=== PATIENT | male | born 1955 | race Caucasian/White ===

== ENCOUNTER → 2020-01-08 17:02 | Outpatient (CLI) | payer MEDICARE, MEDICAID, SELFPAY ==
[2020-01-08 17:32] LABS: Basophils # 0.1 K/mm3 (0-0.2); Basophils % 0.7 % (0.1-2.0); Eosinophils # 0.2 K/mm3 (0.0-0.4); Eosinophils % 2.7 % (0.1-12.0); Hematocrit 46.6 % (42.0-52.0); Hemoglobin 16.2 g/dL (14.1-18.0); Lymphocytes # 1.8 K/mm3 (0.7-4.5); Lymphocytes % 22.4 % (10-50); Mean Corpuscular HGB Conc 34.7 g/dL (31.8-35.4); Mean Corpuscular Hemoglobin 31.4 pg (27.0-31.2); Mean Corpuscular Volume 90.6 fl (80-94); Monocytes # 0.5 K/mm3 (0.1-1.0); Monocytes % 6.2 % (1.7-9.3); Neutrophils # 5.5 K/mm3 (1.8-7.8); Platelet Count 248 K/mm3 (142-424); Red Blood Count 5.14 M/mm3 (4.60-6.20); Red Cell Distribution Width 13.2 % (11.5-17.5)
[2020-01-08 17:35] LABS: Alanine Aminotransferase 53 U/L (12-78); Albumin Level 4.5 g/dl (3.5-5.0); Albumin/Globulin Ratio 1.5 (1.1-1.8); Alkaline Phosphatase 114 U/L (38-126); Anion Gap 16.2 mEq/L (5-15); Aspartate Amino Transferase 53 U/L (17-59); Bilirubin,Total 0.6 mg/dl (0.2-1.3); Blood Urea Nitrogen 20 mg/dl (9-20); Calcium 10.1 mg/dl (8.4-10.2); Carbon Dioxide 31 mmol/L (22.0-30.0); Chloride 99 mmol/L (98-107); Cholesterol 176 mg/dl (140-200); Estimated Glomerular Filt Rate 113 ml/min (>60); GFR (African American) 137 ML/MIN (>60); Globulin 3.1 g/dL (1.3-3.2); Glucose 202 mg/dl (74-100); HDL Cholesterol 35 mg/dl (40-60); Potassium 4.2 mmoL/L (3.5-5.1); Sodium 142 mmol/L (136-145); Total Protein,Serum 7.6 g/dl (6.3-8.2); Triglycerides 397 mg/dl (30-150); VLDL Cholesterol 79 mg/dL (0-40)
[2020-01-08 17:46] LABS: Direct LDL Cholesterol 93.95 mg/dL (100-129)
[2020-01-08 18:05] LABS: Prostate Specific Ag Screen 0.8 ng/ml (0.0-4.0)
[2020-01-08 19:34] LABS: Hemoglobin A1C 11.8 % (4.0-6.0)
[2020-01-08 22:41] LABS: Creatinine,Urine Random 53 mg/dL (Not Estab.)
[2020-01-08 22:52] LABS: Microalbumin < 6.000 mg/L (0-16.7)
== END ==
PROVIDERS: Visit Provider Family Medicine
DX: E11.9 Type 2 diabetes mellitus without complications (principal); Z12.5 Encounter for screening for malignant neoplasm of prostate; Z79.4 Long term (current) use of insulin
CPT/HCPCS: 80053; 80061; 82043; 82570; 83036; 85025; G0103

== ENCOUNTER 2020-04-15 11:53 | Inpatient (IN) | payer MEDICARE, MEDICAID, SELFPAY ==
[2020-04-15] VITALS (9 sets, daily range): BP systolic 115–157; BP diastolic 55–83; PULSE 71–89; RESP 16–37; TEMP 36.4–39.2; O2SAT 52–98; BMI 50.2; BMI 39.5
--- NOTE | 2020-04-15 12:16 | XR_ITS ---
PROCEDURE: XR CHEST PORTABLE CLINICAL HISTORY: soa COMPARISON: No exams were available for comparison FINDINGS: The lung chirinos are well expanded. Diffuse ill-defined patchy pneumonic infiltrates are seen in both perihilar regions and both lower lobes with minimal extension into the anterior segments upper lobes as well. There is mild generalized cardiomegaly. The pulmonary vascularity is somewhat difficult to evaluate due to the overlying pneumonic infiltrates but there is no obvious pulmonary congestion. There is no pleural fluid. There are monitor lines overlying the chest. IMPRESSION: Prominent diffuse bilateral perihilar and lower lobe pneumonic infiltrates and certainly Covid must be considered. Dictated by: Dr. Cameron Mckinley MD 04/16/2020 13:25 Dr. Cameron Mckinley MD in [place] 04/16/2020 13:25
--- NOTE | 2020-04-15 12:20 | HMH.EDSOB ---
ED Disposition Clinical Impression: Pneumonia due to COVID-19 virus, Hypoxia Disposition: Admitted As Inpatient Condition on Discharge: Good - Critical Care Critical Care Time: No Attestation: On 04/15/20, the high probability of a clinically significant, sudden or life threatening deterioration of the following system(s) required my full and direct attention, intervention and personal management. The time I documented below is in addition to time spent performing reported procedures but includes the following listed in this critical care notation. Medical Decision Making - Medical Records Medical records reviewed: Yes: I reviewed the patient's medical records. MR Comment: Patient's medical history reviewed for past medications and previous laboratory data for comparison. - [place] Inquiry Pt receiving controlled substance: No Vital Signs: 04/15/20 11:55 04/15/20 12:55 04/15/20 14:30 Temperature 102.6 F H Temperature Source Oral Pulse Rate [Left Radial] 82 89 79 Respiratory Rate 37 H 16 20 Blood Pressure [Right Arm] 157/73 H 128/64 122/68 Blood Pressure Mean [Right Arm] 101 85 86 Blood Pressure Source [Right Arm] Automatic Cuff Automatic Cuff Blood Pressure Position [Right Arm] Sitting Sitting 02 Sat by Pulse Oximetry 52 L 96 94 L Oxygen Delivery Method Room Air Nasal Cannula Nasal Cannula Oxygen Flow Rate (LPM) 2 6 04/15/20 15:10 04/15/20 16:30 Temperature Temperature Source Pulse Rate [Left Radial] 76 76 Respiratory Rate 20 20 Blood Pressure [Right Arm] 119/55 L 126/70 Blood Pressure Mean [Right Arm] 76 88 Blood Pressure Source [Right Arm] Automatic Cuff Automatic Cuff Blood Pressure Position [Right Arm] Sitting Sitting 02 Sat by Pulse Oximetry 86 L 98 Oxygen Delivery Method Nasal Cannula Nasal Cannula Oxygen Flow Rate (LPM) 2 6 - Lab Data Lab Results 04/15/20 12:10: WBC 9.8, RBC 4.77, Hgb 15.0, Hct 43.9, MCV 91.9, MCH 31.3 H, MCHC 34.1, RDW 13.4, Plt Count 293, MPV 9.9, Neut % (Auto) 76.4, Lymph % (Auto) 16.5, [place] % (Auto) 6.7, Eos % (Auto) 0.0 L, Baso % (Auto) 0.3, Neut # (Auto) 7.5, Lymph # (Auto) 1.6, [place] # (Auto) 0.7, Eos # (Auto) 0.0, Baso # (Auto) 0.0 04/15/20 12:10: Sodium 137, Potassium 4.4, Chloride 97 L, Carbon Dioxide 26, Anion Gap 18.4 H, BUN 16, Creatinine 1.00, Estimated Creat Clear 76, Estimated GFR 75, Est GFR ( Amer) 91, Glucose 246 H, Calcium 8.9, Total Bilirubin 1.1, AST 183 H, ALT 106 H, Alkaline Phosphatase 80, Total Protein 7.8, Albumin 4.2, Globulin 3.6 H, Albumin/Globulin Ratio 1.2 04/15/20 12:10: Lactate 3.6 H 04/15/20 12:10: NT-Pro-B Natriuret Pep 2280 H 04/15/20 12:10: SARS-CoV-2 IgG Ab (Rapid) Negative, SARS-CoV-2 IgM Ab (Rapid) Negative 04/15/20 12:16: Specimen Source Left radial, O2 % nrb, ABG pH 7.37, ABG pCO2 39.2, ABG pO2 67.0 L, ABG HCO3 22.0, ABG Total CO2 23.2, ABG O2 Saturation 93, ABG Base Excess -3.3 L, Branden Test Acceptable 04/15/20 12:57: Chlamy pneumoniae PCR Not detected, Adenovirus (PCR) Not detected, B. pertussis DNA (PCR) Not detected, Coronavirus OC43 (PCR) Not detected, Coronavirus HKU1 (PCR) Not detected, Coronavirus 229E (PCR) Not detected, SARS-CoV-2 (PCR) Detected A, Coronavirus NL63 (PCR) Not detected, Human Metapneumovir PCR Not detected, Influenza A (H1) PCR Not detected, Influ A (H1N1/09) PCR Not detected, Influenza A (H3) PCR Not detected, Influenza Type A (PCR) Not detected, Influenza Type B (PCR) Not detected, M. pneumoniae (PCR) Not detected, Parainfluenza 1 (PCR) Not detected, Parainfluenza 2 (PCR) Not detected, Parainfluenza 3 (PCR) Not detected, Parainfluenza 4 (PCR) Not detected, RSV (PCR) Not detected, Entero/Rhino (PCR) Not detected 04/15/20 16:35: Lactate 1.4 Result diagrams: 04/15/20 12:10 04/15/20 12:10 Orders (Tests/Meds): ED MEDICATIONS Generic Name Dose Route Start Last Admin Trade Name Freq PRN Reason Stop Dose Admin Aspirin 81 mg 04/16/20 09:00 Aspirin Ec 81mg Tablet PO 05/16/20 08:59 DAILY AURA
[2020-04-15 12:26] LABS: Basophils % 0.3 % (0.1-2.0); Hematocrit 43.9 % (42.0-52.0); Lymphocytes # 1.6 K/mm3 (0.7-4.5); Lymphocytes % 16.5 % (10-50); Mean Corpuscular HGB Conc 34.1 g/dL (31.8-35.4); Mean Corpuscular Hemoglobin 31.3 pg (27.0-31.2); Mean Corpuscular Volume 91.9 fl (80-94); Mean Platelet Volume 9.9 fl (7.4-10.4); Monocytes # 0.7 K/mm3 (0.1-1.0); Monocytes % 6.7 % (1.7-9.3); Neutrophils # 7.5 K/mm3 (1.8-7.8); Neutrophils % 76.4 % (37.0-80.0); Platelet Count 293 K/mm3 (142-424); Red Blood Count 4.77 M/mm3 (4.60-6.20); Red Cell Distribution Width 13.4 % (11.5-17.5); White Blood Count 9.8 K/mm3 (4.8-10.8)
[2020-04-15 12:30] LABS: Chloride 97 mmol/L (98-107); Potassium 4.4 mmoL/L (3.5-5.1); Sodium 137 mmol/L (136-145)
[2020-04-15 12:32] LABS: Blood Urea Nitrogen 16 mg/dl (9-20); Creatinine Clearance Estimated 76 mL/min (50-200); Estimated Glomerular Filt Rate 75 ml/min (>60); GFR (African American) 91 ML/MIN (>60)
[2020-04-15 12:33] LABS: Alanine Aminotransferase 106 U/L (12-78); Albumin Level 4.2 g/dl (3.5-5.0); Albumin/Globulin Ratio 1.2 (1.1-1.8); Alkaline Phosphatase 80 U/L (38-126); Anion Gap 18.4 mEq/L (5-15); Aspartate Amino Transferase 183 U/L (17-59); Bilirubin,Total 1.1 mg/dl (0.2-1.3); Calcium 8.9 mg/dl (8.4-10.2); Carbon Dioxide 26 mmol/L (22.0-30.0); Globulin 3.6 g/dL (1.3-3.2); Glucose 246 mg/dl (74-100); Total Protein,Serum 7.8 g/dl (6.3-8.2)
[2020-04-15 12:39] LABS: ABG Base Excess -3.3 mmol/L (-2.4-2.3); ABG Oxygen Saturation 93 % (90-100); ABG PCO2 39.2 mmhg (35.0-45.0); ABG PH 7.37 mmol/L (7.35-7.45); ABG TCO2 23.2 mmhg (23-27)
[2020-04-15 12:39] LABS: Lactic Acid 3.6 mmol/L (0.7-2.1)
[2020-04-15 12:41] LABS: Allen's Test Acceptable; Oxygen nrb %; Source Left Radial
[2020-04-15 12:47] LABS: NT Pro Brain Natriuretic Pep. 2280 pg/mL (0-125)
--- NOTE | 2020-04-15 12:55 | PC.NURSE ---
spoke with DR regarding fluid bolus we are gonna hold off for right now,
[2020-04-15 12:57] LABS: Coronavirus 19 IgG Antibody Negative (Negative); Coronavirus 19 IgM Antibody Negative (Negative)
[2020-04-15 13:57] LABS: Adenovirus,PCR Not Detected (NotDetected); Bordetella Pertussis Not Detected (NotDetected); Chlamydophila Pneumoniae, PCR Not Detected (NotDetected); Coronavirus 229E Not Detected (NotDetected); Coronavirus NL63 Not Detected (NotDetected); Coronavirus OC43 Not Detected (NotDetected); Coronovirus HKU1,PCR Not Detected (NotDetected); Human Metapneumovirus Not Detected (NotDetected); Influenza A, PCR Not Detected (NotDetected); Influenza AH1, 2009 Not Detected (NotDetected); Influenza AH1, PCR Not Detected (NotDetected); Influenza AH3,PCR Not Detected (NotDetected); Influenza B, PCR Not Detected (NotDetected); Mycoplasma Pneumoniae, PCR Not Detected (NotDetected); Parainfluenza 1, PCR Not Detected (NotDetected); Parainfluenza 2, PCR Not Detected (NotDetected); Parainfluenza 3, PCR Not Detected (NotDetected); Parainfluenza 4, PCR Not Detected (NotDetected); Respiratory Syncytial Virus Not Detected (NotDetected); Rhinovirus/Enterovirus Not Detected (NotDetected)
--- NOTE | 2020-04-15 16:16 | PC.NURSE ---
Pt updated about covid test still about 35 minutes before it is resulted
[2020-04-15 16:22] LABS: Reflex Lactic Add Lactic Reflex
[2020-04-15 16:52] LABS: Lactic Acid Follow Up (RFLX 1) 1.4 mmol/L (0.7-2.1)
[2020-04-15 17:10] LABS: Coronavirus 19, PCR Detected (NotDetected)
--- NOTE | 2020-04-15 17:20 | PC.NURSE ---
House aware of pt admission
--- NOTE | 2020-04-15 18:37 | PC.NURSE ---
spoke with dr. guan, d/c ivf.
--- NOTE | 2020-04-15 20:03 | HMH.HP ---
*Admission Date: 04/15/20 *Chief complaint: dyspnea and covid pneumonia *History of present illness: Male with a history of diabetes and congestive heart failure as well as CAD who presents with fever and shortness of breath and cough for the past 3 days. Shortness of breath became significantly worse last night and gave him a breathing treatment which did not help. He had a fall last night with no significant injuries. Patient has become progressively weaker related to shortness of breath. 64-year-old male who presents with severe respiratory distress initially hypoxic that recovers on 6 L nasal cannula. Patient appears mottled but has hemodynamically stable vital signs is cool to touch. Differential includes pneumonia, COVID-19 pneumonia, CHF exacerbation, pulmonary embolism, and others. Chest x-ray is ordered and further laboratory data includes CBC, CMP, BNP, ABG, lactate. Chest x-ray demonstrates significant patchy opacities and pulmonary edema consistent with CHF/COVID-19 dual process. His BNP is elevated greater than 2000 however he does not have significant pedal edema or evidence of right volume overload. Patient is febrile and a lactate of 3.5 however will not initiate sepsis protocol at this time due to suspicion for hypoxia related lactate increase and hemodynamically stable vital signs. Repeat lactate improved with oxygen therapy to normal levels. The decision was also made not to give him the sepsis protocol fluid boluses due to normal vital signs and progressive CHF and concern for ards. Patient was determined to be positive for COVID-19. He was admitted to the hospital service for further management at this time. Patient remained stable throughout the duration of ED care. Mr. Alamo was seen earlier this morning in the office, subsequently sent to the emergency room. He was acutely ill and had low saturations on room air. He has several comorbid conditions including coronary artery disease, CHF, controlled diabetes, chronic pain, obesity, hypertension. Chest x-ray report is pending. Visual examination reveals patchy infiltration throughout, more notable on the right. There is some cardiomegaly and possible volume overload. [facility] History Medical History: Reports:: Congestive Heart Failure, Coronary Artery Disease, Diabetes Mellitus Type 1, Diabetes Mellitus Type 2, Gastroesophageal Reflux Disease(GERD), Hypertension, Myocardial Infarction *Have you ever received a pneumonia vaccine?: No *Have you received a flu vaccine this season?: Yes Laterality Cases: Left: Total Hip Replacement Other Surgeries: Yes: Cardiac Catheterization, Colonoscopy, Coronary Stent, Other Amputation: No Fractures: No - *Social History Last grade of school completed: 11th or 12th Smoking Status: Former smoker Alcohol Intake: never Alcohol Intake Frequency:: holidays/special occasions only Substance Use Type: denies use *Occupational Status:: disabled Housing: house Household Members: family *Travel in the last 8 weeks: None Family Hx:: Cancer, Heart Attack, Diabetes, Hypertension Review of Systems - Constitutional Reports body ache(s), Reports chills, Reports night sweats, Reports weakness - Eyes Denies change in vision - ENT Denies abnormal hearing - *Cardiovascular Reports shortness of breath with activity, Reports generalized swelling, Denies chest pain - *Respiratory Reports chest congestion, Reports cough, Reports shortness of breath - *Gastrointestinal Denies abdominal pain - *Genitourinary Denies difficulty urinating - *Musculoskeletal Reports muscle weakness, Reports body aches - Integumentary/Breasts Denies changing lesions, Denies new lesions, Denies rash - *Neurologic Reports dizziness, Reports frequent falls, Denies abnormal hearing - Psychiatric Reports difficulty concentrating - Endocrine Reports excessive sweating - Hematologic/Lymphatic Denies easy bleeding - Allergic/Immunologic Denies whe
--- NOTE | 2020-04-15 21:20 | PC.NURSE ---
spoke with jacob from pharmacy. he informed me that dr Garza and Candelaria had already spoke about consult for remdesivir. they will take care of this in AM. also vitamin D2 unavailable to give tonight and will be retime in AM
[2020-04-15 22:40] LABS: POC Glucose,Bedside 279 (70-110)
[2020-04-16] VITALS (11 sets, daily range): BP systolic 108–135; BP diastolic 48–76; PULSE 68–90; RESP 18–28; TEMP 36.2–36.9; O2SAT 88–95; BMI 37.8; BMI 37.7
[2020-04-16 05:25] LABS: POC Glucose,Bedside 306 (70-110)
--- NOTE | 2020-04-16 05:56 | PC.NURSE ---
Pt A&OX4. crackles noted throughout lungs. pt weaned from 6L to 3L via NC 93-95% pt does desat with exertion but recovers quickly. pt voids per urinal and BSC. pt received 40mg lasix last night and has voided 1900 ml this shift. 18G LAC SL. call light within reach
[2020-04-16 07:32] LABS: Basophils # 0.1 K/mm3 (0-0.2); Basophils % 0.5 % (0.1-2.0); Eosinophils % 0.1 % (0.1-12.0); Hematocrit 45.4 % (42.0-52.0); Hemoglobin 14.8 g/dL (14.1-18.0); Lymphocytes # 1.5 K/mm3 (0.7-4.5); Lymphocytes % 15.9 % (10-50); Mean Corpuscular HGB Conc 32.7 g/dL (31.8-35.4); Mean Corpuscular Hemoglobin 30.9 pg (27.0-31.2); Mean Corpuscular Volume 94.3 fl (80-94); Monocytes # 0.6 K/mm3 (0.1-1.0); Monocytes % 6.7 % (1.7-9.3); Neutrophils # 7.3 K/mm3 (1.8-7.8); Neutrophils % 76.7 % (37.0-80.0); Platelet Count 276 K/mm3 (142-424); Red Blood Count 4.81 M/mm3 (4.60-6.20); Red Cell Distribution Width 13.2 % (11.5-17.5); White Blood Count 9.5 K/mm3 (4.8-10.8)
--- NOTE | 2020-04-16 07:34 | P.CONPHA_ITS ---
[facility] Pharmacy VTE Monitoring - Patient Demographics Admission date: 04/15/20 Report Date: 04/16/20 Time: 07:34 Allergies/Adverse Reactions: Patient Allergies lisinopril Allergy (Severe, Verified 04/15/20 11:21) blisters codeine Allergy (Verified 04/15/20 12:14) exenatide [From Bydureon] Adverse Reaction (Severe, Verified 04/15/20 11:21) abdominal wall rash acetaminophen Adverse Reaction (Verified 04/15/20 18:37) Height: 1.85 m Weight: 129.416 kg Patient Problems: Current Active Problems Pneumonia due to COVID-19 virus (Acute) Hypoxia (Acute) Obesity (Chronic) CAD (coronary artery disease) (Chronic) Stented coronary artery (Chronic) Chronic pain (Chronic) Hip joint replacement status (Chronic) Hypertension (Chronic) Diabetes (Chronic) - VTE Risk Labs: VTE Related Lab Results Hgb 15.0 g/dL (14.1-18.0) 04/15/20 12:10 Hct 43.9 % (42.0-52.0) 04/15/20 12:10 Plt Count 293 K/mm3 (142-424) 04/15/20 12:10 BUN 16 mg/dl (9-20) 04/15/20 12:10 Creatinine 1.00 mg/dl (0.66-1.25) 04/15/20 12:10 Estimated Creat Clear 76 mL/min (50-200) 04/15/20 12:10 VTE Score: 8 VTE Risk Level: Moderate Risk - Prophylaxis VTE Prophylaxis Ordered?: Yes Types of VTE Prophylaxis: IPCS Thigh High, Pharmacological Location of Applied Device: Bilateral Lower Extremeties Pharmacologic Type: Enoxaparin
--- NOTE | 2020-04-16 08:12 | CA_ITS ---
APPROVED REPORT EXAM: Comprehensive 2D, Doppler, and color-flow Echocardiogram [employer]er: Niyah Vizcarra RVT Ht: 6 ft 0 in Wt: 285lbs BSA: 2.48 BP: 110/70 mmHg Indications: COVID PNEUMONIA,SOA,HTN,DM,EX SMOKER,CHF,STENT, HX CO,OBESITY TDS-BODY HABITUS AND SOA 2D Dimensions LVOT 1.90 cm (M/F) 1.5-2.5 M-Mode Dimensions RVDd 3.44 cm (0.9-2.6) LA Diam 4.36 cm (1.9-4.0) LVDd 5.09 cm (3.5-5.7) Ao Diam 2.78 cm (2.0-3.7) LVDs 3.60 cm (3.5-5.7) IVSd 1.52 cm (0.6-1.1) PWd 1.32 cm (0.6-1.1) EF (Teich) 55.80% FS 29.30% EDV (Teich) 123.20 mL ESV (Teich) 54.40 mL LV Diastology E Decel Time 163.00 (160-240 msec) E/A Ratio 1.3 MED E' 9.20 (< 7 cm/sec) E'/MED E' Ratio 8.45 (>14) LAT E' 9.30 (<10 cm/sec) E/LAT E' Ratio 8.35 (>14) Mitral Valve MV E Max Claudio. 78.00 (40-130 cm/s) MV A Velocity 60.00 (40-130 cm/s) E/A Ratio 1.29 MV Decel. Time 163.00 (160-240 ms) MV PHT 48.00 ms Pulmonary Valve PV Peak Velocity 120.00 (50-150 cm/s) Left Ventricle Technically difficult study because of the patient factors and poor acoustic windows. Left atrium is mildly enlarged, left ventricle is normal size, mild concentric left ventricular hypertrophy, visually estimated ejection fraction 40 to 45%, there is marked hypokinesis involving mid to distal septum and anterior apical wall. Diastolic parameters are inconclusive. Right Ventricle Right atrium and right ventricle are mildly enlarged with normal contractility. Aortic Valve Aortic valve is minimally thickened and fibrosed, there is no aortic stenosis or aortic insufficiency. Mitral Valve Mitral valve is grossly normal, there is mild mitral regurgitation. Tricuspid Valve Tricuspid valve is grossly normal, there is mild tricuspid regurgitation, tricuspid regurgitation jet velocity is inadequate for calculation of the right ventricular systolic pressure. Pulmonic Valve Pulmonic valve is poorly visualized. Great Vessels Aortic root is normal size. Pericardium No significant pericardial effusion noted. Conclusion 1. Technically difficult study because of the patient factors and poor acoustic windows. 2. Mild biatrial enlargement, normal left ventricular size, mild concentric left ventricular hypertrophy, visually estimated ejection fraction 40 to 45% with multiple segmental wall motion abnormality described above. Diastolic parameters are inconclusive. 3. Mildly enlarged right ventricle with normal contractility. 4. Mild mitral and tricuspid regurgitation. 5. No significant pericardial effusion noted. Electronically signed by : Boyd Dougherty, 04/16/2020 12:59:41
[2020-04-16 08:25] LABS: Chloride 98 mmol/L (98-107); Sodium 140 mmol/L (136-145)
[2020-04-16 08:26] LABS: Potassium 4.5 mmoL/L (3.5-5.1)
[2020-04-16 08:29] LABS: Anion Gap 17.5 mEq/L (5-15); Blood Urea Nitrogen 28 mg/dl (9-20); Calcium 9.1 mg/dl (8.4-10.2); Carbon Dioxide 29 mmol/L (22.0-30.0); Creatinine Clearance Estimated 135 mL/min (50-200); Estimated Glomerular Filt Rate 85 ml/min (>60); GFR (African American) 102 ML/MIN (>60); Glucose 337 mg/dl (74-100); Magnesium 2.6 mg/dl (1.6-2.3)
[2020-04-16 11:52] LABS: POC Glucose,Bedside 292 (70-110)
--- NOTE | 2020-04-16 13:20 | HMH.ACPN2 ---
Internal Medicine - PN: Subj *Date: 04/16/20 *Time: 15:42 Interval history: 64 YOM sitting up in bed, reports some SOA during night, currently O2 saturation 94% 0n 4L NC. Exam Vital signs and Labs for Last 24 Hours: Temp Pulse Resp BP Pulse Ox 97.3 F L 79 20 118/76 88 L 04/16/20 12:00 04/16/20 12:00 04/16/20 12:00 04/16/20 12:00 04/16/20 12:00 Laboratory Results - last 24 hr 04/15/20 12:57: Chlamy pneumoniae PCR Not detected, Adenovirus (PCR) Not detected, B. pertussis DNA (PCR) Not detected, Coronavirus OC43 (PCR) Not detected, Coronavirus HKU1 (PCR) Not detected, Coronavirus 229E (PCR) Not detected, SARS-CoV-2 (PCR) Detected A, Coronavirus NL63 (PCR) Not detected, Human Metapneumovir PCR Not detected, Influenza A (H1) PCR Not detected, Influ A (H1N1/09) PCR Not detected, Influenza A (H3) PCR Not detected, Influenza Type A (PCR) Not detected, Influenza Type B (PCR) Not detected, M. pneumoniae (PCR) Not detected, Parainfluenza 1 (PCR) Not detected, Parainfluenza 2 (PCR) Not detected, Parainfluenza 3 (PCR) Not detected, Parainfluenza 4 (PCR) Not detected, RSV (PCR) Not detected, Entero/Rhino (PCR) Not detected 04/15/20 16:35: Lactate 1.4 04/15/20 19:50: POC Glucose 279 H 04/16/20 05:17: POC Glucose 306 H* 04/16/20 05:52: WBC 9.5, RBC 4.81, Hgb 14.8, Hct 45.4, MCV 94.3 H, MCH 30.9, MCHC 32.7, RDW 13.2, Plt Count 276, MPV 10.0, Neut % (Auto) 76.7, Lymph % (Auto) 15.9, [place] % (Auto) 6.7, Eos % (Auto) 0.1, Baso % (Auto) 0.5, Neut # (Auto) 7.3, Lymph # (Auto) 1.5, [place] # (Auto) 0.6, Eos # (Auto) 0.0, Baso # (Auto) 0.1 04/16/20 08:00: Sodium 140, Potassium 4.5, Chloride 98, Carbon Dioxide 29, Anion Gap 17.5 H, BUN 28 H D, Creatinine 0.90, Estimated Creat Clear 135, Estimated GFR 85, Est GFR ( Amer) 102, Glucose 337 H D, Calcium 9.1, Magnesium 2.6 H 04/16/20 11:44: POC Glucose 292 H I & O for Last 24 hours: Intake & Output 04/13/20 04/14/20 04/15/20 04/16/20 23:59 23:59 23:59 23:59 Intake Total 240 / 240 1460 / 1460 Output Total 700 / 700 1650 / 1650 Balance -460 / -460 -190 / -190 Weight 291 lb 7 oz 284 lb 6.341 oz - Constitutional mild distress - *Routine HEENT Exam Head: Present: normocephalic ENT: Present: mucous membranes moist - *Routine Neck Exam Present: full ROM, trachea midline. Absent: JVD, tracheal deviation - *Routine Respiratory Exam Present: rales - *Routine Cardiovascular Exam Present: RRR - *Routine Abdominal Exam Present: soft, normoactive bowel sounds. Absent: tenderness, firm - *Routine Extremities Exam Present: edema, full ROM, pulses intact. Absent: clubbing, calf tenderness - *Routine Skin Exam Present: intact, dry, warm. Absent: jaundice - *Routine Neurological Exam Present: alert, oriented X3, CN II-XII intact. Absent: altered mental status - Routine Psychiatric Exam Present: normal affect, normal thought process. Absent: homicidal ideation Assessment and Plan (1) Hypoxia Status: Acute Category: Medical Code(s): R09.02 - Hypoxemia (2) Pneumonia due to COVID-19 virus Status: Acute Category: Medical Code(s): U07.1 - COVID-19; J12.89 - Other viral pneumonia (3) CAD (coronary artery disease) Status: Chronic Qualifiers: Coronary Disease-Associated Artery/Lesion type: [place] artery [place] vs. transplanted heart: [place] heart Associated angina: without angina Qualified Code(s): I25.10 - Atherosclerotic heart disease of [place] coronary artery without angina pectoris Category: Medical Code(s): I25.10 - Atherosclerotic heart disease of [place] coronary artery without angina pectoris (4) Chronic pain Status: Chronic Qualifiers: Chronic pain type: other chronic pain Qualified Code(s): G89.29 - Other chronic pain Category: Medical Code(s): G89.29 - Other chronic pain (5) Diabetes Status: Chronic Qualifiers: Diabetes mellitus type: type 2 Diabetes mellitus long-term insulin use: with long-term
--- NOTE | 2020-04-16 14:49 | PC.NURSE ---
PT IS SITTING UP ON THE SOB AT THIS TIME. O2 SATURATION 87-92% ON 4 L NC ( AWARE) PT STATES HE DOES NOT FEEL SOA. PT HAS BEEN ABLE TO GET UP TO THE BSC TO VOID. EATING AND DRINKING WELL. LUNG SOUNDS DIMINISHED WITH FINE CRACKLES IN THE LT BASE. ABDOMEN ROUND/NON TENDER WITH ACTIVE BOWEL SOUNDS AND BRUISING NOTED. PT STATES THE BRUISING ON HIS ABDOMEN WAS FROM VITAMIN D INJECTIONS. 1 + NON PITTING EDEMA NOTED TO BLE. VSS. WILL CONTINUE TO MONITOR.
--- NOTE | 2020-04-16 15:23 | HMH.PULMCON ---
*Admission Date: 04/15/20 *Reason for consult:: Acute hypoxic respiratory failure, COVID-19 pneumonia *History of present illness: Mr. Alamo is a 64-year-old male with a history of obesity, prior smoker more than [id number] smoking history last smoked 15 years ago prior history of CAD status post stenting was presented to Dr. Garza clinic yesterday with worsening weakness body aches cough and shortness of breath and he was eventually admitted to the hospital and was found to be positive for COVID-19 pneumonia. And pulmonary was called for further management. Further questioning patient complains of 3 to 4-day duration of worsening weakness and fatigue along with cough with productive phlegm which is mostly whitish except for intermittent yellow in color. Patient also admits subjective fevers and chills. [facility] History Medical History: Reports:: Congestive Heart Failure, Coronary Artery Disease, Diabetes Mellitus Type 1, Diabetes Mellitus Type 2, Gastroesophageal Reflux Disease(GERD), Hypertension, Myocardial Infarction *Have you ever received a pneumonia vaccine?: No *Have you received a flu vaccine this season?: Yes Laterality Cases: Left: Total Hip Replacement Other Surgeries: Yes: Cardiac Catheterization, Colonoscopy, Coronary Stent, Other Amputation: No Fractures: No - *Social History Last grade of school completed: 11th or 12th Smoking Status: Former smoker Alcohol Intake: never Alcohol Intake Frequency:: holidays/special occasions only Substance Use Type: denies use *Occupational Status:: disabled Housing: house Household Members: family *Travel in the last 8 weeks: None Family Hx:: Cancer, Heart Attack, Diabetes, Hypertension ROS - Cons Reports chills, Denies anorexia, Denies body ache(s) - ENT Denies abnormal hearing - Card Reports shortness of breath, Reports shortness of breath with activity, Reports leg swelling - Resp Respiratory: Yes cough, Yes dyspnea, Yes dyspnea on exertion, No coughing up blood, No pain on inspiration, No pain with cough, Yes cough with sputum production, No pain with breathing - GI Gastrointestingal: Denies: change in bowel habits - [place] Musculoskeletal: Reports system reviewed and no additional complaints, except as docu Meds Home Medications Medication Instructions Recorded Confirmed Type aspirin 81 mg tablet,delayed 81 mg PO DAILY 01/08/20 04/15/20 History release atorvastatin 40 mg tablet 40 mg PO HS 01/08/20 04/16/20 History clopidogrel 75 mg tablet 75 mg PO DAILY 01/08/20 04/15/20 History dapagliflozin 10 mg tablet 10 mg PO DAILY 01/08/20 04/15/20 History losartan 100 mg tablet 100 mg PO DAILY 01/08/20 04/15/20 History metformin 1,000 mg tablet 1,000 mg PO BID 01/08/20 04/15/20 History metoprolol tartrate 100 mg tablet 100 mg PO BID 01/08/20 04/15/20 History pantoprazole 40 mg tablet,delayed 40 mg PO DAILY 01/08/20 04/15/20 History release oxycodone 5 mg tablet 5 mg PO BID PRN #60 tab 03/08/20 04/15/20 Rx Furosemide [Furosemide 40MG tAB*] 40 mg PO DAILY 04/15/20 04/15/20 History Insulin Glargine,Hum.rec.anlog 40 unit SQ QAM 04/15/20 04/15/20 History [Basaglar KwikPen U-100 Insulin] Dulaglutide [Trulicity] 0.75 mg SQ WEEKLY 04/16/20 04/16/20 History Fenofibrate Nanocrystallized 145 mg PO DAILY 04/16/20 04/16/20 History [Fenofibrate] Insulin Lispro [Admelog Solostar] 50 unit SQ TID 04/16/20 04/16/20 History Allergies Allergy/AdvReac Type Severity Reaction Status Date / Time lisinopril Allergy Severe blisters Verified 04/15/20 11:21 codeine Allergy Verified 04/15/20 12:14 exenatide [From Bydureon] AdvReac Severe abdominal Verified 04/15/20 11:21 wall rash acetaminophen AdvReac Verified 04/15/20 18:37 Exam Radiology reports for Last 24 Hours: Chest x-ray showed bilateral diffuse patchy airspace disease - Constitutional Constitutional:: no acute distress, comfortable, healthy appearing - HENUT Exam HENUT: normocephalic, atraumatic - Eye E
[2020-04-16 16:33] LABS: POC Glucose,Bedside 387 (70-110)
[2020-04-16 20:11] LABS: POC Glucose,Bedside 346 (70-110)
[2020-04-17] VITALS (16 sets, daily range): BP systolic 112–144; BP diastolic 47–75; PULSE 74–89; RESP 20–24; TEMP 36.7–37; O2SAT 88–98; BMI 37.9
--- NOTE | 2020-04-17 01:15 | PC.NURSE ---
Addendum entered by Serjio Campbell RN 04/17/20 02:35: R 30 02 sats 80-85 % on 6L Original Note: @ 0100 pt O2 sat dropping pt c/o of SOA. duoneb administere. paged RT for vapotherm to be started. Vapotherm setting 50% 40L. Dr cummings updated on pt status.
--- NOTE | 2020-04-17 02:36 | PC.NURSE ---
pt now sitting up in recliner O2 sat 93% on vapotherm Respirations 22. pt states SOA is better.
--- NOTE | 2020-04-17 03:49 | PC.NURSE ---
PT A&OX4 lungs diminished throughout. pt on vapotherm 50% 40L O2 sat 93 %. pt voids per BSC. pt sitting up in recliner @ this time. call light within reach
[2020-04-17 05:25] LABS: Basophils # 0.1 K/mm3 (0-0.2); Basophils % 0.5 % (0.1-2.0); Eosinophils # 0.2 K/mm3 (0.0-0.4); Eosinophils % 1.5 % (0.1-12.0); Hematocrit 41.5 % (42.0-52.0); Hemoglobin 14.4 g/dL (14.1-18.0); Mean Corpuscular HGB Conc 34.6 g/dL (31.8-35.4); Mean Corpuscular Hemoglobin 31.9 pg (27.0-31.2); Mean Corpuscular Volume 92.1 fl (80-94); Mean Platelet Volume 9.9 fl (7.4-10.4); Monocytes # 0.6 K/mm3 (0.1-1.0); Monocytes % 4.5 % (1.7-9.3); Neutrophils # 10.6 K/mm3 (1.8-7.8); Neutrophils % 85.5 % (37.0-80.0); Platelet Count 330 K/mm3 (142-424); Red Blood Count 4.51 M/mm3 (4.60-6.20); White Blood Count 12.5 K/mm3 (4.8-10.8)
[2020-04-17 05:27] LABS: MANUAL DIFFERENTIAL MANUAL DIFFERENTIAL (MANUAL DIFF)
[2020-04-17 05:33] LABS: POC Glucose,Bedside 298 (70-110)
[2020-04-17 05:37] LABS: Alanine Aminotransferase 59 U/L (12-78); Albumin Level 3.4 g/dl (3.5-5.0); Albumin/Globulin Ratio 1.2 (1.1-1.8); Alkaline Phosphatase 113 U/L (38-126); Anion Gap 15.1 mEq/L (5-15); Aspartate Amino Transferase 55 U/L (17-59); Bilirubin,Total 0.5 mg/dl (0.2-1.3); Blood Urea Nitrogen 23 mg/dl (9-20); Calcium 8.7 mg/dl (8.4-10.2); Carbon Dioxide 31 mmol/L (22.0-30.0); Chloride 98 mmol/L (98-107); Creatinine Clearance Estimated 134 mL/min (50-200); Estimated Glomerular Filt Rate 113 ml/min (>60); GFR (African American) 137 ML/MIN (>60); Globulin 2.8 g/dL (1.3-3.2); Glucose 294 mg/dl (74-100); Magnesium 2.4 mg/dl (1.6-2.3); Potassium 4.1 mmoL/L (3.5-5.1); Sodium 140 mmol/L (136-145); Total Protein,Serum 6.2 g/dl (6.3-8.2)
[2020-04-17 05:40] LABS: Lymphocytes % 4 % (10-50); Neutrophils % 88 % (42-76); Total Cells Counted 100
[2020-04-17 05:41] LABS: Platelet Estimate Normal; RBC Morphology Normal
--- NOTE | 2020-04-17 06:01 | XR_ITS ---
PROCEDURE: XR CHEST PORTABLE Referring Doctor: Rafiq Valente Patient Age:64Y CLINICAL HISTORY: SOA COVID 19 dyspnea COMPARISON: CR XR CHEST PORTABLE from 04/15/2020 FINDINGS: Today's portable AP upright portable CXR, is compared to 04/15/2020 P CXR. Diffuse ill-defined patchy pneumonic infiltrates are seen bilaterally. The infiltrates most pronounced incomplete Lue in periphery of the lung chirinos bilaterally, but also with perihilar and infiltrate bilaterally. Pattern would be compatible with covid 19 viral pneumonia. The overall pattern appears similar to previous 04/15/2020 CXR-. Overall infiltrates appear slightly less dense but this may in part be due to less hi contrast technique today, along with the better inspiration seen today. Overall no prominent change Left lung: Suggestion of slight improvement radiographically areas left lung-for example the medial left hemidiaphragm is better delineated. Infiltrate at the left suprahilar region and extending towards the periphery of the left upper lobe is less dense. However descending aorta shadow is slightly less well-defined due to infiltrate left infrahilar region. Right lung. The fairly diffuse confluent peripheral infiltrate is slightly less dense, particularly here at the right mid lung. Right lung base above the diaphragm is better expanded slightly clearer. Only question slight denser infiltrate right infrahilar region on today's study. Scant fluid outlines the minor fissure. The heart appears mildly enlarged pulmonary vascularity period. No overt CHF. CP angles remain fairly sharp with no notable pleural effusion here. Tia and superior mediastinal structures is satisfactory-only noting slight additional density right infrahilar region which may reflect some additional dense infiltrate projected over this region. Chest wall unremarkable IMPRESSION: Prominent diffuse bilateral pneumonia Infiltrates most pronounced peripherally but also with with central perihilar infiltrate. Overall findings are very similar to previous study 04/15/2020. No prominent change Overall infiltrates overall appears slightly less dense, but this is in part due to better inspiration and today's technique. . Only perhaps subtle additional density of infiltrate at right and left infrahilar region, with some other areas of perhaps incrementally improved Mild cardiomegaly Dictated by: Raphael Newton MD 04/17/2020 07:50 Raphael Newton MD in [facility] 04/17/2020 07:50
[2020-04-17 06:08] LABS: ABG Base Excess 3.4 mmol/L (-2.4-2.3); ABG HCO3 27.2 mmhg (22.0-26.0); ABG Oxygen Saturation 87 % (90-100); ABG PH 7.46 mmol/L (7.35-7.45); ABG PO2 50.4 mmhg (80-100); ABG TCO2 28.4 mmhg (23-27)
[2020-04-17 06:14] LABS: Allen's Test Non Applicable; Oxygen 50% %
[2020-04-17 06:15] LABS: Source Right Brachial
[2020-04-17 11:39] LABS: POC Glucose,Bedside 292 (70-110)
--- NOTE | 2020-04-17 13:30 | HMH.ACPN2 ---
Internal Medicine - PN: Subj *Date: 04/17/20 *Time: 13:30 Interval history: Patient had some desaturation during the night. His recent irene saturation is 88%. He was placed on a Vapotherm, FiO2 was uptitrated. At 40% at 40 L, has been up to 100%. Saturations have been decent while he is at rest. He rapidly desaturates with exertion. His echo yesterday showed an EF of 40 to 45%. This was however a low quality study due to patient's habitus. Chest x-ray yesterday showed infiltrates becoming less dense. My visual exam of the film shows scattered infiltration. He has mild cardiomegaly. His ABG last night showed a PO2 of 50, this was down from 67 on admission. Blood cultures are negative. Patient is in a better mood, speaking to and joking with the nurses. He looks like he feels better, he was quite ill on admission. Exam Vital signs and Labs for Last 24 Hours: Temp Pulse Resp BP Pulse Ox 98.2 F 78 20 144/75 H 94 L 04/17/20 12:00 04/17/20 12:00 04/17/20 12:00 04/17/20 12:00 04/17/20 12:00 Laboratory Results - last 24 hr 04/16/20 16:16: POC Glucose 387 H* 04/16/20 19:38: POC Glucose 346 H* 04/17/20 05:09: POC Glucose 298 H 04/17/20 05:10: WBC 12.5 H D, RBC 4.51 L, Hgb 14.4, Hct 41.5 L, MCV 92.1, MCH 31.9 H, MCHC 34.6, RDW 13.0, Plt Count 330, MPV 9.9, Neut % (Auto) 85.5 H, Lymph % (Auto) 8.0 L, [place] % (Auto) 4.5, Eos % (Auto) 1.5, Baso % (Auto) 0.5, Neut # (Auto) 10.6 H, Lymph # (Auto) 1.0, [place] # (Auto) 0.6, Eos # (Auto) 0.2, Baso # (Auto) 0.1, Total Counted 100, Neutrophils % (Manual) 88 H, Band Neutrophils % 8.0, Lymphocytes % (Manual) 4 L, Platelet Estimate Normal, RBC Morphology Normal 04/17/20 05:10: Sodium 140, Potassium 4.1, Chloride 98, Carbon Dioxide 31 H, Anion Gap 15.1 H, BUN 23 H, Creatinine 0.70 D, Estimated Creat Clear 134, Estimated GFR 113, Est GFR ( Amer) 137 D, Glucose 294 H, Calcium 8.7, Magnesium 2.4 H, Total Bilirubin 0.5, AST 55 D, ALT 59 D, Alkaline Phosphatase 113, Total Protein 6.2 L, Albumin 3.4 L, Globulin 2.8, Albumin/Globulin Ratio 1.2 04/17/20 06:01: Specimen Source Right brachial, O2 % 50%, ABG pH 7.46 H, ABG pCO2 39.0, ABG pO2 50.4 L, ABG HCO3 27.2 H, ABG Total CO2 28.4 H, ABG O2 Saturation 87 L*, ABG Base Excess 3.4 H, Branden Test Non applicable 04/17/20 11:12: POC Glucose 292 H I & O for Last 24 hours: Intake & Output 04/14/20 04/15/20 04/16/20 04/17/20 23:59 23:59 23:59 23:59 Intake Total 240 / 240 2810 / 2810 720 / 720 Output Total 700 / 700 6820 / 6820 600 / 600 Balance -460 / -460 -4010 / -4010 120 / 120 Weight 291 lb 7 oz 284 lb 6.341 oz 286 lb Microbiology Reports for the Last 24 Hours: Microbiology 04/15/20 12:10 Blood Blood Culture - Preliminary NO GROWTH AFTER 48 HOURS 04/15/20 12:10 Blood Blood Culture - Preliminary NO GROWTH AFTER 48 HOURS - Constitutional no acute distress, obese - *Routine HEENT Exam Head: Present: normocephalic Eye: Present: EOMI, PERRL ENT: Present: mucous membranes moist - *Routine Neck Exam Present: supple. Absent: lymphadenopathy - *Routine Respiratory Exam Present: rales, crackles, diminished air movement. Absent: accessory muscle use, respiratory distress, stridor, wheezes - *Routine Cardiovascular Exam Present: RRR - *Routine Abdominal Exam Present: soft, normoactive bowel sounds. Absent: tenderness - *Routine Extremities Exam Present: edema. Absent: cyanosis, clubbing, calf tenderness, tenderness - *Routine Skin Exam Present: warm. Absent: rash - *Routine Neurological Exam Present: alert, oriented X3 Assessment and Plan (1) Hypoxia Status: Acute Category: Medical Code(s): R09.02 - Hypoxemia (2) Pneumonia due to COVID-19 virus Status: Acute Category: Medical Code(s): U07.1 - COVID-19; J12.89 - Other viral pneumonia (3) CAD (coronary artery disease) Status: Chronic Qualifiers: Coronary Diseas
--- NOTE | 2020-04-17 18:03 | PC.NURSE ---
Patient is resting in bed. Remains alert x 4. Pupils are equal and reactive, coremaker pipe equal. Respiratory clifford patient remains on vapotherm 100% 40L, oxygen saturation has been up to 96%, not below 85%. Lung sounds are diminished in all bases. GI patient has had diarrhea throughout the day, appetite intact, has consumed greater than 75% of each meal, blood glucose levels have been elevated, 11 am was 292, 130 was 324, both required insulin coverage. Patient has passed urine in urinal today and has responded well to lasix ordered, total urine output today has been 5450ml during shift. Skin is intact. Patient refuses teds but uses lovenox for pe prophylaxis. Patient ambulates well in room to chair and bedside toilet. Does get short of air with ambulation and will desat to 85% with exertion, will rebound with rest. Patient has been in a pleasant mood with no complaints.
--- NOTE | 2020-04-17 18:24 | PC.NURSE ---
RT turned vapotherm down 35L 100% o2 sat 93-96%
[2020-04-18] VITALS (12 sets, daily range): BP systolic 134–153; BP diastolic 63–88; PULSE 64–86; RESP 16–26; TEMP 36.6–37.4; O2SAT 90–99; BMI 37.9
--- NOTE | 2020-04-18 03:31 | XR_ITS ---
PROCEDURE: XR CHEST PORTABLE CLINICAL HISTORY: soa Interval COMPARISON: FINDINGS: The lung chirinos are well expanded. When compared to the 2 recent chest films there has been some slight interval improvement aeration in the perihilar regions but significant ill-defined pneumonic infiltrates do remain in both lungs primarily in a peripheral distribution. There is generalized cardiomegaly without obvious pulmonary congestion. There is no definite pleural fluid. IMPRESSION: Prominent diffuse bilateral ill-defined pneumonic infiltrates certainly consistent with Covid-19, but showing some slight interval increased aeration in the perihilar regions bilaterally Dictated by: Dr. Cameron Mckinley MD 04/18/2020 08:07 Dr. Cameron Mckinley MD in [facility] 04/18/2020 08:07
--- NOTE | 2020-04-18 03:59 | PC.NURSE ---
0220 pt began to desat duoneb administered. O2 sats [place] 0230 vapotherm settings increased to 100% 40L [address] cummings [address] cummings repage dr cummings pt O2 sat maintaining in low 80s 0313 rapid red was called
--- NOTE | 2020-04-18 05:18 | PC.NURSE ---
Pt A&Ox4. lungs diminished in bases. pt currently sitting in recliner resting with eyes closesd. Bipap in place O2 sat 94% pt ambulated to BSC independently.call light with in reach
[2020-04-18 06:16] LABS: Basophils % 0.4 % (0.1-2.0); Eosinophils % 0.3 % (0.1-12.0); Hematocrit 43.1 % (42.0-52.0); Lymphocytes # 0.9 K/mm3 (0.7-4.5); Lymphocytes % 12.7 % (10-50); Mean Corpuscular HGB Conc 32.5 g/dL (31.8-35.4); Mean Corpuscular Hemoglobin 30.7 pg (27.0-31.2); Mean Corpuscular Volume 94.6 fl (80-94); Mean Platelet Volume 9.1 fl (7.4-10.4); Monocytes # 0.4 K/mm3 (0.1-1.0); Monocytes % 6.1 % (1.7-9.3); Neutrophils # 5.6 K/mm3 (1.8-7.8); Neutrophils % 80.5 % (37.0-80.0); Platelet Count 381 K/mm3 (142-424); Red Blood Count 4.55 M/mm3 (4.60-6.20); Red Cell Distribution Width 13.1 % (11.5-17.5)
[2020-04-18 06:28] LABS: Alanine Aminotransferase 47 U/L (12-78); Albumin Level 3.6 g/dl (3.5-5.0); Albumin/Globulin Ratio 1.1 (1.1-1.8); Alkaline Phosphatase 94 U/L (38-126); Anion Gap 9.9 mEq/L (5-15); Aspartate Amino Transferase 39 U/L (17-59); Bilirubin,Total 0.5 mg/dl (0.2-1.3); Blood Urea Nitrogen 16 mg/dl (9-20); Calcium 8.8 mg/dl (8.4-10.2); Carbon Dioxide 38 mmol/L (22.0-30.0); Chloride 98 mmol/L (98-107); Creatinine Clearance Estimated 135 mL/min (50-200); Estimated Glomerular Filt Rate 113 ml/min (>60); GFR (African American) 137 ML/MIN (>60); Globulin 3.2 g/dL (1.3-3.2); Glucose 227 mg/dl (74-100); Potassium 3.9 mmoL/L (3.5-5.1); Sodium 142 mmol/L (136-145); Total Protein,Serum 6.8 g/dl (6.3-8.2)
[2020-04-18 06:56] LABS: ABG Base Excess 7.2 mmol/L (-2.4-2.3); ABG HCO3 31.1 mmhg (22.0-26.0); ABG Oxygen Saturation 97 % (90-100); ABG PCO2 45.2 mmhg (35.0-45.0); ABG PH 7.46 mmol/L (7.35-7.45); ABG PO2 97.2 mmhg (80-100); ABG TCO2 32.5 mmhg (23-27)
[2020-04-18 06:58] LABS: Oxygen 100 %
[2020-04-18 06:59] LABS: Allen's Test ACCEPTABLE; PEEP 9; Pressure Support 9; Source RIGHT RADIAL ARTERY; Vent Rate 16
--- NOTE | 2020-04-18 14:11 | PC.NURSE ---
Addendum entered by Ruth Dennis RN 04/18/20 16:20: Pt room cleaned by this nurse, including floors mopped and trash taken out this shift. Original Note: Pt states he did not sleep at all last night, has rested at intervals this shift between patient care. Somewhat agitated at the fact that nursing staff has to come into room frequently for starting and stopping of antibiotics, reasoned w/ pt and let him know importance of him having IV abx. Pt remains on 40 L O2 via vapotherm @ 100%, tolerating well. Sats remains > 90%. Cont pulse ox in place for monitoring. Pt did state this morning to RT that he is suppose to wear a CPAP @ [facility], but doesnt at home because he doesn't like it. IS is at bedside and has been encouraged throughout shift. IS @ best 1250. Continues to have occasional productive cough. Lungs sound are extremely diminished will small air movement, crackles noted to L lower lobe. Abdomen is large, round w/ active BS in all quads. PT did have a large BM this shift. Voiding per urinal w/o difficulty, urine noted to be very dark this AM, but has since lightened up. Has had over 1 L of urine out this shift thus far. Skin is intact. Has ate atleast 75% of trays this shift, denies nausea. No needs voiced. Call viktor w/in reach. Will continue to monitor.
--- NOTE | 2020-04-18 15:31 | HMH.ACPN2 ---
Internal Medicine - PN: Subj *Date: 04/18/20 *Time: 15:31 Interval history: Patient desaturated during the night. Was changed from BiPAP to Vapotherm, is currently at 40 L 100% FiO2. He is maintaining sats greater than 90%. He had a large bowel movement this morning, decent appetite. His chest x-ray shows minimal changes in his infiltrates, I think he looks a little less volume overloaded, he is clinically improving. Does desaturate with minimum exertion. He has underlying cardiovascular disease, his echo is reviewed. He is currently on remdesivir. He is afebrile. He is lucid, clear, back to his baseline mentation. Exam Vital signs and Labs for Last 24 Hours: Temp Pulse Resp BP Pulse Ox 98.4 F 74 22 142/88 H 99 04/18/20 12:00 04/18/20 14:33 04/18/20 12:00 04/18/20 12:00 04/18/20 14:33 Laboratory Results - last 24 hr 04/18/20 05:48: WBC 7.0 D, RBC 4.55 L, Hgb 14.0 L, Hct 43.1, MCV 94.6 H, MCH 30.7, MCHC 32.5, RDW 13.1, Plt Count 381, MPV 9.1, Neut % (Auto) 80.5 H, Lymph % (Auto) 12.7, [place] % (Auto) 6.1, Eos % (Auto) 0.3, Baso % (Auto) 0.4, Neut # (Auto) 5.6, Lymph # (Auto) 0.9, [place] # (Auto) 0.4, Eos # (Auto) 0.0, Baso # (Auto) 0.0 04/18/20 05:48: Sodium 142, Potassium 3.9, Chloride 98, Carbon Dioxide 38 H D, Anion Gap 9.9, BUN 16 D, Creatinine 0.70, Estimated Creat Clear 135, Estimated GFR 113, Est GFR ( Amer) 137, Glucose 227 H, Calcium 8.8, Total Bilirubin 0.5, AST 39 D, ALT 47, Alkaline Phosphatase 94, Total Protein 6.8, Albumin 3.6, Globulin 3.2, Albumin/Globulin Ratio 1.1 04/18/20 06:45: Specimen Source Right radial artery, O2 % 100, ABG pH 7.46 H, ABG pCO2 45.2 H, ABG pO2 97.2, ABG HCO3 31.1 H, ABG Total CO2 32.5 H, ABG O2 Saturation 97, ABG Base Excess 7.2 H, Branden Test Acceptable, Vent Rate 16, PEEP 9 I & O for Last 24 hours: Intake & Output 04/15/20 04/16/20 04/17/20 04/18/20 23:59 23:59 23:59 23:59 Intake Total 240 / 240 2810 / 2810 1451 / 1451 1320 / 1320 Output Total 700 / 700 6820 / 6820 6275 / 6275 2150 / 2150 Balance -460 / -460 -4010 / -4010 -4824 / -4824 -830 / -830 Weight 291 lb 7 oz 284 lb 6.341 oz 286 lb 285 lb 15.985 oz Microbiology Reports for the Last 24 Hours: Microbiology 04/18/20 08:36 Sputum - Expectorated Sputum Gram Stain - Final 04/18/20 08:36 Sputum - Expectorated Sputum Sputum Culture - Final 04/15/20 12:10 Blood Blood Culture - Preliminary NO GROWTH AFTER 48 HOURS 04/15/20 12:10 Blood Blood Culture - Preliminary NO GROWTH AFTER 48 HOURS - Constitutional no acute distress, obese, agitated - *Routine HEENT Exam Head: Present: normocephalic Eye: Present: EOMI, PERRL ENT: Present: mucous membranes moist - *Routine Neck Exam Present: supple. Absent: lymphadenopathy - *Routine Respiratory Exam Present: crackles, diminished air movement. Absent: accessory muscle use - *Routine Cardiovascular Exam Present: RRR - *Routine Abdominal Exam Present: soft, normoactive bowel sounds. Absent: tenderness - *Routine Extremities Exam Absent: cyanosis, clubbing, edema - *Routine Skin Exam Present: warm. Absent: rash - *Routine Neurological Exam Present: alert, oriented X3 Assessment and Plan (1) Hypoxia Status: Acute Category: Medical Code(s): R09.02 - Hypoxemia (2) Pneumonia due to COVID-19 virus Status: Acute Category: Medical Code(s): U07.1 - COVID-19; J12.89 - Other viral pneumonia (3) CAD (coronary artery disease) Status: Chronic Qualifiers: Coronary Disease-Associated Artery/Lesion type: [place] artery [place] vs. transplanted heart: [place] heart Associated angina: without angina Qualified Code(s): I25.10 - Atherosclerotic heart disease of [place] coronary artery without angina pectoris Category: Medical Code(s): I25.10 - Atherosclerotic heart disease of [place] coronary artery without angina pectoris (4) Chronic pain Status: Chroni
[2020-04-18 15:51] LABS: POC Glucose,Bedside 324 (70-110)
[2020-04-18 15:51] LABS: POC Glucose,Bedside 297 (70-110)
[2020-04-18 15:51] LABS: POC Glucose,Bedside 211 (70-110)
[2020-04-18 15:51] LABS: POC Glucose,Bedside 275 (70-110)
[2020-04-18 15:51] LABS: POC Glucose,Bedside 253 (70-110)
[2020-04-18 20:12] LABS: POC Glucose,Bedside 199 (70-110)
[2020-04-19] VITALS (8 sets, daily range): BP systolic 120–166; BP diastolic 67–92; PULSE 68–87; RESP 16–19; TEMP 36.4–37; O2SAT 86–99; BMI 38.0
[2020-04-19 05:43] LABS: Basophils % 0.4 % (0.1-2.0); Eosinophils % 0.5 % (0.1-12.0); Hematocrit 41.2 % (42.0-52.0); Hemoglobin 13.8 g/dL (14.1-18.0); Lymphocytes % 21.1 % (10-50); Mean Corpuscular HGB Conc 33.5 g/dL (31.8-35.4); Mean Corpuscular Hemoglobin 30.6 pg (27.0-31.2); Mean Corpuscular Volume 91.3 fl (80-94); Mean Platelet Volume 9.1 fl (7.4-10.4); Monocytes # 0.3 K/mm3 (0.1-1.0); Monocytes % 6.7 % (1.7-9.3); Neutrophils # 3.5 K/mm3 (1.8-7.8); Neutrophils % 71.3 % (37.0-80.0); Platelet Count 367 K/mm3 (142-424); Red Blood Count 4.51 M/mm3 (4.60-6.20); Red Cell Distribution Width 13.3 % (11.5-17.5); White Blood Count 4.9 K/mm3 (4.8-10.8)
[2020-04-19 05:51] LABS: Chloride 99 mmol/L (98-107); Potassium 3.8 mmoL/L (3.5-5.1); Sodium 139 mmol/L (136-145)
[2020-04-19 05:53] LABS: Blood Urea Nitrogen 16 mg/dl (9-20); Creatinine Clearance Estimated 135 mL/min (50-200); Estimated Glomerular Filt Rate 113 ml/min (>60); GFR (African American) 137 ML/MIN (>60)
[2020-04-19 05:54] LABS: Alanine Aminotransferase 34 U/L (12-78); Albumin Level 3.3 g/dl (3.5-5.0); Albumin/Globulin Ratio 1.1 (1.1-1.8); Alkaline Phosphatase 69 U/L (38-126); Anion Gap 5.8 mEq/L (5-15); Aspartate Amino Transferase 33 U/L (17-59); Bilirubin,Total 0.5 mg/dl (0.2-1.3); Calcium 8.7 mg/dl (8.4-10.2); Carbon Dioxide 38 mmol/L (22.0-30.0); Globulin 3.1 g/dL (1.3-3.2); Glucose 203 mg/dl (74-100); Total Protein,Serum 6.4 g/dl (6.3-8.2)
--- NOTE | 2020-04-19 06:00 | XR_ITS ---
PROCEDURE: XR CHEST PORTABLE CLINICAL HISTORY: covid Pneumonia follow-up COMPARISON: No exams were available for comparison FINDINGS: Mild cardiomegaly without failure. There is diffuse peripheral alveolar opacification consistent with bilateral pneumonia probably overall not significantly changed. No obvious effusion. No acute bony abnormalities. IMPRESSION: Diffuse bilateral pneumonia unchanged Dictated by: Branden Rojo MD 04/19/2020 08:53 Branden Rojo MD in [facility] 04/19/2020 08:53
--- NOTE | 2020-04-19 06:23 | PC.NURSE ---
shift summary: patient has rested well throughout shift. o2 sats have maintained greater than 94% on 40 L 100% fio2. breath sounds remain diminished. intermittent strong, non productive cough present. pulses regular to palpation. bowel sounds active x 4. appetite good. oriented x 4. voiding clear, yellow urine. ambulated around room within distance of o2 cord.
--- NOTE | 2020-04-19 09:18 | HMH.ACPN2 ---
Internal Medicine - PN: Subj *Date: 04/19/20 *Time: 08:30 Interval history: pt states he has been sitting up in chair just laid back down. states he feels tired and would like the vapertherm replaced with o2 due to it making him feel he is smothering. Exam Vital signs and Labs for Last 24 Hours: Temp Pulse Resp BP Pulse Ox 98.6 F 85 19 138/68 87 L 04/19/20 07:50 04/19/20 07:50 04/19/20 07:50 04/19/20 07:50 04/19/20 07:50 Laboratory Results - last 24 hr 04/17/20 15:41: POC Glucose 324 H* 04/17/20 19:57: POC Glucose 297 H 04/18/20 05:46: POC Glucose 211 H 04/18/20 11:25: POC Glucose 253 H 04/18/20 15:40: POC Glucose 275 H 04/18/20 20:05: POC Glucose 199 H 04/19/20 05:10: WBC 4.9 D, RBC 4.51 L, Hgb 13.8 L, Hct 41.2 L, MCV 91.3, MCH 30.6, MCHC 33.5, RDW 13.3, Plt Count 367, MPV 9.1, Neut % (Auto) 71.3, Lymph % (Auto) 21.1, [place] % (Auto) 6.7, Eos % (Auto) 0.5, Baso % (Auto) 0.4, Neut # (Auto) 3.5, Lymph # (Auto) 1.0, [place] # (Auto) 0.3, Eos # (Auto) 0.0, Baso # (Auto) 0.0 04/19/20 05:10: Sodium 139, Potassium 3.8, Chloride 99, Carbon Dioxide 38 H, Anion Gap 5.8, BUN 16, Creatinine 0.70, Estimated Creat Clear 135, Estimated GFR 113, Est GFR ( Amer) 137, Glucose 203 H, Calcium 8.7, Total Bilirubin 0.5, AST 33, ALT 34 D, Alkaline Phosphatase 69, Total Protein 6.4, Albumin 3.3 L, Globulin 3.1, Albumin/Globulin Ratio 1.1 I & O for Last 24 hours: Intake & Output 04/16/20 04/17/20 04/18/20 11/16/20 11:59 11:59 11:59 11:59 Intake Total 1700 / 1700 1710 / 1710 1571 / 1571 1680 / 1680 Output Total 3400 / 3400 4720 / 4720 6925 / 6925 2300 / 2300 Balance -1700 / -1700 -3010 / -3010 -5354 / -5354 -620 / -620 Weight 284 lb 6.341 oz 286 lb 285 lb 15.985 oz 287 lb Microbiology Reports for the Last 24 Hours: Microbiology 04/18/20 08:36 Sputum - Expectorated Sputum Gram Stain - Final 04/18/20 08:36 Sputum - Expectorated Sputum Sputum Culture - Final - Constitutional no acute distress, obese - *Routine HEENT Exam Head: Present: normocephalic Eye: Present: PERRL ENT: Present: mucous membranes moist - *Routine Neck Exam Present: supple. Absent: lymphadenopathy - *Routine Respiratory Exam Present: decreased breath sounds, rhonchi - *Routine Cardiovascular Exam Present: RRR - *Routine Abdominal Exam Present: soft, normoactive bowel sounds. Absent: tenderness - *Routine Extremities Exam Present: normal capillary refill. Absent: cyanosis, clubbing, edema - *Routine Skin Exam Present: warm. Absent: rash - *Routine Neurological Exam Present: alert, oriented X3 - Routine Psychiatric Exam Present: normal affect Assessment and Plan (1) Hypoxia Status: Acute Category: Medical Code(s): R09.02 - Hypoxemia (2) Pneumonia due to COVID-19 virus Status: Acute Category: Medical Code(s): U07.1 - COVID-19; J12.89 - Other viral pneumonia (3) CAD (coronary artery disease) Status: Chronic Qualifiers: Coronary Disease-Associated Artery/Lesion type: [place] artery [place] vs. transplanted heart: [place] heart Associated angina: without angina Qualified Code(s): I25.10 - Atherosclerotic heart disease of [place] coronary artery without angina pectoris Category: Medical Code(s): I25.10 - Atherosclerotic heart disease of [place] coronary artery without angina pectoris (4) Chronic pain Status: Chronic Qualifiers: Chronic pain type: other chronic pain Qualified Code(s): G89.29 - Other chronic pain Category: Medical Code(s): G89.29 - Other chronic pain (5) Diabetes Status: Chronic Qualifiers: Diabetes mellitus type: type 2 Diabetes mellitus nursing home insulin use: with exterminator helper termite use Diabetes mellitus complication status: with other specified complication Qualified Code(s): E11.69 - Type 2 diabetes mellitus with other specified complication Category: Medical Code(s): E11.9 - Type 2 diabetes mellitus without complications (6) Hip j
--- NOTE | 2020-04-19 09:34 | PC.NURSE ---
Dr. Taylor rounding. He decreased Vapotherm to 30L/60%. O2 sat 89% on new settings. Dr. Taylor explained that he has chronic hypoxia and that he normally lives around 85%.
--- NOTE | 2020-04-19 10:03 | CT_ITS ---
PROCEDURE: CT ANGIO CHEST CLINCIAL INDICATION: PE COVID 19 pneumonia, worsening pneumonia, shortness of breath, evaluate for COVID 19 complications COMPARISON: No exams were available for comparison TECHNIQUE: IV Contrast: 140ml Isovue 370 Axial images obtained with sagittal and coronal reformats. All CT scans at the facility use one or more dose reduction, viz: automated exposure control, ma/kV adjustment per patient size (including targeted exams where dose is matched to indication, i.e. head), or iterative reconstruction technique. FINDINGS: HEART AND MEDIASTINAL STRUCTURES: No evidence of pulmonary embolus, aortic aneurysm, or aortic dissection. There is prominent coronary artery calcification. There are few scattered small mediastinal lymph nodes and small hilar lymph nodes. These are nonspecific and may be reactive. LUNGS AND PLEURAL SPACES: There is diffuse bilateral alveolar opacification consistent with diffuse bilateral pneumonia. The overall characteristics are nonspecific. There is some ground-glass attenuation in the lower lobes which may be seen with COVID 19 pneumonia. No effusions. No cavitation. No central bronchial obstructing lesions. BONY STRUCTURES: No acute bony abnormalities apparent. 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 IMPRESSION: 1. No evidence of pulmonary embolus. 2. Diffuse bilateral pneumonia 3. 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
--- NOTE | 2020-04-19 10:04 | HMH.PULMPN ---
Internal Medicine - PN: Subj *Date: 04/19/20 *Time: 10:04 Interval history: No acute respiratory events over the weekend, patient oxygen requirements worsen, escalated to high flow nasal cannula Exam - Constitutional Constitutional:: no acute distress, comfortable - HENMT Exam HENMT: normocephalic, atraumatic - Neck Exam Neck:: thyroid normal, no lymphadenopathy - Respiratory Exam Respiratory:: able to speak in complete sentences, bibailar crackels heard, respiratory distress - Cardiovascular Exam Cardiac:: S1, S2 - GI Exam GI:: soft, no hepatosplenomegaly, obese - Skin Exam Skin: warm, no rash - Neurological Exam Neurological: alert, awake - Extremities Exam Extremities: no cyanosis, no clubbing, edema - Psychiatric Exam Psychiatric: normal affect Assessment and Plan (1) Hypoxia Status: Acute Category: Medical Code(s): R09.02 - Hypoxemia (2) Pneumonia due to COVID-19 virus Status: Acute Category: Medical Code(s): U07.1 - COVID-19; J12.89 - Other viral pneumonia (3) CAD (coronary artery disease) Status: Chronic Qualifiers: Coronary Disease-Associated Artery/Lesion type: [place] artery [place] vs. transplanted heart: [place] heart Associated angina: without angina Qualified Code(s): I25.10 - Atherosclerotic heart disease of [place] coronary artery without angina pectoris Category: Medical Code(s): I25.10 - Atherosclerotic heart disease of [place] coronary artery without angina pectoris (4) Chronic pain Status: Chronic Qualifiers: Chronic pain type: other chronic pain Qualified Code(s): G89.29 - Other chronic pain Category: Medical Code(s): G89.29 - Other chronic pain (5) Diabetes Status: Chronic Qualifiers: Diabetes mellitus type: type 2 Diabetes mellitus residential insulin use: with roasterman use Diabetes mellitus complication status: with other specified complication Qualified Code(s): E11.69 - Type 2 diabetes mellitus with other specified complication Category: Medical Code(s): E11.9 - Type 2 diabetes mellitus without complications (6) Hip joint replacement status Status: Chronic Qualifiers: Laterality: unspecified laterality Qualified Code(s): Z96.649 - Presence of unspecified artificial hip joint Category: Surgical Code(s): Z96.649 - Presence of unspecified artificial hip joint (7) Hypertension Status: Chronic Qualifiers: Hypertension type: essential hypertension Qualified Code(s): I10 - Essential (primary) hypertension Category: Medical Code(s): I10 - Essential (primary) hypertension (8) Obesity Status: Chronic Qualifiers: Obesity type: due to excess calories Obesity classification: adult class 3 (BMI >= 40) Serious obesity comorbidity presence: with serious comorbidity Body mass index: BMI 40.0-44.9 Qualified Code(s): E66.01 - Morbid (severe) obesity due to excess calories; Z68.41 - Body mass index [BMI]40.0-44.9, adult Category: Medical Code(s): E66.9 - Obesity, unspecified (9) Stented coronary artery Status: Chronic Category: Surgical Code(s): Z95.5 - Presence of coronary angioplasty implant and graft - Assessment and plan all Dx Assessment and Plan for all problems:: #COVID-19 pneumonia: #Acute hypoxic respiratory failure: 64-year-old prior smoker more than [id number] smoking history last smoked 15 years ago prior history of CAD, DM presented to the hospital with worsening respiratory failure and found to have bilateral patchy infiltrates on the chest x-ray and also positive for COVID-19 pneumonia.Respiratory viral PCR negative except for COVID-19. Echocardiogram showed systolic dysfunction with EF of 40 to 45% with wall motion abnormalities. Interval update: Since admission patient has been treated for community-acquired pneumonia with ceftriaxone azithromycin along with remdesivir and dexamethasone for COVID-19 pneumonia. Chest x-ray this morning relatively
[2020-04-19 11:31] LABS: POC Glucose,Bedside 290 (70-110)
--- NOTE | 2020-04-19 12:59 | HMH.ACPN ---
Internal Medicine - PN: Subj *Date: 04/19/20 *Time: 12:59 Exam Vital signs and Labs for Last 24 Hours: Temp Pulse Resp BP Pulse Ox 98.2 F 72 16 166/92 H 90 L 04/19/20 12:00 04/19/20 12:00 04/19/20 12:00 04/19/20 12:00 04/19/20 12:00 Laboratory Results - last 24 hr 04/17/20 15:41: POC Glucose 324 H* 04/17/20 19:57: POC Glucose 297 H 04/18/20 05:46: POC Glucose 211 H 04/18/20 11:25: POC Glucose 253 H 04/18/20 15:40: POC Glucose 275 H 04/18/20 20:05: POC Glucose 199 H 04/19/20 05:10: WBC 4.9 D, RBC 4.51 L, Hgb 13.8 L, Hct 41.2 L, MCV 91.3, MCH 30.6, MCHC 33.5, RDW 13.3, Plt Count 367, MPV 9.1, Neut % (Auto) 71.3, Lymph % (Auto) 21.1, [place] % (Auto) 6.7, Eos % (Auto) 0.5, Baso % (Auto) 0.4, Neut # (Auto) 3.5, Lymph # (Auto) 1.0, [place] # (Auto) 0.3, Eos # (Auto) 0.0, Baso # (Auto) 0.0 04/19/20 05:10: Sodium 139, Potassium 3.8, Chloride 99, Carbon Dioxide 38 H, Anion Gap 5.8, BUN 16, Creatinine 0.70, Estimated Creat Clear 135, Estimated GFR 113, Est GFR ( Amer) 137, Glucose 203 H, Calcium 8.7, Total Bilirubin 0.5, AST 33, ALT 34 D, Alkaline Phosphatase 69, Total Protein 6.4, Albumin 3.3 L, Globulin 3.1, Albumin/Globulin Ratio 1.1 04/19/20 11:21: POC Glucose 290 H I & O for Last 24 hours: Intake & Output 04/16/20 04/17/20 04/18/20 04/19/20 23:59 23:59 23:59 23:59 Intake Total 2810 / 2810 1451 / 1451 1920 / 1920 320 / 320 Output Total 6820 / 6820 6275 / 6275 3250 / 3250 1900 / 1900 Balance -4010 / -4010 -4824 / -4824 -1330 / -1330 -1580 / -1580 Weight 129 kg 129.727 kg 129.727 kg 130.181 kg Microbiology Reports for the Last 24 Hours: Microbiology 04/18/20 08:36 Sputum - Expectorated Sputum Gram Stain - Final 04/18/20 08:36 Sputum - Expectorated Sputum Sputum Culture - Final Assessment and Plan (1) Hypoxia Status: Acute Category: Medical Code(s): R09.02 - Hypoxemia (2) Pneumonia due to COVID-19 virus Status: Acute Category: Medical Code(s): U07.1 - COVID-19; J12.89 - Other viral pneumonia (3) CAD (coronary artery disease) Status: Chronic Qualifiers: Coronary Disease-Associated Artery/Lesion type: [place] artery [place] vs. transplanted heart: [place] heart Associated angina: without angina Qualified Code(s): I25.10 - Atherosclerotic heart disease of [place] coronary artery without angina pectoris Category: Medical Code(s): I25.10 - Atherosclerotic heart disease of [place] coronary artery without angina pectoris (4) Chronic pain Status: Chronic Qualifiers: Chronic pain type: other chronic pain Qualified Code(s): G89.29 - Other chronic pain Category: Medical Code(s): G89.29 - Other chronic pain (5) Diabetes Status: Chronic Qualifiers: Diabetes mellitus type: type 2 Diabetes mellitus group home insulin use: with group home use Diabetes mellitus complication status: with other specified complication Qualified Code(s): E11.69 - Type 2 diabetes mellitus with other specified complication Category: Medical Code(s): E11.9 - Type 2 diabetes mellitus without complications (6) Hip joint replacement status Status: Chronic Qualifiers: Laterality: unspecified laterality Qualified Code(s): Z96.649 - Presence of unspecified artificial hip joint Category: Surgical Code(s): Z96.649 - Presence of unspecified artificial hip joint (7) Hypertension Status: Chronic Qualifiers: Hypertension type: essential hypertension Qualified Code(s): I10 - Essential (primary) hypertension Category: Medical Code(s): I10 - Essential (primary) hypertension (8) Obesity Status: Chronic Qualifiers: Obesity type: due to excess calories Obesity classification: adult class 3 (BMI >= 40) Serious obesity comorbidity presence: with serious comorbidity Body mass index: BMI 40.0-44.9 Qualified Code(s): E66.01 - Morbid (severe) obesity due to excess calories; Z68.41 - Body mass index [BMI]40.0-44.9, adult Category:
[2020-04-19 16:27] LABS: POC Glucose,Bedside 373 (70-110)
--- NOTE | 2020-04-19 18:28 | DIET.NUTRFU ---
PO intakes 75-100%, BG remain high- ~280. Pt on diabetic/no salt added diet, no changes at this time, continuing to monitor.
[2020-04-19 20:01] LABS: POC Glucose,Bedside 345 (70-110)
--- NOTE | 2020-04-19 22:20 | PC.NURSE ---
Notified RT, pt sats maintaining at 83-86% on vapotherm 30L at this time. No respiratory distress noted. Pt denies SOA.
--- NOTE | 2020-04-19 23:35 | PC.NURSE ---
Pt tolerating vapotherm 40L at 90% FIO2 well, O2 sats noted at 95%.
[2020-04-20] VITALS (14 sets, daily range): BP systolic 148–172; BP diastolic 78–99; PULSE 64–94; RESP 16–28; TEMP 36–37.4; O2SAT 88–97; BMI 38.0
--- NOTE | 2020-04-20 00:30 | PC.NURSE ---
Pt placed on Bipap at this time by RT. O2 sats on bipap noted at 95%. Tolerating well. Up to chair resting with eyes closed.
[2020-04-20 05:35] LABS: POC Glucose,Bedside 206 (70-110)
--- NOTE | 2020-04-20 06:36 | PC.NURSE ---
Pt rested well with eyes closed majority of this shift. No acute changes noted from previous shift. No changes noted from previous assessment. Bilateral lungs noted diminished t/o upon auscultation. Remains on BiPap for O2, sats noted at 99% this am. Tolerated BiPap well. Intermittent cough noted t/o shift. Independently walks in room. Adequate urine output, cloudy and yellow in color. No BM noted thus far this shift. VSS. Remains safe. Call light within reach. Will continue to monitor.
[2020-04-20 06:42] LABS: Chloride 100 mmol/L (98-107); Sodium 139 mmol/L (136-145)
[2020-04-20 06:44] LABS: Basophils % 0.5 % (0.1-2.0); Eosinophils % 0.8 % (0.1-12.0); Hematocrit 42.2 % (42.0-52.0); Hemoglobin 13.9 g/dL (14.1-18.0); Lymphocytes # 0.9 K/mm3 (0.7-4.5); Lymphocytes % 17.4 % (10-50); Mean Corpuscular HGB Conc 32.9 g/dL (31.8-35.4); Mean Corpuscular Hemoglobin 30.3 pg (27.0-31.2); Mean Corpuscular Volume 91.9 fl (80-94); Mean Platelet Volume 9.3 fl (7.4-10.4); Monocytes # 0.3 K/mm3 (0.1-1.0); Monocytes % 5.5 % (1.7-9.3); Neutrophils # 3.9 K/mm3 (1.8-7.8); Neutrophils % 75.7 % (37.0-80.0); Platelet Count 418 K/mm3 (142-424); Red Blood Count 4.59 M/mm3 (4.60-6.20); Red Cell Distribution Width 13.4 % (11.5-17.5); White Blood Count 5.1 K/mm3 (4.8-10.8)
[2020-04-20 06:45] LABS: Blood Urea Nitrogen 17 mg/dl (9-20); Calcium 8.7 mg/dl (8.4-10.2); Carbon Dioxide 36 mmol/L (22.0-30.0); Creatinine Clearance Estimated 136 mL/min (50-200); Estimated Glomerular Filt Rate 135 ml/min (>60); GFR (African American) 164 ML/MIN (>60); Glucose 196 mg/dl (74-100)
--- NOTE | 2020-04-20 09:15 | PC.NURSE ---
Dr. Claudia montejo. Changing settings on vapotherm to 30L and 100%.
--- NOTE | 2020-04-20 09:41 | CA_ITS ---
APPROVED REPORT EXAM: Comprehensive 2D, Doppler, and color-flow Echocardiogram Calibrator Barometers: Kate Fernandez, RT(R) Ht: 6 ft 0 in Wt: 287lbs BSA: 2.48 BP: 166/92 mmHg Indications: HTN, diabetes, obesity, CAD, COVID+, ordered as a limited echo to rule out shunt/PFO. Limited imaging due to lung interference and body habitus. Echo Enhancing Agent Indication: Rule out Shunt Agent(s) / Amount(s) Used: Agitated Saline 10 cc Comments: limited visualization Conclusion 1. Limited echocardiogram was performed. 2. Agitated saline contrast reveals to identify intracardiac shunt. Electronically signed by : Boyd Dougherty, 04/20/2020 17:33:13
--- NOTE | 2020-04-20 10:20 | PC.NURSE ---
Echo at bedside.
--- NOTE | 2020-04-20 11:07 | HMH.PULMPN ---
Internal Medicine - PN: Subj *Date: 04/20/20 *Time: 11:07 Interval history: Patient oxygen requirement increased to 40 L 100% high flow nasal cannula with intermittent BiPAP use overnight owing to his hypoxia with saturations below 88%. Exam - Constitutional Constitutional:: no acute distress, comfortable - HENMT Exam HENMT: normocephalic, atraumatic - Eye Exam Eyes:: normal appearance both eyes and related structures - Neck Exam Neck:: normal visual inspection, thyroid normal, no lymphadenopathy - Respiratory Exam Respiratory:: able to speak in complete sentences, bibailar crackels heard, no respiratory distress Comments: Despite logs and saturation patient does not appear to be in any respiratory distress. Not using any accessory muscles for breathing. Bilateral diffuse coarse breath sounds heard - Cardiovascular Exam Cardiac:: S1, S2 - GI Exam GI:: soft, no hepatosplenomegaly, obese - Skin Exam Skin: warm, no rash - Neurological Exam Neurological: alert, awake, oriented X3 - Extremities Exam Extremities: no cyanosis, no clubbing, edema - Psychiatric Exam Psychiatric: normal affect, appearance grossly normal Assessment and Plan (1) Hypoxia Status: Acute Category: Medical Code(s): R09.02 - Hypoxemia (2) Pneumonia due to COVID-19 virus Status: Acute Category: Medical Code(s): U07.1 - COVID-19; J12.89 - Other viral pneumonia (3) CAD (coronary artery disease) Status: Chronic Qualifiers: Coronary Disease-Associated Artery/Lesion type: [place] artery [place] vs. transplanted heart: [place] heart Associated angina: without angina Qualified Code(s): I25.10 - Atherosclerotic heart disease of [place] coronary artery without angina pectoris Category: Medical Code(s): I25.10 - Atherosclerotic heart disease of [place] coronary artery without angina pectoris (4) Chronic pain Status: Chronic Qualifiers: Chronic pain type: other chronic pain Qualified Code(s): G89.29 - Other chronic pain Category: Medical Code(s): G89.29 - Other chronic pain (5) Diabetes Status: Chronic Qualifiers: Diabetes mellitus type: type 2 Diabetes mellitus snf insulin use: with snf use Diabetes mellitus complication status: with other specified complication Qualified Code(s): E11.69 - Type 2 diabetes mellitus with other specified complication Category: Medical Code(s): E11.9 - Type 2 diabetes mellitus without complications (6) Hip joint replacement status Status: Chronic Qualifiers: Laterality: unspecified laterality Qualified Code(s): Z96.649 - Presence of unspecified artificial hip joint Category: Surgical Code(s): Z96.649 - Presence of unspecified artificial hip joint (7) Hypertension Status: Chronic Qualifiers: Hypertension type: essential hypertension Qualified Code(s): I10 - Essential (primary) hypertension Category: Medical Code(s): I10 - Essential (primary) hypertension (8) Obesity Status: Chronic Qualifiers: Obesity type: due to excess calories Obesity classification: adult class 3 (BMI >= 40) Serious obesity comorbidity presence: with serious comorbidity Body mass index: BMI 40.0-44.9 Qualified Code(s): E66.01 - Morbid (severe) obesity due to excess calories; Z68.41 - Body mass index [BMI]40.0-44.9, adult Category: Medical Code(s): E66.9 - Obesity, unspecified (9) Stented coronary artery Status: Chronic Category: Surgical Code(s): Z95.5 - Presence of coronary angioplasty implant and graft - Assessment and plan all Dx Assessment and Plan for all problems:: #COVID-19 pneumonia: #Acute hypoxic respiratory failure: 64-year-old prior smoker more than [id number]-ernz smoking history last smoked 15 years ago prior history of CAD, DM presented to the hospital with worsening respiratory failure and found to have bilateral patchy infiltrates on the chest x-ray and also positive for COVID-19 pne
[2020-04-20 11:21] LABS: POC Glucose,Bedside 323 (70-110)
--- NOTE | 2020-04-20 12:39 | HMH.ACPN2 ---
Internal Medicine - PN: Subj *Date: 04/20/20 *Time: 12:39 Interval history: 64-year-old male patient sitting up in chair, just finished eating breakfast. He denies any shortness of breath this morning, even though his oxygen requirements are 40 L and 100% Vapotherm. Nursing reports he required BiPAP during the night for oxygen Saturations below 88%. Chest CTA revealed No evidence of pulmonary embolus. Diffuse bilateral pneumonia and Moderate stenosis of the ostium of the [place]eli[place] artery Pulmonology has seen and Rec. Plan:- - Limited echo with bubble study - Continue Lasix 40 mg twice daily, change to IV dosing until discharge - Ceftriaxone azithromycin x 5 days for community-acquired pneumonia - Sputum culture - given specimen cup again today - Continue remdesivir and dexamethasone for COVID-19 pneumonia - DuoNebs every 6 hours scheduled and Budesonide Q12 hrs -we will make sure patient receives all his scheduled duo nebs Exam Vital signs and Labs for Last 24 Hours: Temp Pulse Resp BP Pulse Ox 98.1 F 79 20 162/82 H 93 L 04/20/20 08:00 04/20/20 08:00 04/20/20 04:00 04/20/20 08:00 04/20/20 09:00 Laboratory Results - last 24 hr 04/19/20 16:07: POC Glucose 373 H* 04/19/20 19:53: POC Glucose 345 H* 04/20/20 05:00: WBC 5.1, RBC 4.59 L, Hgb 13.9 L, Hct 42.2, MCV 91.9, MCH 30.3, MCHC 32.9, RDW 13.4, Plt Count 418, MPV 9.3, Neut % (Auto) 75.7, Lymph % (Auto) 17.4, [place] % (Auto) 5.5, Eos % (Auto) 0.8, Baso % (Auto) 0.5, Neut # (Auto) 3.9, Lymph # (Auto) 0.9, [place] # (Auto) 0.3, Eos # (Auto) 0.0, Baso # (Auto) 0.0 04/20/20 05:00: Sodium 139, Potassium 4.0, Chloride 100, Carbon Dioxide 36 H, Anion Gap 7.0, BUN 17, Creatinine 0.60 L, Estimated Creat Clear 136, Estimated GFR 135, Est GFR ( Amer) 164, Glucose 196 H, Calcium 8.7 04/20/20 05:10: POC Glucose 206 H 04/20/20 11:13: POC Glucose 323 H* I & O for Last 24 hours: Intake & Output 04/17/20 04/18/20 04/19/20 04/20/20 23:59 23:59 23:59 23:59 Intake Total 1451 / 1451 1920 / 1920 1460 / 1460 250 / 250 Output Total 6275 / 6275 3250 / 3250 2740 / 2740 475 / 475 Balance -4824 / -4824 -1330 / -1330 -1280 / -1280 -225 / -225 Weight 286 lb 285 lb 15.985 oz 287 lb 287 lb 6 oz Microbiology Reports for the Last 24 Hours: Microbiology 04/15/20 12:10 Blood Blood Culture - Final NO GROWTH AFTER 5 DAYS 04/15/20 12:10 Blood Blood Culture - Final NO GROWTH AFTER 5 DAYS - Constitutional mild distress, obese - *Routine HEENT Exam Head: Present: normocephalic ENT: Present: mucous membranes moist - *Routine Neck Exam Present: full ROM, trachea midline. Absent: JVD, tenderness - *Routine Respiratory Exam Present: rales. Absent: accessory muscle use - *Routine Cardiovascular Exam Present: RRR - *Routine Abdominal Exam Present: soft, normoactive bowel sounds. Absent: tenderness, organomegaly - *Routine Extremities Exam Present: full ROM, pulses intact. Absent: cyanosis, clubbing, calf tenderness - *Routine Skin Exam Present: intact, dry, warm. Absent: cyanosis, erythema - *Routine Neurological Exam Present: alert, oriented X3. Absent: altered mental status - Routine Psychiatric Exam Present: normal affect, normal thought process. Absent: auditory hallucinations Assessment and Plan (1) Hypoxia Status: Acute Category: Medical Code(s): R09.02 - Hypoxemia (2) Pneumonia due to COVID-19 virus Status: Acute Category: Medical Code(s): U07.1 - COVID-19; J12.89 - Other viral pneumonia (3) CAD (coronary artery disease) Status: Chronic Qualifiers: Coronary Disease-Associated Artery/Lesion type: [place] artery [place] vs. transplanted heart: [place] heart Associated angina: without angina Qualified Code(s): I25.10 - Atherosclerotic heart disease of [place] coronary artery without angina pectoris Category: Medical Code(s): I25.10 - Atherosclerotic heart disea
--- NOTE | 2020-04-20 17:42 | PC.NURSE ---
A&OX4. PT HAS TOLERATED 30L 100% ON VAPOTHERM THROUGHOUT SHIFT. O2 SAT TO BE NOTED BETWEEN 90-91% MOST OF THE SHIFT. RESPIRATIONS REGULAR AND UNLABORED. LUNG SOUNDS DIMINISHED AND FINE CRACKLES NOTED THROUGHOUT. OCCASIONAL DRY COUGH NOTED. HAND ENROLLMENT SPECIALIST EQUAL. +2 PULSES NOTED THROUGHOUT. ACTIVE BOWEL SOUNDS HEARD IN ALL 4 QUADRANTS. SOFT AND NONTENDER ABDOMEN. 1 MEDIUM FORMED BM THIS SHIFT. PT VOIDS PER URINAL WITH DARK YELLOW URINE NOTED. PT HAS BEEN UP TO THE CHAIR ALL DAY. NO EDEMA NOTED. NO REPORTS OF SOB THROUGHOUT SHIFT. PT HAS BEEN ON THE PHONE TALKING TO FAMILY MOST OF THE SHIFT. PT WAS OFFERED A BATH AND REFUSED. BED LINENS WERE CHANGED. PT RECEIVED 3 IV ANTIBIOTICS AND TOLERATED ALL 3 WELL. PT HAS REMAINED AFEBRILE. PT IS UP TO CHAIR RESTING AT THIS TIME. CALL LIGHT WITHIN REACH. VSS. WILL CONTINUE TO MONITOR.
[2020-04-21] VITALS (13 sets, daily range): BP systolic 138–182; BP diastolic 79–91; PULSE 77–96; RESP 16–22; TEMP 36.6–36.9; O2SAT 88–97; BMI 37.8
--- NOTE | 2020-04-21 01:06 | PC.NURSE ---
patient will desat down into the low 80s when up and moving around room, once patient sat back down . takes approximately 20 minutes to rebound back to 88%. while resting patient sats 90 to 94% on 30 l 100%
[2020-04-21 05:51] LABS: Basophils % 0.4 % (0.1-2.0); Chloride 101 mmol/L (98-107); Eosinophils # 0.1 K/mm3 (0.0-0.4); Eosinophils % 1.6 % (0.1-12.0); Hematocrit 42.9 % (42.0-52.0); Hemoglobin 14.3 g/dL (14.1-18.0); Lymphocytes # 0.7 K/mm3 (0.7-4.5); Lymphocytes % 11.7 % (10-50); Mean Corpuscular HGB Conc 33.2 g/dL (31.8-35.4); Mean Corpuscular Hemoglobin 30.7 pg (27.0-31.2); Mean Corpuscular Volume 92.4 fl (80-94); Mean Platelet Volume 8.6 fl (7.4-10.4); Monocytes # 0.4 K/mm3 (0.1-1.0); Monocytes % 7.1 % (1.7-9.3); Neutrophils # 4.8 K/mm3 (1.8-7.8); Neutrophils % 79.1 % (37.0-80.0); Platelet Count 435 K/mm3 (142-424); Red Blood Count 4.64 M/mm3 (4.60-6.20); Sodium 139 mmol/L (136-145); White Blood Count 6.1 K/mm3 (4.8-10.8)
[2020-04-21 05:54] LABS: Blood Urea Nitrogen 15 mg/dl (9-20); Creatinine Clearance Estimated 135 mL/min (50-200); Estimated Glomerular Filt Rate 135 ml/min (>60); GFR (African American) 164 ML/MIN (>60)
[2020-04-21 05:55] LABS: Calcium 8.8 mg/dl (8.4-10.2); Carbon Dioxide 34 mmol/L (22.0-30.0); Glucose 224 mg/dl (74-100)
--- NOTE | 2020-04-21 09:12 | HMH.ACPN2 ---
Internal Medicine - PN: Subj *Date: 04/21/20 *Time: 13:30 Interval history: 64-year-old male patient sitting up in chair at bedside using incentive spirometer. He is currently using 30 L of 100% oxygen via Vapotherm. He reports he is feeling better questioning when he can go home, discussed his oxygen requirements. Patient reports he is not on home O2. Exam Vital signs and Labs for Last 24 Hours: Temp Pulse Resp BP Pulse Ox 98.1 F 84 16 161/86 H 93 L 04/21/20 04:00 04/21/20 06:23 04/21/20 04:00 04/21/20 04:00 04/21/20 06:23 Laboratory Results - last 24 hr 04/20/20 11:13: POC Glucose 323 H* 04/21/20 05:30: WBC 6.1, RBC 4.64, Hgb 14.3, Hct 42.9, MCV 92.4, MCH 30.7, MCHC 33.2, RDW 13.0, Plt Count 435 H, MPV 8.6, Neut % (Auto) 79.1, Lymph % (Auto) 11.7, [place] % (Auto) 7.1, Eos % (Auto) 1.6, Baso % (Auto) 0.4, Neut # (Auto) 4.8, Lymph # (Auto) 0.7, [place] # (Auto) 0.4, Eos # (Auto) 0.1, Baso # (Auto) 0.0 04/21/20 05:30: Sodium 139, Potassium 4.0, Chloride 101, Carbon Dioxide 34 H, Anion Gap 8.0, BUN 15, Creatinine 0.60 L, Estimated Creat Clear 135, Estimated GFR 135, Est GFR ( Amer) 164, Glucose 224 H, Calcium 8.8 I & O for Last 24 hours: Intake & Output 04/18/20 04/19/20 04/20/20 04/21/20 23:59 23:59 23:59 23:59 Intake Total 1920 / 1920 1460 / 1460 1710 / 1710 Output Total 3250 / 3250 2740 / 2740 3125 / 4375 2350 / 2350 Balance -1330 / -1330 -1280 / -1280 -1415 / -2665 -2350 / -2350 Weight 285 lb 15.985 oz 287 lb 287 lb 6 oz 285 lb Microbiology Reports for the Last 24 Hours: Microbiology 04/15/20 12:10 Blood Blood Culture - Final NO GROWTH AFTER 5 DAYS 04/15/20 12:10 Blood Blood Culture - Final NO GROWTH AFTER 5 DAYS - Constitutional no acute distress - *Routine HEENT Exam Head: Present: normocephalic ENT: Present: mucous membranes moist - *Routine Neck Exam Present: trachea midline. Absent: tracheal deviation - *Routine Respiratory Exam Present: diminished air movement. Absent: accessory muscle use - *Routine Cardiovascular Exam Present: RRR - *Routine Abdominal Exam Present: soft, normoactive bowel sounds. Absent: tenderness, firm - *Routine Extremities Exam Present: edema, full ROM, pulses intact. Absent: clubbing, calf tenderness - *Routine Skin Exam Present: intact, warm. Absent: cyanosis, erythema - *Routine Neurological Exam Present: alert, oriented X3. Absent: altered mental status - Routine Psychiatric Exam Present: normal affect, normal thought process. Absent: homicidal ideation, auditory hallucinations Assessment and Plan (1) Hypoxia Status: Acute Category: Medical Code(s): R09.02 - Hypoxemia (2) Pneumonia due to COVID-19 virus Status: Acute Category: Medical Code(s): U07.1 - COVID-19; J12.89 - Other viral pneumonia (3) CAD (coronary artery disease) Status: Chronic Qualifiers: Coronary Disease-Associated Artery/Lesion type: [place] artery [place] vs. transplanted heart: [place] heart Associated angina: without angina Qualified Code(s): I25.10 - Atherosclerotic heart disease of [place] coronary artery without angina pectoris Category: Medical Code(s): I25.10 - Atherosclerotic heart disease of [place] coronary artery without angina pectoris (4) Chronic pain Status: Chronic Qualifiers: Chronic pain type: other chronic pain Qualified Code(s): G89.29 - Other chronic pain Category: Medical Code(s): G89.29 - Other chronic pain (5) Diabetes Status: Chronic Qualifiers: Diabetes mellitus type: type 2 Diabetes mellitus intermediate project manager insulin use: with intermediate project manager use Diabetes mellitus complication status: with other specified complication Qualified Code(s): E11.69 - Type 2 diabetes mellitus with other specified complication Category: Medical Code(s): E11.9 - Type 2 diabetes mellitus without complications (6) Hip joint replacemen
--- NOTE | 2020-04-21 10:31 | DIET.NUTRFU ---
PO intakes 75-100%, BG remain high but slightly stabilized- ~230. No diet changes, continuing to monitor.
[2020-04-21 10:33] LABS: ABG PCO2 38.1 mmhg (35.0-45.0); ABG PH 7.51 mmol/L (7.35-7.45)
[2020-04-21 10:34] LABS: ABG HCO3 29.9 mmhg (22.0-26.0); ABG Oxygen Saturation 82 % (90-100); ABG TCO2 31.1 mmhg (23-27)
--- NOTE | 2020-04-21 10:36 | PC.NURSE ---
Left foot blister on fifth digit Left Foot Interior heel blister intact Left foot fifth digit blister anterior view
--- NOTE | 2020-04-21 15:14 | PC.NURSE ---
Pt alert and oriented and able to make needs known-35 L and 60% vapotherm at this time. Sats 88-89%. Pt is c/o of soa at this time. Have called RT for a neb tx. Pt has been up to chair and doing his incentive spirometer. CB in reach. Has voided 2800 ml thus far today. Called and spoke to pharmacy and requested IV lasix time be changed for bid to an earlier evening time for adequate rest. Lungs diminished. S1,S2. BS active. Will continue to mx. Other VSS.
[2020-04-21 16:24] LABS: POC Glucose,Bedside 405 (70-110)
[2020-04-21 16:24] LABS: POC Glucose,Bedside 455 (70-110)
[2020-04-21 16:24] LABS: POC Glucose,Bedside 325 (70-110)
[2020-04-21 16:24] LABS: POC Glucose,Bedside 269 (70-110)
[2020-04-21 16:37] LABS: POC Glucose,Bedside 424 (70-110)
--- NOTE | 2020-04-21 16:37 | HMH.PULMPN ---
Internal Medicine - PN: Subj *Date: 04/21/20 *Time: 16:37 Interval history: No acute respiratory events overnight. Patient still needing high oxygen requirements. Exam - Constitutional Constitutional:: no acute distress, comfortable - HENMT Exam HENMT: normocephalic, atraumatic - Eye Exam Eyes:: normal appearance both eyes and related structures - Respiratory Exam Respiratory:: able to speak in complete sentences, bibailar crackels heard, respiratory distress - Cardiovascular Exam Cardiac:: S1, S2 - GI Exam GI:: soft, no hepatosplenomegaly, obese - Skin Exam Skin: warm, no rash - Neurological Exam Neurological: alert, awake, oriented X3 - Extremities Exam Extremities: no cyanosis, no clubbing, edema Comments: Bilateral 3+ symmetrical pedal edema Assessment and Plan (1) Hypoxia Status: Acute Category: Medical Code(s): R09.02 - Hypoxemia (2) Pneumonia due to COVID-19 virus Status: Acute Category: Medical Code(s): U07.1 - COVID-19; J12.89 - Other viral pneumonia (3) CAD (coronary artery disease) Status: Chronic Qualifiers: Coronary Disease-Associated Artery/Lesion type: [place] artery [place] vs. transplanted heart: [place] heart Associated angina: without angina Qualified Code(s): I25.10 - Atherosclerotic heart disease of [place] coronary artery without angina pectoris Category: Medical Code(s): I25.10 - Atherosclerotic heart disease of [place] coronary artery without angina pectoris (4) Chronic pain Status: Chronic Qualifiers: Chronic pain type: other chronic pain Qualified Code(s): G89.29 - Other chronic pain Category: Medical Code(s): G89.29 - Other chronic pain (5) Diabetes Status: Chronic Qualifiers: Diabetes mellitus type: type 2 Diabetes mellitus assisted insulin use: with assisted use Diabetes mellitus complication status: with other specified complication Qualified Code(s): E11.69 - Type 2 diabetes mellitus with other specified complication Category: Medical Code(s): E11.9 - Type 2 diabetes mellitus without complications (6) Hip joint replacement status Status: Chronic Qualifiers: Laterality: unspecified laterality Qualified Code(s): Z96.649 - Presence of unspecified artificial hip joint Category: Surgical Code(s): Z96.649 - Presence of unspecified artificial hip joint (7) Hypertension Status: Chronic Qualifiers: Hypertension type: essential hypertension Qualified Code(s): I10 - Essential (primary) hypertension Category: Medical Code(s): I10 - Essential (primary) hypertension (8) Obesity Status: Chronic Qualifiers: Obesity type: due to excess calories Obesity classification: adult class 3 (BMI >= 40) Serious obesity comorbidity presence: with serious comorbidity Body mass index: BMI 40.0-44.9 Qualified Code(s): E66.01 - Morbid (severe) obesity due to excess calories; Z68.41 - Body mass index [BMI]40.0-44.9, adult Category: Medical Code(s): E66.9 - Obesity, unspecified (9) Stented coronary artery Status: Chronic Category: Surgical Code(s): Z95.5 - Presence of coronary angioplasty implant and graft - Assessment and plan all Dx Assessment and Plan for all problems:: #COVID-19 pneumonia: #Acute hypoxic respiratory failure: 64-year-old prior smoker more than [id number] smoking history last smoked 15 years ago prior history of CAD, DM presented to the hospital with worsening respiratory failure and found to have bilateral patchy infiltrates on the chest x-ray and also positive for COVID-19 pneumonia.Respiratory viral PCR negative except for COVID-19. Echocardiogram showed systolic dysfunction with EF of 40 to 45% with wall motion abnormalities. Patient completed a course of ceftriaxone ansamycin for possible community-acquired pneumonia, continued with remdesivir and dexamethasone CT PE study performed negative for any pulmonary emboli however showed diffuse bila
--- NOTE | 2020-04-21 16:47 | PC.NURSE ---
Spoke with Dr. Taylor and explained pt had recently received 40 mg IV lasix, he stated he changed dose of iv lasix and to start new dose tomorrow and no more today. Noted.
--- NOTE | 2020-04-21 17:54 | PC.NURSE ---
Pt was offered a bath and refused stated he wanted to wait til later. Pt's 02 does drop down into the low 80's upon exertion. Pt is currently satting 91% on vapotherm 35 L and 60% at rest. Did apply ear protectors for 02 and pt grateful. Have educated on eating according to a diabetic diet. No s/s of hyper/hypoglycemia. Will cont to mx this shift. Uses urinal and bsc.
[2020-04-21 21:54] LABS: POC Glucose,Bedside 469 (70-110)
[2020-04-22] VITALS (13 sets, daily range): BP systolic 102–155; BP diastolic 68–95; PULSE 60–98; RESP 18–20; TEMP 36.5–37.6; O2SAT 87–995
--- NOTE | 2020-04-22 00:40 | PC.NURSE ---
received in report that patient has been extremely duke throughout the day. rn allowed patient to voice feelings. chanteln stated he feels like a rat in a cage, always being watched through the window. hates not being able to get up and walk around. doesn't want to take a bath because he has no privacy. curtains adjusted for maximum privacy available. patient states that's better.
--- NOTE | 2020-04-22 02:52 | PC.NURSE ---
patient continues to desats down into the low 80s. when up urinating or moving around room. continues to take about 15-20 minutes to recover back up 88-90%. patient exhibits mild dyspnea, is able to talk in complete sentences without gasping. no accessory muscle usage noted.
--- NOTE | 2020-04-22 05:43 | PC.NURSE ---
patient irritated and slow to cooperate when awakened throughout night for patient care. rn attempted to group care around his spontaneous wake periods for patient satisfaction.
--- NOTE | 2020-04-22 07:00 | PC.NURSE ---
patient much more pleasant, humerus this am.
[2020-04-22 07:35] LABS: Chloride 98 mmol/L (98-107)
[2020-04-22 07:36] LABS: Potassium 3.6 mmoL/L (3.5-5.1); Sodium 140 mmol/L (136-145)
[2020-04-22 07:38] LABS: Basophils % 0.7 % (0.1-2.0); Blood Urea Nitrogen 18 mg/dl (9-20); Creatinine Clearance Estimated 135 mL/min (50-200); Eosinophils # 0.2 K/mm3 (0.0-0.4); Eosinophils % 3.2 % (0.1-12.0); Estimated Glomerular Filt Rate 113 ml/min (>60); GFR (African American) 137 ML/MIN (>60); Hematocrit 47.8 % (42.0-52.0); Hemoglobin 15.3 g/dL (14.1-18.0); Lymphocytes # 1.1 K/mm3 (0.7-4.5); Lymphocytes % 16.1 % (10-50); Mean Corpuscular HGB Conc 31.9 g/dL (31.8-35.4); Mean Corpuscular Hemoglobin 30.4 pg (27.0-31.2); Mean Corpuscular Volume 95.3 fl (80-94); Monocytes # 0.5 K/mm3 (0.1-1.0); Monocytes % 7.1 % (1.7-9.3); Neutrophils # 4.8 K/mm3 (1.8-7.8); Neutrophils % 73.1 % (37.0-80.0); Platelet Count 532 K/mm3 (142-424); Red Blood Count 5.01 M/mm3 (4.60-6.20); Red Cell Distribution Width 12.8 % (11.5-17.5); White Blood Count 6.5 K/mm3 (4.8-10.8)
[2020-04-22 07:39] LABS: Anion Gap 10.6 mEq/L (5-15); Calcium 9.3 mg/dl (8.4-10.2); Carbon Dioxide 35 mmol/L (22.0-30.0); Glucose 182 mg/dl (74-100)
--- NOTE | 2020-04-22 09:05 | HMH.ACPN2 ---
Internal Medicine - PN: Subj *Date: 04/22/20 *Time: 16:09 Interval history: 64-year-old male patient sitting up on side of the bed oxygen supplied via Vapotherm 35 L and 100%. Patient had oxygen off blowing nose desaturated quickly to 84%, was short of breath trying to carry on a conversation. Edema does appear to be less in bilateral feet. Discussed with patient seriousness of his condition and need to stay in hospital. Pulmonary seen 04/21/2020 and recommended: Plan:- - Increase Lasix to 60 mg IV twice daily -Strict I's and O's -Follow with cardiology regarding the shunt study report - Stop ceftriaxone and azithromycin - Continue remdesivir and dexamethasone for COVID-19 pneumonia - DuoNebs every 6 hours scheduled and Budesonide Q12 hrs -we will make sure patient receives all his scheduled duo nebs Exam Vital signs and Labs for Last 24 Hours: Temp Pulse Resp BP Pulse Ox 98.3 F 96 H 18 138/68 87 L 04/22/20 07:31 04/22/20 07:31 04/22/20 07:31 04/22/20 07:31 04/22/20 07:31 Laboratory Results - last 24 hr 04/20/20 16:06: POC Glucose 405 H* 04/20/20 20:16: POC Glucose 269 H 04/21/20 09:51: O2 % 20l vapo - 40%, ABG pH 7.51 H, ABG pCO2 38.1, ABG pO2 40.0 L, ABG HCO3 29.9 H, ABG Total CO2 31.1 H, ABG O2 Saturation 82 L*, ABG Base Excess 7.0 H 04/21/20 11:30: POC Glucose 325 H* 04/21/20 15:49: POC Glucose 455 H* 04/21/20 16:29: POC Glucose 424 H* 04/21/20 21:46: POC Glucose 469 H* 04/22/20 07:10: WBC 6.5, RBC 5.01, Hgb 15.3, Hct 47.8, MCV 95.3 H, MCH 30.4, MCHC 31.9, RDW 12.8, Plt Count 532 H, MPV 9.0, Neut % (Auto) 73.1, Lymph % (Auto) 16.1, Hill % (Auto) 7.1, Eos % (Auto) 3.2, Baso % (Auto) 0.7, Neut # (Auto) 4.8, Lymph # (Auto) 1.1, Hill # (Auto) 0.5, Eos # (Auto) 0.2, Baso # (Auto) 0.0 04/22/20 07:10: Sodium 140, Potassium 3.6, Chloride 98, Carbon Dioxide 35 H, Anion Gap 10.6, BUN 18, Creatinine 0.70, Estimated Creat Clear 135, Estimated GFR 113, Est GFR ( Amer) 137, Glucose 182 H, Calcium 9.3 I & O for Last 24 hours: Intake & Output 04/19/20 04/20/20 04/21/20 04/22/20 23:59 23:59 23:59 23:59 Intake Total 1460 / 1460 1710 / 1710 380 / 380 480 / 480 Output Total 2740 / 2740 3125 / 4375 5925 / 5925 500 / 500 Balance -1280 / -1280 -1415 / -2665 -5545 / -5545 -20 / -20 Weight 287 lb 287 lb 6 oz 285 lb - Constitutional mild distress - *Routine HEENT Exam Head: Present: normocephalic Eye: Present: EOMI ENT: Present: mucous membranes moist - *Routine Neck Exam Present: trachea midline. Absent: JVD, tracheal deviation - *Routine Respiratory Exam Present: crackles - *Routine Cardiovascular Exam Present: RRR - *Routine Abdominal Exam Present: soft, normoactive bowel sounds - *Routine Extremities Exam Present: edema, full ROM, pulses intact. Absent: clubbing, calf tenderness - *Routine Skin Exam Present: intact, dry, warm. Absent: cyanosis, erythema - *Routine Neurological Exam Present: alert, oriented X3. Absent: altered mental status - Routine Psychiatric Exam Present: normal affect Assessment and Plan (1) Hypoxia Status: Acute Category: Medical Code(s): R09.02 - Hypoxemia (2) Pneumonia due to COVID-19 virus Status: Acute Category: Medical Code(s): U07.1 - COVID-19; J12.89 - Other viral pneumonia (3) CAD (coronary artery disease) Status: Chronic Qualifiers: Coronary Disease-Associated Artery/Lesion type: [place] artery [place] vs. transplanted heart: [place] heart Associated angina: without angina Qualified Code(s): I25.10 - Atherosclerotic heart disease of [place] coronary artery without angina pectoris Category: Medical Code(s): I25.10 - Atherosclerotic heart disease of [place] coronary artery without angina pectoris (4) Chronic pain Status: Chronic Qualifiers: Chronic pain type: other chronic pain Qualified Code(s): G89.29 - Other chronic pain Category: Medical Code(s): G89.29 - Other chronic pain (5) Diabetes Stat
[2020-04-22 11:34] LABS: POC Glucose,Bedside 160 (70-110)
[2020-04-22 11:34] LABS: POC Glucose,Bedside 287 (70-110)
--- NOTE | 2020-04-22 14:16 | HMH.PULMPN ---
Internal Medicine - PN: Subj *Date: 04/22/20 *Time: 14:16 Interval history: No acute respiratory events overnight patient remains on high oxygen requirements. Exam - Constitutional Constitutional:: comfortable - HENMT Exam HENMT: normocephalic, atraumatic - Eye Exam Eyes:: eyelids normal, normal conjunctiva - Neck Exam Neck:: thyroid normal, no lymphadenopathy - Respiratory Exam Comments: Patient unable to speak in full sentences, appeared to be in respiratory distress. This morning on 35 L 70% FiO2 saturating 84 to 86%, increased FiO2 80% with saturations barely ranging in between 88 and 90%. - Cardiovascular Exam Cardiac:: S1, S2 - GI Exam GI:: soft, no hepatosplenomegaly, obese - Skin Exam Skin: warm, no rash - Neurological Exam Neurological: alert, awake, oriented X3 - Extremities Exam Extremities: no cyanosis, no clubbing Comments: Bilateral symmetrical 3+ lower extremity edema - Psychiatric Exam Psychiatric: normal affect Assessment and Plan (1) Hypoxia Status: Acute Category: Medical Code(s): R09.02 - Hypoxemia (2) Pneumonia due to COVID-19 virus Status: Acute Category: Medical Code(s): U07.1 - COVID-19; J12.89 - Other viral pneumonia (3) CAD (coronary artery disease) Status: Chronic Qualifiers: Coronary Disease-Associated Artery/Lesion type: [place] artery [place] vs. transplanted heart: [place] heart Associated angina: without angina Qualified Code(s): I25.10 - Atherosclerotic heart disease of [place] coronary artery without angina pectoris Category: Medical Code(s): I25.10 - Atherosclerotic heart disease of [place] coronary artery without angina pectoris (4) Chronic pain Status: Chronic Qualifiers: Chronic pain type: other chronic pain Qualified Code(s): G89.29 - Other chronic pain Category: Medical Code(s): G89.29 - Other chronic pain (5) Diabetes Status: Chronic Qualifiers: Diabetes mellitus type: type 2 Diabetes mellitus barmaid insulin use: with usp use Diabetes mellitus complication status: with other specified complication Qualified Code(s): E11.69 - Type 2 diabetes mellitus with other specified complication Category: Medical Code(s): E11.9 - Type 2 diabetes mellitus without complications (6) Hip joint replacement status Status: Chronic Qualifiers: Laterality: unspecified laterality Qualified Code(s): Z96.649 - Presence of unspecified artificial hip joint Category: Surgical Code(s): Z96.649 - Presence of unspecified artificial hip joint (7) Hypertension Status: Chronic Qualifiers: Hypertension type: essential hypertension Qualified Code(s): I10 - Essential (primary) hypertension Category: Medical Code(s): I10 - Essential (primary) hypertension (8) Obesity Status: Chronic Qualifiers: Obesity type: due to excess calories Obesity classification: adult class 3 (BMI >= 40) Serious obesity comorbidity presence: with serious comorbidity Body mass index: BMI 40.0-44.9 Qualified Code(s): E66.01 - Morbid (severe) obesity due to excess calories; Z68.41 - Body mass index [BMI]40.0-44.9, adult Category: Medical Code(s): E66.9 - Obesity, unspecified (9) Stented coronary artery Status: Chronic Category: Surgical Code(s): Z95.5 - Presence of coronary angioplasty implant and graft - Assessment and plan all Dx Assessment and Plan for all problems:: #COVID-19 pneumonia: #Acute hypoxic respiratory failure: 64-year-old prior smoker more than [id number] smoking history last smoked 15 years ago prior history of CAD, DM presented to the hospital with worsening respiratory failure and found to have bilateral patchy infiltrates on the chest x-ray and also positive for COVID-19 pneumonia.Respiratory viral PCR negative except for COVID-19. Echocardiogram showed systolic dysfunction with EF of 40 to 45% with wall motion abnormalities. Patient completed a cours
--- NOTE | 2020-04-22 17:43 | PC.NURSE ---
Alert and oriented x4. Lungs diminished throughout. He remains on vapotherm 35L w/70% fio2, sats running 88-92%. O2 drops to low 80's on exertion and it takes around 15-20 minutes to recover. Appetite is good with patient eating 100% of meals. 2 BM's today. Glucose was 287 and 298 on checks, treated w/ssi. He was up to the chair most of the day and tolerated well. Highest temp was 99.7 oral. At least 750 out in urine. There were a few unmeasured urines as pt missed the hat when urinating. He had bath and complete linen change today. IV to lac is patent and flushes easily. Call light in reach and safety measures in place. Will continue to monitor.
[2020-04-23] VITALS (15 sets, daily range): BP systolic 108–149; BP diastolic 62–87; PULSE 58–87; RESP 16–20; TEMP 36.7–37.1; O2SAT 88–95; BMI 37.8
--- NOTE | 2020-04-23 06:23 | PC.NURSE ---
shift summary, pt has rested well t/o shift, pt care clustered to help prevent interruptions in his sleep, pt is up to chair this morning, talkative and in a good mood, pt has had one episode of desat, O2 sat dropped to 83% while up using bathroom, O2 returned to 88-90% in fifteen minutes, pt stated no complaints of SOA, was able to converse, while resting O2 sat has been 90-95%, lung sounds diminished, has remained afebrile
[2020-04-23 06:27] LABS: Basophils % 0.4 % (0.1-2.0); Eosinophils # 0.1 K/mm3 (0.0-0.4); Eosinophils % 2.7 % (0.1-12.0); Hematocrit 45.2 % (42.0-52.0); Hemoglobin 15.1 g/dL (14.1-18.0); Lymphocytes # 1.1 K/mm3 (0.7-4.5); Lymphocytes % 21.1 % (10-50); Mean Corpuscular HGB Conc 33.3 g/dL (31.8-35.4); Mean Corpuscular Hemoglobin 30.9 pg (27.0-31.2); Mean Corpuscular Volume 92.7 fl (80-94); Monocytes # 0.4 K/mm3 (0.1-1.0); Monocytes % 8.1 % (1.7-9.3); Neutrophils # 3.4 K/mm3 (1.8-7.8); Neutrophils % 67.8 % (37.0-80.0); Platelet Count 566 K/mm3 (142-424); Red Blood Count 4.88 M/mm3 (4.60-6.20)
[2020-04-23 06:29] LABS: Chloride 98 mmol/L (98-107); Potassium 4.2 mmoL/L (3.5-5.1); Sodium 138 mmol/L (136-145)
[2020-04-23 06:32] LABS: Blood Urea Nitrogen 19 mg/dl (9-20); Creatinine Clearance Estimated 135 mL/min (50-200); Estimated Glomerular Filt Rate 113 ml/min (>60); GFR (African American) 137 ML/MIN (>60)
[2020-04-23 06:33] LABS: Anion Gap 8.2 mEq/L (5-15); Calcium 9.3 mg/dl (8.4-10.2); Carbon Dioxide 36 mmol/L (22.0-30.0); Glucose 188 mg/dl (74-100)
--- NOTE | 2020-04-23 08:18 | XR_ITS ---
PROCEDURE: XR CHEST PORTABLE CLINICAL HISTORY: covid pneumonia Follow-up pneumonia COMPARISON: CR XR CHEST PORTABLE from 04/17/2020 CR XR CHEST PORTABLE from 04/18/2020 CR XR CHEST PORTABLE from 04/19/[address] ANGIO CHEST from 04/19/2020 FINDINGS: Mild cardiomegaly failure. There remains diffuse bilateral alveolar opacification with some sparing of the upper lobes centrally. Overall no significant change. No effusions or pneumothorax. No acute bony abnormalities. IMPRESSION: No change bilateral pneumonia Dictated by: Branden Rojo MD 04/23/2020 17:40 Branden Rojo MD in [facility] 04/23/2020 17:40
--- NOTE | 2020-04-23 10:47 | HMH.CNCARD ---
History of Present Illness Consult date: 04/23/20 Requesting physician: Cecilio Garza Consult reason: congestive heart failure Chief complaint: SOA Additional Medical History:: 1. Coronary artery disease with ischemic cardiomyopathy A. History of multiple coronary artery stents over 5-[address] Salinas and Dr[address] Badillo in [place] B. History of multiple myocardial infarctions C. History of chronic systolic congestive heart failure, NYHA class II-III D. Echo, 04/2020,1. Technically difficult study because of the patient factors and poor acoustic windows. 2. Mild biatrial enlargement, normal left ventricular size, mild concentric left ventricular hypertrophy, visually estimated ejection fraction 40 to 45% with multiple segmental wall motion abnormality described above. Diastolic parameters are inconclusive. 3. Mildly enlarged right ventricle with normal contractility. 4. Mild mitral and tricuspid regurgitation. 5. No significant pericardial effusion noted 2. Hypertension 3. Hyperlipidemia 4. Remote tobacco use discontinued 15 years ago 5. Family history of coronary artery disease 6. COVID-19 infection, 04/2020 7. Diabetes mellitus type 2 treated for greater than 10 years History of present illness: 64-year-old white male with progressive shortness of breath leading to hospitalization for COVID-19 infection with pneumonia. Patient has a history of coronary artery disease with prior MIs and coronary stenting resulting in a history of systolic congestive heart failure. Most recent echocardiogram shows ejection fraction of 40-45% with multiple wall motion abnormalities and mild MR/TR with enlarged right ventricle but normal contractility. Cardiology has been consulted for evaluation and recommendations regarding congestive heart failure. Limited echocardiogram this admission for possible intracardiac shunt failed to show evidence of intracardiac shunting. Patient is in the ICU during the Covid unit, sitting in his chair eating pudding while wearing Vapotherm mask at 35%. He is in no acute distress. [facility] History Medical History: Reports:: Congestive Heart Failure, Coronary Artery Disease, Diabetes Mellitus Type 1, Diabetes Mellitus Type 2, Gastroesophageal Reflux Disease(GERD), Hypertension, Myocardial Infarction *Have you ever received a pneumonia vaccine?: No *Have you received a flu vaccine this season?: Yes Laterality Cases: Left: Total Hip Replacement Other Surgeries: Yes: Cardiac Catheterization, Colonoscopy, Coronary Stent, Other Amputation: No Fractures: No - *Social History Last grade of school completed: 11th or 12th Smoking Status: Former smoker Alcohol Intake: never Alcohol Intake Frequency:: holidays/special occasions only Substance Use Type: denies use *Occupational Status:: disabled Housing: house Household Members: family *Travel in the last 8 weeks: None Family Hx:: Cancer, Heart Attack, Diabetes, Hypertension Meds Home Medications Medication Instructions Recorded Confirmed Type aspirin 81 mg tablet,delayed 81 mg PO DAILY 01/08/20 04/15/20 History release atorvastatin 40 mg tablet 40 mg PO HS 01/08/20 04/16/20 History clopidogrel 75 mg tablet 75 mg PO DAILY 01/08/20 04/15/20 History dapagliflozin 10 mg tablet 10 mg PO DAILY 01/08/20 04/15/20 History losartan 100 mg tablet 100 mg PO DAILY 01/08/20 04/15/20 History metformin 1,000 mg tablet 1,000 mg PO BID 01/08/20 04/15/20 History metoprolol tartrate 100 mg tablet 100 mg PO BID 01/08/20 04/15/20 History pantoprazole 40 mg tablet,delayed 40 mg PO DAILY 01/08/20 04/15/20 History release oxycodone 5 mg tablet 5 mg PO BID PRN #60 tab 03/08/20 04/15/20 Rx Furosemide [Furosemide 40MG tAB*] 40 mg PO DAILY 04/15/20 04/15/20 History Insulin Glargine,Hum.rec.anlog 40 unit SQ QAM 04/15/20 04/15/20 History [Basaglar KwikPen U-100 Insulin] Dulaglutide [Trulicity] 0.75 mg SQ WEEKLY 04/16/20 04/16/20 History Fenofibrate Nanocrystallized
--- NOTE | 2020-04-23 10:57 | HMH.PULMPN ---
Internal Medicine - PN: Subj *Date: 04/23/20 *Time: 10:57 Interval history: No acute respiratory events overnight, patient oxygen requirements improving after increasing the Lasix dose. I & O's still appear inaccurate Exam - Constitutional Constitutional:: no acute distress, comfortable - HENMT Exam HENMT: normocephalic - Eye Exam Eyes:: normal appearance both eyes and related structures - Neck Exam Neck:: normal visual inspection, thyroid normal, no lymphadenopathy - Respiratory Exam Respiratory:: able to speak in complete sentences, bibailar crackels heard - Cardiovascular Exam Cardiac:: regular rhythm, S1, S2 - GI Exam GI:: soft, no hepatosplenomegaly - Skin Exam Skin: warm - Neurological Exam Neurological: alert, awake, oriented X3 - Extremities Exam Extremities: no cyanosis, no clubbing, edema Assessment and Plan (1) Hypoxia Status: Acute Category: Medical Code(s): R09.02 - Hypoxemia (2) Pneumonia due to COVID-19 virus Status: Acute Category: Medical Code(s): U07.1 - COVID-19; J12.89 - Other viral pneumonia (3) CAD (coronary artery disease) Status: Chronic Qualifiers: Qualified Code(s): I25.10 - Atherosclerotic heart disease of [place] coronary artery without angina pectoris Category: Medical Code(s): I25.10 - Atherosclerotic heart disease of [place] coronary artery without angina pectoris (4) Chronic pain Status: Chronic Qualifiers: Qualified Code(s): G89.29 - Other chronic pain Category: Medical Code(s): G89.29 - Other chronic pain (5) Diabetes Status: Chronic Qualifiers: Qualified Code(s): E11.69 - Type 2 diabetes mellitus with other specified complication; Z79.4 - [facility] (current) use of insulin Category: Medical Code(s): E11.9 - Type 2 diabetes mellitus without complications (6) Hip joint replacement status Status: Chronic Qualifiers: Qualified Code(s): Z96.649 - Presence of unspecified artificial hip joint Category: Surgical Code(s): Z96.649 - Presence of unspecified artificial hip joint (7) Hypertension Status: Chronic Qualifiers: Qualified Code(s): I10 - Essential (primary) hypertension Category: Medical Code(s): I10 - Essential (primary) hypertension (8) Obesity Status: Chronic Qualifiers: Qualified Code(s): E66.01 - Morbid (severe) obesity due to excess calories; Z68.41 - Body mass index [BMI]40.0-44.9, adult Category: Medical Code(s): E66.9 - Obesity, unspecified (9) Stented coronary artery Status: Chronic Category: Surgical Code(s): Z95.5 - Presence of coronary angioplasty implant and graft (10) Acute on chronic systolic congestive heart failure, NYHA class 3 Status: Acute Category: Medical Code(s): I50.23 - Acute on chronic systolic (congestive) heart failure - Assessment and plan all Dx Assessment and Plan for all problems:: #COVID-19 pneumonia: #Acute hypoxic respiratory failure: 64-year-old prior smoker more than [id number] smoking history last smoked 15 years ago prior history of CAD, DM presented to the hospital with worsening respiratory failure and found to have bilateral patchy infiltrates on the chest x-ray and also positive for COVID-19 pneumonia.Respiratory viral PCR negative except for COVID-19. Echocardiogram showed systolic dysfunction with EF of 40 to 45% with wall motion abnormalities. Patient completed a course of ceftriaxone ansamycin for possible community-acquired pneumonia, continued with remdesivir and dexamethasone CT PE study performed negative for any pulmonary emboli however showed diffuse bilateral patchy airspace disease along with evolving interstitial prominent fibrosis. No pleural effusions noted. Interval update: Patient remained in high oxygen commence however improving after increasing the dose of Lasix to 60. Patient ins and outs charting remains inaccurate with patient's weights remained relatively stable around 129 to 130 k
--- NOTE | 2020-04-23 11:38 | DIET.NUTRFU ---
100% intakes, BG improved past 2 days- ~200. Total weight loss t/o stay 6.5#, some question to accuracy of either weights or Is/Os.
--- NOTE | 2020-04-23 12:55 | HMH.ACPN2 ---
Internal Medicine - PN: Subj *Date: 04/23/20 *Time: 09:00 Interval history: pt sitting up in chair, voiced no c/o states he would like a hot totty . pt denies soa Exam Vital signs and Labs for Last 24 Hours: Temp Pulse Resp BP Pulse Ox 98.4 F 87 16 135/62 91 L 04/23/20 12:00 04/23/20 12:00 04/23/20 12:00 04/23/20 12:00 04/23/20 12:00 Laboratory Results - last 24 hr 04/23/20 05:25: WBC 5.0, RBC 4.88, Hgb 15.1, Hct 45.2, MCV 92.7, MCH 30.9, MCHC 33.3, RDW 13.0, Plt Count 566 H, MPV 9.0, Neut % (Auto) 67.8, Lymph % (Auto) 21.1, [place] % (Auto) 8.1, Eos % (Auto) 2.7, Baso % (Auto) 0.4, Neut # (Auto) 3.4, Lymph # (Auto) 1.1, [place] # (Auto) 0.4, Eos # (Auto) 0.1, Baso # (Auto) 0.0 04/23/20 05:25: Sodium 138, Potassium 4.2, Chloride 98, Carbon Dioxide 36 H, Anion Gap 8.2, BUN 19, Creatinine 0.70, Estimated Creat Clear 135, Estimated GFR 113, Est GFR ( Amer) 137, Glucose 188 H, Calcium 9.3 I & O for Last 24 hours: Intake & Output 04/21/20 04/22/20 04/23/20 04/24/20 11:59 11:59 11:59 11:59 Intake Total 1460 / 1460 860 / 860 1580 / 1580 Output Total 5000 / 5000 4075 / 4075 2550 / 2550 Balance -3540 / -3540 -3215 / -3215 -970 / -970 Weight 285 lb 284 lb 15.406 oz - Constitutional no acute distress, morbidly obese - *Routine HEENT Exam Head: Present: normocephalic Eye: Present: PERRL ENT: Present: mucous membranes moist - *Routine Neck Exam Present: supple. Absent: lymphadenopathy - *Routine Respiratory Exam Present: CTA bilaterally - *Routine Cardiovascular Exam Present: RRR - *Routine Abdominal Exam Present: soft, normoactive bowel sounds. Absent: tenderness - *Routine Extremities Exam Present: normal capillary refill. Absent: cyanosis, clubbing, edema - *Routine Skin Exam Present: warm. Absent: rash - *Routine Neurological Exam Present: alert, oriented X3 - Routine Psychiatric Exam Present: normal affect Assessment and Plan (1) Hypoxia Status: Acute Category: Medical Code(s): R09.02 - Hypoxemia (2) Pneumonia due to COVID-19 virus Status: Acute Category: Medical Code(s): U07.1 - COVID-19; J12.89 - Other viral pneumonia (3) CAD (coronary artery disease) Status: Chronic Qualifiers: Coronary Disease-Associated Artery/Lesion type: [place] artery [place] vs. transplanted heart: [place] heart Associated angina: without angina Qualified Code(s): I25.10 - Atherosclerotic heart disease of [place] coronary artery without angina pectoris Category: Medical Code(s): I25.10 - Atherosclerotic heart disease of [place] coronary artery without angina pectoris (4) Chronic pain Status: Chronic Qualifiers: Chronic pain type: other chronic pain Qualified Code(s): G89.29 - Other chronic pain Category: Medical Code(s): G89.29 - Other chronic pain (5) Diabetes Status: Chronic Qualifiers: Diabetes mellitus type: type 2 Diabetes mellitus terminal clerk insulin use: with nursing home use Diabetes mellitus complication status: with other specified complication Qualified Code(s): E11.69 - Type 2 diabetes mellitus with other specified complication Category: Medical Code(s): E11.9 - Type 2 diabetes mellitus without complications (6) Hip joint replacement status Status: Chronic Qualifiers: Laterality: unspecified laterality Qualified Code(s): Z96.649 - Presence of unspecified artificial hip joint Category: Surgical Code(s): Z96.649 - Presence of unspecified artificial hip joint (7) Hypertension Status: Chronic Qualifiers: Hypertension type: essential hypertension Qualified Code(s): I10 - Essential (primary) hypertension Category: Medical Code(s): I10 - Essential (primary) hypertension (8) Obesity Status: Chronic Qualifiers: Obesity type: due to excess calories Obesity classification: adult class 3 (BMI >= 40) Serious obesity comorbidity presence: with serious comorbidity Body mass inde
--- NOTE | 2020-04-23 16:02 | PC.NURSE ---
late entry, on morning round ana stated he would like patient sats to be 88% or greater. wean as appropriate. accurate i/os needed.
--- NOTE | 2020-04-23 16:07 | PC.NURSE ---
noted patient sats have been ranging 90-94%. called and asked respiratory to try weaning vapotherm again. at this time on 30l and 60% fio2
--- NOTE | 2020-04-23 16:55 | PC.NURSE ---
Mr. Alamo is as very pleasant gentleman. He has had no reports of pain this shift. He has diminished lung sounds. He is currently being weaned off his vapotherm. Current settings are 30L w/ fiO2 60%, Dr. Taylor stated that as long as his o2 sat stayed >88% then we can proceed with weaning the patient. He is currently stating at 91%. Patient has been non compliant with his diet today, his family brought him in many snack and non were sugar free, patient has been educated on his diet. His Glucose was checked twice on this shift 1100 reading 240 with 5 units of insulin given and again at 1600 reading 384 with 12 units given per sliding scale protocol. Patient ambulates on his own using the bedside commode but has been encouraged to use the urinal for voiding so we have an exact output. He is alert and oriented x4. Will continue to monitor.
--- NOTE | 2020-04-23 18:08 | PC.NURSE ---
At 1720 respiratory turned down patients vapotherm settings to 30L fio2 50%, patient is currently sating between 88-90%.
--- NOTE | 2020-04-23 18:26 | PC.NURSE ---
Called respiratory for patient, he started to sat consistently in the low 80's one he laid in bed for the night. When I went into check on him he was getting a little anxious and SOA stated that he would feel better if we turned the vapotherm back up. Verbal understanding from respiratory and current settings after being changed are 30L 65% fio2. Patient is currently sating at 91%.
--- NOTE | 2020-04-23 18:47 | PC.NURSE ---
Respiratory came back to check in on patient he is currently sating at 96% on 30L fio2 65%. She reported that she is going to turn the fio2 down to 60%. Will continue to monitor.
[2020-04-24] VITALS (14 sets, daily range): BP systolic 103–150; BP diastolic 51–92; PULSE 59–88; RESP 16–20; TEMP 36.7–37.3; O2SAT 89–97; BMI 37.0
[2020-04-24 02:36] LABS: POC Glucose,Bedside 377 (70-110)
[2020-04-24 02:36] LABS: POC Glucose,Bedside 264 (70-110)
[2020-04-24 02:36] LABS: POC Glucose,Bedside 298 (70-110)
[2020-04-24 02:36] LABS: POC Glucose,Bedside 404 (70-110)
[2020-04-24 02:36] LABS: POC Glucose,Bedside 384 (70-110)
[2020-04-24 02:36] LABS: POC Glucose,Bedside 240 (70-110)
--- NOTE | 2020-04-24 03:57 | PC.NURSE ---
Pt A&OX4 lungs diminished t/o. o2 sats 90-93% on vapotherm 30L 60%. pt has voided per urinal. pt has rested quietly this shift.
[2020-04-24 07:06] LABS: Chloride 95 mmol/L (98-107); Sodium 135 mmol/L (136-145)
[2020-04-24 07:07] LABS: Potassium 4.2 mmoL/L (3.5-5.1)
[2020-04-24 07:09] LABS: Alanine Aminotransferase 35 U/L (12-78); Albumin Level 3.6 g/dl (3.5-5.0); Alkaline Phosphatase 71 U/L (38-126); Anion Gap 10.2 mEq/L (5-15); Aspartate Amino Transferase 51 U/L (17-59); Bilirubin,Total 0.6 mg/dl (0.2-1.3); Blood Urea Nitrogen 22 mg/dl (9-20); Calcium 9.4 mg/dl (8.4-10.2); Carbon Dioxide 34 mmol/L (22.0-30.0); Creatinine Clearance Estimated 132 mL/min (50-200); Estimated Glomerular Filt Rate 135 ml/min (>60); GFR (African American) 164 ML/MIN (>60); Globulin 3.6 g/dL (1.3-3.2); Glucose 196 mg/dl (74-100); Total Protein,Serum 7.2 g/dl (6.3-8.2)
--- NOTE | 2020-04-24 09:43 | HMH.ACPN2 ---
Internal Medicine - PN: Subj *Date: 04/25/20 *Time: 08:11 Interval history: pt with some clinical improvement Exam Vital signs and Labs for Last 24 Hours: Temp Pulse Resp BP Pulse Ox 98.4 F 88 16 110/82 91 L 04/24/20 08:00 04/24/20 08:00 04/24/20 08:00 04/24/20 08:00 04/24/20 08:00 Laboratory Results - last 24 hr 04/22/20 16:40: POC Glucose 298 H 04/22/20 20:36: POC Glucose 377 H* 04/23/20 05:14: POC Glucose 264 H 04/23/20 11:00: POC Glucose 240 H 04/23/20 16:09: POC Glucose 384 H* 04/23/20 19:40: POC Glucose 404 H* 04/24/20 06:10: Sodium 135 L, Potassium 4.2, Chloride 95 L, Carbon Dioxide 34 H, Anion Gap 10.2, BUN 22 H, Creatinine 0.60 L, Estimated Creat Clear 132, Estimated GFR 135, Est GFR ( Amer) 164, Glucose 196 H, Calcium 9.4, Total Bilirubin 0.6, AST 51, ALT 35, Alkaline Phosphatase 71, Total Protein 7.2, Albumin 3.6, Globulin 3.6 H, Albumin/Globulin Ratio 1.0 L I & O for Last 24 hours: Intake & Output 04/21/20 04/22/20 04/23/20 04/24/20 11:59 11:59 11:59 11:59 Intake Total 1460 / 1460 860 / 860 1580 / 1580 2019 Output Total 5000 / 5000 4075 / 4075 2550 / 2550 4200 / 4200 Balance -3540 / -3540 -3215 / -3215 -970 / -970 -2180 / -2180 Weight 285 lb 284 lb 15.406 oz 280 lb - Constitutional no acute distress, obese - *Routine HEENT Exam Head: Present: normocephalic Eye: Present: EOMI, PERRL ENT: Present: mucous membranes dry - *Routine Neck Exam Present: supple - *Routine Respiratory Exam Present: CTA bilaterally - *Routine Cardiovascular Exam Present: RRR - *Routine Abdominal Exam Present: soft - *Routine Extremities Exam Present: full ROM - *Routine Skin Exam Present: intact - *Routine Neurological Exam Present: alert, CN II-XII intact - Routine Psychiatric Exam Present: normal affect Assessment and Plan (1) Hypoxia Status: Acute Category: Medical Code(s): R09.02 - Hypoxemia (2) Pneumonia due to COVID-19 virus Status: Acute Category: Medical Code(s): U07.1 - COVID-19; J12.89 - Other viral pneumonia (3) CAD (coronary artery disease) Status: Chronic Qualifiers: Coronary Disease-Associated Artery/Lesion type: [place] artery [place] vs. transplanted heart: [place] heart Associated angina: without angina Qualified Code(s): I25.10 - Atherosclerotic heart disease of [place] coronary artery without angina pectoris Category: Medical Code(s): I25.10 - Atherosclerotic heart disease of [place] coronary artery without angina pectoris (4) Chronic pain Status: Chronic Qualifiers: Chronic pain type: other chronic pain Qualified Code(s): G89.29 - Other chronic pain Category: Medical Code(s): G89.29 - Other chronic pain (5) Diabetes Status: Chronic Qualifiers: Diabetes mellitus type: type 2 Diabetes mellitus halfway insulin use: with terminal clerk use Diabetes mellitus complication status: with other specified complication Qualified Code(s): E11.69 - Type 2 diabetes mellitus with other specified complication Category: Medical Code(s): E11.9 - Type 2 diabetes mellitus without complications (6) Hip joint replacement status Status: Chronic Qualifiers: Laterality: unspecified laterality Qualified Code(s): Z96.649 - Presence of unspecified artificial hip joint Category: Surgical Code(s): Z96.649 - Presence of unspecified artificial hip joint (7) Hypertension Status: Chronic Qualifiers: Hypertension type: essential hypertension Qualified Code(s): I10 - Essential (primary) hypertension Category: Medical Code(s): I10 - Essential (primary) hypertension (8) Obesity Status: Chronic Qualifiers: Obesity type: due to excess calories Obesity classification: adult class 3 (BMI >= 40) Serious obesity comorbidity presence: with serious comorbidity Body mass index: BMI 40.0-44.9 Qualified Code(s): E66.01 - Morbid (severe) obesity due to excess calories; Z68.
--- NOTE | 2020-04-24 12:24 | PC.NURSE ---
respiratory turned vapotherm down to 25 l at 50%
--- NOTE | 2020-04-24 13:35 | PC.NURSE ---
Called and spoke with respiratory, let RT know that patient has been sating between 90-92% consistently since hes vapotherm was adjusted at 1200. His current settings are 25L fio2 50%. Will continue to monitor
--- NOTE | 2020-04-24 15:13 | PC.NURSE ---
RT just left she adjusted vapotherm to 20L fio2 40%. Will monitor patient.
[2020-04-24 17:03] LABS: POC Glucose,Bedside 332 (70-110)
[2020-04-24 17:03] LABS: POC Glucose,Bedside 341 (70-110)
[2020-04-24 17:03] LABS: POC Glucose,Bedside 191 (70-110)
--- NOTE | 2020-04-24 18:24 | PC.NURSE ---
End of shift note. Patient has done very well today tolerating being weaned off vapotherm. He started the shift at 30L fio2 60%, He is currently on 20L 40%. Per Dr. Taylor as long as the patient is above 88% to continue to wean. Patient has been sating between 90-94% all day. Patient reports no pain. He rested most of the afternoon. Patient is non compliant with his diabetes. Both glucose readings today have been abnormal reading 332 and 342, insulin was given per sliding scale protocol. Patient has eaten at 100% all day. Patients room was cleaned and mopped by nurse today.
[2020-04-24 20:03] LABS: POC Glucose,Bedside 344 (70-110)
[2020-04-25] VITALS (13 sets, daily range): BP systolic 99–150; BP diastolic 45–83; PULSE 64–97; RESP 18–20; TEMP 36.8–37.3; O2SAT 87–97; BMI 36.7
--- NOTE | 2020-04-25 04:24 | PC.NURSE ---
Pt A&OX4 lungs diminished t/o. pt 02 sat 93-95% on vapotherm. pt voids per urinal. pt has slept quietly this shift.
[2020-04-25 05:38] LABS: POC Glucose,Bedside 254 (70-110)
--- NOTE | 2020-04-25 05:56 | PC.NURSE ---
RT just switch pt from vapotherm to 6L NC. pt O2 sat 95%
[2020-04-25 06:05] LABS: Anion Gap 6.4 mEq/L (5-15); Blood Urea Nitrogen 21 mg/dl (9-20); Chloride 95 mmol/L (98-107); Creatinine Clearance Estimated 132 mL/min (50-200); Estimated Glomerular Filt Rate 113 ml/min (>60); GFR (African American) 137 ML/MIN (>60); Potassium 4.4 mmoL/L (3.5-5.1); Sodium 137 mmol/L (136-145)
[2020-04-25 06:09] LABS: Carbon Dioxide 40 mmol/L (22.0-30.0)
[2020-04-25 06:10] LABS: Glucose 280 mg/dl (74-100)
--- NOTE | 2020-04-25 06:14 | PC.NURSE ---
Pt O2 sat 97 % on 6L NC, pt titrated down to 4L
--- NOTE | 2020-04-25 07:31 | PC.NURSE ---
passed in report notification result carbon dioxide of 40 to Jayda.
--- NOTE | 2020-04-25 09:20 | PC.NURSE ---
relayed to md about patient co2 level. also addressed lasix dosing since final dose of 100mg given to patient. patient is currently 91% on 4 l o2. md stated to do the 60mg iv lasix bid.
--- NOTE | 2020-04-25 09:22 | HMH.ACPN2 ---
Internal Medicine - PN: Subj *Date: 04/26/20 *Time: 07:43 Interval history: doing better on o2 and feels better Exam Vital signs and Labs for Last 24 Hours: Temp Pulse Resp BP Pulse Ox 98.4 F 69 20 122/45 L 94 L 04/25/20 04:00 04/25/20 05:43 04/25/20 04:00 04/25/20 04:00 04/25/20 06:38 Laboratory Results - last 24 hr 04/24/20 06:07: POC Glucose 191 H 04/24/20 11:35: POC Glucose 332 H* 04/24/20 16:05: POC Glucose 341 H* 04/24/20 19:46: POC Glucose 344 H* 04/25/20 05:27: POC Glucose 254 H 04/25/20 05:28: Sodium 137, Potassium 4.4, Chloride 95 L, Carbon Dioxide 40 H, Anion Gap 6.4, BUN 21 H, Creatinine 0.70, Estimated Creat Clear 132, Estimated GFR 113, Est GFR ( Amer) 137, Glucose 280 H D, Calcium 9.0 I & O for Last 24 hours: Intake & Output 04/22/20 04/23/20 04/24/20 04/25/20 11:59 11:59 11:59 11:59 Intake Total 860 / 860 1580 / 1580 2019 / 2019 2079 / 2079 Output Total 4075 / 4075 2550 / 2550 4200 / 4200 3700 / 3700 Balance -3215 / -3215 -970 / -970 -2180 / -2180 -1620 / -1620 Weight 284 lb 15.406 oz 280 lb 277 lb 5 oz - Constitutional no acute distress, obese - *Routine HEENT Exam Head: Present: normocephalic Eye: Present: EOMI, PERRL ENT: Present: mucous membranes dry - *Routine Neck Exam Present: supple - *Routine Respiratory Exam Present: decreased breath sounds - *Routine Cardiovascular Exam Present: RRR - *Routine Abdominal Exam Present: soft - *Routine Skin Exam Present: intact - *Routine Neurological Exam Present: alert, CN II-XII intact - Routine Psychiatric Exam Present: normal affect Assessment and Plan (1) Hypoxia Status: Acute Category: Medical Code(s): R09.02 - Hypoxemia (2) Pneumonia due to COVID-19 virus Status: Acute Category: Medical Code(s): U07.1 - COVID-19; J12.89 - Other viral pneumonia (3) CAD (coronary artery disease) Status: Chronic Qualifiers: Coronary Disease-Associated Artery/Lesion type: [place] artery [place] vs. transplanted heart: [place] heart Associated angina: without angina Qualified Code(s): I25.10 - Atherosclerotic heart disease of [place] coronary artery without angina pectoris Category: Medical Code(s): I25.10 - Atherosclerotic heart disease of [place] coronary artery without angina pectoris (4) Chronic pain Status: Chronic Qualifiers: Chronic pain type: other chronic pain Qualified Code(s): G89.29 - Other chronic pain Category: Medical Code(s): G89.29 - Other chronic pain (5) Diabetes Status: Chronic Qualifiers: Diabetes mellitus type: type 2 Diabetes mellitus intermodal customer service insulin use: with intermodal customer service use Diabetes mellitus complication status: with other specified complication Qualified Code(s): E11.69 - Type 2 diabetes mellitus with other specified complication Category: Medical Code(s): E11.9 - Type 2 diabetes mellitus without complications (6) Hip joint replacement status Status: Chronic Qualifiers: Laterality: unspecified laterality Qualified Code(s): Z96.649 - Presence of unspecified artificial hip joint Category: Surgical Code(s): Z96.649 - Presence of unspecified artificial hip joint (7) Hypertension Status: Chronic Qualifiers: Hypertension type: essential hypertension Qualified Code(s): I10 - Essential (primary) hypertension Category: Medical Code(s): I10 - Essential (primary) hypertension (8) Obesity Status: Chronic Qualifiers: Obesity type: due to excess calories Obesity classification: adult class 3 (BMI >= 40) Serious obesity comorbidity presence: with serious comorbidity Body mass index: BMI 40.0-44.9 Qualified Code(s): E66.01 - Morbid (severe) obesity due to excess calories; Z68.41 - Body mass index [BMI]40.0-44.9, adult Category: Medical Code(s): E66.9 - Obesity, unspecified (9) Stented coronary artery Status: Chronic Category: Surgical Code(s): Z95.5 - Presence of ackerman
[2020-04-25 11:29] LABS: POC Glucose,Bedside 303 (70-110)
--- NOTE | 2020-04-25 11:30 | PC.NURSE ---
patient got up to bathroom and since has been unable to recover on the venti patient has not been tolerating leaving mask on. patient sats high 70s on the venti mask. patient switched over to vapotherm at this time. md is aware. patient is educated on taking breaths but at times patient appears to be almost holding breath. patient is not in any apparent distress. education attempted on taking breaths through nose and out mouth. However, patient continues to hold breaths at time, and seems to be intentionally belly breathing. when you ask him to take deep breaths he does not appear to comprehend.
[2020-04-25 16:15] LABS: POC Glucose,Bedside 469 (70-110)
--- NOTE | 2020-04-25 16:38 | PC.NURSE ---
RELAYED TO MD ABOUT PATIENT FSBS BEING 469. PATIENT GETS 15 UNITS OF HUMALOG IF FSBS 401-450. MD STATED TO GIVE A TOTAL OF 25 UNITS
--- NOTE | 2020-04-25 18:25 | PC.NURSE ---
End of shift report. Mr. Alamo has been very pleasant today with no complaints of pain. Patient reports that he is feeling much better and seems to be in great spirits about getting discharged but states that if hes able too he would like to stay till Sunday just to make sure that he is completely healthy. He is still non compliant with his diabetes and received continued education today on compliance and diet. His glucose readings were 303 and 469 which the MD was notified and sliding scale insulin protocol was followed and given to the patient accordingly. His lung sounds are still diminished, when he talks he tends to get chocked up. He is on 4L NC and has been sating between 90-94% all day, even when resting in the bed. Patient continues to have great urine output. Will continue to monitor.
[2020-04-25 20:25] LABS: POC Glucose,Bedside 408 (70-110)
[2020-04-26] VITALS (9 sets, daily range): BP systolic 112–137; BP diastolic 52–76; PULSE 68–96; RESP 20–22; TEMP 36.6–37.2; O2SAT 88–97; BMI 37.0
--- NOTE | 2020-04-26 04:40 | PC.NURSE ---
Pt A&OX4 lungs diminished t/o. O2 sat 90-95% on 4L NC. pt voids per urinal and ambulates to BSC. pt has rested quietly this shift
[2020-04-26 05:08] LABS: POC Glucose,Bedside 264 (70-110)
--- NOTE | 2020-04-26 08:25 | XR_ITS ---
PROCEDURE: XR CHEST PORTABLE CLINICAL HISTORY: PNM Pneumonia follow-up COMPARISON: CR XR CHEST PORTABLE from 04/18/[address] ANGIO CHEST from 04/19/2020 CR XR CHEST PORTABLE from 04/19/2020 CR XR CHEST PORTABLE from 04/23/2020 FINDINGS: Cardiomegaly without failure. There is diffuse bilateral pneumonia with some sparing of the lung apices and central perihilar areas. There are low lung volumes. The pneumonia peers somewhat worse on the right but could be related to the poor inspiration. No acute bony abnormalities. IMPRESSION: Diffuse bilateral pneumonia with poor inspiration probably overall not significantly changed considering the difference in technique Dictated by: Branden Rojo MD 04/26/2020 09:40 Branden Rojo MD in [facility] 04/26/2020 09:40
--- NOTE | 2020-04-26 08:47 | HMH.ACPN2 ---
Internal Medicine - PN: Subj *Date: 04/26/20 *Time: 08:47 Interval history: pt sitting up in chair states he is feeling well but still soa. Exam Vital signs and Labs for Last 24 Hours: Temp Pulse Resp BP Pulse Ox 98.3 F 85 22 137/61 90 L 04/26/20 08:00 04/26/20 08:00 04/26/20 08:00 04/26/20 08:00 04/26/20 08:00 Laboratory Results - last 24 hr 04/25/20 11:20: POC Glucose 303 H* 04/25/20 16:03: POC Glucose 469 H* 04/25/20 19:45: POC Glucose 408 H* 04/26/20 05:01: POC Glucose 264 H I & O for Last 24 hours: Intake & Output 04/23/20 04/24/20 04/25/20 04/26/20 11:59 11:59 11:59 11:59 Intake Total 1580 / 1580 2019 / 2020 2080 / 2080 1240 / 1240 Output Total 2550 / 2550 4200 / 4200 5300 / 5300 3750 / 3750 Balance -970 / -970 -2180 / -2180 -3220 / -3220 -2510 / -2510 Weight 284 lb 15.406 oz 280 lb 277 lb 5 oz 280 lb - Constitutional no acute distress, obese - *Routine HEENT Exam Head: Present: normocephalic Eye: Present: PERRL ENT: Present: mucous membranes moist - *Routine Neck Exam Present: supple. Absent: lymphadenopathy - *Routine Respiratory Exam Present: rhonchi - *Routine Cardiovascular Exam Present: RRR - *Routine Abdominal Exam Present: soft, normoactive bowel sounds. Absent: tenderness - *Routine Extremities Exam Present: normal capillary refill. Absent: cyanosis, clubbing, edema - *Routine Skin Exam Present: warm. Absent: rash - *Routine Neurological Exam Present: alert, oriented X3 - Routine Psychiatric Exam Present: normal affect Assessment and Plan (1) Hypoxia Status: Acute Category: Medical Code(s): R09.02 - Hypoxemia (2) Pneumonia due to COVID-19 virus Status: Acute Category: Medical Code(s): U07.1 - COVID-19; J12.89 - Other viral pneumonia (3) CAD (coronary artery disease) Status: Chronic Qualifiers: Coronary Disease-Associated Artery/Lesion type: [place] artery [place] vs. transplanted heart: [place] heart Associated angina: without angina Qualified Code(s): I25.10 - Atherosclerotic heart disease of [place] coronary artery without angina pectoris Category: Medical Code(s): I25.10 - Atherosclerotic heart disease of [place] coronary artery without angina pectoris (4) Chronic pain Status: Chronic Qualifiers: Chronic pain type: other chronic pain Qualified Code(s): G89.29 - Other chronic pain Category: Medical Code(s): G89.29 - Other chronic pain (5) Diabetes Status: Chronic Qualifiers: Diabetes mellitus type: type 2 Diabetes mellitus residential insulin use: with residential use Diabetes mellitus complication status: with other specified complication Qualified Code(s): E11.69 - Type 2 diabetes mellitus with other specified complication Category: Medical Code(s): E11.9 - Type 2 diabetes mellitus without complications (6) Hip joint replacement status Status: Chronic Qualifiers: Laterality: unspecified laterality Qualified Code(s): Z96.649 - Presence of unspecified artificial hip joint Category: Surgical Code(s): Z96.649 - Presence of unspecified artificial hip joint (7) Hypertension Status: Chronic Qualifiers: Hypertension type: essential hypertension Qualified Code(s): I10 - Essential (primary) hypertension Category: Medical Code(s): I10 - Essential (primary) hypertension (8) Obesity Status: Chronic Qualifiers: Obesity type: due to excess calories Obesity classification: adult class 3 (BMI >= 40) Serious obesity comorbidity presence: with serious comorbidity Body mass index: BMI 40.0-44.9 Qualified Code(s): E66.01 - Morbid (severe) obesity due to excess calories; Z68.41 - Body mass index [BMI]40.0-44.9, adult Category: Medical Code(s): E66.9 - Obesity, unspecified (9) Stented coronary artery Status: Chronic Category: Surgical Code(s): Z95.5 - Presence of coronary angioplasty implant and graft (10) Acute on chronic sys
--- NOTE | 2020-04-26 10:43 | HMH.PULMPN ---
Internal Medicine - PN: Subj *Date: 04/26/20 *Time: 10:43 Interval history: No acute events overnight. Patient respiratory status significantly improved with diuresis, this morning on 4 L nasal cannula saturating 90 to 92% Exam - Constitutional Constitutional:: no acute distress, comfortable - HENMT Exam HENMT: normocephalic, atraumatic - Eye Exam Eyes:: normal appearance both eyes and related structures - Neck Exam Neck:: normal visual inspection, thyroid normal, no lymphadenopathy - Respiratory Exam Respiratory:: able to speak in complete sentences, bibailar crackels heard, no respiratory distress, normal respiratory effort - Cardiovascular Exam Cardiac:: S1, S2 - GI Exam GI:: soft, no hepatosplenomegaly, obese - Skin Exam Skin: warm, no rash - Neurological Exam Neurological: alert, awake, oriented X3 - Extremities Exam Extremities: no cyanosis, no clubbing, edema - Psychiatric Exam Psychiatric: normal affect Assessment and Plan (1) Hypoxia Status: Acute Category: Medical Code(s): R09.02 - Hypoxemia (2) Pneumonia due to COVID-19 virus Status: Acute Category: Medical Code(s): U07.1 - COVID-19; J12.89 - Other viral pneumonia (3) CAD (coronary artery disease) Status: Chronic Qualifiers: Coronary Disease-Associated Artery/Lesion type: [place] artery [place] vs. transplanted heart: [place] heart Associated angina: without angina Qualified Code(s): I25.10 - Atherosclerotic heart disease of [place] coronary artery without angina pectoris Category: Medical Code(s): I25.10 - Atherosclerotic heart disease of [place] coronary artery without angina pectoris (4) Chronic pain Status: Chronic Qualifiers: Chronic pain type: other chronic pain Qualified Code(s): G89.29 - Other chronic pain Category: Medical Code(s): G89.29 - Other chronic pain (5) Diabetes Status: Chronic Qualifiers: Diabetes mellitus type: type 2 Diabetes mellitus [place] insulin use: with long-term use Diabetes mellitus complication status: with other specified complication Qualified Code(s): E11.69 - Type 2 diabetes mellitus with other specified complication Category: Medical Code(s): E11.9 - Type 2 diabetes mellitus without complications (6) Hip joint replacement status Status: Chronic Qualifiers: Laterality: unspecified laterality Qualified Code(s): Z96.649 - Presence of unspecified artificial hip joint Category: Surgical Code(s): Z96.649 - Presence of unspecified artificial hip joint (7) Hypertension Status: Chronic Qualifiers: Hypertension type: essential hypertension Qualified Code(s): I10 - Essential (primary) hypertension Category: Medical Code(s): I10 - Essential (primary) hypertension (8) Obesity Status: Chronic Qualifiers: Obesity type: due to excess calories Obesity classification: adult class 3 (BMI >= 40) Serious obesity comorbidity presence: with serious comorbidity Body mass index: BMI 40.0-44.9 Qualified Code(s): E66.01 - Morbid (severe) obesity due to excess calories; Z68.41 - Body mass index [BMI]40.0-44.9, adult Category: Medical Code(s): E66.9 - Obesity, unspecified (9) Stented coronary artery Status: Chronic Category: Surgical Code(s): Z95.5 - Presence of coronary angioplasty implant and graft (10) Acute on chronic systolic congestive heart failure, NYHA class 3 Status: Acute Category: Medical Code(s): I50.23 - Acute on chronic systolic (congestive) heart failure - Assessment and plan all Dx Assessment and Plan for all problems:: #COVID-19 pneumonia: #Acute hypoxic respiratory failure: 64-year-old prior smoker more than [id number] smoking history last smoked 15 years ago prior history of CAD, DM presented to the hospital with worsening respiratory failure and found to have bilateral patchy infiltrates on the chest x-ray and also positive for COVID-19 pneumonia.Respiratory viral
--- NOTE | 2020-04-26 11:33 | DIET.NUTRFU ---
Pt with continued hyperglycemia dt noncompliance with ADA diet. BG- ~300. He has high sugar snacks brought in by his family. He has been educated and compliance encouraged several times. DM diet edu given for dc. Weight down 4# t/o stay.
[2020-04-26 12:02] LABS: POC Glucose,Bedside 358 (70-110)
[2020-04-26 16:35] LABS: POC Glucose,Bedside 333 (70-110)
--- NOTE | 2020-04-26 17:51 | PC.NURSE ---
No acute changes. Remains on 4 L O2 per nasal cannula w/ no s/s of resp distress. Lungs CTA. Abdomen soft, round, non-tender w/ active BS. Reports BM yesterday. Skin intact. Pt independent w/ ADL's. Voiding per urinal w/o difficulty. Has had over 1 liter out of urine this shift. Has at 100% of meals today, no decrease in appetite. Currently sitting on side of bed eating dinner. No needs voiced. Plans to DC home tomorrow w/ home O2.
[2020-04-26 23:35] LABS: POC Glucose,Bedside 370 (70-110)
[2020-04-27] VITALS: BP 137/86; PULSE 82; RESP 20; TEMP 36.9; O2SAT 93
[2020-04-27 00:10] VITALS: PULSE 75; PULSE 81
[2020-04-27 04:00] VITALS: BP 149/59; PULSE 68; RESP 24; TEMP 37.1; O2SAT 95
[2020-04-27 05:00] VITALS: BMI 36.9
--- NOTE | 2020-04-27 06:00 | PC.NURSE ---
Pt is A&Ox4 and is independent and tolerates well. Pt has c/o pain to back, which is chronic and was medicated per MAR. Pt slept for a few hours during the night. Pt continues on 4LPM NC and SaO2 90-96% this shift. Lungs CTA although diminished bases. Pt reports some SOA with exertion and received nebs as scheduled. No peripheral edema noted. ABD is soft and non-tender with active bowel sounds. Lovenox for VTE. Pt has been anxious to go home and has already packed most of his personal belongings. VSS, call light within reach, will continue to monitor.
[2020-04-27 06:24] VITALS: PULSE 81; PULSE 84; O2SAT 95
[2020-04-27 07:31] LABS: Basophils # 0.1 K/mm3 (0-0.2); Basophils % 0.8 % (0.1-2.0); Eosinophils # 0.1 K/mm3 (0.0-0.4); Eosinophils % 1.1 % (0.1-12.0); Hematocrit 46.3 % (42.0-52.0); Hemoglobin 14.6 g/dL (14.1-18.0); Lymphocytes # 1.9 K/mm3 (0.7-4.5); Lymphocytes % 20.3 % (10-50); Mean Corpuscular HGB Conc 31.5 g/dL (31.8-35.4); Mean Corpuscular Hemoglobin 29.8 pg (27.0-31.2); Mean Corpuscular Volume 94.7 fl (80-94); Mean Platelet Volume 8.1 fl (7.4-10.4); Monocytes # 0.6 K/mm3 (0.1-1.0); Monocytes % 6.1 % (1.7-9.3); Neutrophils # 6.7 K/mm3 (1.8-7.8); Neutrophils % 71.8 % (37.0-80.0); Platelet Count 518 K/mm3 (142-424); Red Blood Count 4.89 M/mm3 (4.60-6.20); Red Cell Distribution Width 12.6 % (11.5-17.5); White Blood Count 9.3 K/mm3 (4.8-10.8)
[2020-04-27 07:50] LABS: Chloride 94 mmol/L (98-107); Potassium 3.7 mmoL/L (3.5-5.1); Sodium 138 mmol/L (136-145)
[2020-04-27 07:53] LABS: Anion Gap 8.7 mEq/L (5-15); Blood Urea Nitrogen 18 mg/dl (9-20); Calcium 9.3 mg/dl (8.4-10.2); Carbon Dioxide 39 mmol/L (22.0-30.0); Creatinine Clearance Estimated 132 mL/min (50-200); Estimated Glomerular Filt Rate 113 ml/min (>60); GFR (African American) 137 ML/MIN (>60); Glucose 176 mg/dl (74-100)
[2020-04-27 07:59] VITALS: BP 131/64; PULSE 106; RESP 20; TEMP 36.6; O2SAT 91
[2020-04-27 08:03] LABS: POC Glucose,Bedside 177 (70-110)
[2020-04-27 08:30] LABS: POC Glucose,Bedside 296 (70-110)
--- NOTE | 2020-04-27 09:32 | HMH.DCSUM ---
General - General Admission date:: 04/15/20 Discharge date: 04/27/20 HPI HPI: Male with a history of diabetes and congestive heart failure as well as CAD who presents with fever and shortness of breath and cough for the past 3 days. Shortness of breath became significantly worse last night and gave him a breathing treatment which did not help. He had a fall last night with no significant injuries. Patient has become progressively weaker related to shortness of breath. 64-year-old male who presents with severe respiratory distress initially hypoxic that recovers on 6 L nasal cannula. Patient appears mottled but has hemodynamically stable vital signs is cool to touch. Differential includes pneumonia, COVID-19 pneumonia, CHF exacerbation, pulmonary embolism, and others. Chest x-ray is ordered and further laboratory data includes CBC, CMP, BNP, ABG, lactate. Chest x-ray demonstrates significant patchy opacities and pulmonary edema consistent with CHF/COVID-19 dual process. His BNP is elevated greater than 2000 however he does not have significant pedal edema or evidence of right volume overload. Patient is febrile and a lactate of 3.5 however will not initiate sepsis protocol at this time due to suspicion for hypoxia related lactate increase and hemodynamically stable vital signs. Repeat lactate improved with oxygen therapy to normal levels. The decision was also made not to give him the sepsis protocol fluid boluses due to normal vital signs and progressive CHF and concern for ards. Patient was determined to be positive for COVID-19. He was admitted to the hospital service for further management at this time. Patient remained stable throughout the duration of ED care. Mr. Alamo was seen earlier this morning in the office, subsequently sent to the emergency room. He was acutely ill and had low saturations on room air. He has several comorbid conditions including coronary artery disease, CHF, controlled diabetes, chronic pain, obesity, hypertension. Chest x-ray report is pending. Visual examination reveals patchy infiltration throughout, more notable on the right. There is some cardiomegaly and possible volume overload. Hospital Course Hospital Course: Male with a history of diabetes and congestive heart failure as well as CAD who presents with fever and shortness of breath and cough for the past 3 days. Shortness of breath became significantly worse last night and gave him a breathing treatment which did not help. He had a fall last night with no significant injuries. Patient has become progressively weaker related to shortness of breath. 04/15/20 CXR: IMPRESSION: Prominent diffuse bilateral perihilar and lower lobe pneumonic infiltrates and certainly Covid must be considered. Dictated by: Elías, 04/16/20 ECHO: Conclusion 1. Technically difficult study because of the patient factors and poor acoustic windows. 2. Mild biatrial enlargement, normal left ventricular size, mild concentric left ventricular hypertrophy, visually estimated ejection fraction 40 to 45% with multiple segmental wall motion abnormality described above. Diastolic parameters are inconclusive. 3. Mildly enlarged right ventricle with normal contractility. 4. Mild mitral and tricuspid regurgitation. 5. No significant pericardial effusion noted. Electronically signed by : Boyd 04/19/20 Chest CTA: FINDINGS: HEART AND MEDIASTINAL STRUCTURES: No evidence of pulmonary embolus, aortic aneurysm, or aortic dissection. There is prominent coronary artery calcification. There are few scattered small mediastinal lymph nodes and small hilar lymph nodes. These are nonspecific and may be reactive. LUNGS AND PLEURAL SPACES: There is diffuse bilateral alveolar opacification consistent with diffuse bilateral pneumonia. The overall characteristics are nonspecific. There is some ground-glass attenuation in the lower lobes wh
[2020-04-27 09:34] VITALS: O2SAT 86
--- NOTE | 2020-04-27 09:43 | SW/DCPLANNER ---
Addendum entered by Jayda Brock 04/27/20 10:29: Liliana from [facility] has stated that portable O2 will be delivered to [facility] and home O2 and neb machine will be delivered to home. Original Note: Patient will discharge home today. I have received an order for a nebulizer machine and home O2/portable. Patient information and order has been faxed to [facility]. I will follow up with [facility] once patient information is reviewed.
--- NOTE | 2020-04-27 09:56 | HMH.PULMPN ---
Internal Medicine - PN: Subj *Date: 04/27/20 *Time: 09:56 Interval history: Patient denies any new respiratory complaints. Breathing improved, this morning on 3 L nasal cannula saturating 94%. Auscultation still revealed bibasilar crackles Exam - Constitutional Constitutional:: no acute distress, comfortable - HENMT Exam HENMT: normocephalic, atraumatic - Eye Exam Eyes:: normal appearance both eyes and related structures - Neck Exam Neck:: normal visual inspection, thyroid normal, no lymphadenopathy - Respiratory Exam Respiratory:: able to speak in complete sentences, bibailar crackels heard, no respiratory distress - Cardiovascular Exam Cardiac:: S1, S2 - GI Exam GI:: soft, no hepatosplenomegaly, obese - Skin Exam Skin: warm, no rash - Neurological Exam Neurological: alert, awake, oriented X3 - Extremities Exam Extremities: no cyanosis, no clubbing, edema Assessment and Plan (1) Hypoxia Status: Acute Category: Medical Code(s): R09.02 - Hypoxemia (2) Pneumonia due to COVID-19 virus Status: Acute Category: Medical Code(s): U07.1 - COVID-19; J12.89 - Other viral pneumonia (3) CAD (coronary artery disease) Status: Chronic Qualifiers: Qualified Code(s): I25.10 - Atherosclerotic heart disease of [place] coronary artery without angina pectoris Category: Medical Code(s): I25.10 - Atherosclerotic heart disease of [place] coronary artery without angina pectoris (4) Chronic pain Status: Chronic Qualifiers: Qualified Code(s): G89.29 - Other chronic pain Category: Medical Code(s): G89.29 - Other chronic pain (5) Diabetes Status: Chronic Qualifiers: Qualified Code(s): E11.69 - Type 2 diabetes mellitus with other specified complication; Z79.4 - retirement (current) use of insulin Category: Medical Code(s): E11.9 - Type 2 diabetes mellitus without complications (6) Hip joint replacement status Status: Chronic Qualifiers: Qualified Code(s): Z96.649 - Presence of unspecified artificial hip joint Category: Surgical Code(s): Z96.649 - Presence of unspecified artificial hip joint (7) Hypertension Status: Chronic Qualifiers: Qualified Code(s): I10 - Essential (primary) hypertension Category: Medical Code(s): I10 - Essential (primary) hypertension (8) Obesity Status: Chronic Qualifiers: Qualified Code(s): E66.01 - Morbid (severe) obesity due to excess calories; Z68.41 - Body mass index [BMI]40.0-44.9, adult Category: Medical Code(s): E66.9 - Obesity, unspecified (9) Stented coronary artery Status: Chronic Category: Surgical Code(s): Z95.5 - Presence of coronary angioplasty implant and graft (10) Acute on chronic systolic congestive heart failure, NYHA class 3 Status: Acute Category: Medical Code(s): I50.23 - Acute on chronic systolic (congestive) heart failure - Assessment and plan all Dx Assessment and Plan for all problems:: #COVID-19 pneumonia: #Acute hypoxic respiratory failure: 64-year-old prior smoker more than [id number] smoking history last smoked 15 years ago prior history of CAD, DM presented to the hospital with worsening respiratory failure and found to have bilateral patchy infiltrates on the chest x-ray and also positive for COVID-19 pneumonia.Respiratory viral PCR negative except for COVID-19. Echocardiogram showed systolic dysfunction with EF of 40 to 45% with wall motion abnormalities. Patient completed a course of ceftriaxone ansamycin for possible community-acquired pneumonia, continued with remdesivir and dexamethasone CT PE study performed negative for any pulmonary emboli however showed diffuse bilateral patchy airspace disease along with evolving interstitial prominent fibrosis. No pleural effusions noted. Interval update: Patient respiratory status significantly improved after initiating diuresis at 60 mg IV twice daily. Requirement significantly improved from high flow 100% on
== END 2020-04-27 11:49 | disposition home or self-care (01) | DRG 177 ==
LOC: ER 12:21 → ICU 18:04
PROVIDERS: Internal Medicine Adolescent Medicine; Internal Medicine Pulmonary Disease; Nurse Practitioner Family; Physician Assistant; Admitting Provider Family Medicine; Emergency Provider Student in an Organized Health Care Education/Training Program; PCP Family Medicine; Visit Provider Family Medicine
DX: U07.1 COVID-19 (principal); J12.89 Other viral pneumonia; J96.01 Acute respiratory failure with hypoxia; I50.23 Acute on chronic systolic (congestive) heart failure; J18.9 Pneumonia, unspecified organism; I11.0 Hypertensive heart disease with heart failure; I25.2 Old myocardial infarction; G89.29 Other chronic pain; Z87.891 Personal history of nicotine dependence; E11.9 Type 2 diabetes mellitus without complications; I25.10 Atherosclerotic heart disease of native coronary artery without angina pectoris; Z95.5 Presence of coronary angioplasty implant and graft; Z79.4 Long term (current) use of insulin; Z79.01 Long term (current) use of anticoagulants; Z79.82 Long term (current) use of aspirin; Z88.8 Allergy status to other drugs, medicaments and biological substances
CPT/HCPCS: 36415; 71045; 71275; 80048; 80053; 82803; 82962; 83605; 83735; 83880; 85007; 85025; 86328; 87040; 87205; 87581; 87633; 87798; 93306; 93308; 94640; 94660; 94760; 94761; 99285; Q9967

== ENCOUNTER → 2020-07-12 13:41 | Outpatient (CLI) | payer MEDICARE, MEDICAID, SELFPAY ==
[2020-07-12 13:58] LABS: Chloride 100 mmol/L (98-107)
[2020-07-12 13:59] LABS: Potassium 4.2 mmoL/L (3.5-5.1); Sodium 141 mmol/L (136-145)
[2020-07-12 14:01] LABS: Alanine Aminotransferase 27 U/L (12-78); Albumin Level 4.6 g/dl (3.5-5.0); Albumin/Globulin Ratio 1.4 (1.1-1.8); Alkaline Phosphatase 97 U/L (38-126); Anion Gap 13.2 mEq/L (5-15); Aspartate Amino Transferase 34 U/L (17-59); Bilirubin,Total 0.7 mg/dl (0.2-1.3); Blood Urea Nitrogen 16 mg/dl (9-20); Carbon Dioxide 32 mmol/L (22.0-30.0); Estimated Glomerular Filt Rate 97 ml/min (>60); GFR (African American) 117 ML/MIN (>60); Globulin 3.4 g/dL (1.3-3.2)
[2020-07-12 14:02] LABS: Calcium 10.3 mg/dl (8.4-10.2); Cholesterol 157 mg/dl (140-200); Glucose 240 mg/dl (74-100); HDL Cholesterol 35 mg/dl (40-60); Triglycerides 215 mg/dl (30-150); VLDL Cholesterol 43 mg/dL (0-40)
[2020-07-12 14:03] LABS: Chol/HDL Ratio 4.5 (1-3.5)
[2020-07-12 14:14] LABS: Direct LDL Cholesterol 88.75 mg/dL (100-129)
[2020-07-12 14:15] LABS: Basophils # 0.1 K/mm3 (0-0.2); Basophils % 0.8 % (0.1-2.0); Eosinophils # 0.3 K/mm3 (0.0-0.4); Eosinophils % 2.6 % (0.1-12.0); Hematocrit 49.5 % (42.0-52.0); Hemoglobin 16.1 g/dL (14.1-18.0); Lymphocytes # 2.3 K/mm3 (0.7-4.5); Mean Corpuscular HGB Conc 32.5 g/dL (31.8-35.4); Mean Corpuscular Hemoglobin 29.6 pg (27.0-31.2); Mean Corpuscular Volume 91.2 fl (80-94); Mean Platelet Volume 8.8 fl (7.4-10.4); Monocytes # 0.7 K/mm3 (0.1-1.0); Monocytes % 5.9 % (1.7-9.3); Neutrophils # 8.7 K/mm3 (1.8-7.8); Neutrophils % 71.8 % (37.0-80.0); Platelet Count 293 K/mm3 (142-424); Red Blood Count 5.42 M/mm3 (4.60-6.20); Red Cell Distribution Width 14.1 % (11.5-17.5); White Blood Count 12.1 K/mm3 (4.8-10.8)
[2020-07-12 14:36] LABS: Thyroid Stimulating Hormone 1.33 uIU/mL (0.465-4.68)
[2020-07-12 15:33] LABS: Hemoglobin A1C 9.9 % (4.0-6.0)
== END ==
PROVIDERS: Visit Provider Family Medicine
DX: E11.9 Type 2 diabetes mellitus without complications (principal); E66.9 Obesity, unspecified; I10 Essential (primary) hypertension; I50.23 Acute on chronic systolic (congestive) heart failure; M79.89 Other specified soft tissue disorders; I21.9 Acute myocardial infarction, unspecified; Z79.4 Long term (current) use of insulin
CPT/HCPCS: 80053; 80061; 83036; 84443; 85025

== ENCOUNTER → 2020-08-30 11:12 | Outpatient (CLI) | payer MEDICARE, MEDICAID, SELFPAY ==
--- NOTE | 2020-08-30 11:18 | XR_ITS ---
PROCEDURE: XR CHEST 2V CLINICAL HISTORY: fever and hx covid COMPARISON: CT CT ANGIO CHEST from 04/19/2020 CR XR CHEST PORTABLE from 04/19/2020 CR XR CHEST PORTABLE from 04/23/2020 CR XR CHEST PORTABLE from 04/26/2020 FINDINGS: Minor atelectasis noted in bilateral mid and lower zones. No lobar consolidation, pleural effusions or pneumothorax. Cardiac size and central pulmonary vasculature are within normal limits. Vascular calcification is noted. Degenerative changes of the visualized thoracic spine IMPRESSION: . minor atelectasis in the lungs bilaterally. No lobar consolidation or pleural effusions. Dictated by: Marla Kessler 08/30/2020 11:48 Marla Kessler in OV 08/30/2020 11:48
== END ==
PROVIDERS: PCP Family Medicine; Visit Provider Family Medicine
DX: R07.9 Chest pain, unspecified (principal); R50.9 Fever, unspecified
CPT/HCPCS: 71046

== ENCOUNTER → 2020-09-02 10:40 | Outpatient (CLI) | payer MEDICARE, MEDICAID, SELFPAY ==
[2020-09-02 10:44] LABS: Microscopic, Urine URINE MICROSCOPIC (MICROSCOPIC)
[2020-09-02 11:03] LABS: Appearance,Urine CLEAR (Clear); Bilirubin,Urine Negative (Negative); Blood, Urine 1+ (Negative); Color,Urine YELLOW (Yellow); Glucose,Urine (UA) Negative (Negative); Ketones,Urine Negative (Negative); Leukocyte Esterase,Urine 1+ (Negative); Nitrate,Urine Negative (Negative); PH,Urine 6.5 (5.0-8.5); Protein,Urine 1+ (Negative); Specific Gravity, Urine 1.015 (1.005-1.030); Urobilinogen,Urine 0.2 EU/dl (0.2)
[2020-09-02 11:07] LABS: Basophils # 0.1 K/mm3 (0-0.2); Basophils % 0.7 % (0.1-2.0); Eosinophils # 0.1 K/mm3 (0.0-0.4); Hematocrit 43.6 % (42.0-52.0); Hemoglobin 14.9 g/dL (14.1-18.0); Lymphocytes # 1.6 K/mm3 (0.7-4.5); Lymphocytes % 21.6 % (10-50); Mean Corpuscular HGB Conc 34.1 g/dL (31.8-35.4); Mean Corpuscular Hemoglobin 29.9 pg (27.0-31.2); Mean Corpuscular Volume 87.9 fl (80-94); Mean Platelet Volume 8.8 fl (7.4-10.4); Monocytes # 0.6 K/mm3 (0.1-1.0); Monocytes % 7.8 % (1.7-9.3); Neutrophils # 5.2 K/mm3 (1.8-7.8); Neutrophils % 68.9 % (37.0-80.0); Platelet Count 268 K/mm3 (142-424); Red Blood Count 4.96 M/mm3 (4.60-6.20); Red Cell Distribution Width 13.8 % (11.5-17.5); White Blood Count 7.5 K/mm3 (4.8-10.8)
[2020-09-02 11:12] LABS: Bacteria,Urine 1+ /lpf
[2020-09-02 11:28] LABS: Hemoglobin A1C 9.8 % (4.0-6.0)
[2020-09-02 14:23] LABS: Chloride 104 mmol/L (98-107); Potassium 5.5 mmoL/L (3.5-5.1); Sodium 139 mmol/L (136-145)
[2020-09-02 14:25] LABS: Alanine Aminotransferase 32 U/L (12-78); Alkaline Phosphatase 48 U/L (38-126); Aspartate Amino Transferase 71 U/L (17-59); Bilirubin,Total 1.1 mg/dl (0.2-1.3); Blood Urea Nitrogen 16 mg/dl (9-20); Estimated Glomerular Filt Rate 97 ml/min (>60); GFR (African American) 117 ML/MIN (>60)
[2020-09-02 14:26] LABS: Albumin Level 4.4 g/dl (3.5-5.0); Albumin/Globulin Ratio 1.2 (1.1-1.8); Anion Gap 12.5 mEq/L (5-15); Calcium 9.6 mg/dl (8.4-10.2); Carbon Dioxide 28 mmol/L (22.0-30.0); Globulin 3.6 g/dL (1.3-3.2); Glucose 179 mg/dl (74-100); Lipase 97 U/L (23-300)
== END ==
PROVIDERS: Visit Provider Family Medicine
DX: R10.9 Unspecified abdominal pain (principal); I21.9 Acute myocardial infarction, unspecified; R50.9 Fever, unspecified
CPT/HCPCS: 36415; 80053; 81001; 83036; 83690; 85025; 87086

== ENCOUNTER 2020-09-06 13:25 | Observation (INO) | payer MEDICARE, MEDICAID, SELFPAY ==
[2020-09-06 13:41] VITALS: BP 158/90; PULSE 78; RESP 18; TEMP 36.9; O2SAT 94; BMI 39.5
[2020-09-06 15:07] LABS: Adenovirus,PCR Not Detected (NotDetected); Bordetella Pertussis Not Detected (NotDetected); Chlamydophila Pneumoniae, PCR Not Detected (NotDetected); Coronavirus 19, PCR Not Detected (NotDetected); Coronavirus 229E Not Detected (NotDetected); Coronavirus NL63 Not Detected (NotDetected); Coronavirus OC43 Not Detected (NotDetected); Coronovirus HKU1,PCR Not Detected (NotDetected); Human Metapneumovirus Not Detected (NotDetected); Influenza A, PCR Not Detected (NotDetected); Influenza AH1, 2009 Not Detected (NotDetected); Influenza AH1, PCR Not Detected (NotDetected); Influenza AH3,PCR Not Detected (NotDetected); Influenza B, PCR Not Detected (NotDetected); Mycoplasma Pneumoniae, PCR Not Detected (NotDetected); Parainfluenza 1, PCR Not Detected (NotDetected); Parainfluenza 2, PCR Not Detected (NotDetected); Parainfluenza 3, PCR Not Detected (NotDetected); Parainfluenza 4, PCR Not Detected (NotDetected); Respiratory Syncytial Virus Not Detected (NotDetected); Rhinovirus/Enterovirus Not Detected (NotDetected)
[2020-09-06 15:17] LABS: Basophils # 0.1 K/mm3 (0-0.2); Basophils % 0.9 % (0.1-2.0); Eosinophils # 0.4 K/mm3 (0.0-0.4); Eosinophils % 3.7 % (0.1-12.0); Hematocrit 39.9 % (42.0-52.0); Hemoglobin 13.4 g/dL (14.1-18.0); Lymphocytes # 2.4 K/mm3 (0.7-4.5); Lymphocytes % 23.4 % (10-50); Mean Corpuscular HGB Conc 33.6 g/dL (31.8-35.4); Mean Corpuscular Hemoglobin 29.4 pg (27.0-31.2); Mean Corpuscular Volume 87.4 fl (80-94); Mean Platelet Volume 8.3 fl (7.4-10.4); Monocytes # 0.5 K/mm3 (0.1-1.0); Neutrophils # 6.9 K/mm3 (1.8-7.8); Neutrophils % 67.1 % (37.0-80.0); Platelet Count 410 K/mm3 (142-424); Red Blood Count 4.56 M/mm3 (4.60-6.20); Red Cell Distribution Width 14.2 % (11.5-17.5); White Blood Count 10.2 K/mm3 (4.8-10.8)
[2020-09-06 15:19] LABS: Alanine Aminotransferase 32 U/L (12-78); Albumin/Globulin Ratio 1.3 (1.1-1.8); Alkaline Phosphatase 84 U/L (38-126); Anion Gap 10.1 mEq/L (5-15); Aspartate Amino Transferase 38 U/L (17-59); Bilirubin,Total 0.4 mg/dl (0.2-1.3); Blood Urea Nitrogen 13 mg/dl (9-20); Calcium 9.3 mg/dl (8.4-10.2); Carbon Dioxide 26 mmol/L (22.0-30.0); Chloride 107 mmol/L (98-107); Creatinine Clearance Estimated 132 mL/min (50-200); Estimated Glomerular Filt Rate 97 ml/min (>60); GFR (African American) 117 ML/MIN (>60); Globulin 3.2 g/dL (1.3-3.2); Glucose 167 mg/dl (74-100); Potassium 4.1 mmoL/L (3.5-5.1); Sodium 139 mmol/L (136-145); Total Protein,Serum 7.2 g/dl (6.3-8.2)
[2020-09-06 16:00] VITALS: BP 128/93; PULSE 85; RESP 16; TEMP 36.9; O2SAT 94
[2020-09-06 16:32] LABS: INR 0.97 (0.9-1.1); Prothrombin Time 11.5 seconds (10.1-12.5)
[2020-09-06 16:36] LABS: POC Glucose,Bedside 203 (70-110)
[2020-09-06 20:00] VITALS: BP 143/75; PULSE 85; RESP 18; TEMP 37.1; O2SAT 94
[2020-09-07 01:29] LABS: POC Glucose,Bedside 236 (70-110)
[2020-09-07 04:00] VITALS: BP 167/85; PULSE 81; RESP 20; TEMP 36.8; O2SAT 93
[2020-09-07 05:31] VITALS: BMI 39.9
[2020-09-07 05:50] LABS: POC Glucose,Bedside 209 (70-110)
--- NOTE | 2020-09-07 07:21 | P.CONPHA_ITS ---
[facility] Pharmacy VTE Monitoring - Patient Demographics Admission date: 09/06/20 Report Date: 09/07/20 Time: 07:21 Allergies/Adverse Reactions: Patient Allergies lisinopril Allergy (Severe, Verified 09/06/20 13:00) blisters codeine Allergy (Verified 09/06/20 13:00) exenatide [From Bydureon] Adverse Reaction (Severe, Verified 09/06/20 13:00) abdominal wall rash acetaminophen Adverse Reaction (Verified 09/06/20 13:00) Height: 1.8 m Weight: 129.812 kg - VTE Risk Labs: VTE Related Lab Results Hgb 13.4 g/dL (14.1-18.0) L 09/06/20 14:55 Hct 39.9 % (42.0-52.0) L 09/06/20 14:55 Plt Count 410 K/mm3 (142-424) 09/06/20 14:55 PT 11.5 seconds (10.1-12.5) 09/06/20 14:55 INR 0.97 (0.9-1.1) 09/06/20 14:55 BUN 13 mg/dl (9-20) 09/06/20 14:55 Creatinine 0.80 mg/dl (0.66-1.25) 09/06/20 14:55 Estimated Creat Clear 132 mL/min (50-200) 09/06/20 14:55 Was VTE Risk Assessment Performed: Yes VTE Score: 6 VTE Risk Level: Moderate Risk - Prophylaxis VTE Prophylaxis Ordered?: Yes Types of VTE Prophylaxis: TEDS Knee High Location of Applied Device: Bilateral Lower Extremeties
--- NOTE | 2020-09-07 07:32 | PC.NURSE ---
covid test was negative and isolation removed. iv infusing per order. vss. no complaints throughout the night. no bleeding noted. call light in reach. will continue to monitor
[2020-09-07 07:35] VITALS: BP 157/78; PULSE 90; RESP 18; TEMP 36.6; O2SAT 96
--- NOTE | 2020-09-07 08:41 | HMH.HPDC ---
General - General Admission date:: 09/06/20 Discharge date: 09/07/20 *Admission Date: 09/06/20 *Chief complaint: Nose Bleed *History of present illness: Pt w/ nose bleed, he reports having a nose bleed and being unable to stop it for several hours. Admitted from PCP office for uncontrolled nose bleed. ENT called and will see in [facility] after admitted. 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 and he has been on clopidogrel and aspirin for the past 5 years [facility] History I have reviewed the patient's past medical history: Yes Medical History: Reports:: Atrial Fibrillation, Congestive Heart Failure, Coronary Artery Disease, Diabetes Mellitus Type 2, Gastroesophageal Reflux Disease(GERD), Hyperlipidemia, Hypertension, Myocardial Infarction Denies:: Cancer, Diabetes Mellitus Type 1, MRSA *Have you ever received a pneumonia vaccine?: Yes *Have you received a flu vaccine this season?: Yes Other Medical History: Reports: Arthritis, Cataracts Laterality Cases: Left: Total Hip Replacement Other Surgeries: Yes: Cardiac Catheterization, Colonoscopy, Coronary Stent, Other (Skin CA removal) Amputation: No Fractures: No - *Social History Last grade of school completed: 11th or 12th Smoking Status: Never smoker Alcohol Intake: never Alcohol Intake Frequency:: holidays/special occasions only Substance Use Type: denies use *Occupational Status:: disabled Housing: house Household Members: family *Travel in the last 8 weeks: None Family Hx:: Diabetes, Heart Attack Review of Systems - Review of Systems Review of systems:: pertinent systems reviewed and negative unless documented below - Constitutional Denies fatigue, Denies lack of energy - Eyes Denies blind spots, Denies change in vision - ENT Reports nosebleed, Denies bleeding gums - *Cardiovascular Denies chest pain, Denies shortness of breath - *Respiratory Denies chest congestion, Denies shortness of breath - *Gastrointestinal Denies abdominal pain, Denies difficulty swallowing - *Musculoskeletal Denies limited joint movement, Denies numbness - Integumentary/Breasts Denies bleeding lesions, Denies unusual bruising - *Neurologic Denies seizure-like activity, Denies numbness - Psychiatric Denies anxiety, Denies depression - Endocrine Denies cold intolerance, Denies heat intolerance - Hematologic/Lymphatic Denies easy bruising - Allergic/Immunologic Denies GI upset with certain foods, Denies hives Exam Vital signs and Labs for Last 24 Hours: Temp Pulse Resp BP Pulse Ox 97.8 F 90 18 157/78 H 96 09/07/20 07:35 09/07/20 07:35 09/07/20 07:35 09/07/20 07:35 09/07/20 07:35 Laboratory Results - last 24 hr 09/06/20 14:50: Chlamy pneumoniae PCR Not detected, Adenovirus (PCR) Not detected, B. pertussis DNA (PCR) Not detected, Coronavirus OC43 (PCR) Not detected, Coronavirus HKU1 (PCR) Not detected, Coronavirus 229E (PCR) Not detected, SARS-CoV-2 (PCR) Not detected, Coronavirus NL63 (PCR) Not detected, Human Metapneumovir PCR Not detected, Influenza A (H1) PCR Not detected, Influ A (H1N1/09) PCR Not detected, Influenza A (H3) PCR Not detected, Influenza Type A (PCR) Not detected, Influenza Type B (PCR) Not detected, M. pneumoniae (PCR) Not detected, Parainfluenza 1 (PCR) Not detected, Parainfluenza 2 (PCR) Not detected, Parainfluenza 3 (PCR) Not detected, Parainfluenza 4 (PCR) Not detected, RSV (PCR) Not detected, Entero/Rhino (PCR) Not detected 09/06/20 14:55: WBC 10.2, RBC 4.56 L, Hgb 13.4 L, Hct 39.9 L, MCV 87.4, MCH 29.4, MCHC 33.6, RDW 14.2, Plt Count 410, MPV 8.3, Neut % (Auto) 67.1, Lymph % (Auto) 23.4, [place] % (Auto) 5.0, Eos % (Auto) 3.7, Baso % (Auto) 0.9, Neut # (Auto) 6.9, Lymph # (Auto) 2.4, [place] # (Auto) 0.5, Eos # (Auto) 0.4, Baso # (Auto) 0.1 09/06/20 14:55: PT 11.5, INR 0.97 09/06/20 14:55: Sodium 139, Potassium 4.1, Chloride 107, Carbon Dioxide 26, Anion Gap 10.1, BUN 13, Creatinine 0.80, Estimated Creat Clear 132, Estimated GFR 97, Est GFR (A
--- NOTE | 2020-09-07 09:39 | PC.NURSE ---
0930 Discharge education provided to pt, questions encouraged and answered. Pt is aware of follow up appointments that have been made.
== END 2020-09-07 10:20 | disposition home or self-care (01) ==
PROVIDERS: Admitting Provider Emergency Medicine; PCP Emergency Medicine; Visit Provider Emergency Medicine
DX: R04.0 Epistaxis (principal); Z79.01 Long term (current) use of anticoagulants; I11.0 Hypertensive heart disease with heart failure; I50.9 Heart failure, unspecified; I25.10 Atherosclerotic heart disease of native coronary artery without angina pectoris; I25.2 Old myocardial infarction; Z87.891 Personal history of nicotine dependence; I48.91 Unspecified atrial fibrillation; Z95.5 Presence of coronary angioplasty implant and graft; Z79.899 Other long term (current) drug therapy; E11.9 Type 2 diabetes mellitus without complications; Z79.4 Long term (current) use of insulin; Z79.82 Long term (current) use of aspirin; Z88.5 Allergy status to narcotic agent; Z88.8 Allergy status to other drugs, medicaments and biological substances
CPT/HCPCS: 30901; G0379; 80053; 82962; 85025; 85610; 87581; 87633; 87798; G0378

== ENCOUNTER → 2020-09-14 15:34 | Outpatient (CLI) | payer MEDICARE, MEDICAID, SELFPAY ==
[2020-09-14 15:41] LABS: Basophils # 0.1 K/mm3 (0-0.2); Basophils % 0.5 % (0.1-2.0); Eosinophils # 0.3 K/mm3 (0.0-0.4); Eosinophils % 2.2 % (0.1-12.0); Hematocrit 44.5 % (42.0-52.0); Hemoglobin 14.4 g/dL (14.1-18.0); Lymphocytes # 2.2 K/mm3 (0.7-4.5); Lymphocytes % 18.2 % (10-50); Mean Corpuscular HGB Conc 32.2 g/dL (31.8-35.4); Mean Platelet Volume 8.5 fl (7.4-10.4); Monocytes # 0.7 K/mm3 (0.1-1.0); Monocytes % 5.8 % (1.7-9.3); Neutrophils % 73.3 % (37.0-80.0); Platelet Count 392 K/mm3 (142-424); Red Blood Count 4.95 M/mm3 (4.60-6.20); Red Cell Distribution Width 14.1 % (11.5-17.5); White Blood Count 12.2 K/mm3 (4.8-10.8)
[2020-09-14 15:46] LABS: Chloride 102 mmol/L (98-107); Sodium 141 mmol/L (136-145)
[2020-09-14 15:47] LABS: Potassium 4.4 mmoL/L (3.5-5.1)
[2020-09-14 15:49] LABS: Alanine Aminotransferase 23 U/L (12-78); Albumin Level 4.3 g/dl (3.5-5.0); Albumin/Globulin Ratio 1.3 (1.1-1.8); Alkaline Phosphatase 101 U/L (38-126); Anion Gap 14.4 mEq/L (5-15); Aspartate Amino Transferase 33 U/L (17-59); Bilirubin,Total 0.7 mg/dl (0.2-1.3); Blood Urea Nitrogen 19 mg/dl (9-20); Carbon Dioxide 29 mmol/L (22.0-30.0); Cholesterol 156 mg/dl (140-200); Estimated Glomerular Filt Rate 97 ml/min (>60); GFR (African American) 117 ML/MIN (>60); Globulin 3.3 g/dL (1.3-3.2); Total Protein,Serum 7.6 g/dl (6.3-8.2); Triglycerides 191 mg/dl (30-150); VLDL Cholesterol 38 mg/dL (0-40)
[2020-09-14 15:50] LABS: Calcium 10.1 mg/dl (8.4-10.2); Chol/HDL Ratio 5.8 (1-3.5); Glucose 153 mg/dl (74-100); HDL Cholesterol 27 mg/dl (40-60)
[2020-09-14 16:01] LABS: Direct LDL Cholesterol 95.74 mg/dL (100-129)
== END ==
PROVIDERS: Visit Provider Family Medicine
DX: E11.9 Type 2 diabetes mellitus without complications (principal); E66.01 Morbid (severe) obesity due to excess calories; Z68.41 Body mass index [BMI] 40.0-44.9, adult; I21.9 Acute myocardial infarction, unspecified; Z79.4 Long term (current) use of insulin
CPT/HCPCS: 80053; 80061; 83036; 85025

== ENCOUNTER → 2020-12-23 15:24 | Outpatient (CLI) | payer MEDICARE, MEDICAID, SELFPAY | PROVIDERS: Visit Provider Urology | DX: N40.0 Benign prostatic hyperplasia without lower urinary tract symptoms (principal) | CPT/HCPCS: 87086; 87088; 87186 ==

== ENCOUNTER → 2020-12-31 15:07 | Outpatient (CLI) | payer MEDICARE, MEDICAID, SELFPAY | PROVIDERS: Visit Provider Urology | DX: N40.0 Benign prostatic hyperplasia without lower urinary tract symptoms (principal); Z01.812 Encounter for preprocedural laboratory examination; Z11.52 Encounter for screening for COVID-19 | CPT/HCPCS: U0003 ==

== ENCOUNTER 2021-01-03 08:50 | Day surgery (SDC) | payer MEDICARE, MEDICAID, SELFPAY ==
[2021-01-03 10:22] VITALS: BP 139/83; PULSE 87; RESP 18; TEMP 36.7; O2SAT 96; BMI 39.0
[2021-01-03 10:45] LABS: POC Glucose,Bedside 224 (70-110)
--- NOTE | 2021-01-03 11:34 | P.PN_ITS ---
[facility] Anesthesia Checklist - Patient Identification Patient Identification: Arm Band - Structural Data Admitted From: Home Planned Operative Procedure/s: Cystoscopy Consent for Planned Operative Procedure(s) Verified: Yes - NPO Status Verified Time NPO: 00:00 - Additional verifications Anesthesia Reactions: No Hx Blood Transfusions: No Blood Transfusion Reaction: No - Airway Assessment C-Spine Mobility Assessed: Yes TMJ Mobility Assessed: Yes Dentition: Edentulous - Neurological Assessment Level of Consciousness: Awake Hx Seizures: No Numbness or tingling in extremities: No - Anesthesia Plan Anesthesia Risk discussed: Yes Anesthesia Plan: Verified ASA Class: III Anesthesia Type: Local & MAC [facility] History I have reviewed the patient's past medical history: Yes Medical History: Reports:: Atrial Fibrillation, BPH, Cancer (skin cancer), Congestive Heart Failure, Coronary Artery Disease, Diabetes Mellitus Type 2, Gastroesophageal Reflux Disease(GERD), Hyperlipidemia, Hypertension, Myocardial Infarction Denies:: Diabetes Mellitus Type 1, Internal Pacemaker, MRSA, Seizures *Have you ever received a pneumonia vaccine?: Yes *Have you received a flu vaccine this season?: Yes Other Medical History: Reports: Arthritis, Cataracts. Denies: Blood Transfusion Reaction Anesthesia experience/problems:: None Laterality Cases: Left: Total Hip Replacement, Bilateral: Cataract Other Surgeries: Yes: Cardiac Catheterization, Colonoscopy, Coronary Stent, Other. No: Pacemaker Amputation: No Fractures: No - *Social History Last grade of school completed: 9th or 10th Smoking Status: Former smoker Smoking End Date: 05/08/2005 Alcohol Intake: former Alcohol Intake Frequency:: holidays/special occasions only Substance Use Type: denies use *Occupational Status:: disabled Housing: house Household Members: family *Travel in the last 8 weeks: None Family Hx:: No significant family history
[2021-01-03 11:48] VITALS: BP 104/57; PULSE 85; RESP 16; TEMP 36.5; O2SAT 96
[2021-01-03 12:03] VITALS: BP 137/67; PULSE 78; RESP 16; O2SAT 94
[2021-01-03 12:18] VITALS: BP 137/87; PULSE 79; RESP 18; O2SAT 96
--- NOTE | 2021-01-03 13:11 | HMH.OPNOTE ---
Date of procedure: 01/03/21 Pre-op Diagnosis:: Lower urinary tract symptoms, incomplete bladder emptying Post-op Diagnosis:: Lower urinary tract symptoms, chronic bladder inflammation Procedure performed:: Cystoscopy Surgeon:: Sudeep Hopkins MD MIXER OPERATOR HOT METAL:: Lucia Chamorro Anesthesia: MAC Estimated blood loss (mL): 0 Clinical Note:: 65-year-old white male with lower urinary tract symptoms of urgency, urge incontinence, frequency and incomplete bladder emptying presents for cystoscopic evaluation. Operative findings:: Patient with severe by lobar hyperplasia and chronic bladder changes consisting of severe trabeculation and cellule formation as well as signs of bladder inflammation bilaterally. Operative note:: Patient taken to the operating room after informed consent was obtained. Was placed on the operating table in the supine position and monitored anesthesia care administered. He was then placed into the dorsal lithotomy position and prepped and draped in the standard surgical fashion. Preoperative antibiotics were administered. The 22 [place] passed into the urethra into the prostatic urethra which showed severe hyperplasia with the lobes touching each other. The bladder was entered and examined in a systematic fashion. There was a lot of debris in the bladder that was flushed free. There was some easy bleeding of the bladder neck. There was severe trabeculation noted in the posterior and superior portions of the bladder. No diverticula were noted. There was erythema and signs of inflammation on the left lateral bladder and the right lateral bladder. There was no evidence of papillary tumor. The ureteral orifices in their normal anatomic position with clear efflux of urine. There was a small median lobe. The bladder emptied and the scope removed. Patient tolerated the procedure well. I discussed the findings with the patient's and I am going to put him on a month of Macrobid for the bladder inflammation as hemorrhagic cystitis is suspected. We will see him back in a couple weeks and discuss UroLift with him. He will continue tamsulosin and finasteride for now. Condition: stable Disposition: same day Specimens:: None Complications:: None
--- NOTE | 2021-09-19 10:51 | P.OP_ITS ---
Date of procedure: 09/19/21 Pre-op Diagnosis:: Abnormal bladder mucosa, BPH Post-op Diagnosis:: Resolution of abnormal bladder mucosa, BPH Procedure performed:: Cystoscopy Surgeon:: Sudeep Hopkins MD BUSINESS DEVELOPER:: Percy Angel Anesthesia: MAC Estimated blood loss (mL): 0 Clinical Note:: 66-year-old white male with history of BPH noted to have some abnormal bladder mucosa back in January on his initial cystoscopy. He underwent UroLift procedure in April and his bladder mucosa was looking better at that time. He has been treated with several months of Macrobid for presumed hemorrhagic cystitis. He presents today for recheck of the bladder. He is doing better regarding his lower urinary tract symptoms. Operative findings:: Patient with some developing phimosis and balanitis of penile foreskin, there was evidence of BPH despite recent UroLift and there is no evidence of any inflammatory findings in the bladder. Operative note:: Patient taken to the operating room after informed consent was obtained. Placed on the operating table in supine position and monitored anesthesia care administered. Preoperative antibiotics administered and sequential compression devices placed. He was then placed into the dorsal lithotomy position prepped and draped in standard surgical fashion. The urethra was dilated with the 2224 and 26 sounds and the 22 Icelandic cystoscope then passed into the urethral meatus into the prostatic urethra which showed some bilobar hyperplasia. Bladder was entered and examined in a systematic fashion. There was severe trabeculation and cellule formation of a chronic nature. The bladder was examined in a systematic fashion and the previous bladder inflammatory findings have resolved. There is no evidence of any suspicious bladder mucosa. The ureteral orifices in their normal anatomic position with clear efflux of urine. Scope was brought back to the prostatic urethra which showed an open bladder neck at the anterior channel but the mid and distal prostate still appear to be coapting despite the UroLift procedure. Patient was noted to have some developing phimosis and some redness of the distal end of the foreskin. Condition: stable Disposition: same day Specimens:: None Complications:: None
== END 2021-01-03 12:18 | disposition home or self-care (01) ==
LOC: OR 08:52
PROVIDERS: PCP Family Medicine; Visit Provider Urology
PROC: 0TJB8ZZ Inspection of Bladder, Via Natural or Artificial Opening Endoscopic (ICD-10-PCS; CPT 52000; principal; 2021-01-03 11:00)
DX: N40.1 Benign prostatic hyperplasia with lower urinary tract symptoms (principal); N32.89 Other specified disorders of bladder; R39.15 Urgency of urination; R35.0 Frequency of micturition; I48.91 Unspecified atrial fibrillation; Z85.828 Personal history of other malignant neoplasm of skin; I25.10 Atherosclerotic heart disease of native coronary artery without angina pectoris; E11.9 Type 2 diabetes mellitus without complications; E78.5 Hyperlipidemia, unspecified; I10 Essential (primary) hypertension; I25.2 Old myocardial infarction; K21.9 Gastro-esophageal reflux disease without esophagitis
CPT/HCPCS: 52000; 82962; 96374

== ENCOUNTER → 2021-01-28 14:27 | Outpatient (CLI) | payer MEDICARE, MEDICAID, SELFPAY | PROVIDERS: Visit Provider Urology | DX: N40.0 Benign prostatic hyperplasia without lower urinary tract symptoms (principal); Z01.812 Encounter for preprocedural laboratory examination; Z20.822 Contact with and (suspected) exposure to COVID-19 | CPT/HCPCS: U0003 ==

== ENCOUNTER → 2021-05-13 10:36 | Outpatient (CLI) | payer MEDICARE, MEDICAID, SELFPAY ==
[2021-05-13 10:45] LABS: MANUAL DIFFERENTIAL MANUAL DIFFERENTIAL (MANUAL DIFF)
[2021-05-13 11:14] LABS: Basophils # 0.1 K/mm3 (0-0.2); Basophils % 0.4 % (0.1-2.0); Eosinophils # 0.1 K/mm3 (0.0-0.4); Eosinophils % 1.1 % (0.1-12.0); Hematocrit 37.6 % (42.0-52.0); Hemoglobin 12.6 g/dL (14.1-18.0); Lymphocytes # 1.5 K/mm3 (0.7-4.5); Lymphocytes % 14.6 % (10-50); Mean Corpuscular HGB Conc 33.4 g/dL (31.8-35.4); Mean Corpuscular Hemoglobin 30.4 pg (27.0-31.2); Mean Platelet Volume 7.8 fl (7.4-10.4); Monocytes # 0.5 K/mm3 (0.1-1.0); Monocytes % 4.8 % (1.7-9.3); Neutrophils % 79.1 % (37.0-80.0); Platelet Count 606 K/mm3 (142-424); Red Blood Count 4.13 M/mm3 (4.60-6.20); Red Cell Distribution Width 12.6 % (11.5-17.5); White Blood Count 10.1 K/mm3 (4.8-10.8)
[2021-05-13 11:37] LABS: Chloride 101 mmol/L (98-107); Sodium 141 mmol/L (136-145)
[2021-05-13 11:40] LABS: Blood Urea Nitrogen 30 mg/dl (9-20); Calcium 9.9 mg/dl (8.4-10.2); Carbon Dioxide 30 mmol/L (22.0-30.0); Estimated Glomerular Filt Rate 51 ml/min (>60); GFR (African American) 61 ML/MIN (>60); Glucose 212 mg/dl (74-100)
[2021-05-13 12:42] LABS: Eosinophils % 2 % (0-3); Lymphocytes % 19 % (10-50); Monocytes % 4 % (2-9); Neutrophils % 75 % (42-76); Platelet Estimate Moderate Increase; RBC Morphology Normal; Total Cells Counted 100
== END ==
PROVIDERS: Visit Provider Urology
DX: N40.0 Benign prostatic hyperplasia without lower urinary tract symptoms (principal); Z01.812 Encounter for preprocedural laboratory examination; Z11.52 Encounter for screening for COVID-19; D64.9 Anemia, unspecified
CPT/HCPCS: 36415; 80048; 85007; 85014; 85018; 85048; 85049; C9803; U0003; U0005

== ENCOUNTER 2021-05-16 08:23 | Day surgery (SDC) | payer MEDICARE, MEDICAID, SELFPAY ==
[2021-05-13 11:12] VITALS: BMI 39.9
[2021-05-16 08:52] VITALS: BP 140/62; PULSE 90; RESP 18; TEMP 36.2; O2SAT 96
--- NOTE | 2021-05-16 09:24 | P.PN_ITS ---
[facility] Anesthesia Checklist - Patient Identification Patient Identification: Arm Band - Structural Data Admitted From: Home Planned Operative Procedure/s: Urolift Consent for Planned Operative Procedure(s) Verified: Yes - NPO Status Verified Time NPO: 07:00 - Additional verifications Anesthesia Reactions: No Hx Blood Transfusions: No Blood Transfusion Reaction: No - Airway Assessment C-Spine Mobility Assessed: Yes TMJ Mobility Assessed: Yes Dentition: Edentulous - Neurological Assessment Level of Consciousness: Awake Hx Seizures: No Numbness or tingling in extremities: Yes - Anesthesia Plan Anesthesia Risk discussed: Yes Anesthesia Plan: Verified ASA Class: III Anesthesia Type: Local & MAC [facility] History I have reviewed the patient's past medical history: Yes Medical History: Reports:: Atrial Fibrillation, BPH, Cancer (skin), Congestive Heart Failure, Coronary Artery Disease, Diabetes Mellitus Type 2, Gastroesophageal Reflux Disease(GERD), Hyperlipidemia, Hypertension, Myocardial Infarction, Urinary Tract Infection Denies:: Diabetes Mellitus Type 1, Internal Pacemaker, MRSA, Seizures *Have you ever received a pneumonia vaccine?: No *Have you received a flu vaccine this season?: No Other Medical History: Reports: Arthritis, Cataracts. Denies: Blood Transfusion Reaction Anesthesia experience/problems:: None Laterality Cases: Left: Total Hip Replacement, Bilateral: Cataract Other Surgeries: Yes: No Previous Surgery, Cardiac Catheterization, Colonoscopy, Coronary Stent, Other. No: Pacemaker Amputation: No Fractures: No - *Social History Last grade of school completed: High school graduate Smoking Status: Never smoker # Packs/Day (cigarettes): 1 #Yrs smoked (if former smoker): 16 Alcohol Intake: never Alcohol Intake Frequency:: holidays/special occasions only Substance Use Type: denies use *Occupational Status:: retired, disabled Housing: house Household Members: family *Travel in the last 8 weeks: None Family Hx:: Cancer
[2021-05-16 11:09] VITALS: BP 119/68; PULSE 80; RESP 16; TEMP 36.4; O2SAT 92
[2021-05-16 11:24] VITALS: BP 142/77; PULSE 82; RESP 16; O2SAT 94
[2021-05-16 11:39] VITALS: BP 126/77; PULSE 80; RESP 18; O2SAT 96
[2021-05-16 12:02] LABS: POC Glucose,Bedside 242 (70-110)
[2021-05-16 12:09] VITALS: BP 120/78; PULSE 78; RESP 16; O2SAT 97
--- NOTE | 2021-05-16 14:57 | P.OP_ITS ---
Date of procedure: 05/16/21 Pre-op Diagnosis:: BPH with obstruction Post-op Diagnosis:: BPH with obstruction Procedure performed:: UroLift x5 implants Surgeon:: Sudeep Hopkins MD SPECIAL CRIMES INVESTIGATOR:: Lucia Chamorro Anesthesia: MAC Estimated blood loss (mL): 0 Clinical Note:: 65-year-old white male with lower urinary tract symptoms secondary to BPH and bladder irritability. Operative findings:: Patient with bilobar hyperplasia and high bladder neck. There are chronic bladder outlet obstructive changes in the bladder consisting of severe trabeculation with cellule formation. There is evidence of hemorrhagic cystitis bilaterally. The ureteral orifices in their normal anatomical position and away from the bladder neck. Operative note:: Patient taken to the operating room after informed consent was obtained. He was placed on the operating room table in the supine position and monitored anesthesia care administered. Sequential compression devices placed and IV antibiotics administered. He was then placed into the dorsal lithotomy position and prepped and draped in the standard surgical fashion. The 20 Burkinan UroLift cystoscope was passed into the urethra and into the bladder without difficulty. The bladder showed severe trabeculation and cellule formation. The lateral chavez of the bladder are consistent with hemorrhagic cystitis. Ureteral orifices in their normal anatomic position and away from the bladder neck. Bladder neck was a bit elevated and there was coapting by lobar hyperplasia. The outrigger was removed from the scope and our UroLift device placed onto the scope and we retracted the scope back to about 1/2 cm from the bladder neck and right side the prostate we indented the prostate at about the 9 o'clock position and fired the implant successfully. The identical procedure was performed on the patient's left side and about 1-1/2 cm from the bladder neck and at the 9 o'clock position. We then pulled back to near the verumontanum and at the 9 o'clock position fired the UroLift successfully and about the 9 o'clock position. The identical procedure was performed on the patient's left side. Observation of the prostatic urethra still showed a little bit of the prostatic adenoma on the right side was more inferior so 1/5 UroLift was placed in about mid prostate and more inferiorly to the previous implants and this retracted the tissue nicely. We brought the scope back to the room and a nice result was obtained. The scope removed and a 20 Burkinan Howard catheter placed to drainage. Patient tolerated procedure well no complications. Condition: stable Disposition: same day Specimens:: None Complications:: None
[2022-03-02 10:55] LABS: POC Glucose,Bedside 278 (70-110)
== END 2021-05-16 12:10 | disposition home or self-care (01) ==
LOC: OR 08:25
PROVIDERS: PCP Family Medicine; Visit Provider Urology
DX: N40.1 Benign prostatic hyperplasia with lower urinary tract symptoms (principal); N32.89 Other specified disorders of bladder; I25.10 Atherosclerotic heart disease of native coronary artery without angina pectoris; I10 Essential (primary) hypertension; E11.9 Type 2 diabetes mellitus without complications; Z88.6 Allergy status to analgesic agent; Z88.8 Allergy status to other drugs, medicaments and biological substances; Z79.4 Long term (current) use of insulin; Z79.899 Other long term (current) drug therapy
CPT/HCPCS: C9740; 82962; 96374; L8699

== ENCOUNTER → 2021-06-24 15:37 | Outpatient (CLI) | payer MEDICARE, MEDICAID, SELFPAY ==
[2021-06-24 16:02] LABS: Chol/HDL Ratio 5.9 (1-3.5); Cholesterol 170 mg/dl (140-200); HDL Cholesterol 29 mg/dl (40-60); Triglycerides 259 mg/dl (30-150); VLDL Cholesterol 52 mg/dL (0-40)
[2021-06-24 16:12] LABS: Hemoglobin A1C 9.9 % (4.0-6.0)
[2021-06-24 16:15] LABS: Direct LDL Cholesterol 112.72 mg/dL (100-129)
== END ==
PROVIDERS: Visit Provider Family Medicine
DX: I25.10 Atherosclerotic heart disease of native coronary artery without angina pectoris (principal); I21.9 Acute myocardial infarction, unspecified; E11.9 Type 2 diabetes mellitus without complications
CPT/HCPCS: 80061; 83036

== ENCOUNTER → 2021-09-16 15:41 | Outpatient (CLI) | payer MEDICARE, MEDICAID, SELFPAY | PROVIDERS: PCP Family Medicine; Visit Provider Urology | DX: R31.9 Hematuria, unspecified (principal); Z01.812 Encounter for preprocedural laboratory examination; Z11.52 Encounter for screening for COVID-19 | CPT/HCPCS: C9803; U0003; U0005 ==

== ENCOUNTER 2021-09-19 08:01 | Day surgery (SDC) | payer MEDICARE, MEDICAID, SELFPAY ==
[2021-09-15 14:39] VITALS: BMI 40.6
[2021-09-19 08:25] VITALS: BP 122/76; PULSE 96; RESP 18; TEMP 36.9; O2SAT 96
--- NOTE | 2021-09-19 08:45 | HMH.ANESCL ---
[facility] Anesthesia Checklist - Patient Identification Patient Identification: Arm Band - Structural Data Admitted From: Home Planned Operative Procedure/s: Cystoscopy Consent for Planned Operative Procedure(s) Verified: Yes Verified Documents: Surgical Consent, History and Physical - NPO Status Verified Time NPO: 00:00 - Additional verifications Anesthesia Reactions: No Hx Blood Transfusions: No Blood Transfusion Reaction: No - Airway Assessment C-Spine Mobility Assessed: Yes (mp2) TMJ Mobility Assessed: Yes Dentition: Edentulous - Neurological Assessment Level of Consciousness: Awake, Alert - Anesthesia Plan Anesthesia Risk discussed: Yes Anesthesia Plan: Verified ASA Class: III Anesthesia Type: MAC [facility] History I have reviewed the patient's past medical history: Yes Medical History: Reports:: Atrial Fibrillation, BPH, Cancer (skin), Congestive Heart Failure, Coronary Artery Disease, Diabetes Mellitus Type 2, Gastroesophageal Reflux Disease(GERD), Hyperlipidemia, Hypertension, Myocardial Infarction, Urinary Tract Infection Denies:: Diabetes Mellitus Type 1, Internal Pacemaker, MRSA, Seizures *Have you ever received a pneumonia vaccine?: No *Have you received a flu vaccine this season?: No Other Medical History: Reports: Arthritis, Cataracts. Denies: Blood Transfusion Reaction Anesthesia experience/problems:: nac Laterality Cases: Left: Total Hip Replacement Other Surgeries: Yes: Cardiac Catheterization, Colonoscopy, Coronary Stent, Other. No: Pacemaker Amputation: No Fractures: No - *Social History Last grade of school completed: 11th or 12th Smoking Status: Never smoker # Packs/Day (cigarettes): 1 #Yrs smoked (if former smoker): 16 Alcohol Intake: never Alcohol Intake Frequency:: holidays/special occasions only Substance Use Type: denies use *Occupational Status:: unemployed Housing: house Household Members: family *Travel in the last 8 weeks: None Family Hx:: Cancer
[2021-09-19 10:00] VITALS: BP 105/55; PULSE 89; RESP 16; TEMP 36.5; O2SAT 90
[2021-09-19 10:15] VITALS: BP 128/70; PULSE 89; RESP 18; TEMP 36.5; O2SAT 93
[2021-09-19 10:35] VITALS: BP 153/79; PULSE 83; RESP 18; TEMP 36.5; O2SAT 95
--- NOTE | 2021-09-20 15:40 | P.OP_ITS ---
Date of procedure: 09/19/21 Pre-op Diagnosis:: Abnormal bladder mucosa Post-op Diagnosis:: Resolution of abnormal bladder mucosa, BPH Procedure performed:: Cystoscopy Surgeon:: Sudeep Hopkins MD Anesthesia: local Estimated blood loss (mL): 0 Clinical Note:: Patient with history of BPH status post UroLift returns today for evaluation of his bladder mucosa as it previously had looked suspicious. States he is doing better with voiding after UroLift although still not perfect. He complains of some difficulty retracting his foreskin. Operative findings:: Bladder showed evidence of chronic bladder outlet obstructive changes but no evidence of the mucosal abnormalities. Prostate still show some bilobar hyperplasia. Operative note:: Patient taken to the cystoscopy suite after informed consent was obtained. He was prepped and draped in the standard surgical fashion introducing lidocaine placed into the urethra and clamped. A 5 minutes the flexible set scope introduced into the urethral meatus. Passed to the prostatic urethra which showed some bilobar hyperplasia. The bladder was entered and examined in a sys tematic fashion. There was some severe trabeculation and cellule formation. There is no evidence of any bladder inflammation or suspicious findings there. Scope removed patient tolerated the procedure well. We discussed the findings with the patient and his and he was reassured there is no evidence of any suspicious bladder abnormalities. We did discuss circumcision for his difficulty retracting foreskin and resulting balanitis. He would like to proceed. Condition: stable Disposition: same day Specimens:: None Complications:: None
[2022-03-02 10:59] LABS: POC Glucose,Bedside 238 (70-110)
== END 2021-09-19 10:35 | disposition home or self-care (01) ==
LOC: OR 08:03
PROVIDERS: PCP Family Medicine; Visit Provider Urology
PROC: 0TJB8ZZ Inspection of Bladder, Via Natural or Artificial Opening Endoscopic (ICD-10-PCS; CPT 52000; principal; 2021-09-19 09:00)
DX: N40.1 Benign prostatic hyperplasia with lower urinary tract symptoms (principal); N48.1 Balanitis; I48.91 Unspecified atrial fibrillation; I25.10 Atherosclerotic heart disease of native coronary artery without angina pectoris; E11.9 Type 2 diabetes mellitus without complications; K21.9 Gastro-esophageal reflux disease without esophagitis; E78.5 Hyperlipidemia, unspecified; I11.0 Hypertensive heart disease with heart failure; I25.2 Old myocardial infarction; I50.9 Heart failure, unspecified; Z85.828 Personal history of other malignant neoplasm of skin; Z80.9 Family history of malignant neoplasm, unspecified
CPT/HCPCS: 52000; 82962; 96374

== ENCOUNTER → 2021-11-11 13:48 | Outpatient (CLI) | payer MEDICARE, MEDICAID, SELFPAY ==
[2021-11-11 14:02] LABS: MANUAL DIFFERENTIAL MANUAL DIFFERENTIAL (MANUAL DIFF)
[2021-11-11 15:35] LABS: Basophils # 0.3 K/mm3 (0-0.2); Basophils % 3.6 % (0.1-2.0); Eosinophils # 0.2 K/mm3 (0.0-0.4); Eosinophils % 2.3 % (0.1-12.0); Hematocrit 40.7 % (42.0-52.0); Hemoglobin 13.9 g/dL (14.1-18.0); Lymphocytes # 1.6 K/mm3 (0.7-4.5); Lymphocytes % 18.6 % (10-50); Mean Corpuscular HGB Conc 34.2 g/dL (31.8-35.4); Mean Corpuscular Hemoglobin 32.1 pg (27.0-31.2); Mean Corpuscular Volume 93.9 fl (80-94); Mean Platelet Volume 10.6 fl (7.4-10.4); Monocytes # 0.6 K/mm3 (0.1-1.0); Monocytes % 6.8 % (1.7-9.3); Neutrophils # 5.7 K/mm3 (1.8-7.8); Neutrophils % 68.6 % (37.0-80.0); Platelet Count 265 K/mm3 (142-424); Red Blood Count 4.33 M/mm3 (4.60-6.20); Red Cell Distribution Width 14.2 % (11.5-17.5); White Blood Count 8.3 K/mm3 (4.8-10.8)
[2021-11-11 16:43] LABS: Eosinophils % 2 % (0-3); Lymphocytes % 29 % (10-50); Monocytes % 4 % (2-9); Neutrophils % 65 % (42-76); Platelet Estimate Normal; Stomatocytes 2+; Total Cells Counted 100
[2021-11-11 16:51] LABS: Anion Gap 14.4 mEq/L (5-15); Blood Urea Nitrogen 25 mg/dl (9-20); Calcium 9.9 mg/dl (8.4-10.2); Carbon Dioxide 30 mmol/L (22.0-30.0); Chloride 99 mmol/L (98-107); Estimated Glomerular Filt Rate 84 ml/min (>60); GFR (African American) 102 ML/MIN (>60); Glucose 337 mg/dl (74-100); Potassium 4.4 mmoL/L (3.5-5.1); Sodium 139 mmol/L (136-145)
== END ==
PROVIDERS: PCP Family Medicine; Visit Provider Urology
DX: N47.1 Phimosis (principal); Z01.818 Encounter for other preprocedural examination; Z20.822 Contact with and (suspected) exposure to COVID-19
CPT/HCPCS: 36415; 80048; 85007; 85014; 85018; 85048; 85049; C9803; U0003; U0005

== ENCOUNTER 2021-11-14 07:30 | Day surgery (SDC) | payer MEDICARE, MEDICAID, SELFPAY ==
[2021-11-09 13:46] VITALS: BMI 40.6
[2021-11-14] VITALS (10 sets, daily range): BP systolic 118–141; BP diastolic 58–81; PULSE 78–87; RESP 18; TEMP 36.1–36.5; O2SAT 92–96
[2021-11-14 08:10] LABS: POC Glucose,Bedside 321 (70-110)
--- NOTE | 2021-11-14 08:40 | HMH.ANESCL ---
[facility] Anesthesia Checklist - Patient Identification Patient Identification: Arm Band - Structural Data Admitted From: Home Planned Operative Procedure/s: Circumcision Consent for Planned Operative Procedure(s) Verified: Yes Verified Documents: Surgical Consent, History and Physical - NPO Status Verified Time NPO: 00:00 - Additional verifications Anesthesia Reactions: No Hx Blood Transfusions: No Blood Transfusion Reaction: No - Airway Assessment C-Spine Mobility Assessed: Yes (mp2) TMJ Mobility Assessed: Yes Dentition: Edentulous - Neurological Assessment Level of Consciousness: Awake, Alert - Anesthesia Plan Anesthesia Risk discussed: Yes Anesthesia Plan: Verified ASA Class: III Anesthesia Type: General [facility] History I have reviewed the patient's past medical history: Yes Medical History: Reports:: Atrial Fibrillation, BPH, Cancer (skin), Congestive Heart Failure, Coronary Artery Disease, Diabetes Mellitus Type 2, Gastroesophageal Reflux Disease(GERD), Hyperlipidemia, Hypertension, Myocardial Infarction, Urinary Tract Infection Denies:: Diabetes Mellitus Type 1, Internal Pacemaker, MRSA, Seizures *Have you ever received a pneumonia vaccine?: No *Have you received a flu vaccine this season?: No Other Medical History: Reports: Arthritis, Cataracts. Denies: Blood Transfusion Reaction Anesthesia experience/problems:: nac Laterality Cases: Left: Total Hip Replacement Other Surgeries: Yes: Cardiac Catheterization, Colonoscopy, Coronary Stent, Other. No: Pacemaker Amputation: No Fractures: No - *Social History Smoking Status: Former smoker # Packs/Day (cigarettes): 1 #Yrs smoked (if former smoker): 16 Alcohol Intake: never Alcohol Intake Frequency:: holidays/special occasions only Substance Use Type: denies use *Occupational Status:: disabled Housing: house Household Members: family *Travel in the last 8 weeks: None Family Hx:: Cancer
--- NOTE | 2021-11-14 10:20 | HMH.ANESI ---
[facility] Anesthesia Record Part I Intake, IV Amount: 500 Estimated blood loss (mL): 5 Urine output (mL): 0 Blood Pressure: 122/71 SaO2: 93 Pulse Rate: 87 Respiratory Rate: 18 Temperature: 97.7 F Patient is:: Drowsy, Oral/Nasal airway Stable to PACU at:: 10:17
[2021-11-14 11:09] LABS: POC Glucose,Bedside 260 (70-110)
--- NOTE | 2021-11-14 12:28 | HMH.OPNOTE ---
Date of procedure: 11/14/21 Pre-op Diagnosis:: Chronic balanitis, difficulty retracting foreskin Post-op Diagnosis:: Same Procedure performed:: Circumcision Surgeon:: Sudeep Hopkins MD MECHANICAL PROJECT ENGINEER:: Lucia Chamorro Anesthesia: LMA Estimated blood loss (mL): 0 Clinical Note:: 66-year-old white male with history of chronic balanitis occulta retracting foreskin presents for circumcision. Operative findings:: There was an erythematous ring around the distal end of the foreskin. Upon retracting the foreskin there was a tight ring on the shaft of the penis. Operative note:: Patient taken to the operating room after informed consent was obtained. He was placed on the operating table in the supine position and general anesthesia administered. Preoperative antibiotics and sequential compression devices placed. Patient was prepped and draped in the standard surgical fashion. Local anesthetic was placed as a ring block around the base of the penis. The line of circumcision was then marked with a marking pen. A straight clamp was placed onto the dorsal foreskin back to the marked line and clamped. After 30 seconds the clamp was removed and scissors were used to incise the skin that had been clamped. Scissors were then used to complete the circumcision and a freehand fashion trimming the excess foreskin until it was free. Hemostasis was then achieved of the underlying tissue and the foreskin was sewn back together with 3-0 chromic's in a simple interrupted fashion. There was a good cosmetic result afterwards. Vaseline gauze was placed around the line of incision and new gauze was placed loosely around the incision. Patient tolerated procedure well no complications. Condition: stable Disposition: PACU Specimens:: Foreskin Complications:: None
[2021-11-15 07:00] VITALS: BP 141/76; PULSE 78; TEMP 36.4
--- NOTE | 2021-11-15 07:00 | P.PN_ITS ---
[facility] Anesthesia Record Part II Discharge Time: 10:47 Destination: Surgical Day Care (OP Surgery) PACU nurse assessment reviewed?: Yes Patient Condition:: Good Anesthesia Complications:: None Swallowing reflex intact?: Yes Cyanosis?: No Blood Pressure: 141/76 Pulse Rate: 78 Temperature: 97.6 F Mental Status: Alert & Oriented Pain level:: 3 Nausea and/or vomitting:: None Intake, IV Amount: 0
== END 2021-11-14 11:42 | disposition home or self-care (01) ==
LOC: OR 07:32
PROVIDERS: PCP Family Medicine; Visit Provider Urology
DX: N48.1 Balanitis (principal); I11.0 Hypertensive heart disease with heart failure; I50.9 Heart failure, unspecified; E11.9 Type 2 diabetes mellitus without complications; E78.5 Hyperlipidemia, unspecified; K21.9 Gastro-esophageal reflux disease without esophagitis; I48.91 Unspecified atrial fibrillation; I25.10 Atherosclerotic heart disease of native coronary artery without angina pectoris; I25.2 Old myocardial infarction; N47.1 Phimosis; Z88.8 Allergy status to other drugs, medicaments and biological substances; Z79.4 Long term (current) use of insulin; Z79.899 Other long term (current) drug therapy
CPT/HCPCS: 54150; 82962; 88304; 96374

== ENCOUNTER → 2022-01-12 06:17 | Outpatient (CLI) | payer MEDICARE, MEDICAID, SELFPAY ==
[2022-01-12 18:07] LABS: Hemoglobin A1C 11.4 % (4.0-6.0)
== END ==
PROVIDERS: PCP Family Medicine; Visit Provider Family Medicine
DX: I21.9 Acute myocardial infarction, unspecified (principal)
CPT/HCPCS: 83036

== ENCOUNTER → 2022-09-18 11:45 | Outpatient (CLI) | payer MEDICARE, MEDICAID, SELFPAY ==
[2022-09-18 15:19] LABS: Alanine Aminotransferase 38 U/L (12-78); Albumin Level 3.8 g/dl (3.5-5.0); Albumin/Globulin Ratio 1.4 (1.1-1.8); Alkaline Phosphatase 97 U/L (38-126); Anion Gap 8.9 mEq/L (5-15); Aspartate Amino Transferase 45 U/L (17-59); Bilirubin,Total 0.5 mg/dl (0.2-1.3); Blood Urea Nitrogen 14 mg/dl (9-20); Carbon Dioxide 30 mmol/L (22.0-30.0); Chloride 100 mmol/L (98-107); Chol/HDL Ratio 5.6 (1-3.5); Cholesterol 128 mg/dl (140-200); Estimated Glomerular Filt Rate 112 ml/min (>60); GFR (African American) 136 ML/MIN (>60); Globulin 2.8 g/dL (1.3-3.2); Glucose 209 mg/dl (74-100); HDL Cholesterol 23 mg/dl (40-60); Potassium 3.9 mmoL/L (3.5-5.1); Sodium 135 mmol/L (136-145); Total Protein,Serum 6.6 g/dl (6.3-8.2); Triglycerides 223 mg/dl (30-150); VLDL Cholesterol 45 mg/dL (0-40)
[2022-09-18 15:20] LABS: Basophils # 0.1 K/mm3 (0-0.2); Basophils % 0.6 % (0.1-2.0); Eosinophils # 0.2 K/mm3 (0.0-0.4); Eosinophils % 1.9 % (0.1-12.0); Hematocrit 42.3 % (42.0-52.0); Hemoglobin 13.9 g/dL (14.1-18.0); Lymphocytes # 2.3 K/mm3 (0.7-4.5); Lymphocytes % 25.5 % (10-50); Mean Corpuscular HGB Conc 32.8 g/dL (31.8-35.4); Mean Corpuscular Hemoglobin 29.8 pg (27.0-31.2); Mean Platelet Volume 9.4 fl (7.4-10.4); Monocytes # 0.5 K/mm3 (0.1-1.0); Monocytes % 5.5 % (1.7-9.3); Neutrophils # 6.1 K/mm3 (1.8-7.8); Neutrophils % 66.5 % (37.0-80.0); Platelet Count 276 K/mm3 (142-424); Red Blood Count 4.65 M/mm3 (4.60-6.20); Red Cell Distribution Width 13.5 % (11.5-17.5); White Blood Count 9.2 K/mm3 (4.8-10.8)
[2022-09-18 15:31] LABS: Direct LDL Cholesterol 77.36 mg/dL (100-129)
[2022-09-18 15:52] LABS: Prostate Specific Ag Screen 0.2 ng/ml (0.0-4.0)
[2022-09-18 17:51] LABS: Hemoglobin A1C 10.2 % (4.0-6.0)
== END ==
PROVIDERS: PCP Family Medicine; Visit Provider Family Medicine
DX: E11.69 Type 2 diabetes mellitus with other specified complication; Z79.4 Long term (current) use of insulin; Z79.899 Other long term (current) drug therapy; Z12.5 Encounter for screening for malignant neoplasm of prostate
CPT/HCPCS: 80053; 80061; 83036; 85025; G0103

== ENCOUNTER → 2022-09-28 13:06 | Outpatient (CLI) | payer MEDICARE, MEDICAID, SELFPAY | PROVIDERS: PCP Family Medicine; Visit Provider Family Medicine | DX: I50.23 Acute on chronic systolic (congestive) heart failure (principal); R01.1 Cardiac murmur, unspecified | CPT/HCPCS: 93306 ==

== ENCOUNTER → 2022-11-21 23:16 | Outpatient (CLI) | payer MEDICARE, MEDICAID, SELFPAY ==
[2022-11-21 19:56] LABS: Alanine Aminotransferase 37 U/L (12-78); Albumin Level 3.9 g/dl (3.5-5.0); Albumin/Globulin Ratio 1.2 (1.1-1.8); Alkaline Phosphatase 100 U/L (38-126); Anion Gap 16.2 mEq/L (5-15); Aspartate Amino Transferase 55 U/L (17-59); Bilirubin,Total 0.4 mg/dl (0.2-1.3); Blood Urea Nitrogen 19 mg/dl (9-20); Calcium 9.6 mg/dl (8.4-10.2); Carbon Dioxide 28 mmol/L (22.0-30.0); Chloride 104 mmol/L (98-107); Estimated Glomerular Filt Rate 74 ml/min (>60); GFR (African American) 90 ML/MIN (>60); Globulin 3.2 g/dL (1.3-3.2); Glucose 96 mg/dl (74-100); Potassium 4.2 mmoL/L (3.5-5.1); Sodium 144 mmol/L (136-145); Total Protein,Serum 7.1 g/dl (6.3-8.2)
[2022-11-21 20:23] LABS: Thyroid Stimulating Hormone 2.14 uIU/mL (0.465-4.68)
[2022-11-29 00:07] LABS: Lyme B. burgdorferi PCR Blood Negative (Negative)
== END ==
PROVIDERS: PCP Family Medicine; Visit Provider Family Medicine
DX: E11.69 Type 2 diabetes mellitus with other specified complication (principal); N40.0 Benign prostatic hyperplasia without lower urinary tract symptoms; Z79.4 Long term (current) use of insulin; S20.469A Insect bite (nonvenomous) of unspecified back wall of thorax, initial encounter
CPT/HCPCS: 80053; 83036; 84443; 87476

== ENCOUNTER → 2023-03-14 13:50 | Outpatient (CLI) | payer MEDICARE, MEDICAID, SELFPAY ==
[2023-03-14 18:51] LABS: Alanine Aminotransferase 40 U/L (12-78); Albumin Level 4.1 g/dl (3.5-5.0); Albumin/Globulin Ratio 1.3 (1.1-1.8); Alkaline Phosphatase 142 U/L (38-126); Anion Gap 13.1 mEq/L (5-15); Aspartate Amino Transferase 53 U/L (17-59); Bilirubin,Total 0.3 mg/dl (0.2-1.3); Blood Urea Nitrogen 19 mg/dl (9-20); Calcium 9.3 mg/dl (8.4-10.2); Carbon Dioxide 30 mmol/L (22.0-30.0); Chloride 100 mmol/L (98-107); Estimated Glomerular Filt Rate 74 ml/min (>60); GFR (African American) 90 ML/MIN (>60); Globulin 3.1 g/dL (1.3-3.2); Glucose 351 mg/dl (74-100); Potassium 4.1 mmoL/L (3.5-5.1); Sodium 139 mmol/L (136-145); Total Protein,Serum 7.2 g/dl (6.3-8.2); Uric Acid 4.9 mg/dl (3.5-8.5)
== END ==
PROVIDERS: PCP Family Medicine; Visit Provider Family Medicine
DX: E11.9 Type 2 diabetes mellitus without complications (principal); Z79.4 Long term (current) use of insulin
CPT/HCPCS: 80053; 84550; 86140

== ENCOUNTER → 2023-04-12 10:04 | Outpatient (CLI) | payer MEDICARE, MEDICAID, SELFPAY ==
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
== END ==
PROVIDERS: PCP Family Medicine; Visit Provider Nurse Practitioner Family
DX: M79.673 Pain in unspecified foot (principal); S91.309A Unspecified open wound, unspecified foot, initial encounter
CPT/HCPCS: 73630

== ENCOUNTER → 2023-04-12 16:31 | Outpatient (CLI) | payer MEDICARE, MEDICAID, SELFPAY | PROVIDERS: PCP Family Medicine; Visit Provider Nurse Practitioner Family | DX: S91.301A Unspecified open wound, right foot, initial encounter (principal); B95.7 Other staphylococcus as the cause of diseases classified elsewhere | CPT/HCPCS: 73630; 87070; 87205 ==

== ENCOUNTER → 2023-04-24 11:46 | Outpatient (CLI) | payer MEDICARE, MEDICAID, SELFPAY ==
[2023-04-24 12:23] LABS: Basophils # 0.1 K/mm3 (0-0.2); Basophils % 0.5 % (0.1-2.0); Eosinophils # 0.4 K/mm3 (0.0-0.4); Eosinophils % 3.2 % (0.1-12.0); Hematocrit 44.9 % (42.0-52.0); Hemoglobin 15.2 g/dL (14.1-18.0); Lymphocytes # 2.6 K/mm3 (0.7-4.5); Lymphocytes % 23.5 % (10-50); Mean Corpuscular HGB Conc 33.8 g/dL (31.8-35.4); Mean Corpuscular Hemoglobin 31.3 pg (27.0-31.2); Mean Corpuscular Volume 92.6 fl (80-94); Mean Platelet Volume 9.3 fl (7.4-10.4); Monocytes # 0.6 K/mm3 (0.1-1.0); Neutrophils # 7.4 K/mm3 (1.8-7.8); Neutrophils % 67.8 % (37.0-80.0); Platelet Count 296 K/mm3 (142-424); Red Blood Count 4.85 M/mm3 (4.60-6.20); Red Cell Distribution Width 13.3 % (11.5-17.5)
[2023-04-24 12:44] LABS: Alanine Aminotransferase 35 U/L (12-78); Alkaline Phosphatase 96 U/L (38-126); Aspartate Amino Transferase 42 U/L (17-59); Bilirubin,Total 0.3 mg/dl (0.2-1.3); Blood Urea Nitrogen 20 mg/dl (9-20); Calcium 9.3 mg/dl (8.4-10.2); Carbon Dioxide 30 mmol/L (22.0-30.0); Chloride 99 mmol/L (98-107); Estimated Glomerular Filt Rate 74 ml/min (>60); GFR (African American) 90 ML/MIN (>60); Glucose 211 mg/dl (74-100)
[2023-04-24 12:46] LABS: Albumin Level 4.2 g/dl (3.5-5.0); Albumin/Globulin Ratio 1.4 (1.1-1.8); Anion Gap 14.2 mEq/L (5-15); Globulin 3.1 g/dL (1.3-3.2); Potassium 4.2 mmoL/L (3.5-5.1); Sodium 139 mmol/L (136-145); Total Protein,Serum 7.3 g/dl (6.3-8.2)
[2023-04-24 12:50] LABS: C-Reactive Protein 10.8 mg/L (0-4)
[2023-04-24 13:45] LABS: Hemoglobin A1C 9.7 % (4.0-6.0)
[2023-04-24 14:26] LABS: Erythrocyte Sedimentation Rate 64 mm/hr (0-20)
== END ==
PROVIDERS: PCP Family Medicine; Visit Provider Nurse Practitioner Family
DX: E11.69 Type 2 diabetes mellitus with other specified complication (principal); Z51.89 Encounter for other specified aftercare; L97.511 Non-pressure chronic ulcer of other part of right foot limited to breakdown of skin; S91.301A Unspecified open wound, right foot, initial encounter; M79.671 Pain in right foot; Z79.4 Long term (current) use of insulin
CPT/HCPCS: 36415; 80053; 83036; 85025; 85651; 86140

== ENCOUNTER → 2023-05-08 14:17 | Outpatient (CLI) | payer MEDICARE, MEDICAID, SELFPAY ==
[2023-05-08 14:49] LABS: Basophils # 0.1 K/mm3 (0-0.2); Basophils % 0.6 % (0.1-2.0); Eosinophils # 0.3 K/mm3 (0.0-0.4); Eosinophils % 2.4 % (0.1-12.0); Hematocrit 44.4 % (42.0-52.0); Lymphocytes # 2.6 K/mm3 (0.7-4.5); Lymphocytes % 22.2 % (10-50); Mean Corpuscular HGB Conc 33.8 g/dL (31.8-35.4); Mean Corpuscular Hemoglobin 30.9 pg (27.0-31.2); Mean Corpuscular Volume 91.5 fl (80-94); Mean Platelet Volume 9.1 fl (7.4-10.4); Monocytes # 0.6 K/mm3 (0.1-1.0); Monocytes % 5.4 % (1.7-9.3); Neutrophils # 8.2 K/mm3 (1.8-7.8); Neutrophils % 69.3 % (37.0-80.0); Platelet Count 282 K/mm3 (142-424); Red Blood Count 4.85 M/mm3 (4.60-6.20); Red Cell Distribution Width 13.3 % (11.5-17.5); White Blood Count 11.8 K/mm3 (4.8-10.8)
[2023-05-08 15:06] LABS: Chloride 102 mmol/L (98-107); Sodium 141 mmol/L (136-145)
[2023-05-08 15:09] LABS: Alanine Aminotransferase 33 U/L (12-78); Albumin Level 4.3 g/dl (3.5-5.0); Albumin/Globulin Ratio 1.4 (1.1-1.8); Alkaline Phosphatase 159 U/L (38-126); Aspartate Amino Transferase 42 U/L (17-59); Bilirubin,Total 0.4 mg/dl (0.2-1.3); Blood Urea Nitrogen 26 mg/dl (9-20); Calcium 9.7 mg/dl (8.4-10.2); Carbon Dioxide 32 mmol/L (22.0-30.0); Estimated Glomerular Filt Rate 60 ml/min (>60); GFR (African American) 73 ML/MIN (>60); Globulin 3.1 g/dL (1.3-3.2); Glucose 188 mg/dl (74-100); Total Protein,Serum 7.4 g/dl (6.3-8.2)
[2023-05-08 15:15] LABS: C-Reactive Protein 9.7 mg/L (0-4)
[2023-05-08 15:22] LABS: Erythrocyte Sedimentation Rate 16 mm/hr (0-20)
== END ==
PROVIDERS: PCP Family Medicine; Visit Provider Nurse Practitioner Family
DX: E11.621 Type 2 diabetes mellitus with foot ulcer (principal); L97.511 Non-pressure chronic ulcer of other part of right foot limited to breakdown of skin; L97.519 Non-pressure chronic ulcer of other part of right foot with unspecified severity; Z79.4 Long term (current) use of insulin
CPT/HCPCS: 36415; 80053; 85025; 85651; 86140

== ENCOUNTER → 2023-05-16 07:13 | Outpatient (CLI) | payer MEDICARE, MEDICAID, SELFPAY ==
[2023-05-16 20:41] LABS: Amphetamine/Metha Screen,Urine Negative ng/ml (<1000)
[2023-05-16 20:43] LABS: Cannabinoid Screen,Urine Negative ng/ml (<50)
[2023-05-16 20:44] LABS: Barbiturates Screen,Urine Negative ng/ml (<200); Benzodiazepines Screen,Urine Negative ng/ml (<200)
[2023-05-16 20:45] LABS: Opiate Screen,Urine Negative ng/ml (<300)
[2023-05-16 20:46] LABS: Cocaine Screen,Urine Negative ng/ml (<300); Methadone Screen,Urine Negative ng/ml (<300)
[2023-05-16 20:48] LABS: Phencyclidine Screen,Urine Negative ng/ml (<25)
== END ==
PROVIDERS: PCP Family Medicine; Visit Provider Family Medicine
DX: G89.29 Other chronic pain (principal)
CPT/HCPCS: 80305

== ENCOUNTER 2023-09-29 20:36 | Emergency (ER) | payer MEDICARE, MEDICAID, SELFPAY ==
[2023-09-29 20:33] VITALS: BP 155/77; PULSE 98; RESP 20; TEMP 36.9; O2SAT 94; BMI 42.5
--- NOTE | 2023-09-29 20:47 | CT_ITS ---
PROCEDURE INFORMATION: Exam: CT Chest Without Contrast; Diagnostic Exam date and time: 09/29/2023 9:18 PM Age: 68 years old Clinical indication: Injury or trauma; Fall; Blunt trauma (contusions or hematomas); Additional info: Fall, down 24 hours TECHNIQUE: Imaging protocol: Diagnostic computed tomography of the chest without contrast. Radiation optimization: All CT scans at this facility use at least one of these dose optimization techniques: automated exposure control; mA and/or kV adjustment per patient size (includes targeted exams where dose is matched to clinical indication); or iterative reconstruction. COMPARISON: 1. CT ANGIO CHEST 04/19/2020 1:02 PM 2. CR XR CHEST 2V 08/30/2020 11:19 AM FINDINGS: Lungs: Scattered areas of bronchial wall thickening which are likely chronic inflammatory. A few areas of subpleural reticulation are noted, nonspecific. There are scattered areas of emphysema throughout the lungs. There are few scattered pulmonary nodules such as a 3 mm right upper lobe nodule (image 44 series 4). Fleischner Society guidelines for follow-up are detailed below. Pleural spaces: Pleural surfaces are smooth, and there are no pleural effusions, pneumothoraces, or pleural plaques noted. Heart: The heart size is within normal limits, and the pericardium appears clear with no signs of pericardial effusion or thickening. Coronary arteries: The coronary arteries are not well-visualized in this non-gated study, but nosignificant calcification is seen. Mediastinal space: The mediastinum appears unremarkable with no evidence of masses, lymphadenopathy, or mediastinal widening. Hilar structures including the major bronchi and vessels appear intact. Lymph nodes: Unremarkable. No enlarged lymph nodes. Vasculature: There is atherosclerotic disease of the visualized aorta and its major branch vessels. Intraperitoneal space: Please see the dedicated interpretation of abdomen and pelvis for findings in that region. Bones/joints: Please see the dedicated interpretation of the spine for findings in that region. Old left lateral rib fracture. There is diffuse degenerative disease of the visualized osseous structures. Soft tissues: Unremarkable. Other findings: Motion artifact mildly limits evaluation. IMPRESSION: 1. No acute traumatic injury is identified. 2. Please see the dedicated interpretation of abdomen and pelvis for findings in that region. 3. Solid pulmonary nodules measuring less than 6 mm. For patients at low risk (minimal or absent history of smoking and of other known risk factors), no routine follow-up is indicated. For patients at high risk (history of smoking or of other known risk factors), consider optional CT Chest at 12 months. (Reference: Cara). COMMENTS: The presence of pulmonary emphysema on CT is an independent risk factor for lung cancer. In the absence of a history or active diagnosis of lung cancer, it is recommended that this patient with emphysema be evaluated for enrollment in a low dose CT lung cancer screening program. REFERENCES: Cara Horan, et al. Guidelines for Management of Incidental Pulmonary Nodules Detected on CT Images: From the Fleischner Society 2017. Radiology. 2017;284(1):228-243.
--- NOTE | 2023-09-29 20:47 | CT_ITS ---
PROCEDURE INFORMATION: Exam: CT Cervical Spine Without Contrast Exam date and time: 09/29/2023 9:12 PM Age: 68 years old Clinical indication: Injury or trauma; Fall; Blunt trauma; Additional info: Fall, down 24 hours TECHNIQUE: Imaging protocol: Computed tomography of the cervical spine without contrast. Radiation optimization: All CT scans at this facility use at least one of these dose optimization techniques: automated exposure control; mA and/or kV adjustment per patient size (includes targeted exams where dose is matched to clinical indication); or iterative reconstruction. COMPARISON: 1. CT FACIAL BONES WO CON 09/29/2023 9:[address] HEAD/BRAIN WO CON 09/29/2023 8:[address] ANGIO CHEST 04/19/2020 1:02 PM FINDINGS: Bones/joints: The cervical spine shows relatively preserved alignment of the vertebral bodies with no evidence of acute fractures or dislocations. However, age-related degenerative changes are observed, including mild disc space narrowing and osteophyte formation at multiple levels. These findings are consistent with age related degenerative disease. Lungs: Lung apices are normal. Vasculature: There are atherosclerotic calcifications of the carotid bulbs bilaterally. Soft tissues: Unremarkable. IMPRESSION: Multilevel degenerative change without acute injury identified.
--- NOTE | 2023-09-29 20:47 | ECG_ITS ---
APPROVED REPORT Exam: Resting ECG HR:95 bpm ECG Measurements Heart Rate 95 AXES MO 222 P 57 QRSd 164 QRS -70 QT 445 T 1 QTc 498 Conclusion SINUS RHYTHM WITH FIRST DEGREE AV BLOCK RIGHT BUNDLE BRANCH BLOCK [120+ ms QRS DURATION, UPRIGHT V1, 40+ ms S IN I/aVL/V4/V5/V6] LEFT ANTERIOR FASCICULAR BLOCK [QRS AXIS <= -45, QR IN I, RS IN II] POSSIBLE ANTERIOR MYOCARDIAL INFARCTION , OF INDETERMINATE AGE [30 ms Q WAVE IN V3/V4, OR R < 0.2 mV IN V4] ABNORMAL ECG Electronically signed by : RUI MCKEON, 10/01/2023 15:31:36
--- NOTE | 2023-09-29 20:47 | CT_ITS ---
PROCEDURE INFORMATION: Exam: CT Lumbar Spine Without Contrast Exam date and time: 09/29/2023 9:23 PM Age: 68 years old Clinical indication: Injury or trauma; Fall; Blunt trauma (contusions or hematomas); Additional info: Fall, down 24 hours TECHNIQUE: Imaging protocol: Computed tomography of the lumbar spine without contrast. Radiation optimization: All CT scans at this facility use at least one of these dose optimization techniques: automated exposure control; mA and/or kV adjustment per patient size (includes targeted exams where dose is matched to clinical indication); or iterative reconstruction. COMPARISON: 1. CT ABDOMEN PELVIS WO CON 09/29/2023 9:[address] THORACIC SPINE WO CON 09/29/2023 9:14 PM FINDINGS: Bones/joints: There is diffuse osseous demineralization. No evidence of acute spondylolisthesis or vertebral subluxation. Vertebral body heights are generally preserved, but some endplate sclerosis and anterior osteophytes are noted at multiple levels. Narrowing of multiple intervertebral disc spaces observed, indicative of degenerative disc disease. Hypertrophic changes are seen in the facet joints, consistent with osteoarthritis. No fractures or bony lesions identified. No abnormalities seen in adjacent osseous structures. Intraperitoneal space: Please see the dedicated interpretation of abdomen and pelvis for findings in that region. Soft tissues: Unremarkable. Other findings: No obvious abnormalities seen in the prevertebral and paravertebral soft tissues. IMPRESSION: 1. Degenerative changes without acute abnormality detected. 2. Please see the dedicated interpretation of abdomen and pelvis for findings in that region.
--- NOTE | 2023-09-29 20:47 | CT_ITS ---
PROCEDURE INFORMATION: Exam: CT Thoracic Spine Without Contrast Exam date and time: 09/29/2023 9:14 PM Age: 68 years old Clinical indication: Injury or trauma; Fall; Blunt trauma (contusions or hematomas); Additional info: Fall, down 24 hours TECHNIQUE: Imaging protocol: Computed tomography of the thoracic spine without contrast. Radiation optimization: All CT scans at this facility use at least one of these dose optimization techniques: automated exposure control; mA and/or kV adjustment per patient size (includes targeted exams where dose is matched to clinical indication); or iterative reconstruction. COMPARISON: 1. CT CERVICAL SPINE WO CON 09/29/2023 9:[address] ANGIO CHEST 04/19/2020 1:02 PM FINDINGS: Bones/joints: There is diffuse osseous demineralization. No evidence of acute spondylolisthesis or vertebral subluxation. Vertebral body heights are generally preserved, but some endplate sclerosis and anterior osteophytes are noted at multiple levels. Narrowing of multiple intervertebral disc spaces observed, indicative of degenerative disc disease. Hypertrophic changes are seen in the facet joints, consistent with osteoarthritis. No fractures or bony lesions identified. No abnormalities seen in adjacent osseous structures. Soft tissues: Unremarkable. Other findings: Please see the dedicated interpretation of the thorax for findings in that region. No obvious abnormalities seen in the prevertebral and paravertebral soft tissues. Motion artifact mildly limits evaluation. IMPRESSION: 1. Degenerative changes without acute abnormality detected. 2. Please see the dedicated interpretation of the thorax for findings in that region.
--- NOTE | 2023-09-29 20:47 | CT_ITS ---
PROCEDURE INFORMATION: Exam: CT Head Without Contrast Exam date and time: 09/29/2023 8:59 PM Age: 68 years old Clinical indication: Injury or trauma; Fall; Other: Down 24 hours; Additional info: Fall, down 24 hours TECHNIQUE: Imaging protocol: Computed tomography of the head without contrast. Radiation optimization: All CT scans at this facility use at least one of these dose optimization techniques: automated exposure control; mA and/or kV adjustment per patient size (includes targeted exams where dose is matched to clinical indication); or iterative reconstruction. COMPARISON: No relevant prior studies available. FINDINGS: Brain: The brain parenchyma appears unremarkable, with no signs of acute intracranial hemorrhage or significant mass effect. There is hypodensity in the subcortical and periventricular white matter which is technically nonspecific but most often related to chronic microvascular disease. Cerebral ventricles: Mild ventricular enlargement consistent with age-related cerebral atrophy is noted. Paranasal sinuses: Paranasal sinuses show age-appropriate mucosal thickening. Mastoid air cells: Visualized mastoid air cells are well aerated. Bones/joints: There are no skull fractures or bony lesions. Soft tissues: Unremarkable. IMPRESSION: Presumably age-related and chronic changes without acute intracranial abnormality.
--- NOTE | 2023-09-29 20:47 | CT_ITS ---
PROCEDURE INFORMATION: Exam: CT Pelvis Without Contrast; Skeletal Exam date and time: 09/29/2023 9:25 PM Age: 68 years old Clinical indication: Injury or trauma; Fall; Other: Down 24 hours; Additional info: Fall, down 24 hours TECHNIQUE: Imaging protocol: Computed tomography of the pelvis without contrast. Exam focused on the skeleton. Radiation optimization: All CT scans at this facility use at least one of these dose optimization techniques: automated exposure control; mA and/or kV adjustment per patient size (includes targeted exams where dose is matched to clinical indication); or iterative reconstruction. COMPARISON: 1. CT ABDOMEN PELVIS WO CON 09/29/2023 9:[address] LUMBAR SPINE WO CON 09/29/2023 9:23 PM FINDINGS: Intraperitoneal space: Please see the dedicated interpretation of abdomen and pelvis for findings in that region. Bones/joints: There is diffuse osseous demineralization. Status post left total hip arthroplasty. No acute fracture or dislocation is seen. No aggressive osseous lesion. Degenerative changes of the right hip. Degenerative changes of the lumbar spine are noted. Soft tissues: Unremarkable. IMPRESSION: 1. Status post left total hip arthroplasty with scattered degenerative disease. No acute injury is identified. 2. Please see the dedicated interpretation of abdomen and pelvis for findings in that region. 3. If clinical concern persists, MRI would be suggested.
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
--- NOTE | 2023-09-29 20:49 | CT_ITS ---
PROCEDURE INFORMATION: Exam: CT Maxillofacial Without Contrast Exam date and time: 09/29/2023 9:10 PM Age: 68 years old Clinical indication: Injury or trauma; Fall; Other: Down 24 hours; Additional info: Fall, down 24 hours TECHNIQUE: Imaging protocol: Computed tomography of the face without contrast. Radiation optimization: All CT scans at this facility use at least one of these dose optimization techniques: automated exposure control; mA and/or kV adjustment per patient size (includes targeted exams where dose is matched to clinical indication); or iterative reconstruction. COMPARISON: CT HEAD/BRAIN WO CON 09/29/2023 8:59 PM FINDINGS: Orbital cavities: Orbits are normal. Globes are unremarkable. Bones/joints: No acute fracture. Paranasal sinuses: Normal. No air-fluid levels. Soft tissues: Mild soft tissue swelling is noted over the inferior aspect of the right orbital ridge. Other findings: Motion artifact mildly limits evaluation. IMPRESSION: Soft tissue swelling over the right face without acute injury identified. Mildly motion limited study.
[2023-09-29] MEDS: LACTATED RINGERS 1000ML 1,000 ML 999 ML IV ×2 (20:54→23:48)
[2023-09-29 20:58] LABS: Basophils # 0.1 K/mm3 (0-0.2); Basophils % 0.4 % (0.1-2.0); Chloride 106 mmol/L (98-107); Eosinophils # 0.1 K/mm3 (0.0-0.4); Eosinophils % 0.4 % (0.1-12.0); Hematocrit 47.8 % (42.0-52.0); Hemoglobin 15.5 g/dL (14.1-18.0); Lymphocytes # 1.3 K/mm3 (0.7-4.5); Mean Corpuscular HGB Conc 32.4 g/dL (31.8-35.4); Mean Corpuscular Volume 95.7 fl (80-94); Mean Platelet Volume 9.1 fl (7.4-10.4); Monocytes # 0.9 K/mm3 (0.1-1.0); Monocytes % 4.9 % (1.7-9.3); Neutrophils % 87.3 % (37.0-80.0); Platelet Count 287 K/mm3 (142-424); Potassium 4.6 mmoL/L (3.5-5.1); Red Blood Count 4.99 M/mm3 (4.60-6.20); Red Cell Distribution Width 14.2 % (11.5-17.5); Sodium 142 mmol/L (136-145); White Blood Count 18.3 K/mm3 (4.8-10.8)
[2023-09-29 21:01] LABS: Alanine Aminotransferase 56 U/L (12-78); Alkaline Phosphatase 89 U/L (38-126); Anion Gap 13.6 mEq/L (5-15); Aspartate Amino Transferase 90 U/L (17-59); Bilirubin,Total 0.9 mg/dl (0.2-1.3); Blood Urea Nitrogen 27 mg/dl (9-20); Calcium 9.9 mg/dl (8.4-10.2); Carbon Dioxide 27 mmol/L (22.0-30.0); Creatinine Clearance Estimated 74 mL/min (50-200); Estimated Glomerular Filt Rate 74 ml/min (>60); GFR (African American) 90 ML/MIN (>60); MANUAL DIFFERENTIAL MANUAL DIFFERENTIAL (MANUAL DIFF)
[2023-09-29 21:02] LABS: Albumin Level 4.2 g/dl (3.5-5.0); Albumin/Globulin Ratio 1.4 (1.1-1.8); Globulin 2.9 g/dL (1.3-3.2); Total Protein,Serum 7.1 g/dl (6.3-8.2)
[2023-09-29 21:04] LABS: Activated Partial Thrombo Time 24.5 seconds (22.8-30.6); INR 1.02 (0.9-1.1)
[2023-09-29] MEDS: LORazepam 2MG/ML VIAL 1 MG IV (21:05)
[2023-09-29 21:07] LABS: Glucose 432 mg/dl (74-100)
--- NOTE | 2023-09-29 21:07 | PC.NURSE ---
Gayle from the lab called with a critical lab value. Glucose is 432. RN and advised. CR
[2023-09-29 21:13] LABS: Troponin I 0.05 ng/ml (0.00-0.034)
[2023-09-29 21:17] LABS: Creatine Kinase 2747 U/L (55-170)
[2023-09-29 21:25] LABS: Lactic Acid 3.5 mmol/L (0.7-2.1)
[2023-09-29 21:28] LABS: Lymphocytes % 7 % (10-50); Monocytes % 3 % (2-9); Neutrophils % 90 % (42-76); Platelet Estimate Normal; RBC Morphology Normal; Total Cells Counted 100
[2023-09-29 21:53] LABS: VBG Base Excess -3.2 mmol/L (-2.4-2.3); VBG HCO3 22.4 mmol/L (23-30); VBG Oxygen Saturation 85.6 % (50-70); VBG PCO2 41.3 mmol/L (35-51); VBG PH 7.35 mmol/L (7.31-7.41); VBG PO2 53.9 mmol/L (28-40); VBG Total CO2 23.7 mmol/L (23-27)
[2023-09-29 21:54] LABS: Lactate Venous 4.4 mmol/L (0.4-2.0)
--- NOTE | 2023-09-29 21:56 | PC.NURSE ---
Will from [facility] called with lab values, Lactic 4.41 and Glucose 405. RN and MD notified. CR
[2023-09-29 22:00] VITALS: BP 178/95; PULSE 99; RESP 23; O2SAT 91
[2023-09-29 22:07] LABS: Microscopic, Urine URINE MICROSCOPIC (MICROSCOPIC)
[2023-09-29 22:08] LABS: Appearance,Urine CLEAR (Clear); Bilirubin,Urine Negative (Negative); Blood, Urine TRACE-I (Negative); Color,Urine YELLOW (Yellow); Glucose,Urine (UA) 3+ (Negative); Ketones,Urine TRACE (Negative); Leukocyte Esterase,Urine Negative (Negative); Nitrate,Urine Negative (Negative); Protein,Urine Negative (Negative); Specific Gravity, Urine 1.025 (1.005-1.030); Urobilinogen,Urine 0.2 EU/dl (0.2)
[2023-09-29 22:15] VITALS: BP 212/101; PULSE 101; RESP 24; O2SAT 91
[2023-09-29 22:34] LABS: RBC,Urine Occasional #/hpf (0-3); Squamous Epithelial Cell,Urine Occasional #/hpf (0-5); WBC,Urine Occasional #/hpf (0-3); Yeast,Urine 1+ /lpf
--- NOTE | 2023-09-29 22:44 | PC.NURSE ---
bladder scan 686 ml. encouraged patient to attempt to void.
--- NOTE | 2023-09-29 23:00 | PC.NURSE ---
Called [facility] about a spinal consult. Advised they would call us back once they have a spinal surgeon available. JABIER
--- NOTE | 2023-09-29 23:00 | ED_ITS ---
Discharge Plan Disposition Patient Disposition: Still a Patient Condition: Good Prescriptions Prescriptions: No Action furosemide 40 mg tablet 40 mg PO TID Patient Comments: TAKE ONE (1) TABLET BY MOUTH THREE (3) TIMES DAILY FOR SWELLING atorvastatin 40 mg tablet 40 mg PO HS Patient Comments: TAKE ONE (1) TABLET BY MOUTH AT NIGHT FOR CHOLESTEROL metoprolol tartrate 100 mg tablet 100 mg PO BID Patient Comments: TAKE ONE (1) TABLET BY MOUTH TWICE DAILY FOR HIGH BLOOD PRESSURE clopidogrel 75 mg tablet 75 mg PO DAILY Patient Comments: TAKE ONE TABLET BY MOUTH EVERY DAY FOR BLOOD THINNER allopurinol 100 mg tablet 100 mg PO DAILY Patient Comments: TAKE ONE TABLET BY MOUTH EVERY DAY tamsulosin 0.4 mg capsule 0.8 mg PO HS Patient Comments: TAKE (2) CAPSULE DAILY ONE HALF (1/2) HOUR FOLLOWING THE SAME MEAL EACH DAY pantoprazole 40 mg tablet,delayed release (DR/EC) 40 mg PO DAILY Patient Comments: TAKE ONE (1) TABLET BY MOUTH EVERY DAY FOR REFLUX/ACID REFLUX finasteride 5 mg tablet 5 mg PO DAILY Patient Comments: TAKE ONE (1) TABLET EVERY DAY BY ORAL ROUTE FOR 90 DAYS. insulin lispro [Humalog KwikPen Insulin] 100 unit/mL insulin pen 55 unit SQ ACHS Patient Comments: INJECT 55 UNITS SUBCUTANEOUSLY WITH MEALS fenofibrate nanocrystallized 145 mg tablet 145 mg PO DAILY Patient Comments: TAKE ONE (1) TABLET BY MOUTH EVERY DAY FOR LIPIDS insulin glargine [Lantus Solostar U-100 Insulin] 100 unit/mL (3 mL) insulin pen 40 unit SQ AM Patient Comments: INJECT 40 UNITS SUBCUTANEOUSLY EACH MORNING AND 100 UNITS AT NIGHT oxycodone 10 mg tablet 1 mg PO BIDP PRN (Reason: Pain) Patient Comments: TAKE 1 TABLET BY MOUTH TWICE DAILY NEEDED FOR PAIN Entresto 49-51 mg tablet 1 tab PO BID Patient Comments: TAKE 1 TABLET BY MOUTH TWICE DAILY FOR HLD Trulicity 4.5 mg/0.5 mL pen injector 4.5 mg SQ WEEKLY Patient Comments: INJECT 4.5 MG (0.5 ML) SUBCUTANEOUSLY WEEKLY insulin glargine [Lantus Solostar U-100 Insulin] 100 unit/mL (3 mL) insulin pen 100 unit SQ HS Patient Comments: INJECT 40 UNITS SUBCUTANEOUSLY EACH MORNING AND 100 UNITS AT NIGHT Referrals Follow up/Referrals: Cecilio Garza MD [Primary Care Provider] - See instructions Clinical Impressions Clinical Impression: Fall, Bilateral arm weakness, Acute urinary retention, Rhabdomyolysis, Hypertension, Hyperglycemia, Bilateral leg weakness Stand Alone Forms Stand Alone Forms: Transfer Record - ED Discharge ED Provider: Ibis Rodriguez General Adult HPI General Chief complaint: Fall Stated complaint: fall, possible rhabdo Time Seen by Provider: 09/29/23 20:34 Mode of Arrival: EMS Source of Information: Patient and EMS Limitations: Physical Limitations Description of Symptoms (Recalled from ER Triage Doc. by RN): EMS states pt fell at approx 8pm on 09/27. Pt states he has a metal hip and it gave out and he was unable to get up. Pt states he's got some L hip pain at this time. Pt is A&O*4 at this time. History of Present Illness HPI narrative: This patient is a 68-year-old male with a history of BPH, type 2 diabetes, hypertension, hyperlipidemia, CAD, CHF, peripheral neuropathy, chronic neck pain, and GERD presenting to the emergency department for evaluation with concern for fall. Patient fell yesterday around 8:00 PM and had been down for approximately 24 hours when family came and found him down. He states that he has a metal hip and it gave out. He was lying on his stomach and was unable to get up. He states that his biggest concern is neck pain as well as weakness in his bilateral hands and wrists. He also states that his chin is bothering him, as he had a lot of pressure on his skin of his chin because he was having to turn his head from [id number] and positioning of the floor to try and get up and also to be comfortable and breathe. He notes that his neck was pretty extended as he laid there on the ground. He does not complain of pain elsewhere at this time. He notes no loss of consciousness. EMS arrived with the patient who noted that he was down on the floor and had been obviously incontinent of urine. He was very weak and unable to help them with transfers. They note vital stable en route. Related Data Home Medications Medication Instructions Recorded Confirmed allopurinol 100 mg tablet 100 mg PO DAILY 09/29/23 09/29/23 atorvastatin 40 mg tablet 40 mg PO HS 09/29/23 09/29/23 clopidogrel 75 mg tablet 75 mg PO DAILY 09/29/23 09/29/23 dulaglutide 4.5 mg/0.5 mL 4.5 mg SQ WEEKLY 09/29/23 09/29/23 subcutaneous pen injector (Trulicity) fenofibrate nanocrystallized 145 145 mg PO DAILY 09/29/23 09/29/23 mg tablet finasteride 5 mg tablet 5 mg PO DAILY 09/29/23 09/29/23 furosemide 40 mg tablet 40 mg PO TID 09/29/23 09/29/23 insulin glargine 100 unit/mL (3 40 unit SQ AM 09/29/23 09/29/23 mL) subcutaneous pen (Lantus Solostar U-100 Insulin) insulin glargine 100 unit/mL (3 100 unit SQ HS 09/29/23 09/29/23 mL) subcutaneous pen (Lantus Solostar U-100 Insulin) insulin lispro 100 unit/mL 55 unit SQ ACHS 09/29/23 09/29/23 subcutaneous pen (Humalog KwikPen (U-100) Insulin) metoprolol tartrate 100 mg tablet 100 mg PO BID 09/29/23 09/29/23 oxycodone 10 mg tablet 1 mg PO BIDP PRN Pain 09/29/23 09/29/23 pantoprazole 40 mg tablet,delayed 40 mg PO DAILY 09/29/23 09/29/23 release sacubitril 49 mg-valsartan 51 mg 1 tab PO BID 09/29/23 09/29/23 tablet (Entresto) tamsulosin 0.4 mg capsule 0.8 mg PO HS 09/29/23 09/29/23 Allergies Allergy/AdvReac Type Severity Reaction Status Date / Time lisinopril Allergy Severe blisters Verified 07/18/23 12:57 codeine Allergy Verified 07/18/23 12:57 exenatide [From Bydureon] AdvReac Severe abdominal Verified 07/18/23 12:57 wall rash acetaminophen AdvReac Verified 07/18/23 12:57 [facility] Disclaimer: The information contained in this section may have been updated after the patient was seen, as this information can be updated by other users. Social History Smoking Status: Former smoker second hand exposure: Yes alcohol intake: never substance use type: denies use current occupational status: disabled Travel in the last 8 weeks: None household members: family housing: house current occupational exposures/hazards: No caffeine: Yes ROS Obtained: Yes All systems reviewed & no additional complaints except as documented Physical Exam General General appearance: alert and in no apparent distress Head Head exam: normocephalic and other (skin breakdown and irritation to chin from pressure) Eye Eye exam: Present normal appearance, PERRL and EOMI ENT ENT exam: Present normal exam, normal oropharynx, mucous membranes moist and normal external ear exam Neck Neck exam: Present trachea midline and tenderness (posterior neck) Chest Chest inspection: Present normal inspection and symmetric chest wall rise; Absent tenderness Respiratory Respiratory exam: Present normal lung sounds bilaterally; Absent respiratory distress, wheezes, stridor or accessory muscle use Cardiovascular Cardiovascular exam: Present regular rate and normal rhythm Abdominal Exam Abdominal exam: Present soft; Absent distention, tenderness, guarding, rebound or rigidity Comment: abrasions to upper abdomen with tenderness Extremities Exam Extremities exam: Present normal capillary refill and other (weakness of bilateral wrists/hands, with intact ROM of shoulders. Sensory deficits to distal BUE. Intact pulses and cap refill); Absent full ROM, tenderness or edema Back Exam Back exam: Absent tenderness or paraspinal tenderness Neurological Exam Neurological exam: Present alert, oriented X3, CN II-XII intact, motor sensory deficit and other (Wrist drop of the bilateral upper extremities with inability to use his hands. He has intact range of motion and strength of the shoulders. Significant motor deficits in the bilateral lower extremities as well, stating that he cannot move them very well. Intact rectal tone) Psychiatric Psychiatric exam: Present normal affect and normal mood Skin Skin exam: Present warm and dry Medical Decision Making Medical Records Medical records reviewed: Yes I reviewed the patient's medical records. [place] Inquiry Pt receiving controlled substance: No Vital Signs: 09/29/23 20:33 09/29/23 22:00 09/29/23 22:15 Temperature 98.4 F Temperature Source Oral Pulse Rate 99 H 101 H Pulse Rate [Left] 98 H Respiratory Rate 20 23 24 Blood Pressure 178/95 H 212/101 H Blood Pressure [Right Arm] 155/77 H Blood Pressure Mean [Right Arm] 103 02 Sat by Pulse Oximetry 94 L 91 L 91 L Oxygen Delivery Method Room Air Room Air Room Air Lab Data Lab results reviewed: Yes I reviewed the patient's lab results. Lab Results 09/29/23 20:39: WBC 18.3 H, RBC 4.99, Hgb 15.5, Hct 47.8, MCV 95.7 H, MCH 31.0, MCHC 32.4, RDW 14.2, Plt Count 287, MPV 9.1, Neut % (Auto) 87.3 H, Lymph % (Auto) 7.0 L, [place] % (Auto) 4.9, Eos % (Auto) 0.4, Baso % (Auto) 0.4, Neut # (Auto) 16.0 H, Lymph # (Auto) 1.3, [facility] # (Auto) 0.9, Eos # (Auto) 0.1, Baso # (Auto) 0.1, Total Counted 100, Neutrophils % (Manual) 90 H, Lymphocytes % (Manual) 7 L, Monocytes % (Manual) 3, Platelet Estimate Normal, RBC Morphology Normal, PT 11.0, INR 1.02, APTT 24.5, Sodium 142, Potassium 4.6, Chloride 106, Carbon Dioxide 27, Anion Gap 13.6, BUN 27 H, Creatinine 1.00, Estimated Creat Clear 74, Estimated GFR 74, Est GFR ( Amer) 90, Glucose 432 H*, Lactate 3.5 H, Calcium 9.9, Total Bilirubin 0.9, AST 90 H, ALT 56, Alkaline Phosphatase 89, Total Creatine Kinase 2747 H*, Troponin I 0.05 H, Total Protein 7.1, Albumin 4.2, Globulin 2.9, Albumin/Globulin Ratio 1.4 09/29/23 20:47: VBG pH 7.35, VBG pCO2 41.3, VBG pO2 53.9 H, VBG HCO3 22.4 L, VBG Total CO2 23.7, VBG O2 Saturation 85.6 H, VBG Base Excess -3.2 L, VBG Lactic Acid 4.4 H 09/29/23 22:03: Urine Color Yellow, Urine Appearance Clear, Urine pH 6.0, Ur Specific [place] 1.025, Urine Protein Negative, Urine Glucose (UA) 3+, Urine Ketones Trace, Urine Blood Trace-i, Urine Nitrate Negative, Urine Bilirubin Negative, Urine Urobilinogen 0.2, Ur Leukocyte Esterase Negative, Urine RBC Occasional, Urine WBC Occasional, Ur Squamous Epith Cells Occasional, Urine Bacteria None, Urine Yeast 1+ 09/29/23 20:39 09/29/23 20:39 Orders (Tests/Meds): ED MEDICATIONS Generic Name Dose Route Start Last Admin Trade Name Freq PRN Reason Stop Dose Admin Morphine Sulfate 4 mg 09/30/23 00:10 Morphine 4mg/Ml Syringe IV 09/30/23 00:11 ONCE ONE Ondansetron HCl 4 mg 09/30/23 00:12 Ondansetron 4mg/2ml Vial IV 09/30/23 00:13 ONCE ONE Sodium Chloride 10 ml 09/29/23 21:02 Sodium Chloride 0.9% 10ml Vial IV 10/29/23 21:01 NEEDED PRN to Dilute Lorazepam inj Discontinued Medications Generic Name Dose Route Start Last Admin Trade Name Freq PRN Reason Stop Dose Admin Lactated Ringer's 1,000 mls @ 999 mls/hr 09/29/23 20:49 09/29/23 20:54 Lactated Ringer's 1000 Ml Bag IV 09/29/23 21:49 999 mls/hr .Q1H1M ONE Administration Lactated Ringer's 1,000 mls @ 150 mls/hr 09/29/23 22:15 09/29/23 23:10 Lactated Ringer's 1000 Ml Bag IV 10/29/23 22:14 150 mls/hr .Q6H40M AURA Administration Lactated Ringer's 1,000 mls @ 999 mls/hr 09/29/23 22:05 09/29/23 23:48 Lactated Ringer's 1000 Ml Bag IV 09/29/23 23:05 999 mls/hr .Q1H1M ONE Administration Lorazepam 1 mg 09/29/23 21:02 09/29/23 21:05 Lorazepam 2mg/Ml Vial IV 09/29/23 21:03 1 mg ONCE ONE Administration ORDERS Category Date Time Status CT abdomen pelvis wo con Stat Cat Scan 09/29/23 20:[address] bony pelvis Stat Cat Scan 09/29/23 20:[address] cervical spine wo con Stat Cat Scan 09/29/23 20:[address] chest wo con Stat Cat Scan 09/29/23 20:[address] facial bones wo con Stat Cat Scan 09/29/23 20:[address] head/brain wo con Stat Cat Scan 09/29/23 20:[address] lumbar spine wo con Stat Cat Scan 09/29/23 20:[address] thoracic spine wo con Stat Cat Scan 09/29/23 20:47 Completed POCUS Point of Care (ER Only) Stat Exams 09/30/23 00:09 Ordered Activated Partial Thrombo Time Stat Lab 09/29/23 20:39 Completed Complete Blood Count Auto Diff Stat Lab 09/29/23 20:39 Completed Comprehensive Metabolic Panel Stat Lab 09/29/23 20:39 Completed Creatine Kinase Stat Lab 09/29/23 20:39 Completed Lactic Acid Stat Lab 09/29/23 20:39 Completed Prothrombin Time INR Stat Lab 09/29/23 20:39 Completed Troponin I Q3H Lab 09/29/23 23:48 Ordered Troponin I Q3H Lab 09/30/23 02:48 Ordered Troponin I Stat Lab 09/29/23 20:39 Completed UA [Urinalysis and Microscopic] Stat Lab 09/29/23 23:56 Ordered Urine Culture(cathed specimen) Stat Micro 09/29/23 23:25 Received Venous Blood Gas Stat RT 09/29/23 23:56 Ordered ECG Data Tracing #1: I reviewed this ECG and interpreted as documented below: Normal sinus rhythm with a ventricular rate of 95 bpm. Borderline first- degree AV block with a SD interval of 222 ms. Left anterior fascicular block as well as right bundle branch block noted. No acute STEMI. ECG initial impression date: 09/29/23 ECG initial impression time: 22:04 Medical Decision Narrative: In theIn summary, this patient is a 68-year-old male presenting to the Emergency Department for evaluation of fall with downtime of 24 hours, neck pain, and bilateral hand and wrist weakness. Differential diagnoses considered include but are not limited to central cord syndrome, C-spine fracture, spinal compression, rhabdomyolysis, polytrauma. Ruling out the most morbid conditions drove assessment. On exam, the patient is resting comfortably in bed in no acute distress, but he does have weakness of the bilateral upper extremities as well as neck pain. He also is weak in the lower extremities with preserved sensation and rectal tone, but acute urinary retention with over flow incontinence. Patient declined contrasted scans and tried to refuse CT scans overall, as he states that he is claustrophobic and would not lie flat. He was agreeable to CT scans without contrast after receiving IV Ativan. Workup included CT scan of the head, face, C/T/L-spine, chest, abdomen, and pelvis without IV contrast as well as CBC, CMP, lactic acid, VBG, CK, troponin, PT, PTT, and EKG. EKG does not demonstrate any acute ST elevations. I independently interpreted CT scan prior to the radiologist read and noted no obvious acute fracture, patient does have incidental findings of pulmonary nodules, which he was notified of. He has significant bladder distention as well as bilateral hydroureteronephrosis. Please see their read for final interpretation. Labs were obtained that demonstrated leukocytosis of 18, elevated CK of 27,000, mildly elevated initial troponin at 0.05, hyperglycemia with 432, elevated lactic of 3.5. Concern for rhabdomyolysis at this time. Ultimately, patient has profound motor weakness except in the shoulders. He has intact rectal tone. He is continuously having overflow incontinence on exam. He states that he does not have great control over his bladder at baseline, as he has extensive history of BPH for which he used to follow with urology but has not followed since his urologist left. Unclear how much of this is potentially acute and could be related to spinal cord issues. PVR was 700cc after patient's best attempt at voiding. He continued to have overflow incontinence. Howard catheter was placed with 1L UOP. For his rhabdomyolysis, patient was given 2 L bolus of LR, as he appeared very clinically dry on clinical exam. He was given IV morphine and Zofran for pain and nausea control. I called and had an interactive discussion with Dr. Bertrand at [facility] center with concern for possible spinal pathology with the fact that the patient has significant motor deficits as well as urinary retention. She advised that she will talk to neurosurgery and call us back. They called back and advised that they could not get a hold of neurosurgery but would accept the patient to [facility] for further evaluation and management. Patient was hypertensive at time of transfer, however will not treat this aggressively right now, as this could be helping with spinal cord perfusion in the setting of spinal cord injury. Ultimately, EMS transport was arranged, and the patient was transported in stable condition. Critical Care Critical Care Time Critical Care Time: No
[2023-09-29] MEDS: LACTATED RINGERS 1000ML 1,000 ML 150 ML IV (23:10)
--- NOTE | 2023-09-29 23:33 | PC.NURSE ---
Called [facility] back for a followup about the pt call back. Advised that they did receive the images and they are waiting for the surgeon to call back .JABIER
--- NOTE | 2023-09-30 00:12 | PC.NURSE ---
Addendum entered by Adan Angel, EMT-P 09/30/23 00:14: Dr. Bertrand Original Note: [facility] contacted back and Dr. Mayorga is the accepting
[2023-09-30 00:18] LABS: VBG Base Excess -1.1 mmol/L (-2.4-2.3); VBG HCO3 24.4 mmol/L (23-30); VBG Oxygen Saturation 77.2 % (50-70); VBG PCO2 45.2 mmol/L (35-51); VBG PH 7.35 mmol/L (7.31-7.41); VBG PO2 44.6 mmol/L (28-40); VBG Total CO2 25.8 mmol/L (23-27)
[2023-09-30 00:19] LABS: Reflex Lactic Add Lactic Reflex
[2023-09-30 00:28] LABS: Lactic Acid Follow Up (RFLX 1) 3.3 mmol/L (0.7-2.1)
--- NOTE | 2023-09-30 00:29 | PC.NURSE ---
Report given to Katie @[facility].
[2023-09-30] MEDS: MORPHINE 4MG/ML SYRINGE 4 MG IV (00:33)
[2023-09-30] MEDS: ONDANSETRON 4MG/2ML VIAL 4 MG IV (00:33)
[2023-09-30 00:49] LABS: Troponin I 0.05 ng/ml (0.00-0.034)
[2023-09-30 00:53] VITALS: BP 200/98; PULSE 72; RESP 18; TEMP 36.9; O2SAT 95
== END 2023-09-30 00:55 | disposition short-term general hospital (02) ==
PROVIDERS: Emergency Provider Emergency Medicine; PCP Family Medicine
DX: M62.82 Rhabdomyolysis (principal); M62.81 Muscle weakness (generalized); E11.65 Type 2 diabetes mellitus with hyperglycemia; M54.2 Cervicalgia; R33.8 Other retention of urine; R94.31 Abnormal electrocardiogram [ECG] [EKG]; R74.02 Elevation of levels of lactic acid dehydrogenase [LDH]; N13.4 Hydroureter; Z79.4 Long term (current) use of insulin; Z79.84 Long term (current) use of oral hypoglycemic drugs; W19.XXXA Unspecified fall, initial encounter
CPT/HCPCS: 51702; 70450; 70486; 71250; 72125; 72128; 72131; 72192; 74176; 80053; 81001; 82550; 82803; 83605; 84484; 85007; 85025; 85610; 85730; 87086; 93005; 96361; 96374; 96375; 99285; J2405

== ENCOUNTER 2023-12-26 14:30 | Emergency (ER) | payer MEDICARE, MEDICAID, SELFPAY ==
[2023-12-26] VITALS (10 sets, daily range): BP systolic 90–126; BP diastolic 41–67; PULSE 54–80; RESP 16–21; TEMP 37.8–38.3; O2SAT 91–99; BMI 33.3
--- NOTE | 2023-12-26 14:38 | ED_ITS ---
<Statement entered by Lauren Mathews MD - 12/26/23 17:55> I was consulted by the NADIR, and we discussed the complexity of problems being addressed. I approved the treatment and management plan for this patient's care in the emergency department, thus performing a substantial portion of the medical decision making. Lauren Mathews MD Discharge Plan Disposition Patient Disposition: Xfer Short-Term Hosp Condition: Critical Prescriptions Prescriptions: No Action cholecalciferol (vitamin D3) 25 mcg (1,000 unit) capsule 25 mcg PO DAILY zinc sulfate 50 mg zinc (220 mg) capsule 50 mg PO DAILY gabapentin 300 mg capsule 300 mg PO TID Qty: 90 3RF alendronate 70 mg tablet See Rx Instructions .ROUTE .COMPLEX Qty: 4 2RF Dose Instruction: TAKE 1 TABLET BY MOUTH ON EVERY SUNDAY Rx Instructions: TAKE 1 TABLET BY MOUTH ON EVERY SUNDAY amlodipine 10 mg tablet See Rx Instructions .ROUTE .COMPLEX Qty: 30 2RF Dose Instruction: TAKE 1 TABLET BY MOUTH EVERY DAY Rx Instructions: TAKE 1 TABLET BY MOUTH EVERY DAY cyclobenzaprine 5 mg tablet See Rx Instructions .ROUTE .COMPLEX Qty: 60 2RF Dose Instruction: TAKE 1 TABLET BY MOUTH EVERY SIX (6) HOURS NEEDED FOR PAIN Rx Instructions: TAKE 1 TABLET BY MOUTH EVERY SIX (6) HOURS NEEDED FOR PAIN hydralazine 10 mg tablet See Rx Instructions .ROUTE .COMPLEX Qty: 90 2RF Dose Instruction: TAKE 1 TABLET BY MOUTH THREE (3) TIMES DAILY Rx Instructions: TAKE 1 TABLET BY MOUTH THREE (3) TIMES DAILY baclofen 10 mg tablet See Rx Instructions .ROUTE .COMPLEX Qty: 90 2RF Dose Instruction: TAKE 1 TABLET BY MOUTH THREE (3) TIMES DAILY NEEDED Rx Instructions: TAKE 1 TABLET BY MOUTH THREE (3) TIMES DAILY NEEDED furosemide 40 mg tablet See Rx Instructions .ROUTE .COMPLEX Qty: 90 2RF Dose Instruction: TAKE ONE (1) TABLET BY MOUTH THREE (3) TIMES DAILY FOR SWELLING Rx Instructions: TAKE ONE (1) TABLET BY MOUTH THREE (3) TIMES DAILY FOR SWELLING Entresto 49-51 mg tablet See Rx Instructions .ROUTE .COMPLEX Qty: 60 2RF Dose Instruction: TAKE 1 TABLET BY MOUTH TWICE DAILY FOR HLD Rx Instructions: TAKE 1 TABLET BY MOUTH TWICE DAILY FOR HLD hydroxyzine pamoate 25 mg capsule See Rx Instructions .ROUTE .COMPLEX Qty: 120 2RF Dose Instruction: TAKE 1 CAPSULE BY MOUTH EVERY SIX (6) HOURS NEEDED FOR ANXIETY Rx Instructions: TAKE 1 CAPSULE BY MOUTH EVERY SIX (6) HOURS NEEDED FOR ANXIETY tamsulosin 0.4 mg capsule See Rx Instructions .ROUTE .COMPLEX Qty: 60 2RF Dose Instruction: TAKE 2 CAPSULES BY MOUTH EVERY DAY Rx Instructions: TAKE 2 CAPSULES BY MOUTH EVERY DAY fenofibrate 160 mg tablet See Rx Instructions .ROUTE .COMPLEX Qty: 30 2RF Dose Instruction: TAKE 1 TABLET BY MOUTH EVERY DAY Rx Instructions: TAKE 1 TABLET BY MOUTH EVERY DAY cholecalciferol (vitamin D3) 50 mcg (2,000 unit) tablet See Rx Instructions .ROUTE .COMPLEX Qty: 30 2RF Dose Instruction: TAKE 1 TABLET BY MOUTH EVERY DAY Rx Instructions: TAKE 1 TABLET BY MOUTH EVERY DAY insulin glargine [Lantus Solostar U-100 Insulin] 100 unit/mL (3 mL) insulin pen See Rx Instructions .ROUTE .COMPLEX Qty: 15 2RF Dose Instruction: INJECT 40 UNITS SUBCUTANEOUSLY EACH MORNING AND HOLD IF BLOOD SUGAR IS LOWER THAN 140 Rx Instructions: INJECT 40 UNITS SUBCUTANEOUSLY EACH MORNING AND HOLD IF BLOOD SUGAR IS LOWER THAN 140 ascorbic acid (vitamin C) [Vitamin C] 1,000 mg tablet 1 g PO DAILY Qty: 30 2RF omega 0-zlb-say-fish oil [Fish Oil] 1,000 mg (120 mg-180 mg) capsule 1 cap PO BID Qty: 60 0RF calcium carbonate [Calcium Antacid] 200 mg calcium (500 mg) tablet,chewable 200 mg PO TID Qty: 90 2RF enoxaparin 40 mg/0.4 mL syringe 40 mg SQ DAILY Qty: 4 1RF cyanocobalamin (vitamin B-12) 1,000 mcg capsule 1,000 mcg PO QDAY Qty: 30 2RF Santyl 250 unit/gram ointment 1 applic topical DAILY Qty: 90 10RF oxycodone 10 mg tablet 10 mg PO BID PRN (Reason: pain) Qty: 60 0RF atorvastatin 40 mg tablet 40 mg PO HS Patient Comments: TAKE ONE (1) TABLET BY MOUTH AT NIGHT FOR CHOLESTEROL metoprolol tartrate 100 mg tablet 100 mg PO BID Patient Comments: TAKE ONE (1) TABLET BY MOUTH TWICE DAILY FOR HIGH BLOOD PRESSURE clopidogrel 75 mg tablet 75 mg PO DAILY Patient Comments: TAKE ONE TABLET BY MOUTH EVERY DAY FOR BLOOD THINNER allopurinol 100 mg tablet 100 mg PO DAILY Patient Comments: TAKE ONE TABLET BY MOUTH EVERY DAY pantoprazole 40 mg tablet,delayed release (DR/EC) 40 mg PO DAILY Patient Comments: TAKE ONE (1) TABLET BY MOUTH EVERY DAY FOR REFLUX/ACID REFLUX finasteride 5 mg tablet 5 mg PO DAILY Patient Comments: TAKE ONE (1) TABLET EVERY DAY BY ORAL ROUTE FOR 90 DAYS. insulin lispro [Humalog KwikPen Insulin] 100 unit/mL insulin pen 55 unit SQ ACHS Patient Comments: INJECT 55 UNITS SUBCUTANEOUSLY WITH MEALS Trulicity 4.5 mg/0.5 mL pen injector 4.5 mg SQ WEEKLY Patient Comments: INJECT 4.5 MG (0.5 ML) SUBCUTANEOUSLY WEEKLY insulin glargine [Lantus Solostar U-100 Insulin] 100 unit/mL (3 mL) insulin pen 100 unit SQ HS Patient Comments: INJECT 40 UNITS SUBCUTANEOUSLY EACH MORNING AND 100 UNITS AT NIGHT Clinical Impressions Clinical Impression: Severe sepsis without septic shock, Necrotizing soft tissue infection, Acute nontraumatic kidney injury, Hypokalemia, Acute hypoxic respiratory failure Stand Alone Forms Stand Alone Forms: Transfer Record - ED Print Language Print Language: [place] Leone[place] Discharge ED Provider: Ibis Rodriguez General Adult HPI <CONSTANTIN Lance - Last Filed: 12/26/23 18:23> General Chief complaint: Altered Mental Status Stated complaint: altered mental status Time Seen by Provider: 12/26/23 14:38 History of Present Illness HPI narrative: Patient presents for evaluation of of encephalopathy and oliguria. 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 He was transferred [facility] and discharged to a snf for a period of time. To the best of my understanding patient came home on the ninth of this month. Patient himself is a poor historian due to his comorbid medical conditions and his current encephalopathy. Reportedly he has had a decline in his mental functioning and has not urinated more than 2 days. He did have a decubitus ulcer of unknown complexity reportedly on discharge from the snf. I do not know what services he is receiving at home currently. Currently on arrival patient is awake and is somewhat interactive is responding verbally to questions. He denies chest pain shortness of breath fever chills hemoptysis hematochezia melena nausea vomiting diarrhea. 2007 Related Data Home Medications ?Medication ?Instructions ?Recorded ?Confirmed allopurinol 100 mg tablet 100 mg PO DAILY 09/29/23 12/26/23 atorvastatin 40 mg tablet 40 mg PO HS 09/29/23 12/26/23 clopidogrel 75 mg tablet 75 mg PO DAILY 09/29/23 12/26/23 dulaglutide 4.5 mg/0.5 mL 4.5 mg SQ WEEKLY 09/29/23 12/26/23 subcutaneous pen injector (Trulicity) finasteride 5 mg tablet 5 mg PO DAILY 09/29/23 12/26/23 insulin glargine 100 unit/mL (3 100 unit SQ HS 09/29/23 12/26/23 mL) subcutaneous pen (Lantus Solostar U-100 Insulin) insulin lispro 100 unit/mL 55 unit SQ [facility] 09/29/23 12/26/23 subcutaneous pen (Humalog KwikPen (U-100) Insulin) metoprolol tartrate 100 mg tablet 100 mg PO BID 09/29/23 12/26/23 pantoprazole 40 mg tablet,delayed 40 mg PO DAILY 09/29/23 12/26/23 release cholecalciferol (vitamin D3) 25 25 mcg PO DAILY 11/22/23 12/26/23 mcg (1,000 unit) capsule zinc sulfate 50 mg zinc (220 mg) 50 mg PO DAILY 11/22/23 12/26/23 capsule Previous Rx's ?Medication ?Instructions ?Recorded gabapentin 300 mg capsule 300 mg PO TID #90 caps 11/28/23 alendronate 70 mg tablet See Rx Instructions .Route 12/20/23 .COMPLEX #4 tabs amlodipine 10 mg tablet See Rx Instructions .Route 12/20/23 .COMPLEX #30 tabs baclofen 10 mg tablet See Rx Instructions .Route 12/20/23 .COMPLEX #90 tabs cyclobenzaprine 5 mg tablet See Rx Instructions .Route 12/20/23 .COMPLEX #60 tabs fenofibrate 160 mg tablet See Rx Instructions .Route 12/20/23 .COMPLEX #30 tabs furosemide 40 mg tablet See Rx Instructions .Route 12/20/23 .COMPLEX #90 tabs hydralazine 10 mg tablet See Rx Instructions .Route 12/20/23 .COMPLEX #90 tabs hydroxyzine pamoate 25 mg capsule See Rx Instructions .Route 12/20/23 .COMPLEX #120 caps sacubitril 49 mg-valsartan 51 mg See Rx Instructions .Route 12/20/23 tablet (Entresto) .COMPLEX #60 tabs tamsulosin 0.4 mg capsule See Rx Instructions .Route 12/20/23 .COMPLEX #60 caps ascorbic acid (vitamin C) 1,000 mg 1 g PO DAILY #30 tabs 12/21/23 tablet (Vitamin C) calcium carbonate (Calcium Antacid) 200 mg PO TID #90 tabs 12/21/23 cholecalciferol (vitamin D3) 50 See Rx Instructions .Route 12/21/23 mcg (2,000 unit) tablet .COMPLEX #30 tabs cyanocobalamin (vitamin B-12) 1,000 mcg PO QDAY #30 caps 12/21/23 1,000 mcg capsule enoxaparin 40 mg/0.4 mL 40 mg (0.4 mL) SQ DAILY #4 mL 12/21/23 subcutaneous syringe insulin glargine 100 unit/mL (3 See Rx Instructions .Route 12/21/23 mL) subcutaneous pen (Lantus .COMPLEX #15 mL Solostar U-100 Insulin) omega 7-foe-qix-fish oil 1,000 mg 1 cap PO BID #60 caps 12/21/23 (120 mg-180 mg) capsule (Fish Oil) collagenase clostridium histo. 250 1 applic topical DAILY #90 grams 12/26/23 unit/gram topical ointment (Santyl) oxycodone 10 mg tablet 10 mg PO BID PRN pain #60 tabs 12/26/23 Allergies Allergy/AdvReac Type Severity Reaction Status Date / Time lisinopril Allergy Severe blisters Verified 07/18/23 12:57 codeine Allergy Verified 07/18/23 12:57 exenatide [From Bydureon] AdvReac Severe abdominal Verified 07/18/23 12:57 wall rash acetaminophen AdvReac Verified 07/18/23 12:57 [facility] <CONSTANTIN Lance - Last Filed: 12/26/23 18:23> [facility] Disclaimer: The information contained in this section may have been updated after the patient was seen, as this information can be updated by other users. Medical History (Updated 12/26/23 @ 16:16 by CONSTANTIN Lance) Cervical spinal cord injury Social History Smoking Status: Unknown if ever smoked second hand exposure: Yes alcohol intake: never substance use type: denies use current occupational status: disabled Travel in the last 8 weeks: None household members: family housing: house current occupational exposures/hazards: No caffeine: Yes <CONSTANTIN Lance - Last Filed: 12/26/23 18:23> ROS Obtained: Yes Systems reviewed as appropriate & no additional complaints except as documented Physical Exam <CONSTANTIN Lance - Last Filed: 12/26/23 18:23> General General appearance: in no apparent distress Head Head exam: atraumatic and normal inspection Eye Eye exam: Present normal appearance, PERRL and EOMI ENT ENT exam: Present normal exam, normal oropharynx and mucous membranes dry Neck Neck exam: Present normal inspection Chest Chest inspection: Present normal inspection and symmetric chest wall rise Respiratory Respiratory exam: Present normal lung sounds bilaterally; Absent respiratory distress, wheezes, stridor or accessory muscle use Cardiovascular Cardiovascular exam: Present regular rate and normal rhythm Abdominal Exam Abdominal exam: Present soft and normal bowel sounds; Absent tenderness, guarding, rebound or rigidity exam: Present urethral discharge and normal testicular lie; Absent scrotal swelling Extremities Exam Extremities exam: Present normal capillary refill; Absent normal inspection (Patienthas paraplegia and slight contractures of his hands), full ROM, edema or joint swelling Back Exam Back 1 view image: 2 1. Patient has an extensive pressure injury to his sacrum and coccyx. There is obvious necrosis both superficially and deep. He has a much larger area mid gluteus that has eschar and necrosis surrounding it this does appear to extend to the rectum superiorly but not involving the rectum directly externally. Neurological Exam Neurological exam: Present alert and CN II-XII intact; Absent oriented X3 (He does seem to answer questions appropriately with short answers ) Psychiatric Psychiatric exam: Present normal mood and flat affect Skin Skin exam: Absent intact (Decubitus pressure ulcer with necrosis that is unstageable) or normal color Lymphatic Lymphatic Findings: no adenopathy Medical Decision Making <CONSTANTIN Lance - Last Filed: 12/26/23 18:23> Medical Records Medical records reviewed: Yes I reviewed the patient's medical records. [place] Inquiry Pt receiving controlled substance: No Vital Signs: 12/26/23 14:31 12/26/23 14:46 12/26/23 15:22 Temperature 101.0 F H Temperature Source Rectal Pulse Rate 72 78 Pulse Rate [Right Radial] 79 Respiratory Rate 16 21 Blood Pressure 102/54 L 112/55 L Blood Pressure [Right Arm] 102/54 L Blood Pressure Mean [Right Arm] 70 Blood Pressure Source Blood Pressure Source [Right Arm] Automatic Cuff Blood Pressure Position Blood Pressure Position [Right Arm] Sitting 02 Sat by Pulse Oximetry 91 L 97 Oxygen Delivery Method Nasal Cannula Oxygen Flow Rate (LPM) 2 12/26/23 15:30 12/26/23 16:58 12/26/23 17:14 Temperature Temperature Source Pulse Rate 76 75 80 Pulse Rate [Right Radial] Respiratory Rate 20 Blood Pressure 110/50 L 90/67 L 97/41 L Blood Pressure [Right Arm] Blood Pressure Mean [Right Arm] Blood Pressure Source Blood Pressure Source [Right Arm] Blood Pressure Position Blood Pressure Position [Right Arm] 02 Sat by Pulse Oximetry 96 99 94 L Oxygen Delivery Method Nasal Cannula Nasal Cannula Oxygen Flow Rate (LPM) 3 3 12/26/23 17:31 12/26/23 17:45 12/26/23 18:01 Temperature Temperature Source Pulse Rate 76 54 L 80 Pulse Rate [Right Radial] Respiratory Rate 18 Blood Pressure 97/41 L 113/43 L 117/48 L Blood Pressure [Right Arm] Blood Pressure Mean [Right Arm] Blood Pressure Source Manual Cuff/ Auscultation Blood Pressure Source [Right Arm] Blood Pressure Position Supine Blood Pressure Position [Right Arm] 02 Sat by Pulse Oximetry 97 98 99 Oxygen Delivery Method Nasal Cannula Nasal Cannula Oxygen Flow Rate (LPM) 3 3 12/26/23 18:44 Temperature 100.0 F H Temperature Source Pulse Rate 78 Pulse Rate [Right Radial] Respiratory Rate 19 Blood Pressure 126/53 L Blood Pressure [Right Arm] Blood Pressure Mean [Right Arm] Blood Pressure Source Blood Pressure Source [Right Arm] Blood Pressure Position Blood Pressure Position [Right Arm] 02 Sat by Pulse Oximetry Oxygen Delivery Method Oxygen Flow Rate (LPM) Lab Data Lab results reviewed: Yes I reviewed the patient's lab results. Lab Results 12/26/23 14:39: Urine Color Yellow, Urine Appearance Turbid, Urine pH 6.0, Ur Specific [place] 1.020, Urine Protein 2+, Urine Glucose (UA) 1+, Urine Ketones Negative, Urine Blood 3+, Urine Nitrate Negative, Urine Bilirubin Negative, Urine Urobilinogen 0.2, Ur Leukocyte Esterase 2+ A, Urine RBC Tntc, Urine WBC Tntc, Ur Squamous Epith Cells None, Urine Bacteria 2+, Urine Yeast 2+ 12/26/23 15:00: WBC 26.9 H*, RBC 3.97 L, Hgb 11.2 L, Hct 34.9 L, MCV 87.9, MCH 28.3, MCHC 32.2, RDW 14.0, Plt Count 501 H, MPV 9.7, Neut % (Auto) 89.1 H, Lymph % (Auto) 7.7 L, Howard % (Auto) 2.9, Eos % (Auto) 0.1, Baso % (Auto) 0.2, Neut # (Auto) 24.0 H, Lymph # (Auto) 2.1, Howard # (Auto) 0.8, Eos # (Auto) 0.0, Baso # (Auto) 0.1, Total Counted 100, Neutrophils % (Manual) 88 H, Lymphocytes % (Manual) 8 L, Monocytes % (Manual) 4, Platelet Estimate Slight increase, RBC Morphology Normal, ESR 114 H, PT 15.0 H, INR 1.38 H, Sodium 133 L, Potassium 2.8 L*, Chloride 97 L, Carbon Dioxide 28, Anion Gap 10.8, BUN 31 H, Creatinine 2.10 H, Estimated Creat Clear 52, Estimated GFR 31 L, Est GFR ( Amer) 38 L, G lucose 218 H, Calcium 8.5, Magnesium 1.7, Total Bilirubin 0.5, AST 110 H, ALT 49, Alkaline Phosphatase 81, Total Creatine Kinase 565 H*, Troponin I 0.03, C- Reactive Protein 311.6 H, Total Protein 7.3, Albumin 3.2 L, Globulin 4.1 H, A lbumin/Globulin Ratio 0.8 L, Procalcitonin 20.8 H, Blood Type O Positive, Antibody Screen Negative 12/26/23 15:03: VBG pH 7.41, VBG pCO2 42.2, VBG pO2 32.7, VBG HCO3 26.0, VBG Total CO2 27.3 H, VBG O2 Saturation 60.9, VBG Base Excess 1.3, VBG Lactic Acid 3.2 H 07/24/24 15:33: SARS-CoV-2 (PCR) Not detected, Influenza A Untype (PCR) Not detected, Influenza Type B (PCR) Not detected 12/26/23 15:00 12/26/23 15:00 Orders (Tests/Meds): ED MEDICATIONS Discontinued Medications Generic Name Dose Route Start Last Admin Trade Name Freq PRN Reason Stop Dose Admin Piperacillin Sod/Tazobactam 100 mls @ 200 mls/hr 12/26/23 14:41 12/26/23 15:26 Sod 4.5 gm/ Sodium Chloride IV 12/26/23 15:10 200 mls/hr ONCE ONE Administration Clindamycin Phosphate 900 mg in 50 mls @ 100 mls/hr 12/26/23 14:41 12/26/23 16:53 Clindamycin 900mg/50ml D5w Premix IV 12/26/23 15:10 100 mls/hr ONCE ONE Administration Lactated Ringer's 4,140 mls @ 2,070 mls/hr 12/26/23 14:42 12/26/23 15:23 Lactated Ringer's 1000 Ml Bag 30 ml/kg infuse over 2 hr (4140 ml) 12/26/23 16:41 2,070 mls/hr IV Administration .Q2H ONE Vancomycin HCl 2,500 mg/ 250 mls @ 125 mls/hr 12/26/23 15:30 12/26/23 15:32 Sodium Chloride IV 12/26/23 17:29 125 mls/hr ONCE ONE Administration Potassium Chloride/Water 100 mls @ 50 mls/hr 12/26/23 15:55 12/26/23 16:53 Potassium Chloride 20meq/100ml Ivpb IV 12/26/23 21:54 50 mls/hr Q2H AURA Administration Norepinephrine/Dextrose 8 mg in 250 mls @ 3.75 mls/hr 12/26/23 17:05 12/26/23 17:17 Norepinephrine 8mg/250ml-D5w Premix IV 01/25/24 17:04 2 mcg/min .Q24H AURA 3.75 mls/hr Administration Protocol 2 MCG/MIN Iopamidol 180 ml 12/26/23 16:45 12/26/23 16:49 Iopamidol-370 (76%);100ml Bottle IV 12/26/23 16:46 180 ml ONCE ONE Administration Miscellaneous 1 each 12/26/23 14:45 12/26/23 16:08 Vancomycin Consult Request NOTAPPLIC 01/25/24 14:44 Not Given [facility] Sodium Chloride 100 ml 12/26/23 16:45 12/26/23 16:49 0.9 % Sodium Chloride 50 Ml Vial IV 12/26/23 16:46 100 ml ONCE ONE Administration Sodium Chloride 10 ml 12/26/23 16:45 12/26/23 16:50 Sodium Chloride 0.9% 10ml Syr (Rad Only) IV 01/25/24 16:44 10 ml NEEDED PRN Administration Maintain IV Site ORDERS Category Date Time Status Type and Screen Stat BBK 12/26/23 15:[address] angio abdomen pelvis Stat Cat Scan 12/26/23 14:[address] angio chest PE protocol Stat Cat Scan 12/26/23 14:38 Completed CBC w/Auto Diff [Complete Blood Count Auto Diff] Stat Lab 12/26/23 15:00 Completed CK [Creatine Kinase] Stat Lab 12/26/23 15:00 Completed CMP [Comprehensive Metabolic Panel] Stat Lab 12/26/23 15:00 Completed CRP [C-Reactive Protein] Stat Lab 12/26/23 15:00 Completed ESR [Erythrocyte Sedimentation Rate] Stat Lab 12/26/23 15:00 Completed INR [Prothrombin Time INR] Stat Lab 12/26/23 15:00 Completed Magnesium Stat Lab 12/26/23 15:00 Completed Procalcitonin Stat Lab 12/26/23 15:00 Completed Rapid PCR Covid and Flu A/B Stat Lab 12/26/23 15:33 Completed Trop I [Troponin I] Stat Lab 12/26/23 15:00 Completed UA [Urinalysis and Microscopic] Stat Lab 12/26/23 14:39 Completed Blood Culture Stat Micro 12/26/23 15:03 Results Urine Culture Stat Micro 12/26/23 Received VBG [Venous Blood Gas] Stat RT 12/26/23 15:03 Completed Tissue Perfus/Sepsis Re-Eval Sepsis Re-Evaluation Performed: Yes Date Performed: 12/26/23 Time Performed: 18:23 Medical Decision Narrative: In summary patient is a 68-year-old male who presents to the emergency department for evaluation of encephalopathy and oliguria initially. Patient is hypotensive with a systolic of 102 but heart rate of 79 requiring 2 L by nasal cannula to maintain oxygen saturation of 191% breathing 16 times a minute upon arrival, with a temperature of 101 rectally. Physical exam is remarkable for a significantly necrotic pressure ulcer that is currently unstageable. This appears to expand to the sacrum although wound is not probe currently. He has feculent looking material coming from some of the wounds. He does not have any lesions of pressure on his heels. Patient does answer some questions with brief correct answers but is unable to provide meaningful interactive conversations. Differential diagnosis includes NSTI, severe sepsis without shock CHF pulmonary edema ACS etc. Initial workup will be conducted with CT angio scan of the chest abdomen pelvis, sepsis bolus, blood cultures, hematologic labs, urinalysis etc. Initial interventions include sepsis bolus Tylenol Zofran. Initial workup reviewed by me and patient has fulminant sepsis with elevated white count and procalcitonin of 20, hypokalemia which is being repleted, DALTON which has been treated with a sepsis bolus, elevated CK CRP sed rate lactic acid. Patient originally arrived normotensive with a normal heart rate however his blood pressure has trended downward and thus we have initiated Levophed infusion. My informal interpretation of his CT scan imaging shows gas-forming organism originating in the right gluteus musculature tracking into the right lateral thigh prior to radiology read. Given that I had an emergent consultation with the [facility] transfer glen flora who was on divert and wanted to wait to the images were power shared before making a decision. I then made a parallel call to [facility] given that and he was excepted to the [facility] emergency department and care of Dr. Phillips of general surgery. <Lauren Mathews MD - Last Filed: 12/26/23 18:20> Vital Signs: 12/26/23 14:31 12/26/23 14:46 12/26/23 15:22 Temperature 101.0 F H Temperature Source Rectal Pulse Rate 72 78 Pulse Rate [Right Radial] 79 Respiratory Rate 16 21 Blood Pressure 102/54 L 112/55 L Blood Pressure [Right Arm] 102/54 L Blood Pressure Mean [Right Arm] 70 Blood Pressure Source Blood Pressure Source [Right Arm] Automatic Cuff Blood Pressure Position Blood Pressure Position [Right Arm] Sitting 02 Sat by Pulse Oximetry 91 L 97 Oxygen Delivery Method Nasal Cannula Oxygen Flow Rate (LPM) 2 07/24/24 15:30 12/26/23 16:58 12/26/23 17:14 Temperature Temperature Source Pulse Rate 76 75 80 Pulse Rate [Right Radial] Respiratory Rate 20 Blood Pressure 110/50 L 90/67 L 97/41 L Blood Pressure [Right Arm] Blood Pressure Mean [Right Arm] Blood Pressure Source Blood Pressure Source [Right Arm] Blood Pressure Position Blood Pressure Position [Right Arm] 02 Sat by Pulse Oximetry 96 99 94 L Oxygen Delivery Method Nasal Cannula Nasal Cannula Oxygen Flow Rate (LPM) 3 3 12/26/23 17:31 12/26/23 17:45 12/26/23 18:01 Temperature Temperature Source Pulse Rate 76 54 L 80 Pulse Rate [Right Radial] Respiratory Rate 18 Blood Pressure 97/41 L 113/43 L 117/48 L Blood Pressure [Right Arm] Blood Pressure Mean [Right Arm] Blood Pressure Source Manual Cuff/ Auscultation Blood Pressure Source [Right Arm] Blood Pressure Position Supine Blood Pressure Position [Right Arm] 02 Sat by Pulse Oximetry 97 98 99 Oxygen Delivery Method Nasal Cannula Nasal Cannula Oxygen Flow Rate (LPM) 3 3 12/26/23 18:44 Temperature 100.0 F H Temperature Source Pulse Rate 78 Pulse Rate [Right Radial] Respiratory Rate 19 Blood Pressure 126/53 L Blood Pressure [Right Arm] Blood Pressure Mean [Right Arm] Blood Pressure Source Blood Pressure Source [Right Arm] Blood Pressure Position Blood Pressure Position [Right Arm] 02 Sat by Pulse Oximetry Oxygen Delivery Method Oxygen Flow Rate (LPM) Lab Data Lab Results 12/26/23 14:39: Urine Color Yellow, Urine Appearance Turbid, Urine pH 6.0, Ur Specific [place] 1.020, Urine Protein 2+, Urine Glucose (UA) 1+, Urine Ketones Negative, Urine Blood 3+, Urine Nitrate Negative, Urine Bilirubin Negative, Urine Urobilinogen 0.2, Ur Leukocyte Esterase 2+ A, Urine RBC Tntc, Urine WBC Tntc, Ur Squamous Epith Cells None, Urine Bacteria 2+, Urine Yeast 2+ 12/26/23 15:00: WBC 26.9 H*, RBC 3.97 L, Hgb 11.2 L, Hct 34.9 L, MCV 87.9, MCH 28.3, MCHC 32.2, RDW 14.0, Plt Count 501 H, MPV 9.7, Neut % (Auto) 89.1 H, Lymph % (Auto) 7.7 L, Howard % (Auto) 2.9, Eos % (Auto) 0.1, Baso % (Auto) 0.2, Neut # (Auto) 24.0 H, Lymph # (Auto) 2.1, Howard # (Auto) 0.8, Eos # (Auto) 0.0, Baso # (Auto) 0.1, Total Counted 100, Neutrophils % (Manual) 88 H, Lymphocytes % (Manual) 8 L, Monocytes % (Manual) 4, Platelet Estimate Slight increase, RBC Morphology Normal, ESR 114 H, PT 15.0 H, INR 1.38 H, Sodium 133 L, Potassium 2.8 L*, Chloride 97 L, Carbon Dioxide 28, Anion Gap 10.8, BUN 31 H, Creatinine 2.10 H, Estimated Creat Clear 52, Estimated GFR 31 L, Est GFR ( Amer) 38 L, G lucose 218 H, Calcium 8.5, Magnesium 1.7, Total Bilirubin 0.5, AST 110 H, ALT 49, Alkaline Phosphatase 81, Total Creatine Kinase 565 H*, Troponin I 0.03, C- Reactive Protein 311.6 H, Total Protein 7.3, Albumin 3.2 L, Globulin 4.1 H, A lbumin/Globulin Ratio 0.8 L, Procalcitonin 20.8 H, Blood Type O Positive, Antibody Screen Negative 12/26/23 15:03: VBG pH 7.41, VBG pCO2 42.2, VBG pO2 32.7, VBG HCO3 26.0, VBG Total CO2 27.3 H, VBG O2 Saturation 60.9, VBG Base Excess 1.3, VBG Lactic Acid 3.2 H 12/26/23 15:33: SARS-CoV-2 (PCR) Not detected, Influenza A Untype (PCR) Not detected, Influenza Type B (PCR) Not detected Orders (Tests/Meds): ED MEDICATIONS Discontinued Medications Generic Name Dose Route Start Last Admin Trade Name Freq PRN Reason Stop Dose Admin Piperacillin Sod/Tazobactam 100 mls @ 200 mls/hr 12/26/23 14:41 12/26/23 15:26 Sod 4.5 gm/ Sodium Chloride IV 12/26/23 15:10 200 mls/hr ONCE ONE Administration Clindamycin Phosphate 900 mg in 50 mls @ 100 mls/hr 12/26/23 14:41 12/26/23 16:53 Clindamycin 900mg/50ml D5w Premix IV 12/26/23 15:10 100 mls/hr ONCE ONE Administration Lactated Ringer's 4,140 mls @ 2,070 mls/hr 12/26/23 14:42 12/26/23 15:23 Lactated Ringer's 1000 Ml Bag 30 ml/kg infuse over 2 hr (4140 ml) 12/26/23 16:41 2,070 mls/hr IV Administration .Q2H ONE Vancomycin HCl 2,500 mg/ 250 mls @ 125 mls/hr 12/26/23 15:30 12/26/23 15:32 Sodium Chloride IV 12/26/23 17:29 125 mls/hr ONCE ONE Administration Potassium Chloride/Water 100 mls @ 50 mls/hr 12/26/23 15:55 12/26/23 16:53 Potassium Chloride 20meq/100ml Ivpb IV 12/26/23 21:54 50 mls/hr Q2H AURA Administration Norepinephrine/Dextrose 8 mg in 250 mls @ 3.75 mls/hr 12/26/23 17:05 12/26/23 17:17 Norepinephrine 8mg/250ml-D5w Premix IV 01/25/24 17:04 2 mcg/min .Q24H AURA 3.75 mls/hr Administration Protocol 2 MCG/MIN Iopamidol 180 ml 12/26/23 16:45 12/26/23 16:49 Iopamidol-370 (76%);100ml Bottle IV 12/26/23 16:46 180 ml ONCE ONE Administration Miscellaneous 1 each 12/26/23 14:45 12/26/23 16:08 Vancomycin Consult Request NOTAPPLIC 01/25/24 14:44 Not Given CONSULT PHARMACY [facility] Sodium Chloride 100 ml 12/26/23 16:45 12/26/23 16:49 0.9 % Sodium Chloride 50 Ml Vial IV 12/26/23 16:46 100 ml ONCE ONE Administration Sodium Chloride 10 ml 12/26/23 16:45 12/26/23 16:50 Sodium Chloride 0.9% 10ml Syr (Rad Only) IV 01/25/24 16:44 10 ml NEEDED PRN Administration Maintain IV Site ORDERS Category Date Time Status Type and Screen Stat BBK 12/26/23 15:[address] angio abdomen pelvis Stat Cat Scan 12/26/23 14:[address] angio chest PE protocol Stat Cat Scan 12/26/23 14:38 Completed CBC w/Auto Diff [Complete Blood Count Auto Diff] Stat Lab 12/26/23 15:00 Completed CK [Creatine Kinase] Stat Lab 12/26/23 15:00 Completed CMP [Comprehensive Metabolic Panel] Stat Lab 12/26/23 15:00 Completed CRP [C-Reactive Protein] Stat Lab 12/26/23 15:00 Completed ESR [Erythrocyte Sedimentation Rate] Stat Lab 12/26/23 15:00 Completed INR [Prothrombin Time INR] Stat Lab 12/26/23 15:00 Completed Magnesium Stat Lab 12/26/23 15:00 Completed Procalcitonin Stat Lab 12/26/23 15:00 Completed Rapid PCR Covid and Flu A/B Stat Lab 12/26/23 15:33 Completed Trop I [Troponin I] Stat Lab 12/26/23 15:00 Completed UA [Urinalysis and Microscopic] Stat Lab 12/26/23 14:39 Completed Blood Culture Stat Micro 12/26/23 15:03 Results Urine Culture Stat Micro 12/26/23 Received VBG [Venous Blood Gas] Stat RT 12/26/23 15:03 Completed Medical Decision Narrative: In summary patient is a 68-year-old male who presents to the emergency department for evaluation of encephalopathy and oliguria initially. Patient is hypotensive with a systolic of 102 but heart rate of 79 requiring 2 L by nasal cannula to maintain oxygen saturation of 191% breathing 16 times a minute upon arrival, with a temperature of 101 rectally. Physical exam is remarkable for a significantly necrotic pressure ulcer that is currently unstageable. This appears to expand to the sacrum although wound is not probe currently. He has feculent looking material coming from some of the wounds. He does not have any lesions of pressure on his heels. Patient does answer some questions with brief correct answers but is unable to provide meaningful interactive conversations. Differential diagnosis includes NSTI, severe sepsis without shock CHF pulmonary edema ACS etc. Initial workup will be conducted with CT angio scan of the chest abdomen pelvis, sepsis bolus, blood cultures, hematologic labs, urinalysis etc. Initial interventions include sepsis bolus Tylenol Zofran. Initial workup reviewed by me and patient has fulminant sepsis with elevated white count and procalcitonin of 20, hypokalemia which is being repleted, DALTON which has been treated with a sepsis bolus, elevated CK CRP sed rate lactic acid. Patient originally arrived normotensive with a normal heart rate however his blood pressure has trended downward and thus we have initiated Levophed infusion. My informal interpretation of his CT scan imaging shows gas-forming organism originating in the right gluteus musculature tracking into the right lateral thigh prior to radiology read. Given that I had an emergent consultation with the [facility] transfer center who was on divert and wanted to wait to the images were power shared before making a decision. I then made a parallel call to [facility] given that and he was excepted to the [facility] emergency department and care of Dr. Phillips of general surgery. Mathews: I spent significant time at bedside with the patient and NADIR discussing management. I also had care discussion with family including patient's sister and stepdaughter. They were given the opportunity ask questions which were answered to their satisfaction. I had personally interpreted CT imaging when it became initially available and it demonstrated obvious gas in the soft tissues in the right gluteal area. At this time we initiated phone conversations with multiple centers for higher level of care. Ultimately patient was accepted at [facility]. Unfortunately due to weather, flights are not available and patient will have to go by ground crew. Patient will go via ALS as he continues to receive IV fluids, Levophed, antibiotics. His blood pressure and mental status had improved during his time in the ER with all of these interventions, he was transferred in stable condition while continuing to receive the above interventions. Of note: EMS was onsite to take the patient at 1815. We received a phone call from [facility]. Spoke with the radiologist who indicated patient has left lower lobe segmental/subsegmental PE, no heart strain. This likely explains patient oxygen requirement in part. normally, I would initiate anticoagulation for PE treatment, however given patient has a surgical emergency with necrotizing fasciitis and is being transferred for likely operative intervention, I am not initiating anticoagulation. [facility] was called back and updated about this. They agree with the plan to not initiate anticoagulation at this time. <Ibis Rodriguez, DO - Last Filed: 12/27/23 17:28> Vital Signs: 12/26/23 14:31 12/26/23 14:46 12/26/23 15:22 Temperature 101.0 F H Temperature Source Rectal Pulse Rate 72 78 Pulse Rate [Right Radial] 79 Respiratory Rate 16 21 Blood Pressure 102/54 L 112/55 L Blood Pressure [Right Arm] 102/54 L Blood Pressure Mean [Right Arm] 70 Blood Pressure Source Blood Pressure Source [Right Arm] Automatic Cuff Blood Pressure Position Blood Pressure Position [Right Arm] Sitting 02 Sat by Pulse Oximetry 91 L 97 Oxygen Delivery Method Nasal Cannula Oxygen Flow Rate (LPM) 2 12/26/23 15:30 12/26/23 16:58 12/26/23 17:14 Temperature Temperature Source Pulse Rate 76 75 80 Pulse Rate [Right Radial] Respiratory Rate 20 Blood Pressure 110/50 L 90/67 L 97/41 L Blood Pressure [Right Arm] Blood Pressure Mean [Right Arm] Blood Pressure Source Blood Pressure Source [Right Arm] Blood Pressure Position Blood Pressure Position [Right Arm] 02 Sat by Pulse Oximetry 96 99 94 L Oxygen Delivery Method Nasal Cannula Nasal Cannula Oxygen Flow Rate (LPM) 3 3 12/26/23 17:31 12/26/23 17:45 12/26/23 18:01 Temperature Temperature Source Pulse Rate 76 54 L 80 Pulse Rate [Right Radial] Respiratory Rate 18 Blood Pressure 97/41 L 113/43 L 117/48 L Blood Pressure [Right Arm] Blood Pressure Mean [Right Arm] Blood Pressure Source Manual Cuff/ Auscultation Blood Pressure Source [Right Arm] Blood Pressure Position Supine Blood Pressure Position [Right Arm] 02 Sat by Pulse Oximetry 97 98 99 Oxygen Delivery Method Nasal Cannula Nasal Cannula Oxygen Flow Rate (LPM) 3 3 12/26/23 18:44 Temperature 100.0 F H Temperature Source Pulse Rate 78 Pulse Rate [Right Radial] Respiratory Rate 19 Blood Pressure 126/53 L Blood Pressure [Right Arm] Blood Pressure Mean [Right Arm] Blood Pressure Source Blood Pressure Source [Right Arm] Blood Pressure Position Blood Pressure Position [Right Arm] 02 Sat by Pulse Oximetry Oxygen Delivery Method Oxygen Flow Rate (LPM) Lab Data Lab Results 12/26/23 14:39: Urine Color Yellow, Urine Appearance Turbid, Urine pH 6.0, Ur Specific [place] 1.020, Urine Protein 2+, Urine Glucose (UA) 1+, Urine Ketones Negative, Urine Blood 3+, Urine Nitrate Negative, Urine Bilirubin Negative, Urine Urobilinogen 0.2, Ur Leukocyte Esterase 2+ A, Urine RBC Tntc, Urine WBC Tntc, Ur Squamous Epith Cells None, Urine Bacteria 2+, Urine Yeast 2+ 12/26/23 15:00: WBC 26.9 H*, RBC 3.97 L, Hgb 11.2 L, Hct 34.9 L, MCV 87.9, MCH 28.3, MCHC 32.2, RDW 14.0, Plt Count 501 H, MPV 9.7, Neut % (Auto) 89.1 H, Lymph % (Auto) 7.7 L, Howard % (Auto) 2.9, Eos % (Auto) 0.1, Baso % (Auto) 0.2, Neut # (Auto) 24.0 H, Lymph # (Auto) 2.1, Howard # (Auto) 0.8, Eos # (Auto) 0.0, Baso # (Auto) 0.1, Total Counted 100, Neutrophils % (Manual) 88 H, Lymphocytes % (Manual) 8 L, Monocytes % (Manual) 4, Platelet Estimate Slight increase, RBC Morphology Normal, ESR 114 H, PT 15.0 H, INR 1.38 H, Sodium 133 L, Potassium 2.8 L*, Chloride 97 L, Carbon Dioxide 28, Anion Gap 10.8, BUN 31 H, Creatinine 2.10 H, Estimated Creat Clear 52, Estimated GFR 31 L, Est GFR ( Amer) 38 L, G lucose 218 H, Calcium 8.5, Magnesium 1.7, Total Bilirubin 0.5, AST 110 H, ALT 49, Alkaline Phosphatase 81, Total Creatine Kinase 565 H*, Troponin I 0.03, C- Reactive Protein 311.6 H, Total Protein 7.3, Albumin 3.2 L, Globulin 4.1 H, A lbumin/Globulin Ratio 0.8 L, Procalcitonin 20.8 H, Blood Type O Positive, Antibody Screen Negative 12/26/23 15:03: VBG pH 7.41, VBG pCO2 42.2, VBG pO2 32.7, VBG HCO3 26.0, VBG Total CO2 27.3 H, VBG O2 Saturation 60.9, VBG Base Excess 1.3, VBG Lactic Acid 3.2 H 12/26/23 15:33: SARS-CoV-2 (PCR) Not detected, Influenza A Untype (PCR) Not detected, Influenza Type B (PCR) Not detected Orders (Tests/Meds): ED MEDICATIONS Discontinued Medications Generic Name Dose Route Start Last Admin Trade Name Freq PRN Reason Stop Dose Admin Piperacillin Sod/Tazobactam 100 mls @ 200 mls/hr 12/26/23 14:41 12/26/23 15:26 Sod 4.5 gm/ Sodium Chloride IV 12/26/23 15:10 200 mls/hr ONCE ONE Administration Clindamycin Phosphate 900 mg in 50 mls @ 100 mls/hr 12/26/23 14:41 12/26/23 16:53 Clindamycin 900mg/50ml D5w Premix IV 12/26/23 15:10 100 mls/hr ONCE ONE Administration Lactated Ringer's 4,140 mls @ 2,070 mls/hr 12/26/23 14:42 12/26/23 15:23 Lactated Ringer's 1000 Ml Bag 30 ml/kg infuse over 2 hr (4140 ml) 12/26/23 16:41 2,070 mls/hr IV Administration .Q2H ONE Vancomycin HCl 2,500 mg/ 250 mls @ 125 mls/hr 12/26/23 15:30 12/26/23 15:32 Sodium Chloride IV 12/26/23 17:29 125 mls/hr ONCE ONE Administration Potassium Chloride/Water 100 mls @ 50 mls/hr 12/26/23 15:55 12/26/23 16:53 Potassium Chloride 20meq/100ml Ivpb IV 12/26/23 21:54 50 mls/hr Q2H AURA Administration Norepinephrine/Dextrose 8 mg in 250 mls @ 3.75 mls/hr 12/26/23 17:05 12/26/23 17:17 Norepinephrine 8mg/250ml-D5w Premix IV 01/25/24 17:04 2 mcg/min .Q24H AURA 3.75 mls/hr Administration Protocol 2 MCG/MIN Iopamidol 180 ml 12/26/23 16:45 12/26/23 16:49 Iopamidol-370 (76%);100ml Bottle IV 12/26/23 16:46 180 ml ONCE ONE Administration Miscellaneous 1 each 12/26/23 14:45 12/26/23 16:08 Vancomycin Consult Request NOTAPPLIC 01/25/24 14:44 Not Given CONSULT PH[facility]ACY [facility] Sodium Chloride 100 ml 12/26/23 16:45 12/26/23 16:49 0.9 % Sodium Chloride 50 Ml Vial IV 12/26/23 16:46 100 ml ONCE ONE Administration Sodium Chloride 10 ml 12/26/23 16:45 12/26/23 16:50 Sodium Chloride 0.9% 10ml Syr (Rad Only) IV 01/25/24 16:44 10 ml NEEDED PRN Administration Maintain IV Site ORDERS Category Date Time Status Type and Screen Stat BBK 12/26/23 15:[address] angio abdomen pelvis Stat Cat Scan 12/26/23 14:[address] angio chest PE protocol Stat Cat Scan 12/26/23 14:38 Completed CBC w/Auto Diff [Complete Blood Count Auto Diff] Stat Lab 12/26/23 15:00 Completed CK [Creatine Kinase] Stat Lab 12/26/23 15:00 Completed CMP [Comprehensive Metabolic Panel] Stat Lab 12/26/23 15:00 Completed CRP [C-Reactive Protein] Stat Lab 12/26/23 15:00 Completed ESR [Erythrocyte Sedimentation Rate] Stat Lab 12/26/23 15:00 Completed INR [Prothrombin Time INR] Stat Lab 12/26/23 15:00 Completed Magnesium Stat Lab 12/26/23 15:00 Completed Procalcitonin Stat Lab 12/26/23 15:00 Completed Rapid PCR Covid and Flu A/B Stat Lab 12/26/23 15:33 Completed Trop I [Troponin I] Stat Lab 12/26/23 15:00 Completed UA [Urinalysis and Microscopic] Stat Lab 12/26/23 14:39 Completed Blood Culture Stat Micro 12/26/23 15:03 Results Urine Culture Stat Micro 12/26/23 Received VBG [Venous Blood Gas] Stat RT 12/26/23 15:03 Completed Medical Decision Narrative: In summary patient is a 68-year-old male who presents to the emergency department for evaluation of encephalopathy and oliguria initially. Patient is hypotensive with a systolic of 102 but heart rate of 79 requiring 2 L by nasal cannula to maintain oxygen saturation of 191% breathing 16 times a minute upon arrival, with a temperature of 101 rectally. Physical exam is remarkable for a significantly necrotic pressure ulcer that is currently unstageable. This appears to expand to the sacrum although wound is not probe currently. He has feculent looking material coming from some of the wounds. He does not have any lesions of pressure on his heels. Patient does answer some questions with brief correct answers but is unable to provide meaningful interactive conversations. Differential diagnosis includes NSTI, severe sepsis without shock CHF pulmonary edema ACS etc. Initial workup will be conducted with CT angio scan of the chest abdomen pelvis, sepsis bolus, blood cultures, hematologic labs, urinalysis etc. Initial interventions include sepsis bolus Tylenol Zofran. Initial workup reviewed by me and patient has fulminant sepsis with elevated white count and procalcitonin of 20, hypokalemia which is being repleted, DALTON which has been treated with a sepsis bolus, elevated CK CRP sed rate lactic acid. Patient originally arrived normotensive with a normal heart rate however his blood pressure has trended downward and thus we have initiated Levophed infusion. My informal interpretation of his CT scan imaging shows gas-forming organism originating in the right gluteus musculature tracking into the right lateral thigh prior to radiology read. Given that I had an emergent consultation with the [facility] transfer center who was on divert and wanted to wait to the images were power shared before making a decision. I then made a parallel call to [facility] given that and he was excepted to the [facility] emergency department and care of Dr. Phillips of general surgery. Mathews: I spent significant time at bedside with the patient and NADIR discussing management. I also had care discussion with family including patient's sister and stepdaughter. They were given the opportunity ask questions which were answered to their satisfaction. I had personally interpreted CT imaging when it became initially available and it demonstrated obvious gas in the soft tissues in the right gluteal area. At this time we initiated phone conversations with multiple centers for higher level of care. Ultimately patient was accepted at [facility]. Unfortunately due to weather, flights are not available and patient will have to go by ground crew. Patient will go via ALS as he continues to receive IV fluids, Levophed, antibiotics. His blood pressure and mental status had improved during his time in the ER with all of these interventions, he was transferred in stable condition while continuing to receive the above interventions. Of note: EMS was onsite to take the patient at 1815. We received a phone call from [facility]. Spoke with the radiologist who indicated patient has left lower lobe segmental/subsegmental PE, no heart strain. This likely explains patient oxygen requirement in part. normally, I would initiate anticoagulation for PE treatment, however given patient has a surgical emergency with necrotizing fasciitis and is being transferred for likely operative intervention, I am not initiating anticoagulation. [facility] was called back and updated about this. They agree with the plan to not initiate anticoagulation at this time. Critical Care <CONSTANTIN Lance - Last Filed: 12/26/23 18:23> Critical Care Time Critical Care Time: Yes Attestation: On 12/26/23, the high probability of a clinically significant, sudden or life threatening deterioration of multisystem dysfunction required my full and direct attention, intervention and personal management. The time I documented below is in addition to time spent performing reported procedures but includes the following listed in this critical care notation. Total Time Total Critical Care Time: 60
--- NOTE | 2023-12-26 14:38 | CT_ITS ---
PROCEDURE INFORMATION: Exam: CTA Abdomen and Pelvis With Contrast Exam date and time: 12/26/2023 4:25 PM Age: 68 years old Clinical indication: Other: Sepsis; Additional info: Sepsis, oliguria, necrotic decubitus TECHNIQUE: Imaging protocol: Computed tomographic angiography of the abdomen and pelvis with contrast. Exam focused on the arteries. 3D rendering (Not supervised by radiologist): MIP and/or 3D reconstructed images were created by the technologist. Radiation optimization: All CT scans at this facility use at least one of these dose optimization techniques: automated exposure control; mA and/or kV adjustment per patient size (includes targeted exams where dose is matched to clinical indication); or iterative reconstruction. Contrast material: ISOVUE; Contrast volume: 180 ml; Contrast route: INTRAVENOUS (IV); COMPARISON: CT BONY PELVIS 09/29/2023 9:25 PM FINDINGS: Tubes, catheters and devices: Howard catheter Aorta: Scattered regions of atherosclerotic vascular calcification within the abdominal aorta and common iliac arteries. Celiac trunk and mesenteric arteries: No occlusion or significant stenosis. Renal arteries: No occlusion or significant stenosis. Right iliac arteries: No occlusion or significant stenosis. Left iliac arteries: No occlusion or significant stenosis. Liver: Decreased density throughout the liver compatible with hepatic steatosis. Gallbladder and biliary ducts: Cholelithiasis Pancreas: Pancreas unremarkable Spleen: Borderline splenomegaly Adrenal glands: Adrenal glands unremarkable. Kidneys and ureters: Bilateral moderate hydroureteronephrosis. No obstructing renal calculus demonstrated within limits of the examination. Stomach and bowel: Colonic diverticulosis. No evidence of diverticulitis. The is demonstration of air dissecting the fascial planes of the gluteal right gluteal muscle bundles Appendix: No evidence of appendicitis. Intraperitoneal space: Unremarkable. No free air. No significant fluid collection. Lymph nodes: Unremarkable. No enlarged lymph nodes. Urinary bladder: Unremarkable. No mass. Reproductive: Unremarkable as visualized. Bones/joints: Artifact related to arthroplasty limits evaluation of the pelvis. Is isLumbar spondylosis with multilevel disc degeneration. Soft tissues: Artifact related to postoperative change involving the subcutaneous tissues superficial to the right gluteal muscles. Other findings: actual ulceration not identified. No definite abscess identified. IMPRESSION: 1. Bilateral moderate hydroureteronephrosis. 2. Extensive regions of soft tissue emphysema right gluteal muscles which may in part reflect necrosis as well as postoperative change. No distinct abscess demonstrated. Changes related to myositis could not be excluded. Consider follow-up with magnetic resonance imaging.
--- NOTE | 2023-12-26 14:38 | CT_ITS ---
PROCEDURE INFORMATION: Exam: CTA Chest With Contrast Exam date and time: 12/26/2023 4:25 PM Age: 68 years old Clinical indication: Condition or disease; Other: Sepsis; Additional info: Sepsis, oliguria TECHNIQUE: Imaging protocol: Computed tomographic angiography of the chest with contrast. Exam focused on the arteries. 3D rendering (Not supervised by radiologist): MIP and/or 3D reconstructed images were created by the technologist. Radiation optimization: All CT scans at this facility use at least one of these dose optimization techniques: automated exposure control; mA and/or kV adjustment per patient size (includes targeted exams where dose is matched to clinical indication); or iterative reconstruction. Contrast material: ISOVUE; Contrast volume: 180 ml; Contrast route: INTRAVENOUS (IV); COMPARISON: CT ANGIO CHEST 04/19/2020 1:02 PM FINDINGS: Pulmonary arteries: Focal pulmonary thrombus involving a segmental and subsegmental branches to the left lower lobe. Aorta: Regions of atherosclerotic vascular calcification involving the aortic arch. Lungs: Bilateral ground-glass regions of opacification. Findings nonspecific however most likely reflect interstitial lung disease. Subsegmental atelectasis at both lung bases Pleural spaces: Unremarkable. No pneumothorax. No pleural effusion. Heart: Unremarkable. No cardiomegaly. No pericardial effusion. Heart RV/LV ratio: 0.64. Coronary arteries: Coronary artery calcification Lymph nodes: Calcified perihilar lymph nodes Bones/joints: Unremarkable. No acute fracture. Soft tissues: Unremarkable. Other findings: Findings demonstrated on series 15 image number [id number]. IMPRESSION: 1. Focal pulmonary embolus involving a segmental and subsegmental branches to the left lower lobe. 2. RV LV ratio: 0.64. 3. Bilateral ground-glass regions of opacification. Findings nonspecific however most likely reflect interstitial lung disease. 4. A call has been placed the referring physician at which time an addended report will be issued.
--- NOTE | 2023-12-26 14:50 | ECG_ITS ---
APPROVED REPORT Exam: Resting ECG HR:77 bpm ECG Measurements Heart Rate 77 AXES FL 223 P 37 QRSd 172 QRS 5 QT 474 T 29 QTc 506 Conclusion SINUS RHYTHM WITH FIRST DEGREE AV BLOCK RIGHT BUNDLE BRANCH BLOCK [120+ ms QRS DURATION, UPRIGHT V1, 40+ ms S IN I/aVL/V4/V5/V6] ANTERIOR MYOCARDIAL INFARCTION , OF INDETERMINATE AGE [40+ ms Q WAVE AND/OR ST/T ABNORMALITY IN V3/V4] ABNORMAL ECG Interpretation complicated by baseline artifact, no STEMI Electronically signed by : ROSA M TAO, 12/26/2023 23:50:56
[2023-12-26 14:52] LABS: Microscopic, Urine URINE MICROSCOPIC (MICROSCOPIC)
[2023-12-26 14:56] LABS: Appearance,Urine TURBID (Clear); Bilirubin,Urine Negative (Negative); Blood, Urine 3+ (Negative); Color,Urine YELLOW (Yellow); Glucose,Urine (UA) 1+ (Negative); Ketones,Urine Negative (Negative); Leukocyte Esterase,Urine 2+ (Negative); Nitrate,Urine Negative (Negative); Protein,Urine 2+ (Negative); Urobilinogen,Urine 0.2 EU/dl (0.2)
[2023-12-26 15:08] LABS: Bacteria,Urine 2+ /lpf; RBC,Urine TNTC #/hpf (0-3); WBC,Urine TNTC #/hpf (0-3); Yeast,Urine 2+ /lpf
[2023-12-26 15:08] LABS: VBG Base Excess 1.3 mmol/L (-2.4-2.3); VBG Oxygen Saturation 60.9 % (50-70); VBG PCO2 42.2 mmol/L (35-51); VBG PH 7.41 mmol/L (7.31-7.41); VBG PO2 32.7 mmol/L (28-40); VBG Total CO2 27.3 mmol/L (23-27)
--- NOTE | 2023-12-26 15:08 | PC.NURSE ---
call to pharmacy about vanc consult.
[2023-12-26 15:12] LABS: Lactate Venous 3.2 mmol/L (0.4-2.0)
[2023-12-26 15:13] LABS: Basophils # 0.1 K/mm3 (0-0.2); Basophils % 0.2 % (0.1-2.0); Eosinophils % 0.1 % (0.1-12.0); Hematocrit 34.9 % (42.0-52.0); Hemoglobin 11.2 g/dL (14.1-18.0); Lymphocytes # 2.1 K/mm3 (0.7-4.5); Lymphocytes % 7.7 % (10-50); Mean Corpuscular HGB Conc 32.2 g/dL (31.8-35.4); Mean Corpuscular Hemoglobin 28.3 pg (27.0-31.2); Mean Corpuscular Volume 87.9 fl (80-94); Mean Platelet Volume 9.7 fl (7.4-10.4); Monocytes # 0.8 K/mm3 (0.1-1.0); Monocytes % 2.9 % (1.7-9.3); Neutrophils % 89.1 % (37.0-80.0); Platelet Count 501 K/mm3 (142-424); Red Blood Count 3.97 M/mm3 (4.60-6.20); White Blood Count 26.9 K/mm3 (4.8-10.8)
[2023-12-26 15:17] LABS: Chloride 97 mmol/L (98-107); Sodium 133 mmol/L (136-145)
[2023-12-26 15:20] LABS: Alanine Aminotransferase 49 U/L (12-78); Albumin Level 3.2 g/dl (3.5-5.0); Albumin/Globulin Ratio 0.8 (1.1-1.8); Alkaline Phosphatase 81 U/L (38-126); Anion Gap 10.8 mEq/L (5-15); Aspartate Amino Transferase 110 U/L (17-59); Bilirubin,Total 0.5 mg/dl (0.2-1.3); Blood Urea Nitrogen 31 mg/dl (9-20); Calcium 8.5 mg/dl (8.4-10.2); Carbon Dioxide 28 mmol/L (22.0-30.0); Creatine Kinase 565 U/L (55-170); Creatinine Clearance Estimated 52 mL/min (50-200); Estimated Glomerular Filt Rate 31 ml/min (>60); GFR (African American) 38 ML/MIN (>60); Globulin 4.1 g/dL (1.3-3.2); Glucose 218 mg/dl (74-100); MANUAL DIFFERENTIAL MANUAL DIFFERENTIAL (MANUAL DIFF); Total Protein,Serum 7.3 g/dl (6.3-8.2)
[2023-12-26 15:21] LABS: Magnesium 1.7 mg/dl (1.6-2.3)
[2023-12-26] MEDS: LACTATED RINGERS 2070 ML IV (15:23)
[2023-12-26 15:24] LABS: INR 1.38 (0.9-1.1)
[2023-12-26] MEDS: PIPERACILLIN/TAZO 4.5 GM in 0.9 % SODIUM CHLORIDE 100 ML IV (15:26)
[2023-12-26 15:32] LABS: Troponin I 0.03 ng/ml (0.00-0.034)
[2023-12-26] MEDS: VANCOMYCIN HCL 2,500 MG in 0.9 % SODIUM CHLORIDE 250 ML 125 MG IV (15:32)
[2023-12-26 15:38] LABS: C-Reactive Protein 311.6 mg/L (0-4)
[2023-12-26 15:38] LABS: Coronavirus 19, PCR Not Detected (NotDetected); Influenza A, PCR Not Detected (NotDetected); Influenza B, PCR Not Detected (NotDetected)
[2023-12-26 15:40] LABS: Potassium 2.8 mmoL/L (3.5-5.1)
--- NOTE | 2023-12-26 15:40 | PC.NURSE ---
CRITICAL K+ 2.8, RECEIVED FROM KRISHNA IN LAB. PT NAME AND R/V. SUNDAY VILLANUEVA PA-C NOTIFIED
[2023-12-26 15:56] LABS: Erythrocyte Sedimentation Rate 114 mm/hr (0-20)
[2023-12-26 15:58] LABS: Lymphocytes % 8 % (10-50); Monocytes % 4 % (2-9); Neutrophils % 88 % (42-76); Total Cells Counted 100
[2023-12-26 15:59] LABS: Platelet Estimate Slight Increase
[2023-12-26 16:00] LABS: RBC Morphology Normal
[2023-12-26 16:06] LABS: Procalcitonin 20.8 ng/mL (0.0-2.0)
--- NOTE | 2023-12-26 16:16 | PC.NURSE ---
PT TO CT
[2023-12-26] MEDS: IOPAMIDOL-370 (76%);100ML BOTTLE 180 ML IV (16:49)
[2023-12-26] MEDS: 0.9 % SODIUM CHLORIDE 50 ML VIAL 100 ML IV (16:49)
[2023-12-26] MEDS: SODIUM CHLORIDE 0.9% 10ML SYR (RAD ONLY) 10 ML IV (16:50)
[2023-12-26] MEDS: KCl 20mEq/100ml 100 ML 50 MEQ IV (16:53)
[2023-12-26] MEDS: CLINDAMYCIN PHOSPHATE/D5W 900 MG/50 ML PIGGYBACK 100 MG IV (16:53)
--- NOTE | 2023-12-26 16:54 | PC.NURSE ---
SUNDAY ROOT SPEAKING WITH FOR POSSIBLE TRANSFER
--- NOTE | 2023-12-26 17:04 | PC.NURSE ---
O/P with UC at this time
--- NOTE | 2023-12-26 17:15 | PC.NURSE ---
Elvis Osborne o/p with UC at this time.
[2023-12-26] MEDS: NOREPINEPHRINE BITARTRATE/D5W 8 MG/250 ML PLAST..BAG 3.75 MG IV (17:17)
--- NOTE | 2023-12-26 17:39 | PC.NURSE ---
ems called and notified of need for transportation
--- NOTE | 2023-12-26 18:19 | PC.NURSE ---
calling UC to Update them on patient.
[2023-12-26 19:13] LABS: Reflex Lactic Add Lactic Reflex
--- NOTE | 2023-12-29 17:48 | PC.NURSE ---
BLOOD CULTURE RESULTS FAXED TO [facility] AT [facility] [phone]
== END 2023-12-26 18:47 | disposition short-term general hospital (02) ==
PROVIDERS: Physician Assistant; Emergency Provider Emergency Medicine; PCP Family Medicine
DX: A41.89 Other specified sepsis (principal); B95.7 Other staphylococcus as the cause of diseases classified elsewhere; R65.20 Severe sepsis without septic shock; J96.01 Acute respiratory failure with hypoxia; L89.156 Pressure-induced deep tissue damage of sacral region; G93.40 Encephalopathy, unspecified; E87.6 Hypokalemia; G82.20 Paraplegia, unspecified; I26.99 Other pulmonary embolism without acute cor pulmonale; I45.10 Unspecified right bundle-branch block; I44.0 Atrioventricular block, first degree
CPT/HCPCS: 71275; 74174; 80053; 81001; 82550; 82803; 83735; 84145; 84484; 85007; 85025; 85027; 85610; 85651; 86140; 86850; 87040; 87077; 87086; 87186; 87636; 93005; 96365; 96366; 96367; 99291; J2543; J3370; J7120; Q9967

== ENCOUNTER 2024-04-17 15:51 | Observation (INO) | payer MEDICARE, MEDICAID, SELFPAY ==
[2024-04-17] VITALS (8 sets, daily range): BP systolic 131–152; BP diastolic 69–83; PULSE 82–94; RESP 16; TEMP 36.9; O2SAT 96–99; BMI 29.1; BMI 28.2
--- NOTE | 2024-04-17 16:07 | ED_ITS ---
Discharge Plan Disposition Patient Disposition: Admitted Clinical Impressions Clinical Impression: Decubitus ulcer of sacral area Discharge ED Provider: Kamran Headley General Adult HPI General Chief complaint: Recheck/Abnormal Lab/Rx Stated complaint: Wound Time Seen by Provider: 04/17/24 15:51 Mode of Arrival: EMS Source of Information: Patient and EMS Limitations: No Limitations Description of Symptoms (Recalled from ER Triage Doc. by RN): pt brought to ED from halfway[facility] [place]. pt reports to ED with no complaints. according to report from EMS pt was recent admit attempt to halfway. 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 pt was recently at [facility] and discharged. History of Present Illness HPI narrative: 68-year-old male presents to the emergency department after being discharged today from outside hospital in [place], sepsis and sacral cubitus infection. Patient was admitted on 02/29/2024, discharged today at around 11 AM, was sent to short-term halfway facility, unfortunately, due to insurance reasons patient was unable to stay/be admitted at halfway facility ([facility]). Patient denies any acute complaints at this time except for buttock pain, right knee pain no trauma. Denies fever chills chest pain shortness of breath nausea vomiting, urinary type symptomatology, is moving bowels appropriately, has ongoing ostomy bag placed. Other past medical history/Hospital course was reviewed by myself, from the patient's discharge summary OSH. 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 Triage vitals are unremarkable. Patient tolerates p.o. intake, he is alert and oriented to person place and time, history of substance use. Onset (ago): hour(s) Related Data Home Medications ?Medication ?Instructions ?Recorded ?Confirmed allopurinol 100 mg tablet 100 mg PO DAILY 09/29/23 04/17/24 atorvastatin 40 mg tablet 40 mg PO HS 09/29/23 04/17/24 clopidogrel 75 mg tablet 75 mg PO DAILY 09/29/23 04/17/24 dulaglutide 4.5 mg/0.5 mL 4.5 mg SQ WEEKLY 09/29/23 04/17/24 subcutaneous pen injector (Trulicity) finasteride 5 mg tablet 5 mg PO DAILY 09/29/23 04/17/24 insulin glargine 100 unit/mL (3 100 unit SQ HS 09/29/23 04/17/24 mL) subcutaneous pen (Lantus Solostar U-100 Insulin) insulin lispro 100 unit/mL 55 unit SQ ACHS 09/29/23 04/17/24 subcutaneous pen (Humalog KwikPen (U-100) Insulin) metoprolol tartrate 100 mg tablet 100 mg PO BID 09/29/23 04/17/24 pantoprazole 40 mg tablet,delayed 40 mg PO DAILY 09/29/23 04/17/24 release cholecalciferol (vitamin D3) 25 25 mcg PO DAILY 11/22/23 04/17/24 mcg (1,000 unit) capsule zinc sulfate 50 mg zinc (220 mg) 50 mg PO DAILY 11/22/23 04/17/24 capsule Previous Rx's ?Medication ?Instructions ?Recorded gabapentin 300 mg capsule 300 mg PO TID #90 caps 11/28/23 alendronate 70 mg tablet See Rx Instructions .Route 12/20/23 .COMPLEX #4 tabs amlodipine 10 mg tablet See Rx Instructions .Route 12/20/23 .COMPLEX #30 tabs baclofen 10 mg tablet See Rx Instructions .Route 12/20/23 .COMPLEX #90 tabs cyclobenzaprine 5 mg tablet See Rx Instructions .Route 12/20/23 .COMPLEX #60 tabs fenofibrate 160 mg tablet See Rx Instructions .Route 12/20/23 .COMPLEX #30 tabs furosemide 40 mg tablet See Rx Instructions .Route 12/20/23 .COMPLEX #90 tabs hydralazine 10 mg tablet See Rx Instructions .Route 12/20/23 .COMPLEX #90 tabs hydroxyzine pamoate 25 mg capsule See Rx Instructions .Route 12/20/23 .COMPLEX #120 caps sacubitril 49 mg-valsartan 51 mg See Rx Instructions .Route 12/20/23 tablet (Entresto) .COMPLEX #60 tabs tamsulosin 0.4 mg capsule See Rx Instructions .Route 12/20/23 .COMPLEX #60 caps ascorbic acid (vitamin C) 1,000 mg 1 g PO DAILY #30 tabs 12/21/23 tablet (Vitamin C) calcium carbonate (Calcium Antacid) 200 mg PO TID #90 tabs 12/21/23 cholecalciferol (vitamin D3) 50 See Rx Instructions .Route 12/21/23 mcg (2,000 unit) tablet .COMPLEX #30 tabs cyanocobalamin (vitamin B-12) 1,000 mcg PO QDAY #30 caps 12/21/23 1,000 mcg capsule enoxaparin 40 mg/0.4 mL 40 mg (0.4 mL) SQ DAILY #4 mL 12/21/23 subcutaneous syringe insulin glargine 100 unit/mL (3 See Rx Instructions .Route 12/21/23 mL) subcutaneous pen (Lantus .COMPLEX #15 mL Solostar U-100 Insulin) omega 0-fhi-[id number]-fish oil 1,000 mg 1 cap PO BID #60 caps 12/21/23 (120 mg-180 mg) capsule (Fish Oil) collagenase clostridium histo. 250 1 applic topical DAILY #90 grams 12/26/23 unit/gram topical ointment (Santyl) oxycodone 10 mg tablet 10 mg PO BID PRN pain #60 tabs 12/26/23 Allergies Allergy/AdvReac Type Severity Reaction Status Date / Time lisinopril Allergy Severe blisters Verified 04/17/24 15:59 codeine Allergy Verified 04/17/24 15:59 exenatide (From Bydureon) AdvReac Severe abdominal Verified 04/17/24 15:59 wall rash acetaminophen AdvReac Verified 04/17/24 15:59 [facility] Disclaimer: The information contained in this section may have been updated after the patient was seen, as this information can be updated by other users. Medical History Colostomy in place Type 2 diabetes mellitus Hyperlipidemia Cervical spinal cord injury Social History (Updated 04/17/24 @ 21:01 by Marycarmen Lamb RN) Smoking Status: Former smoker second hand exposure: Yes alcohol intake: former substance use type: denies use current occupational status: disabled Travel in the last 8 weeks: None household members: family housing: house current occupational exposures/hazards: No caffeine: Yes Other Medical History Have you received the Flu Vaccine for this season: No Have you received the Pneumonia Vaccine: Yes ROS Obtained: Yes All systems reviewed & no additional complaints except as documented Physical Exam General General appearance: alert and in no apparent distress Head Head exam: atraumatic and normocephalic Eye Eye exam: Present PERRL and EOMI ENT ENT exam: Present mucous membranes moist Neck Neck exam: Present normal inspection Chest Chest inspection: Present normal inspection and symmetric chest wall rise Respiratory Respiratory exam: Present normal lung sounds bilaterally; Absent respiratory distress Cardiovascular Cardiovascular exam: Present regular rate and normal rhythm Abdominal Exam Abdominal exam: Present soft and other (Ostomy bag in place, good output, no erythema, no wound dehiscence); Absent tenderness, guarding, rebound or rigidity Extremities Exam Extremities exam: Present normal inspection Back Exam Comment: There is a large nearly unstageable sacral decubitus ulcer present on the patient's sacral region, and is clean, wound dressing and packing is in place I removed it, patient's ulcer looks to be at baseline when reading the patient's discharge summary from outside facility today, there is no overt drainage, no overt erythema, no evidence of any wound dehiscence. Neurological Exam Neurological exam: Present alert, oriented X3, motor sensory deficit and other (Paraplegic from waist down, patient moves arms to command, with some decreased health plan manager strength 4-5 bilaterally.) Psychiatric Psychiatric exam: Present normal affect Skin Skin exam: Present warm and dry Medical Decision Making Medical Records Medical records reviewed: Yes I reviewed the patient's medical records. Screening: Per USPSTF and CDC recommendations, given the prevalence of disease in our region, it is our hospital?s policy to screen for HIV and viral Hepatitis for all patients aged 18 and over and those with ongoing risk factors. [place] Inquiry Pt receiving controlled substance: No [place] was queried for this patient: No Vital Signs: 04/17/24 15:51 04/17/24 16:02 04/17/24 17:06 Temperature 98.5 F Temperature Source Oral Pulse Rate 85 Pulse Rate [Left Radial] 94 H Respiratory Rate 16 Blood Pressure 131/75 Blood Pressure [Right Arm] 152/82 H 144/77 H Blood Pressure Mean Blood Pressure Mean [Right Arm] 105 99 02 Sat by Pulse Oximetry 97 98 Oxygen Delivery Method Room Air Room Air 04/17/24 17:31 04/17/24 18:00 04/17/24 18:30 Temperature Temperature Source Pulse Rate 86 83 88 Pulse Rate [Left Radial] Respiratory Rate Blood Pressure 135/73 141/74 H 141/73 H Blood Pressure [Right Arm] Blood Pressure Mean 93 Blood Pressure Mean [Right Arm] 02 Sat by Pulse Oximetry 96 97 99 Oxygen Delivery Method Room Air Room Air Room Air Lab Data Lab Results 04/17/24 16:26: WBC 13.3 H, RBC 4.09 L, Hgb 11.4 L, Hct 34.8 L, MCV 85.1, MCH 27.9, MCHC 32.7, RDW 17.0, Plt Count 528 H, MPV 7.3 L, Neut % (Auto) 80.0, Lymph % (Auto) 12.0, [place] % (Auto) 4.6, Eos % (Auto) 2.4, Baso % (Auto) 0.9, Neut # (Auto) 10.6 H, Lymph # (Auto) 1.6, [place] # (Auto) 0.6, Eos # (Auto) 0.3, Baso # (Auto) 0.1, Sodium 132 L, Potassium 4.4, Chloride 102, Carbon Dioxide 20 L, Anion Gap 14.4, BUN 7 L, Creatinine 0.60 L, Estimated Creat Clear 93, Estimated GFR 134, Est GFR ( Amer) 162, Glucose 221 H, Calcium 9.4, Total Bilirubin 0.4, AST 23, ALT 21, Alkaline Phosphatase 83, Total Protein 6.8, Albumin 3.3 L, Globulin 3.5 H, Albumin/Globulin Ratio 0.9 L, HIV 1&2 Antibody Rapid Nonreactive 04/17/24 16:58: Urine Color Yellow, Urine Appearance Clear, Urine pH 6.0, Ur Specific [place] 1.015, Urine Protein Trace, Urine Glucose (UA) Negative, Urine Ketones Negative, Urine Blood 2+ A, Urine Nitrate Negative, Urine Bilirubin Negative, Urine Urobilinogen 0.2, Ur Leukocyte Esterase 3+ A, Urine RBC Tntc, Urine WBC Tntc, Ur Squamous Epith Cells 3-5, Urine Bacteria 4+ 04/17/24 16:26 04/17/24 16:26 Orders (Tests/Meds): ED MEDICATIONS Generic Name Dose Route Start Last Admin Trade Name Fredavid PRN Reason Stop Dose Admin Allopurinol 100 mg 04/18/24 09:00 Allopurinol 100mg Tablet PO 05/18/24 08:59 DAILY [facility] Amlodipine Besylate 0 mg 04/17/24 20:00 Amlodipine 10mg Tablet PO 05/17/24 19:59 .COMPLEX [facility] Atorvastatin Calcium 40 mg 04/17/24 21:00 Atorvastatin 40mg Tablet PO 05/17/24 20:59 HS [facility] Baclofen 0 mg 04/17/24 20:00 Baclofen 10mg Tablet PO 05/17/24 19:59 .COMPLEX [facility] Calcium Carbonate 200 mg 04/17/24 21:00 Calcium Carbonate 500mg Chewtab PO 05/17/24 20:59 TID [facility] Clopidogrel Bisulfate 75 mg 04/18/24 09:00 Clopidogrel 75mg Tab PO 05/18/24 08:59 DAILY [facility] Collagenase gm 04/18/24 09:00 Santyl Ointment 30gm Tube TP 05/18/24 08:59 DAILY [facility] Enoxaparin Sodium 40 mg 04/18/24 09:00 Enoxaparin 40mg/0.4ml Syringe SUBCUT 05/18/24 08:59 DAILY [facility] Finasteride 5 mg 04/18/24 09:00 Finasteride 5mg Tablet PO 05/18/24 08:59 DAILY [facility] Gabapentin 300 mg 04/17/24 21:00 Gabapentin 300mg Capsule PO 05/17/24 20:59 TID [facility] Hydralazine HCl 0 mg 04/17/24 20:00 Hydralazine 10mg Tablet PO 05/17/24 19:59 .COMPLEX [facility] Hydroxyzine Pamoate 0 mg 04/17/24 20:00 Hydroxyzine Pamoate 25mg Capsule PO 05/17/24 19:59 .COMPLEX [facility] Ibuprofen 400 mg 04/17/24 19:38 Ibuprofen 400 Mg Tablet PO 05/17/24 19:37 Q6HP PRN Mild Pain (1-3) Insulin Glargine 100 unit 04/17/24 21:00 Insulin Glargine 100 Units/Ml 3ml Flexpen SUBCUT 05/17/24 20:59 HS [facility] Insulin Glargine 0 unit 04/17/24 20:00 Insulin Glargine 100 Units/Ml 3ml Flexpen SUBCUT 05/17/24 19:59 .COMPLEX [facility] Non-Formulary Medication 0 mg 04/17/24 20:00 Alendronate .ROUTE 05/17/24 19:59 .COMPLEX [facility] Non-Formulary Medication 4.5 mg 04/17/24 20:00 Dulaglutide [Trulicity] SUBCUT 05/17/24 19:59 WEEKLY [facility] Non-Formulary Medication 0 mg 04/17/24 20:00 Fenofibrate .ROUTE 05/17/24 19:59 .COMPLEX [facility] Non-Formulary Medication 55 unit 04/17/24 21:00 Insulin Lispro [Humalog Kwikpen Insulin] SUBCUT 05/17/24 20:59 ACHS [facility] Non-Formulary Medication 100 mg 04/17/24 21:00 Metoprolol Tartrate PO 05/17/24 20:59 BID [facility] Non-Formulary Medication 10 mg 04/17/24 19:48 Oxycodone PO BID PRN pain Non-Formulary Medication 0 tab 04/17/24 20:00 Sacubitril-Valsartan [Entresto] .ROUTE 05/17/24 19:59 .COMPLEX [facility] Ondansetron HCl 4 mg 04/17/24 19:38 Ondansetron 4mg/2ml Vial IV 05/17/24 19:37 Q8HP PRN Nausea Sodium Chloride 10 ml 04/17/24 19:38 Sodium Chloride 0.9% 10ml Flush Syringe IV 05/17/24 19:37 NEEDED PRN Maintain IV Site Tamsulosin HCl 0 mg 04/17/24 20:00 Tamsulosin 0.4mg Capsule PO 05/17/24 19:59 .COMPLEX [facility] ORDERS Category Date Time Status Care Management Consult [Consult to Case Management] [ Cons 04/17/24 16:06 Active CONS] Routine XR chest portable Stat Exams 04/17/24 16:14 Completed Complete Blood Count Auto Diff Stat Lab 04/17/24 16:26 Completed Comprehensive Metabolic Panel Stat Lab 04/17/24 16:26 Completed HIV (1&2) Antibody Rapid Stat Lab 04/17/24 16:26 Completed Hep C Ab with Reflex to RNA Stat Lab 04/17/24 16:26 Received Urinalysis and Microscopic Stat Lab 04/17/24 16:58 Completed Urine Culture Stat Micro 04/17/24 16:58 Received Medical Decision Narrative: 68-year-old male presents to the emergency department for possible placement/short-term care, see HPI for detail past medical history. I discussed patient case with the attending physician Dr. Headley Will obtain basic, baseline laboratory studies urinalysis, EKG chest x-ray. Will consult care management/case management team. I along the attending physician the patient's EKG, sinus rhythm with first- degree block 94 bpm, ID intervals elongated at 224, QT interval within normal limits there is no STEMI. CMP is notable for hyponatremia at 132, hypoalbuminemia, upper glycemia otherwise unremarkable. I reviewed the patient chest x-ray along the corresponding radiologic report there are no acute findings. I reviewed the patient's CBC, there is mild leukocytosis at 13.3, there is thrombocytosis of 528 which I do think reactive, otherwise unremarkable. Urinalysis notable for negative nitrites, 3+ leukocyte esterase, hematuria. This is patient's case with the hospitalist at approximately 6:15 PM he is in agreement with current admission plan/treatment plan for continuation of IV antibiotics through PICC line/midline with admit to placement. I discussed this with the patient and family the bedside patient famine agreement current admission plan/treatment plan. Critical Care Critical Care Time Critical Care Time: No
--- NOTE | 2024-04-17 16:14 | XR_ITS ---
PROCEDURE INFORMATION: Exam: XR Chest Exam date and time: 04/17/2024 4:22 PM Age: 68 years old Clinical indication: Shortness of breath; Additional info: SOA TECHNIQUE: Imaging protocol: Radiologic exam of the chest. Views: 1 view. COMPARISON: CT ANGIO ABDOMEN PELVIS 12/26/2023 4:25 PM FINDINGS: Lungs: Unremarkable. No consolidation. Pleural spaces: Unremarkable. No pleural effusion. No pneumothorax. Heart/Mediastinum: Unremarkable. No cardiomegaly. Vasculature: Atherosclerosis. Bones/joints: Degenerative changes of the spine. IMPRESSION: No acute findings.
--- NOTE | 2024-04-17 16:19 | ECG_ITS ---
APPROVED REPORT Exam: Resting ECG HR:94 bpm ECG Measurements Heart Rate 94 AXES WA 224 P 67 QRSd 149 QRS 63 QT 393 T 38 QTc 445 Conclusion SINUS RHYTHM WITH FIRST DEGREE AV BLOCK RIGHT BUNDLE BRANCH BLOCK [120+ ms QRS DURATION, UPRIGHT V1, 40+ ms S IN I/aVL/V4/V5/V6] ANTEROSEPTAL MYOCARDIAL INFARCTION , OF INDETERMINATE AGE [40+ ms Q WAVE IN V1-V4] ABNORMAL ECG UNCONFIRMED REPORT Electronically signed by : BESSIE MENDOZA, 04/18/2024 06:52:36
--- NOTE | 2024-04-17 16:29 | PC.NURSE ---
XR AT BEDSIDE
[2024-04-17 16:35] LABS: Basophils # 0.1 K/mm3 (0-0.2); Basophils % 0.9 % (0.1-2.0); Eosinophils # 0.3 K/mm3 (0.0-0.4); Eosinophils % 2.4 % (0.1-12.0); Hematocrit 34.8 % (42.0-52.0); Hemoglobin 11.4 g/dL (14.1-18.0); Lymphocytes # 1.6 K/mm3 (0.7-4.5); Mean Corpuscular HGB Conc 32.7 g/dL (31.8-35.4); Mean Corpuscular Hemoglobin 27.9 pg (27.0-31.2); Mean Corpuscular Volume 85.1 fl (80-94); Mean Platelet Volume 7.3 fl (7.4-10.4); Monocytes # 0.6 K/mm3 (0.1-1.0); Monocytes % 4.6 % (1.7-9.3); Neutrophils # 10.6 K/mm3 (1.8-7.8); Platelet Count 528 K/mm3 (142-424); Red Blood Count 4.09 M/mm3 (4.60-6.20); White Blood Count 13.3 K/mm3 (4.8-10.8)
[2024-04-17 16:45] LABS: Alanine Aminotransferase 21 U/L (12-78); Albumin Level 3.3 g/dl (3.5-5.0); Albumin/Globulin Ratio 0.9 (1.1-1.8); Alkaline Phosphatase 83 U/L (38-126); Anion Gap 14.4 mEq/L (5-15); Aspartate Amino Transferase 23 U/L (17-59); Bilirubin,Total 0.4 mg/dl (0.2-1.3); Blood Urea Nitrogen 7 mg/dl (9-20); Calcium 9.4 mg/dl (8.4-10.2); Carbon Dioxide 20 mmol/L (22.0-30.0); Chloride 102 mmol/L (98-107); Creatinine Clearance Estimated 93 mL/min (50-200); Estimated Glomerular Filt Rate 134 ml/min (>60); GFR (African American) 162 ML/MIN (>60); Globulin 3.5 g/dL (1.3-3.2); Glucose 221 mg/dl (74-100); Potassium 4.4 mmoL/L (3.5-5.1); Sodium 132 mmol/L (136-145); Total Protein,Serum 6.8 g/dl (6.3-8.2)
[2024-04-17 17:04] LABS: Microscopic, Urine URINE MICROSCOPIC (MICROSCOPIC)
[2024-04-17 17:08] LABS: Appearance,Urine CLEAR (Clear); Bilirubin,Urine Negative (Negative); Blood, Urine 2+ (Negative); Color,Urine YELLOW (Yellow); Glucose,Urine (UA) Negative (Negative); Ketones,Urine Negative (Negative); Leukocyte Esterase,Urine 3+ (Negative); Nitrate,Urine Negative (Negative); Protein,Urine TRACE (Negative); Specific Gravity, Urine 1.015 (1.005-1.030); Urobilinogen,Urine 0.2 EU/dl (0.2)
[2024-04-17 17:26] LABS: RBC,Urine TNTC #/hpf (0-3)
[2024-04-17 17:27] LABS: Bacteria,Urine 4+ /lpf; WBC,Urine TNTC #/hpf (0-3)
[2024-04-17 17:38] LABS: HIV (1&2) Antibody Rapid NONREACTIVE (NONREACTIVE)
--- NOTE | 2024-04-17 18:23 | PC.NURSE ---
laborer beam [facility] called for bed placement.
--- NOTE | 2024-04-17 18:37 | PC.NURSE ---
REPORT GIVEN TO DERECK RODRIGUEZ
--- NOTE | 2024-04-17 19:17 | PC.NURSE ---
Patient arrived to floor via stretcher from ED at 19:13.
--- NOTE | 2024-04-17 22:14 | P.HP_ITS ---
<Statement entered by Omar Murguia MD - 04/20/24 22:46> I personally examined patient and agree with [facility]ORER's plan of care. History of Present Illness *Admission Date: 04/17/24 *Reason for visit:: Long-term care did not except due to insurance issues sacral decubitus *History of present illness: Patient who is long-term diabetic obesity cardiovascular disease with stent post MS with history of hypertension.but ejection fraction noted being greater than 50% in 2022. He also had a hip replacement done . noted for smoking more than 30 years.. Also noted pneumonia status post COVID, and has had cystoscopy with issues with bladder and urinary retention. CT scan shows left pulmonary embolism. Present problem began on 09/22/2023 was fell at home was found 24 hours later down, cervical spine fracture with compression of the spinal cord. Leaving him a paraplegic. He has noted that he has a large amount of right knee pain, but has feeling to the right knee and feeling in the left leg. Patient also noted with colonoscopy.. Patient was noted that he went from to a long-term and developed a sacral ulcer. He was seen in our emergency room on 12/26/2023 and was transferred to [place] because was on divert currently there was some type of abnormal CT scan of the right thigh that showed air. In the muscle. The patient was released from the [facility] to come to a local long-term.. 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 For that reason he was discharged from the long-term and brought to our emergency room.. 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 Patient noted for large amounts of insulin large amounts of Lasix in his medication, these will need to be monitored and adjusted as needed while he is a patient here. And then be able to be adjusted to what he will need at home depending upon his diet. Patient is alert and oriented but is resistive to even answering questions that the nursing staff wanted, he does not like being turned due to the pain in his right knee. And gives the appearance that he just wants to. not deal with a lot of this. Unsure if this is just his personality or some type of mild dementia/confusion [facility] Disclaimer: The information contained in this section may have been updated after the patient was seen, as this information can be updated by other users. Medical History (Updated 04/17/24 @ 23:48 by Milo Breen APRN) Tick bite Chronic pain of both feet Bilateral leg weakness Myocardial infarct Acute on chronic systolic congestive heart failure, NYHA class 3 Pneumonia due to COVID-19 virus History of COVID-19 Chronic back pain greater than 3 months duration Epistaxis Dyspnea due to COVID-19 Hematuria Cardiac murmur Rash Diabetic foot Callus of foot Diabetic ulcer of right foot Chest pain Fall Rhabdomyolysis Hypokalemia Necrotizing soft tissue infection Severe sepsis without septic shock Acute nontraumatic kidney injury Acute hypoxic respiratory failure Type 2 diabetes mellitus Hyperlipidemia Cervical spinal cord injury Surgical History (Updated 04/17/24 @ 23:47 by Milo Breen APRN) Hip joint replacement status Stented coronary artery H/O cardiac catheterization H/O cystoscopy History of bladder suspension procedure Colostomy in place Social History (Updated 04/17/24 @ 21:01 by Marycarmen Lamb RN) Smoking Status: Former smoker second hand exposure: Yes alcohol intake: former substance use type: denies use current occupational status: disabled Travel in the last 8 weeks: None household members: family housing: house current occupational exposures/hazards: No caffeine: Yes Other Medical History Have you received the Flu Vaccine for this season: No (Pt. does not know) Have you received the Pneumonia Vaccine: No Review of Systems Review of Systems Review of systems:: pertinent systems reviewed and negative unless documented below Constitutional Constitutional: Reports body ache(s) and Reports malaise Comments: Chronic right knee pain, is a paraplegic. Eyes Eyes: Reports as per HPI ENT Ears, Nose, Mouth, and Throat: Reports as per HPI *Cardiovascular Cardiovascular: Reports as per HPI *Respiratory Respiratory: Reports as per HPI *Gastrointestinal Gastrointestinal: Reports as per HPI Comments: Colostomy in place *Genitourinary Genitourinary: Reports urinary incontinence and Reports urinary urgency *Musculoskeletal Musculoskeletal: Reports as per HPI, Reports abnormal gait, Reports atrophy, Reports limited range of motion, Reports myalgias and Reports radiating pain into limb Comments: Paraplegic Integumentary/Breasts Skin/Breast: Reports as per HPI, Reports lesions, Reports non-healing lesions and Reports wounds Comments: Very large sacral ulcer full-thickness undermined, penile skin lesions, *Neurologic Neurologic: Reports as per HPI and Reports abnormal gait Psychiatric Psychiatric: Reports as per HPI, Reports anhedonia and Reports other Comments: Resistive to, medical requirements such as turning moving knee packing wound. Answering questions Endocrine Endocrine: Reports as per HPI Hematologic/Lymphatic Hematologic/Lymphatic: Reports as per HPI Allergic/Immunologic Allergic/Immunologic: Reports as per HPI Meds Home Medications and Allergies Home Medications ?Medication ?Instructions ?Recorded ?Confirmed ?Type allopurinol 100 mg tablet 100 mg PO DAILY 09/29/23 04/17/24 History atorvastatin 40 mg tablet 40 mg PO HS 09/29/23 04/17/24 History clopidogrel 75 mg tablet 75 mg PO DAILY 09/29/23 04/17/24 History dulaglutide 4.5 mg/0.5 mL 4.5 mg SQ WEEKLY 09/29/23 04/17/24 History subcutaneous pen injector (Trulicity) finasteride 5 mg tablet 5 mg PO DAILY 09/29/23 04/17/24 History insulin lispro 100 unit/mL 55 unit SQ ACHS 09/29/23 04/17/24 History subcutaneous pen (Humalog KwikPen (U-100) Insulin) metoprolol tartrate 100 mg tablet 100 mg PO BID 09/29/23 04/17/24 History pantoprazole 40 mg tablet,delayed 40 mg PO DAILY 09/29/23 04/17/24 History release gabapentin 300 mg capsule 300 mg PO TID #90 caps 11/28/23 04/17/24 Rx alendronate 70 mg tablet See Rx Instructions .Route 12/20/23 04/17/24 Rx .COMPLEX #4 tabs amlodipine 10 mg tablet See Rx Instructions .Route 12/20/23 04/17/24 Rx .COMPLEX #30 tabs fenofibrate 160 mg tablet See Rx Instructions .Route 12/20/23 04/17/24 Rx .COMPLEX #30 tabs furosemide 40 mg tablet See Rx Instructions .Route 12/20/23 04/17/24 Rx .COMPLEX #90 tabs hydralazine 10 mg tablet See Rx Instructions .Route 12/20/23 04/17/24 Rx .COMPLEX #90 tabs hydroxyzine pamoate 25 mg capsule See Rx Instructions .Route 12/20/23 04/17/24 Rx .COMPLEX #120 caps sacubitril 49 mg-valsartan 51 mg See Rx Instructions .Route 12/20/23 04/17/24 Rx tablet (Entresto) .COMPLEX #60 tabs tamsulosin 0.4 mg capsule See Rx Instructions .Route 12/20/23 04/17/24 Rx .COMPLEX #60 caps calcium carbonate (Calcium Antacid) 200 mg PO TID #90 tabs 12/21/23 04/17/24 Rx cholecalciferol (vitamin D3) 50 See Rx Instructions .Route 12/21/23 04/17/24 Rx mcg (2,000 unit) tablet .COMPLEX #30 tabs omega 1-drq-kvo-fish oil 1,000 mg 1 cap PO BID #60 caps 12/21/23 04/17/24 Rx (120 mg-180 mg) capsule (Fish Oil) oxycodone 10 mg tablet 10 mg PO BID PRN pain #60 tabs 12/26/23 04/17/24 Rx New Prescriptions to Start Prescriptions: Allergies Allergy/AdvReac Type Severity Reaction Status Date / Time lisinopril Allergy Severe blisters Verified 04/17/24 15:59 codeine Allergy Verified 04/17/24 15:59 exenatide (From Bydureon) AdvReac Severe abdominal Verified 04/17/24 15:59 wall rash acetaminophen AdvReac Verified 04/17/24 15:59 Exam Data for Last 24 hours Vital signs and Labs for Last 24 Hours: Temp Pulse Resp BP Pulse Ox O2 Del Method 98.5 F 82 16 137/69 97 Room Air 04/17/24 19:22 04/17/24 19:22 04/17/24 19:22 04/17/24 19:22 04/17/24 19:20 04/17/24 19:20 Laboratory Results - last 24 hr 04/17/24 16:26: WBC 13.3 H, RBC 4.09 L, Hgb 11.4 L, Hct 34.8 L, MCV 85.1, MCH 27.9, MCHC 32.7, RDW 17.0, Plt Count 528 H, MPV 7.3 L, Neut % (Auto) 80.0, Lymph % (Auto) 12.0, [place] % (Auto) 4.6, Eos % (Auto) 2.4, Baso % (Auto) 0.9, Neut # (Auto) 10.6 H, Lymph # (Auto) 1.6, [place] # (Auto) 0.6, Eos # (Auto) 0.3, Baso # (Auto) 0.1, Sodium 132 L, Potassium 4.4, Chloride 102, Carbon Dioxide 20 L, Anion Gap 14.4, BUN 7 L, Creatinine 0.60 L, Estimated Creat Clear 93, Estimated GFR 134, Est GFR ( Amer) 162, Glucose 221 H, Calcium 9.4, Total Bilirubin 0.4, AST 23, ALT 21, Alkaline Phosphatase 83, Total Protein 6.8, Albumin 3.3 L, Globulin 3.5 H, Albumin/Globulin Ratio 0.9 L, HIV 1&2 Antibody Rapid Nonreactive 04/17/24 16:58: Urine Color Yellow, Urine Appearance Clear, Urine pH 6.0, Ur Specific [place] 1.015, Urine Protein Trace, Urine Glucose (UA) Negative, Urine Ketones Negative, Urine Blood 2+ A, Urine Nitrate Negative, Urine Bilirubin Negative, Urine Urobilinogen 0.2, Ur Leukocyte Esterase 3+ A, Urine RBC Tntc, Urine WBC Tntc, Ur Squamous Epith Cells 3-5, Urine Bacteria 4+ I & O for Last 24 hours: Intake & Output 04/14/24 04/15/24 04/16/24 04/17/24 23:59 23:59 23:59 23:59 Weight 91.58 kg Radiology Reports for the Last 24 Hours: CT scan shows left pulmonary embolism. Constitutional Constitutional: mild distress, morbidly obese and chronically ill appearing Comments: Patient is irritable and not very cooperative with nursing staff *Routine HEENT Exam Head: Present normocephalic and atraumatic Eye: Present EOMI and PERRL ENT: Present mucous membranes moist *Routine Neck Exam Neck: Present supple Comments: Did not take neck through full range of motion Routine Chest/Breast/Axilla Exam Comments: No abnormalities found of chest wall *Routine Respiratory Exam Respiratory: Present decreased breath sounds, CTA bilaterally, diminished air movement, normal respiratory effort and able to speak in complete sentences *Routine Cardiovascular Exam Cardiovascular: Present RRR and tachycardia *Routine Abdominal Exam Abdominal: Present soft Comments: Colostomy, rounded no tenderness on exam *Routine Rectal Exam Rectal:: deferred *Routine Genitalia Exam Genitalia:: normal male Comment:: Skin lesion approximately 1 cm round skin breakdown redness, also redness to the penis gas from incontinence *Routine Extremities Exam Extremities: Present pulses intact and normal capillary refill Comments: Right leg is total lift when moving the leg patient is in terrible pain that he just scribes as being in his knee, left leg has full sensation all the way to the foot.. He has no muscular movement in the lower extremities Routine Back/Spine/Pelvis Exam Back/Spine: Present full ROM, CVA tenderness and vertebral tenderness Back image: 2 1. Full-thickness skin ulcer with undermining were circled in blue 2. 3. 4. 5. *Routine Skin Exam Skin: Present intact, warm and lesions Comments: As noted above there is a sacral decubiti that is quite large. With undermining there is small lesion to the penis with some edema to the penis and foreskin *Routine Neurological Exam Neurological: Present alert, oriented X3, CN II-XII intact, motor deficit, vision grossly intact, hearing grossly intact and normal speech Comments: Has feeling into the left foot, has feeling down to the right knee, no movement below the waist. Moves his arms very well contracture starting in the hands fingers are not able to fully extend specially the third and fourth digit bilaterally Routine Psychiatric Exam Psychiatric: Present good judgment Comments: He is irritable with all this it hurts him to move. Kind of uncooperative with nursing staff not wanting to answer a lot of questions H&P: Result Impressions 1. Paraplegia, status post cervical spine injury, with large sacral decubiti. 2. Chronic pain 3. Diabetes mellitus 4. Fluid balance disorder requiring diuretics Imaging and Cardiology CT scan - chest: Status: image reviewed by me and final report Additional comments: Patient is noted for 2 point areas of pulmonary embolism left lung Assessment and Plan *Assessment and plan (1) Pulmonary embolism: Status: Acute Qualifiers: Pulmonary embolism type: unspecified Chronicity: unspecified Acute cor pulmonale presence: without acute cor pulmonale Qualified Code(s): I26.99 - Other pulmonary embolism without acute cor pulmonale Category: Medical Code(s): I26.99 - Other pulmonary embolism without acute cor pulmonale (2) Decubitus ulcer of sacral area: Status: Acute Qualifiers: Pressure injury stage: stage 4 Qualified Code(s): L89.154 - Pressure ulcer of sacral region, stage 4 Category: Medical Code(s): L89.159 - Pressure ulcer of sacral region, unspecified stage (3) Paraplegia: Status: Acute Category: Medical Code(s): G82.20 - Paraplegia, unspecified (4) Encounter for wound care: Status: Acute Category: Medical Code(s): Z51.89 - Encounter for other specified aftercare (5) Hyperglycemia: Status: Acute Category: Medical Code(s): R73.9 - Hyperglycemia, unspecified (6) Hypertension: Status: Acute Qualifiers: Hypertension type: unspecified Qualified Code(s): I10 - Essential (primary) hypertension Category: Medical Code(s): I10 - Essential (primary) hypertension (7) Chronic pain: Status: Chronic Qualifiers: Chronic pain type: other chronic pain Qualified Code(s): G89.29 - Other chronic pain Category: Medical Code(s): G89.29 - Other chronic pain (8) Hypertension: Status: Chronic Qualifiers: Hypertension type: unspecified Qualified Code(s): I10 - Essential (primary) hypertension Category: Medical Code(s): I10 - Essential (primary) hypertension (9) Diabetes: Status: Chronic Qualifiers: Diabetes mellitus type: type 2 Diabetes mellitus 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: with blacking wheel tender use Diabetes mellitus complication status: with other specified complication Qualified Code(s): E11.69 - Type 2 diabetes mellitus with other specified complication Category: Medical Code(s): E11.9 - Type 2 diabetes mellitus without complications (10) Cervical spinal cord injury: Status: Acute Qualifiers: Encounter type: sequela Qualified Code(s): S14.109S - Unspecified injury at unspecified level of cervical spinal cord, sequela Category: Medical Code(s): S14.109A - Unspecified injury at unspecified level of cervical spinal cord, initial encounter (11) Gout: Status: Acute Qualifiers: Gout site: toe Gout etiology: unspecified cause Chronicity: chronic L aterality: right Presence of tophus: without tophus Qualified Code(s): M [id number].[id number] - Chronic gout, unspecified, without tophus (tophi) Category: Medical Code(s): M10.9 - Gout, unspecified (12) Bilateral leg weakness: Status: Acute Category: Medical Code(s): R29.898 - Other symptoms and signs involving the musculoskeletal system (13) Obesity: Status: Chronic Qualifiers: Obesity type: due to excess calories Obesity classification: adult class 3 (BMI >= 40) Serious obesity comorbidity presence: with serious comorbidity Body mass index: BMI 40.0-44.9 Qualified Code(s): E66.01 - Morbid (severe) obesity due to excess calories; Z68.41 - Body mass index [BMI]40.0- 44.9, adult Category: Medical Code(s): E66.9 - Obesity, unspecified Plan 1. Pulmonary embolism, asymptomatic at this time patient is on anticoagulation, able to tell if this is an acute or chronic problem as he is not having any difficulty breathing. Patient is presently on anticoagulation and is in no distress at this time. Can consider referral to pulmonology, this has not been determined yet, report will be given to day provider 2. 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 3. Grade 4 large sacral decubiti with undermining small lesion to the penis, wound care, physical therapy, Occupational Therapy all have been ordered, every 12 hours wet-to-dry dressing changes evaluation of wound care if changed 4. 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 Patient says he has a house he has a stepdaughter, who has her boyfriend there, and a mother,. He wants to be able to live at the house and to have home health come out and do his dressing changes. Case management consult has been put in with this information so it can be evaluated what can be done for him in the home, pending on the family support or lack of support Adult Protective Services may be needed. Patient is bound and determined that he will go home unsure if we can set up the resources for home health care and wound care at this point in time 5. Diabetes mellitus, will continue on present medicines holding some of his insulin until we get a better grasp on what his blood sugars are presently on sliding scale.
[2024-04-17 23:01] LABS: POC Glucose,Bedside 205 (70-110)
[2024-04-17] MEDS: PATIENT'S OWN HOME MEDICATION (Metoprolol Tartrate 100 mg tablet) 100 EACH PO (23:23)
[2024-04-17] MEDS: GABAPENTIN 300MG CAPSULE 300 MG PO (23:25)
[2024-04-17] MEDS: ATORVASTATIN 40MG TABLET 40 MG PO (23:25)
[2024-04-17] MEDS: OXYCODONE 10MG EXTENDED RELEASE TAB.ER.12H 10 MG PO (23:32)
[2024-04-17] MEDS: humaLOG 100 UNITS/ML 10ML VIAL (SSI) SUBCUT (23:33)
--- NOTE | 2024-04-18 03:44 | PC.NURSE ---
04/17/24 2100: this RN was attempting to do all the admission questions. Pt's answer to all questions I don't know. Pt. very angry and agitated with questions. Pt. than stated You are really annoying me and I am not going to answer any more questions. My ass hurts
[2024-04-18 04:00] VITALS: BP 138/70; PULSE 68; RESP 20; TEMP 36.5; O2SAT 94; BMI 28.3
--- NOTE | 2024-04-18 04:41 | PC.NURSE ---
04/18/24. Pt. has an ostomy on the left side abdomen. Ostomy leaking out the side of the ostomy. Ostomy changed out. Ostomy care done, chlorahexidine soap and water cleaned skin around the ostomy that had stool present on the skin. skin prep used around the ostomy site, stomahesive powder and stoma paste applied to the skin. New ostomy bag applied ove the ostomy site. Pt has loose brown stool coming out the ostomy site. Midline IV dressing loose and not occlusive. reinforced several times prior to coming to this floor for admission. dressing removed, aseptic technique used, cleaned with chlorahexidine scrub for one minute, one minute dry time. securement device applied to wings of the catheter, biopatch applied and tranparent dressing applied. reinforced on the lateral side of dressing.
--- NOTE | 2024-04-18 04:53 | PC.NURSE ---
04/18/24 0450: Pt was admitted from the ED tonight at shift change. Pt. is alert and orientated x 4. Pt. angry and uncooperative when he got up here and refused to answer admission questions. Pt. unkempt, has an ostomy on the left side of abdomen,purewick applied at admission. Pt. has a very large decubitus uncer to the sacral region. Wound large and deep, tunneling noted. wound red with yellow tissue. wound packed with wet kerlix gauze, covered with dry 4x4's and sacral border. Pt's buttocks is red and purple, skin tear to left upper mid buttocks. swelling toed around the wound. Pt. also has breakdown area on left side of mid penis. Skin dry, scaly. Pt. came with heel protectors in place. Heels vry dry and scaly but no open areas noted. Over the night patient became less uncooperative and was somewhat polite at times. Pt. paralysed below waist, Unable to move legs by himself and has limited use of the arms. Pt. had been at and was discharged to go to a long-term. Pt. 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 Pt. was medicated with oxycontin for pain. He is resting quietly, Turning every 2-3 hours. Pt. unable to use regular call hoang , push button call hoang given to patient.
[2024-04-18 06:48] LABS: POC Glucose,Bedside 125 (70-110)
[2024-04-18 07:24] LABS: HCV Ab Non Reactive (Non Reactive)
[2024-04-18 08:00] VITALS: BP 132/71; PULSE 77; RESP 15; TEMP 36.7; O2SAT 99
--- NOTE | 2024-04-18 09:05 | SW/DCPLANNER ---
Addendum entered by [facility] 04/22/24 10:01: Per Breanna w/ [facility] this patient has been approved SNF level of care. I have updated MD, patient and family. Addendum entered by [facility] 04/21/24 13:42: Breanna w/ [facility] stated that precert will be started today. I will update patient and his family. Addendum entered by [facility] 04/21/24 11:50: Patient/family are agreeable for information to be faxed to [facility]. I will follow up w/ Breanna at [facility] once information is reviewed. Addendum entered by [facility] 04/21/24 11:30: The following facilities are unable to accept patient: [facility], [facility], [facility], [facility], [facility]. I am also waiting to hear back from family (Emily) if patient information can be faxed to [facility]. Daughter is aware that patient is medically stable for discharge today. Daughter will call me back regarding [facility] vs taking patient home w/ home health services due to not being interested in Medicaid placement. Addendum entered by [facility] 04/18/24 14:17: Amy w/ [facility] is currently reviewing patient information. Addendum entered by [facility] 04/18/24 14:11: Candelaria w/ [facility] is now stating that patient's insurance is not in network w/ [facility]. [facility] is reviewing bed availability at [facility]. Addendum entered by [facility] 04/18/24 13:18: Candelaria w/ [facility] stated that she can accept patient and auth will be started today. Addendum entered by [facility] 04/18/24 13:03: [facility] is unable to accept patient at this time. Addendum entered by [facility] 04/18/24 10:31: Per patient/family request patient information has been faxed to [facility]/ [facility] and [facility]. Original Note: I spoke w/ this patient regarding plans once medically stable for discharge. PT/OT will evaluate patient this AM. Per patient he discharged from [facility] yesterday and [facility]. 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 Patient expressed that he is interested in placement only under short term and [facility]. Patient asked that I call and speak w/ his step daughter (Emily) regarding discharge plans. I called and spoke w/ Emily this AM. Emily stated that she resides w/ patient and helps care for him at home. Emily stated that she is willing to bring patient back home if someone is able to assist her w/ wound care and placement can not be established. Patient and Emily are interested in placement at [facility] or [facility]. I have faxed information to both facilities and will follow up once information is reviewed. Discharge date is unknown at this time. I will continue to follow up. Emily stated that she will be at bedside w/ patient today.
--- NOTE | 2024-04-18 09:14 | P.CONPHA_ITS ---
Pharmacy Intervention Comments: HOME MEDICATION LIST VERIFIED AND CORRECTED USING [facility] FROM [facility]
[2024-04-18 09:40] LABS: Basophils # 0.1 K/mm3 (0-0.2); Basophils % 1.1 % (0.1-2.0); Eosinophils # 0.4 K/mm3 (0.0-0.4); Eosinophils % 3.6 % (0.1-12.0); Hematocrit 33.9 % (42.0-52.0); Hemoglobin 11.5 g/dL (14.1-18.0); Lymphocytes # 1.5 K/mm3 (0.7-4.5); Lymphocytes % 12.3 % (10-50); Mean Corpuscular Hemoglobin 28.5 pg (27.0-31.2); Mean Platelet Volume 7.4 fl (7.4-10.4); Monocytes # 0.5 K/mm3 (0.1-1.0); Monocytes % 4.4 % (1.7-9.3); Neutrophils # 9.5 K/mm3 (1.8-7.8); Neutrophils % 78.5 % (37.0-80.0); Platelet Count 512 K/mm3 (142-424); Red Blood Count 4.03 M/mm3 (4.60-6.20); Red Cell Distribution Width 16.7 % (11.5-17.5); White Blood Count 12.1 K/mm3 (4.8-10.8)
[2024-04-18] MEDS: GABAPENTIN 300MG CAPSULE 300 MG PO (09:42)
[2024-04-18] MEDS: METOPROLOL TARTRATE 25MG TABLET 25 MG PO ×2 (09:42→20:25)
[2024-04-18] MEDS: CLOPIDOGREL 75MG TAB 75 MG PO (09:42)
[2024-04-18] MEDS: SERTRALINE 50MG TABLET 25 MG PO (09:42)
[2024-04-18] MEDS: PIPERACILLIN/TAZO 3.375 GM in 0.9 % SODIUM CHLORIDE 50 ML IV ×2 (09:43→17:07)
[2024-04-18 09:45] LABS: Albumin Level 3.4 g/dl (3.5-5.0); Chloride 103 mmol/L (98-107); Potassium 4.9 mmoL/L (3.5-5.1); Sodium 135 mmol/L (136-145)
[2024-04-18 09:48] LABS: Alanine Aminotransferase 14 U/L (12-78); Albumin/Globulin Ratio 0.9 (1.1-1.8); Alkaline Phosphatase 74 U/L (38-126); Anion Gap 12.9 mEq/L (5-15); Aspartate Amino Transferase 24 U/L (17-59); Bilirubin,Total 0.4 mg/dl (0.2-1.3); Blood Urea Nitrogen 6 mg/dl (9-20); Calcium 9.6 mg/dl (8.4-10.2); Carbon Dioxide 24 mmol/L (22.0-30.0); Creatinine Clearance Estimated 91 mL/min (50-200); Estimated Glomerular Filt Rate 165 ml/min (>60); GFR (African American) 199 ML/MIN (>60); Globulin 3.6 g/dL (1.3-3.2); Glucose 183 mg/dl (74-100)
--- NOTE | 2024-04-18 09:55 | HMH.OTEV ---
OT Inpatient Evaluation Rehab OT IP Evaluation Start: 04/17/24 19:43 Freq: ONCE Status: Active Protocol: Document 04/18/24 09:50 KEIRAMILLICENT (Rec: 04/18/24 09:54 KEIRAMILLICENT [id number]) Rehab OT IP Assessment Subjective History Patient who is long-term diabetic obesity cardiovascular disease with stent post [place] with history of hypertension.but ejection fraction noted being greater than 50% in 2022. He also had a hip replacement done . noted for smoking more than 30 years.. Also noted pneumonia status post COVID, and has had cystoscopy with issues with bladder and urinary retention. CT scan shows left pulmonary embolism. Present problem began on 2023 was fell at home was found 24 hours later down, cervical spine fracture with compression of the spinal cord . Leaving him a paraplegic. He has noted that he has a large amount of right knee pain, but has feeling to the right knee and feeling in the left leg. Patient also noted with colonoscopy.. Patient was noted that he went from [place] [facility] [place] and developed a sacral ulcer. He was seen in our emergency room on 12/26/2023 and was transferred to [place] because was on divert currently there was some type of abnormal CT scan of the right thigh that showed air. In the muscle. The patient was released from the [facility] to come to a local [place] [facility] care facility.. 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 For that reason he was [place] the [place] and brought to our emergency room.. 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 Patient noted for large amounts of insulin large amounts of Lasix in his medication, these will need to be monitored and adjusted as needed while he is a patient here. And then be able to be adjusted to what he will need at home depending upon his diet. Patient is alert and oriented but is resistive to even answering questions that the nursing staff wanted, he does not like being turned due to the pain in his right knee . And gives the appearance that he just wants to. not deal with a lot of this. Unsure if this is just his personality or some type of mild dementia/confusion Subjective Be easy. My right leg hurts. Instructed Patient on using B UE to assist with bed mobility of rolling side to side requiring Max A X2. Patient required Max A to remain on left side while clinical account specialist PT address wound. Patient required TD x2 to be repositioned to promote comfort and positioning in bed . Objective Patient Orientation Person,Place,Name Right Upper Extremity Gross ROM WFL Left Upper Extremity Gross ROM WFL Bed Mobility bed mobility - supine/sit Assist Level Maximum x 2 (75% assist) Rehab OT IP prob,goals,plan Problems Date of Evaluation: 04/18/24 OT IP Problems Bed Mobility,Transfers,Balance ,Self care,Safety Rehab Potential Rehab Potential Good Equipment Needs Assistive Devices None / NA Plan OT intervention Plan Bed Mobility,Transfers,Balance ,Self care,Safety,Therapeutic Exercise OT Plan Frequency Daily Duration LOS Discharge Goals Bed Mobility Ability Assistance x1 Discharge Plan OT Discharge Plan Recommend placement at this time. Patient is unable to provide care independently to complete ADLs and fx'l mobility safely. Patient to continue skilled OT Services while here at [facility] til proper medical d/c. Eval Complexity Eval Charge Codes 14179 - Low Complexity PHYSICIAN CERTIFICATION: I certify the specified therapy services for Jam Alamo are required, authorized, and reviewed every 30 days.
[2024-04-18 10:21] LABS: POC Glucose,Bedside 183 (70-110)
--- NOTE | 2024-04-18 10:24 | HMH.PTEV ---
Physical Therapy Evaluation Rehab PT IP Evaluation Start: 04/17/24 19:43 Freq: ONCE Status: Active Protocol: Document 04/18/24 10:15 SEBASTIAN (Rec: 04/18/24 10:24 SEBASTIAN [id number]) Subjective/History History History Per H&P: Patient who is long- term diabetic obesity cardiovascular disease with stent post [place] with history of hypertension.but ejection fraction noted being greater than 50% in 2022. He also had a hip replacement done . noted for smoking more than 30 years.. Also noted pneumonia status post COVID, and has had cystoscopy with issues with bladder and urinary retention. CT scan shows left pulmonary embolism. Present problem began on 2023 was fell at home was found 24 hours later down, cervical spine fracture with compression of the spinal cord . Leaving him a paraplegic. He has noted that he has a large amount of right knee pain, but has feeling to the right knee and feeling in the left leg. Patient also noted with colonoscopy.. Patient was noted that he [facility] to a [facility] and developed a sacral ulcer. He was seen in our emergency room on 12/26/2023 and was transferred to [place] because was on divert currently there was some type of abnormal CT scan of the right thigh that showed air. In the muscle. The patient was released from the [facility] to come to a local detention.. 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 For that reason he was discharged from the detention and brought to our emergency room.. 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 Subjective Subjective Pt reports he lives in a home with his family who is available to assist him as needed. Pt owns a w/c, hospital bed, and lift. Pt reports he was primarily bed bound prior to admission. New diagnosis of cancer in past 12 No months? Rehab PT IP Eval Objective Appearance Patient Behavior Appropriate,Guarded Patient Orientation Person,Situation Difficulty following instructions mild Speech Pattern Clear Ambulation Patient Able to Ambulate No Balance Ability to Arise Unable Transfers Bed Transfer Ability Maximum x 2 (75% assist) Chair Transfer Ability Total/Dependent (100%) Rehab PT IP prob,goals,plan Problems Date of Evaluation: 04/18/24 PT IP Problems Bed Mobility,Transfers,Gait, Balance,Self care,Safety Rehab Potential Rehab Potential Good Plan PT Intervention Plan Bed Mobility,Transfers,Gait, Balance,Self care,Safety, Therapeutic Exercise Other Intervention Plan 1-2 times PT Plan Frequency Daily Duration LOS Discharge Goals Bed Transfer Ability Maximum x 1 (75% assist) Discharge Plan PT Discharge Plan Initial physical therapy evaluation performed. Patient presents below baseline at this time in functional mobility, transfers, and strength. Pt required Max A to remain on left side while events specialist PT assessed sacral wound. D/t his strength and bed mobility, pt will require Sha lift for bed <> chair transfers. Pt not safe to return home at this time d/ t current level of functional mobility. PT recommending short-term rehabilitation stay upon d/c from [facility]. Pt would benefit from skilled PT while at [facility] to prevent further functional decline and maximize safety with mobility. Eval Complexity Eval Charge Codes 46398 - Moderate Complexity PHYSICIAN CERTIFICATION: I certify the specified therapy services for Jam Alamo are required, authorized, and reviewed every 30 days.
[2024-04-18] MEDS: humaLOG 100 UNITS/ML 10ML VIAL (SSI) SUBCUT ×2 (10:49→17:07)
--- NOTE | 2024-04-18 10:50 | HMH.PTWOUND ---
Rehab Inpt Wound Evaluation Rehab IP Wound Evaluation Start: 04/17/24 19:38 Freq: ONCE Status: Active Protocol: Document 04/18/24 10:42 ZEKE (Rec: 04/18/24 10:50 PHORPATRICIO [id number]) Rehab PT Wound Assessment Subjective Subjective Present problem began on 2023 was fell at home was found 24 hours later down, cervical spine fracture with compression of the spinal cord . Leaving him a paraplegic. He has noted that he has a large amount of right knee pain, but has feeling to the right knee and feeling in the left leg. Patient also noted with colonoscopy.. Patient was [facility] and developed a sacral ulcer. He was seen in our emergency room on 12/26/2023 and was transferred to [place] because was on divert currently there was some type of abnormal CT scan of the right thigh that showed air. In the muscle. The patient was released from the [facility] to come to a local [facility]p.. 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 For that reason he was [facility] the [facility] and brought to our emergency room.. 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 He appears to have suffered necrotizing soft tissue infection necessitating large area of debridement to his sacrum. He presents on admission with large sacral full thickness wound, if staged would be stage IV with palpable bone at the wound base and large tunnel at 7 o' clock. Wound Sacrum Wound Type post I&D Is This a Chronic Wound Yes Wound Staging Stage IV Query Text:Stage I - Unbroken, red skin, no blanching. Stage II - Skin broken, superficial skin loss involving epidermis alone or also dermis. Partial loss of skin layers. Stage III - Pressure area involves epidermis, dermis and subcutaneous tissue, full thickness skin loss. Stage IV - Pressure area involves epidermis, subcutaneous tissue, bone and other supportive tissue. Full thickness skin loss with extensive destruction of underlying tissue and structures. Wound Length (cm) 12.5 Wound Width (cm) 9.5 Wound Depth (cm) 2.0 Wound Bed Appearance Beefy Red,Yellow Percentage Granulated (%) 90 Percentage of Slough (%) 10 Wound Margins Description Well Defined Tunneling Position 5 o'clock Tunneling Depth (cm) 7.7 Surrounding Tissue Appearance Dark Red,Purple Wound Drainage Description Sanguineous,Serosanguineous Drainage Amount Moderate Packing Type Alginate Comment 2 sheets Primary Dressing Absorbant Pad Comment 4x4 gauze and ABD pad Wound Debridement Method Gauze,Mechanical Wound Debridement Amount of Tissue Minimal Removed Wound Debridement Result Yellow Sloughing Remains Dressing Change Patient Tolerance Tolerated Well Plan/Recommendation Comment Wound VAC dressing not currently appropriate due to yellow slough remaining in the wound bed. Will follow for debridement at bedside as pt tolerates as he does have sensation and increased pain with rolling in bed. Consider a plastic surgery consult if pt desires significant healing to occur. Eval Complexity Eval Charge Codes 12024 - High Complexity Mobley-Maciel Wound Assessment Tool Assessment Wound size 5=Length x Width >80 sq cm Wound depth 5=Full thickness skin loss with extensive destruction, tissue necrosis Wound edges 3=Well-defined, not attached to wound base Wound undermining 5=Undermining >4 cm or tunneling in any area Necrotic tissue type 3=Loosely adherent yellow slough Necrotic tissue amount 2=<25% of wound bed covered Exudate type 3=Serosanguineous: thin, watery, pale red/pink Exudate amount 4=Moderate Skin color surrounding wound 2=Bright red &/or blanches to touch Peripheral tissue edema 2=Non-pitting edema extends <4 cm around wound Peripheral tissue induration 1=None present Granulation tissue 2=Bright, beefy red;75% to 100 % of wound filled &/or tissue overgrowth Epithelialization 5= < 25% wound covered Wound assessment total score 42 PHYSICIAN CERTIFICATION: I certify the specified therapy services for Jam Alamo are required, authorized, and reviewed every 30 days.
[2024-04-18] MEDS: DAPTOmycin 500 MG in 0.9 % SODIUM CHLORIDE 50 ML 100 MG IV (11:42)
[2024-04-18] MEDS: PAT OWN MED ***GABAPENTIN 300MG 300 MG PO ×2 (12:33→20:25)
[2024-04-18 13:53] VITALS: BMI 28.3
--- NOTE | 2024-04-18 14:41 | DIET.NUTRFU ---
RD saw patient secondary to skin breakdown, see wound note. When visited he was not very talkative. He is a picky eater, dislikes most proteins. He is aware he needs protein to promote healing. Started glucerna x2 with all meals to provide 60gm protein/day if consumed, he is also receiving prostat AWC providing 30gm protein along with Vitamin C, arginaid for healing. Labs reviewed, will continue to monitor po intake.
--- NOTE | 2024-04-18 14:47 | PC.NURSE ---
Aox4, turn every two hours which he refuses, on RA, FSBG ACHS, sacral wound dressing done by physical therapy, R UA midline c/d/i, purewick in place, L colostomy c/d/i, diabetic diet.
[2024-04-18 16:00] VITALS: BP 138/69; PULSE 75; RESP 14; TEMP 36.7; O2SAT 98
[2024-04-18 16:22] LABS: POC Glucose,Bedside 211 (70-110)
[2024-04-18 19:35] VITALS: BP 162/83; PULSE 82; RESP 16; TEMP 37; O2SAT 97
--- NOTE | 2024-04-18 20:22 | PC.NURSE ---
Pt refusing finger stick at this time. K Anderson KELLER notified.
[2024-04-18] MEDS: PRO-STAT AWC 30ML LIQUID PACKET 30 ML PO (20:24)
[2024-04-18] MEDS: PAT OWN MED ***TAMSULOSIN 0.4MG 0.8 MG PO (20:25)
[2024-04-18] MEDS: PAT OWN MED ***PANTOPRAZOLE 40MG 40 MG PO (20:25)
[2024-04-18] MEDS: OXYCODONE 5MG IMMEDIATE RELEASE TABLET 5 MG PO ×2 (20:28→22:06)
[2024-04-18] MEDS: ONDANSETRON 4MG/2ML VIAL 4 MG IV (20:28)
--- NOTE | 2024-04-18 21:37 | P.PN_ITS ---
Subjective *Date: 04/22/24 *Time: 00:02 Exam Data for Last 24 hours Vital signs and Labs for Last 24 Hours: Temp Pulse Resp BP Pulse Ox O2 Del Method 98.6 F 82 16 162/83 H 97 Room Air 04/18/24 19:35 04/18/24 19:35 04/18/24 19:35 04/18/24 19:35 04/18/24 19:35 04/18/24 19:35 Laboratory Results - last 24 hr 04/17/24 16:26: Hepatitis C Antibody Non reactive 04/17/24 22:48: POC Glucose 205 H 04/18/24 06:40: POC Glucose 125 H 04/18/24 09:26: WBC 12.1 H, RBC 4.03 L, Hgb 11.5 L, Hct 33.9 L, MCV 84.0, MCH 28.5, MCHC 34.0, RDW 16.7, Plt Count 512 H, MPV 7.4, Neut % (Auto) 78.5, Lymph % (Auto) 12.3, Payette % (Auto) 4.4, Eos % (Auto) 3.6, Baso % (Auto) 1.1, Neut # (Auto) 9.5 H, Lymph # (Auto) 1.5, Payette # (Auto) 0.5, Eos # (Auto) 0.4, Baso # (Auto) 0.1, Sodium 135 L, Potassium 4.9, Chloride 103, Carbon Dioxide 24, Anion Gap 12.9, BUN 6 L, Creatinine 0.50 L, Estimated Creat Clear 91, Estimated GFR 165, Est GFR ( Amer) 199 D, Glucose 183 H, Calcium 9.6, Total Bilirubin 0.4, AST 24, ALT 14 D, Alkaline Phosphatase 74, Total Protein 7.0, Albumin 3.4 L, Globulin 3.6 H, Albumin/Globulin Ratio 0.9 L 04/18/24 10:14: POC Glucose 183 H 04/18/24 16:14: POC Glucose 211 H I & O for Last 24 hours: Intake & Output 04/15/24 04/16/24 04/17/24 04/18/24 23:59 23:59 23:59 23:59 Intake Total 1700 / 1700 Output Total 50 / 50 1325 / 1325 Balance -50 / -50 375 / 375 Weight 91.58 kg 91.989 kg Constitutional Constitutional: no acute distress *Routine HEENT Exam Head: Present normocephalic Eye: Present EOMI and PERRL ENT: Present mucous membranes moist *Routine Neck Exam Neck: Present supple; Absent lymphadenopathy *Routine Respiratory Exam Respiratory: Present CTA bilaterally *Routine Cardiovascular Exam Cardiovascular: Present RRR *Routine Abdominal Exam Abdominal: Present soft and normoactive bowel sounds; Absent tenderness Comments: stage 4 sacral ulcer *Routine Extremities Exam Extremities: Absent cyanosis, clubbing or edema *Routine Skin Exam Skin: Present warm; Absent rash *Routine Neurological Exam Neurological: Present alert and oriented X3 Assessment and Plan *Assessment and plan (1) Pulmonary embolism: Status: Acute Qualifiers: Pulmonary embolism type: unspecified Chronicity: unspecified Acute cor pulmonale presence: without acute cor pulmonale Qualified Code(s): I26.99 - Other pulmonary embolism without acute cor pulmonale Category: Medical Code(s): I26.99 - Other pulmonary embolism without acute cor pulmonale (2) Decubitus ulcer of sacral area: Status: Acute Qualifiers: Pressure injury stage: stage 4 Qualified Code(s): L89.154 - Pressure ulcer of sacral region, stage 4 Category: Medical Code(s): L89.159 - Pressure ulcer of sacral region, unspecified stage (3) Paraplegia: Status: Acute Category: Medical Code(s): G82.20 - Paraplegia, unspecified (4) Encounter for wound care: Status: Acute Category: Medical Code(s): Z51.89 - Encounter for other specified aftercare (5) Hyperglycemia: Status: Acute Category: Medical Code(s): R73.9 - Hyperglycemia, unspecified (6) Hypertension: Status: Acute Qualifiers: Hypertension type: unspecified Qualified Code(s): I10 - Essential (primary) hypertension Category: Medical Code(s): I10 - Essential (primary) hypertension (7) Chronic pain: Status: Chronic Qualifiers: Chronic pain type: other chronic pain Qualified Code(s): G89.29 - Other chronic pain Category: Medical Code(s): G89.29 - Other chronic pain (8) Hypertension: Status: Chronic Qualifiers: Hypertension type: unspecified Qualified Code(s): I10 - Essential (primary) hypertension Category: Medical Code(s): I10 - Essential (primary) hypertension (9) Diabetes: Status: Chronic Qualifiers: Diabetes mellitus type: type 2 Diabetes mellitus terminal make up operator insulin use: with terminal make up operator use Diabetes mellitus complication status: with other specified complication Qualified Code(s): E11.69 - Type 2 diabetes mellitus with other specified complication Category: Medical Code(s): E11.9 - Type 2 diabetes mellitus without complications (10) Cervical spinal cord injury: Status: Acute Qualifiers: Encounter type: sequela Qualified Code(s): S14.109S - Unspecified injury at unspecified level of cervical spinal cord, sequela Category: Medical Code(s): S14.109A - Unspecified injury at unspecified level of cervical spinal cord, initial encounter (11) Gout: Status: Acute Qualifiers: Gout site: toe Gout etiology: unspecified cause Chronicity: chronic Laterality: right Presence of tophus: without tophus Qualified Code(s): M1A.9XX0 - Chronic gout, unspecified, without tophus (tophi) Category: Medical Code(s): M10.9 - Gout, unspecified (12) Bilateral leg weakness: Status: Acute Category: Medical Code(s): R29.898 - Other symptoms and signs involving the musculoskeletal system (13) Obesity: Status: Chronic Qualifiers: Obesity type: due to excess calories Obesity classification: adult class 3 (BMI >= 40) Serious obesity comorbidity presence: with serious comorbidity Body mass index: BMI 40.0-44.9 Qualified Code(s): E66.01 - Morbid (severe) obesity due to excess calories; Z68.41 - Body mass index [BMI]40.0- 44.9, adult Category: Medical Code(s): E66.9 - Obesity, unspecified Plan Jam Alamo is a 68-year-old male with a medical history significant for cervical paraplegia, stage IV sacral ulcer, history of sacral necrotizing fasciitis who 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 #Stage 4 sacral ulcer - Unfortunately, paraplegic after falling and fracturing cervical spine. - H/o of nec fac s/p debridement. - Continue Dapto, Zosyn. End date 04/21/2024 per OSH [facility] in [place]. - Will consult general surgery to obtain input before discharge to another SNF. - Case management following, assisting with other placement options. - Wound care consulted. Deemed wound is not appropriate for wound vac at this time due to yellow sloughing. May benefit referral to plastic surgery. #Peripheral neuropathy #Back spasms #Back pain - Continue home gabapentin, baclofen - Continue home oxycodone #Anxiety/depression - Sertraline 25mg. #Diabetes - F/u morning A1c. - ACHS glucose checks, LDSSI. #History of PE - Home Xarelto 15mg. FULL CODE Xarelto
--- NOTE | 2024-04-18 22:12 | PC.NURSE ---
Pt bathed at this time by this RN, Toy CONCEPCION, and Jeanne CONCEPCION. Pts linens, gown, and colostomy bag were changed. Pt was repositioned in bed, turned to right side again per request, and given a warm blanket. Dressing on sacrum reinforced with additional paper tape. Pt was rating pain 10/10 after bath, and had already been given PRN pain medication per MAR. Kenrick Barron BOARD OF DIRECTORS was contacted and order was placed for additional pain medication. see MAR. Pt appears to be agitated, and voices negative comments to staff frequently.
[2024-04-19] VITALS: BP 122/68; PULSE 78; RESP 18; TEMP 36.6; O2SAT 97
[2024-04-19] MEDS: PIPERACILLIN/TAZO 3.375 GM in 0.9 % SODIUM CHLORIDE 50 ML IV ×3 (02:32→17:24)
--- NOTE | 2024-04-19 03:21 | PC.NURSE ---
pt reports right eye irritation X3 weeks. eye is watery and red. Kenrick Barron FABRIC SEPARATOR OPERATOR called and came to bedside to assess pt. States he is placing new orders for eye drops.
--- NOTE | 2024-04-19 03:25 | P.EN_ITS ---
<Statement entered by Omar Murguia MD - 04/20/24 22:46> I personally examined patient and agree with AUXILIARY EQUIPMENT TENDER's plan of care. problem:, Patient has been complaining part of the shift about his right eye bothering him. Last night nurses were able to flush out an eyelash that was bothering. His right eye continues tonight to water and irritate Exam: I examined the eye did not use fluorescein but saw no obvious corneal abrasion or any other foreign body. The eye is definitely watering though and looks a little irritated Plan: The nurse tonight had flushed the eye once a couple hours ago, I have once again flushed it with 20 cc of normal saline and saw no foreign body., Will use ophthalmic tetracaine to drop to the right eye that may be repeated wi th x 1 in 1 hour if needed. Hope that this will give him enough relief that he will not rub the eye that it may be less irritated and what ever rotation that was there has been washed out. Will give report to oncoming daytime provider to recheck. Was not able to locate any lubricating eyedrops in the [facility].
[2024-04-19] MEDS: TETRACAINE 0.5% OPTH SOL 15ML OP (03:41)
--- NOTE | 2024-04-19 03:50 | PC.NURSE ---
Pt has been turned on side with wedge and pillows and repositioned multiple times this shift. Booties in place on BLE. Pt has been medicated PRN for pain and nausea per MAR. Pt bathed this shift. Remains on RA, tolerating well. PICC to CHOLO. External catheter in place draining clear, yellow urine. Colostomy to LLQ changed multiple times this shift, draining soft/brown stool. Dressing to sacral wound in place and reinforced with paper tape. Wound draining serosanguineous fluid, foul odor noted.
[2024-04-19 04:00] VITALS: BMI 28.8
[2024-04-19 04:29] VITALS: BP 121/59; PULSE 81; RESP 18; TEMP 36.8; O2SAT 97
[2024-04-19 06:46] LABS: POC Glucose,Bedside 150 (70-110)
[2024-04-19 08:00] VITALS: BP 128/62; PULSE 93; RESP 18; TEMP 36.5; O2SAT 98
[2024-04-19] MEDS: PRO-STAT AWC 30ML LIQUID PACKET 30 ML PO ×2 (08:41→20:27)
[2024-04-19] MEDS: SANTYL TP (08:41)
[2024-04-19] MEDS: PAT OWN MED ***CLOPIDOGREL 75MG 75 MG PO (08:41)
[2024-04-19] MEDS: METOPROLOL TARTRATE 25MG TABLET 25 MG PO ×2 (08:42→20:27)
[2024-04-19] MEDS: PAT OWN MED ***GABAPENTIN 300MG 300 MG PO ×3 (08:42→20:27)
[2024-04-19] MEDS: SERTRALINE 50MG TABLET 25 MG PO (08:42)
[2024-04-19 08:49] LABS: Basophils # 0.1 K/mm3 (0-0.2); Basophils % 0.8 % (0.1-2.0); Eosinophils # 0.3 K/mm3 (0.0-0.4); Eosinophils % 2.7 % (0.1-12.0); Hematocrit 34.8 % (42.0-52.0); Hemoglobin 11.5 g/dL (14.1-18.0); Lymphocytes # 1.5 K/mm3 (0.7-4.5); Lymphocytes % 12.9 % (10-50); Mean Corpuscular HGB Conc 33.2 g/dL (31.8-35.4); Mean Corpuscular Volume 84.4 fl (80-94); Mean Platelet Volume 7.5 fl (7.4-10.4); Monocytes # 0.6 K/mm3 (0.1-1.0); Monocytes % 4.9 % (1.7-9.3); Neutrophils # 8.9 K/mm3 (1.8-7.8); Neutrophils % 78.7 % (37.0-80.0); Platelet Count 498 K/mm3 (142-424); Red Blood Count 4.12 M/mm3 (4.60-6.20); Red Cell Distribution Width 16.7 % (11.5-17.5); White Blood Count 11.4 K/mm3 (4.8-10.8)
[2024-04-19 09:02] LABS: Alanine Aminotransferase 22 U/L (12-78); Albumin Level 3.3 g/dl (3.5-5.0); Albumin/Globulin Ratio 0.9 (1.1-1.8); Alkaline Phosphatase 82 U/L (38-126); Anion Gap 15.8 mEq/L (5-15); Aspartate Amino Transferase 26 U/L (17-59); Bilirubin,Total 0.5 mg/dl (0.2-1.3); Blood Urea Nitrogen 8 mg/dl (9-20); Calcium 9.5 mg/dl (8.4-10.2); Carbon Dioxide 24 mmol/L (22.0-30.0); Chloride 101 mmol/L (98-107); Creatinine Clearance Estimated 92 mL/min (50-200); Estimated Glomerular Filt Rate 134 ml/min (>60); GFR (African American) 162 ML/MIN (>60); Globulin 3.6 g/dL (1.3-3.2); Glucose 208 mg/dl (74-100); Potassium 4.8 mmoL/L (3.5-5.1); Sodium 136 mmol/L (136-145); Total Protein,Serum 6.9 g/dl (6.3-8.2)
[2024-04-19] MEDS: humaLOG 100 UNITS/ML 10ML VIAL (SSI) SUBCUT ×2 (11:07→20:29)
[2024-04-19] MEDS: DAPTOmycin 500 MG in 0.9 % SODIUM CHLORIDE 50 ML 100 MG IV (11:27)
[2024-04-19 11:28] LABS: POC Glucose,Bedside 212 (70-110)
[2024-04-19] MEDS: OXYCODONE 10MG EXTENDED RELEASE TAB.ER.12H 10 MG PO (13:36)
[2024-04-19 15:38] VITALS: BP 145/77; PULSE 85; RESP 20; TEMP 36.6; O2SAT 98
--- NOTE | 2024-04-19 16:07 | P.PN_ITS ---
Subjective *Date: 04/21/24 *Time: 23:59 Interval history: Patient continues to be good spirits, no complaints today. No chest pain, SOB. Exam Data for Last 24 hours Vital signs and Labs for Last 24 Hours: Temp Pulse Resp BP Pulse Ox O2 Del Method 97.9 F 85 20 145/77 H 98 Room Air 04/19/24 15:38 04/19/24 15:38 04/19/24 15:38 04/19/24 15:38 04/19/24 15:38 04/19/24 14:36 Laboratory Results - last 24 hr 04/18/24 16:14: POC Glucose 211 H 04/19/24 06:36: POC Glucose 150 H 04/19/24 08:37: WBC 11.4 H, RBC 4.12 L, Hgb 11.5 L, Hct 34.8 L, MCV 84.4, MCH 28.0, MCHC 33.2, RDW 16.7, Plt Count 498 H, MPV 7.5, Neut % (Auto) 78.7, Lymph % (Auto) 12.9, [place] % (Auto) 4.9, Eos % (Auto) 2.7, Baso % (Auto) 0.8, Neut # (Auto) 8.9 H, Lymph # (Auto) 1.5, [place] # (Auto) 0.6, Eos # (Auto) 0.3, Baso # (Auto) 0.1, Sodium 136, Potassium 4.8, Chloride 101, Carbon Dioxide 24, Anion Gap 15.8 H, BUN 8 L D, Creatinine 0.60 L, Estimated Creat Clear 92, Estimated GFR 134, Est GFR ( Amer) 162, Glucose 208 H, Calcium 9.5, Total Bilirubin 0.5, AST 26, ALT 22 D, Alkaline Phosphatase 82, Total Protein 6.9, Albumin 3.3 L, Globulin 3.6 H, Albumin/Globulin Ratio 0.9 L 04/19/24 11:02: POC Glucose 212 H I & O for Last 24 hours: Intake & Output 04/16/24 04/17/24 04/18/24 04/19/24 23:59 23:59 23:59 23:59 Intake Total 1700 / 1700 840 / 840 Output Total 50 / 50 1325 / 1700 2225 / 2225 Balance -50 / -50 375 / 0 -1385 / -1385 Weight 91.58 kg 91.989 kg 93.582 kg Microbiology Reports for the Last 24 Hours: Microbiology 04/17/24 16:58 Urine,Clean Catch Urine Culture - Final Constitutional Constitutional: no acute distress *Routine HEENT Exam Head: Present normocephalic Eye: Present EOMI and PERRL ENT: Present mucous membranes moist *Routine Neck Exam Neck: Present supple; Absent lymphadenopathy *Routine Respiratory Exam Respiratory: Present CTA bilaterally *Routine Cardiovascular Exam Cardiovascular: Present RRR *Routine Abdominal Exam Abdominal: Present soft and normoactive bowel sounds; Absent tenderness Comments: stage 4 sacral ulcer *Routine Extremities Exam Extremities: Absent cyanosis, clubbing or edema *Routine Skin Exam Skin: Present warm; Absent rash *Routine Neurological Exam Neurological: Present alert and oriented X3 Assessment and Plan *Assessment and plan (1) Pulmonary embolism: Status: Acute Qualifiers: Pulmonary embolism type: unspecified Chronicity: unspecified Acute cor pulmonale presence: without acute cor pulmonale Qualified Code(s): I26.99 - Other pulmonary embolism without acute cor pulmonale Category: Medical Code(s): I26.99 - Other pulmonary embolism without acute cor pulmonale (2) Decubitus ulcer of sacral area: Status: Acute Qualifiers: Pressure injury stage: stage 4 Qualified Code(s): L89.154 - Pressure ulcer of sacral region, stage 4 Category: Medical Code(s): L89.159 - Pressure ulcer of sacral region, unspecified stage (3) Paraplegia: Status: Acute Category: Medical Code(s): G82.20 - Paraplegia, unspecified (4) Encounter for wound care: Status: Acute Category: Medical Code(s): Z51.89 - Encounter for other specified aftercare (5) Hyperglycemia: Status: Acute Category: Medical Code(s): R73.9 - Hyperglycemia, unspecified (6) Hypertension: Status: Acute Qualifiers: Hypertension type: unspecified Qualified Code(s): I10 - Essential (primary) hypertension Category: Medical Code(s): I10 - Essential (primary) hypertension (7) Chronic pain: Status: Chronic Qualifiers: Chronic pain type: other chronic pain Qualified Code(s): G89.29 - Other chronic pain Category: Medical Code(s): G89.29 - Other chronic pain (8) Hypertension: Status: Chronic Qualifiers: Hypertension type: unspecified Qualified Code(s): I10 - Essential (primary) hypertension Category: Medical Code(s): I10 - Essential (primary) hypertension (9) Diabetes: Status: Chronic Qualifiers: Diabetes mellitus type: type 2 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 Diabetes mellitus complication status: with other specified complication Qualified Code(s): E11.69 - Type 2 diabetes mellitus with other specified complication Category: Medical Code(s): E11.9 - Type 2 diabetes mellitus without complications (10) Cervical spinal cord injury: Status: Acute Qualifiers: Encounter type: sequela Qualified Code(s): S14.109S - Unspecified injury at unspecified level of cervical spinal cord, sequela Category: Medical Code(s): S14.109A - Unspecified injury at unspecified level of cervical spinal cord, initial encounter (11) Gout: Status: Acute Qualifiers: Gout site: toe Gout etiology: unspecified cause Chronicity: chronic Laterality: right Presence of tophus: without tophus Qualified Code(s): M1A.9XX0 - Chronic gout, unspecified, without tophus (tophi) Category: Medical Code(s): M10.9 - Gout, unspecified (12) Bilateral leg weakness: Status: Acute Category: Medical Code(s): R29.898 - Other symptoms and signs involving the musculoskeletal system (13) Obesity: Status: Chronic Qualifiers: Obesity type: due to excess calories Obesity classification: adult class 3 (BMI >= 40) Serious obesity comorbidity presence: with serious comorbidity Body mass index: BMI 40.0-44.9 Qualified Code(s): E66.01 - Morbid (severe) obesity due to excess calories; Z68.41 - Body mass index [BMI]40.0- 44.9, adult Category: Medical Code(s): E66.9 - Obesity, unspecified Plan Jam Alamo is a 68-year-old male with a medical history significant for cervical paraplegia, stage IV sacral ulcer, history of sacral necrotizing fasciitis 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 #Stage 4 sacral ulcer #Functional paraplegia - Unfortunately, paraplegic after falling and fracturing cervical spine about a year ago. Paralyzed waist down. - H/o of nec fac s/p debridement. Has undergone 3 debridements and October, 2 debridements in April. Records from [facility] indicate that he may need future debridements. - Continue Dapto, Zosyn as patient continues to have leukocytosis 12.1-11.4. End date 04/21/2024 per OSH [facility] in [place]. Unclear what the start date is at this time per outside records. - Wound care consulted. Deemed wound is not appropriate for wound vac at this time due to yellow sloughing. ? PT/OT consulted, recommended SNF placement. - Case management following, assisting with other placement options. - Patient will benefit from follow-up with plastic surgery on an outpatient basis. #Peripheral neuropathy #Back spasms #Back pain - Continue home gabapentin, baclofen - Continue home oxycodone #CAD ? Plavix. #Hypertension ? Metoprolol tartrate 25 mg twice daily. #Urinary retention ? Flomax. #Anxiety/depression - Sertraline 25mg. #Diabetes - Hemoglobin A1c 6.3% - [facility] glucose checks, LDSSI. #History of PE - Home Xarelto 15mg. FULL CODE Xarelto
--- NOTE | 2024-04-19 18:46 | PC.NURSE ---
A&OX4. TOLERATING RA WELL. PATIENT HAS HAD A DECENT DAY. REMAINS IN BED, X2 ASSIST. TURNING PATIENT Q2H OR MORE FREQUENTLY. PATIENT DOES FAVOR RIGHT SIDE. HEEL PROTECTORS IN PLACE. COLOSTOMY TO LLQ, LARGE AMOUNT OF BROWN LIQUID STOOL AND GAS EMPTIED T/O THE SHIFT. STRONG ODOR. PURE WICK IN PLACE DRAINING CLEAR BRIGHT YELLOW URINE. DRESSING CHANGED AT 1330 THIS AFTERNOON. WET TO DRY DRESSING AND SOME PACKING APPLIED. NEW DRESSING IS CDI. UPON REMOVING OLD DRESSING, FOUND LARGE AMOUNT OF MORA-TOYIN ESCHAR AND SEROSANG DRAINAGE NOTED. VERY FOUL ODOR NOTED. PATIENT TOLERATED THIS WELL. PAIN MEDICATION ADMINISTERED PER MAR, EFFECTIVENESS NOTED. PILLOWS AND WEDGE USED TO KEEP PRESSURE OFF BOTTOM MUCH POSSIBLE. PT HAS NOT HAD MUCH OF AN APPETITE TODAY, BUT HAS DONE WELL DRINKING HIS ENSURES. PATIENT HAS BEEN A LOT MORE CHEERFUL T/O THE SHIFT. RESPONDS WELL TO POSITIVE AND UPLIFTING ENERGY. NO OTHER NEEDS OR C/O NOTED THUS FAR. VSS.
[2024-04-19 20:00] VITALS: BP 129/73; PULSE 90; RESP 16; TEMP 36.7; O2SAT 96
[2024-04-19] MEDS: PAT OWN MED ***PANTOPRAZOLE 40MG 40 MG PO (20:28)
[2024-04-19] MEDS: PAT OWN MED ***TAMSULOSIN 0.4MG 0.8 MG PO (20:29)
[2024-04-19 20:51] LABS: POC Glucose,Bedside 217 (70-110)
--- NOTE | 2024-04-19 21:26 | P.EN_ITS ---
<Statement entered by Omar Murguia MD - 04/20/24 22:45> I personally examined patient and agree with EDITORIAL PROJECT MANAGER's plan of care. Problem, patient is refusing most of his fingersticks. He is on medium sliding scale, Exam: Patient is stable unchanged from previous exams plan: Will leave the sliding scale on medium even though most of the blood sugars are 200 above since on average she is probably only getting it twice a day instead of 4 times a day. Patient is can complete understanding about his blood sugar but just does not want to have his finger stuck very often. The nurses sometimes can encourage him to let them check his finger especially at night before he goes to sleep. Will not change anything at this time
[2024-04-20] MEDS: PIPERACILLIN/TAZO 3.375 GM in 0.9 % SODIUM CHLORIDE 50 ML IV ×3 (02:47→18:06)
[2024-04-20 04:00] VITALS: BP 130/73; PULSE 83; RESP 16; TEMP 36.6; O2SAT 98; BMI 28.8
[2024-04-20 05:27] LABS: POC Glucose,Bedside 144 (70-110)
[2024-04-20 08:00] VITALS: BP 131/71; PULSE 88; RESP 18; TEMP 36.6; O2SAT 95
[2024-04-20] MEDS: PRO-STAT AWC 30ML LIQUID PACKET 30 ML PO ×2 (09:11→20:29)
[2024-04-20] MEDS: PAT OWN MED ***GABAPENTIN 300MG 300 MG PO ×3 (09:11→20:29)
[2024-04-20] MEDS: BACLOFEN 10 MG PO ×2 (09:11→16:50)
[2024-04-20] MEDS: PAT OWN MED ***CLOPIDOGREL 75MG 75 MG PO (09:11)
[2024-04-20] MEDS: SANTYL TP (09:12)
[2024-04-20] MEDS: METOPROLOL TARTRATE 25MG TABLET 25 MG PO ×2 (09:12→20:29)
[2024-04-20] MEDS: SERTRALINE 50MG TABLET 25 MG PO (09:12)
[2024-04-20] MEDS: OXYCODONE 10MG EXTENDED RELEASE TAB.ER.12H 10 MG PO ×2 (09:20→16:50)
[2024-04-20 09:53] LABS: Basophils # 0.1 K/mm3 (0-0.2); Basophils % 0.8 % (0.1-2.0); Eosinophils # 0.3 K/mm3 (0.0-0.4); Eosinophils % 2.2 % (0.1-12.0); Hematocrit 33.7 % (42.0-52.0); Hemoglobin 11.3 g/dL (14.1-18.0); Lymphocytes # 1.7 K/mm3 (0.7-4.5); Lymphocytes % 13.1 % (10-50); Mean Corpuscular HGB Conc 33.4 g/dL (31.8-35.4); Mean Corpuscular Volume 83.7 fl (80-94); Mean Platelet Volume 7.4 fl (7.4-10.4); Monocytes # 0.6 K/mm3 (0.1-1.0); Monocytes % 4.7 % (1.7-9.3); Neutrophils # 10.1 K/mm3 (1.8-7.8); Neutrophils % 79.1 % (37.0-80.0); Platelet Count 500 K/mm3 (142-424); Red Blood Count 4.02 M/mm3 (4.60-6.20); Red Cell Distribution Width 16.6 % (11.5-17.5); White Blood Count 12.7 K/mm3 (4.8-10.8)
[2024-04-20] MEDS: humaLOG 100 UNITS/ML 10ML VIAL (SSI) SUBCUT (11:06)
[2024-04-20 11:18] LABS: POC Glucose,Bedside 212 (70-110)
--- NOTE | 2024-04-20 12:17 | XR_ITS ---
PROCEDURE INFORMATION: Exam: XR Chest Exam date and time: 04/20/2024 12:07 PM Age: 68 years old Clinical indication: Device placement; Other: Eval midline placement, right side; Additional info: Midline check placement TECHNIQUE: Imaging protocol: Radiologic exam of the chest. Views: 1 view. COMPARISON: CR XR CHEST PORTABLE 04/17/2024 4:22 PM FINDINGS: Lungs: Upper lung oligemia. No focal consolidation. Mild interstitial and vascular prominence. Pleural spaces: Unremarkable. No pleural effusion. No pneumothorax. Heart/Mediastinum: Unchanged cardiomegaly Bones/joints: Unremarkable. IMPRESSION: 1. A thin line courses over the right scapula and right upper lobe, with the distal end not well seen, however projecting in the region of the mediastinum. Nonspecific finding. May represent central line versus catheter external to the patient versus artifact. 2. No pneumothorax.
[2024-04-20] MEDS: DAPTOmycin 500 MG in 0.9 % SODIUM CHLORIDE 50 ML 100 MG IV (13:23)
[2024-04-20 16:00] VITALS: BP 128/67; PULSE 89; RESP 19; TEMP 37.1; O2SAT 98
[2024-04-20 19:38] VITALS: BP 146/74; PULSE 82; RESP 18; TEMP 36.7; O2SAT 97
[2024-04-20] MEDS: PAT OWN MED ***PANTOPRAZOLE 40MG 40 MG PO (20:29)
[2024-04-20] MEDS: PAT OWN MED ***TAMSULOSIN 0.4MG 0.8 MG PO (20:29)
--- NOTE | 2024-04-20 22:05 | EXP.PN ---
Subjective *Date: 04/20/24 *Time: 22:05 Exam Data for Last 24 hours Vital signs and Labs for Last 24 Hours: Temp Pulse Resp BP Pulse Ox O2 Del Method 98.1 F 82 18 146/74 H 97 Room Air 04/20/24 19:38 04/20/24 19:38 04/20/24 19:38 04/20/24 19:38 04/20/24 19:38 04/20/24 21:00 Laboratory Results - last 24 hr 04/20/24 05:20: POC Glucose 144 H 04/20/24 09:15: WBC 12.7 H, RBC 4.02 L, Hgb 11.3 L, Hct 33.7 L, MCV 83.7, MCH 28.0, MCHC 33.4, RDW 16.6, Plt Count 500 H, MPV 7.4, Neut % (Auto) 79.1, Lymph % (Auto) 13.1, [place] % (Auto) 4.7, Eos % (Auto) 2.2, Baso % (Auto) 0.8, Neut # (Auto) 10.1 H, Lymph # (Auto) 1.7, [place] # (Auto) 0.6, Eos # (Auto) 0.3, Baso # (Auto) 0.1 04/20/24 11:00: POC Glucose 212 H I & O for Last 24 hours: Intake & Output 04/17/24 04/18/24 04/19/24 04/20/24 23:59 23:59 23:59 23:59 Intake Total 1700 / 1700 1110 / 1110 1130 / 1130 Output Total 50 / 50 1325 / 1700 2575 / 2575 1100 / 1100 Balance -50 / -50 375 / 0 -1465 / -1465 30 / 30 Weight 91.58 kg 91.989 kg 93.582 kg 93.582 kg Constitutional Constitutional: no acute distress *Routine HEENT Exam Head: Present normocephalic Eye: Present EOMI and PERRL ENT: Present mucous membranes moist *Routine Neck Exam Neck: Present supple; Absent lymphadenopathy *Routine Respiratory Exam Respiratory: Present CTA bilaterally *Routine Cardiovascular Exam Cardiovascular: Present RRR *Routine Abdominal Exam Abdominal: Present soft and normoactive bowel sounds; Absent tenderness Comments: stage 4 sacral ulcer *Routine Extremities Exam Extremities: Absent cyanosis, clubbing or edema *Routine Skin Exam Skin: Present warm; Absent rash *Routine Neurological Exam Neurological: Present alert and oriented X3 Assessment and Plan *Assessment and plan (1) Pulmonary embolism: Status: Acute Qualifiers: Pulmonary embolism type: unspecified Chronicity: unspecified Acute cor pulmonale presence: without acute cor pulmonale Qualified Code(s): I26.99 - Other pulmonary embolism without acute cor pulmonale Category: Medical Code(s): I26.99 - Other pulmonary embolism without acute cor pulmonale (2) Decubitus ulcer of sacral area: Status: Acute Qualifiers: Pressure injury stage: stage 4 Qualified Code(s): L89.154 - Pressure ulcer of sacral region, stage 4 Category: Medical Code(s): L89.159 - Pressure ulcer of sacral region, unspecified stage (3) Paraplegia: Status: Acute Category: Medical Code(s): G82.20 - Paraplegia, unspecified (4) Encounter for wound care: Status: Acute Category: Medical Code(s): Z51.89 - Encounter for other specified aftercare (5) Hyperglycemia: Status: Acute Category: Medical Code(s): R73.9 - Hyperglycemia, unspecified (6) Hypertension: Status: Acute Qualifiers: Hypertension type: unspecified Qualified Code(s): I10 - Essential (primary) hypertension Category: Medical Code(s): I10 - Essential (primary) hypertension (7) Chronic pain: Status: Chronic Qualifiers: Chronic pain type: other chronic pain Qualified Code(s): G89.29 - Other chronic pain Category: Medical Code(s): G89.29 - Other chronic pain (8) Hypertension: Status: Chronic Qualifiers: Hypertension type: unspecified Qualified Code(s): I10 - Essential (primary) hypertension Category: Medical Code(s): I10 - Essential (primary) hypertension (9) Diabetes: Status: Chronic Qualifiers: Diabetes mellitus type: type 2 Diabetes mellitus 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 Diabetes mellitus complication status: with other specified complication Qualified Code(s): E11.69 - Type 2 diabetes mellitus with other specified complication Category: Medical Code(s): E11.9 - Type 2 diabetes mellitus without complications (10) Cervical spinal cord injury: Status: Acute Qualifiers: Encounter type: sequela Qualified Code(s): S14.109S - Unspecified injury at unspecified level of cervical spinal cord, sequela Category: Medical Code(s): S14.109A - Unspecified injury at unspecified level of cervical spinal cord, initial encounter (11) Gout: Status: Acute Qualifiers: Gout site: toe Gout etiology: unspecified cause Chronicity: chronic Laterality: right Presence of tophus: without tophus Qualified Code(s): M1A.9XX0 - Chronic gout, unspecified, without tophus (tophi) Category: Medical Code(s): M10.9 - Gout, unspecified (12) Bilateral leg weakness: Status: Acute Category: Medical Code(s): R29.898 - Other symptoms and signs involving the musculoskeletal system (13) Obesity: Status: Chronic Qualifiers: Obesity type: due to excess calories Obesity classification: adult class 3 (BMI >= 40) Serious obesity comorbidity presence: with serious comorbidity Body mass index: BMI 40.0-44.9 Qualified Code(s): E66.01 - Morbid (severe) obesity due to excess calories; Z68.41 - Body mass index [BMI]40.0-44.9, adult Category: Medical Code(s): E66.9 - Obesity, unspecified Plan Jam Alamo is a 68-year-old male with a medical history significant for cervical paraplegia, stage IV sacral ulcer, history of sacral necrotizing fasciitis 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 #Stage 4 sacral ulcer - Unfortunately, paraplegic after falling and fracturing cervical spine. - H/o of nec fac s/p debridement. - Continue Dapto, Zosyn. End date 04/21/2024 per OSH [facility]. - Will consult general surgery to obtain input before discharge to another SNF. - Case management following, assisting with other placement options. - Wound care consulted. Deemed wound is not appropriate for wound vac at this time due to yellow sloughing. May benefit referral to plastic surgery. #Peripheral neuropathy #Back spasms #Back pain - Continue home gabapentin, baclofen - Continue home oxycodone #Anxiety/depression - Sertraline 25mg. #Diabetes - F/u morning A1c. - [facility] glucose checks, LDSSI. #History of PE - Home Xarelto 15mg. FULL CODE Xarelto
[2024-04-21] MEDS: PIPERACILLIN/TAZO 3.375 GM in 0.9 % SODIUM CHLORIDE 50 ML IV ×3 (02:15→18:52)
[2024-04-21 03:55] VITALS: BP 153/80; PULSE 82; RESP 20; TEMP 36.9; O2SAT 95; BMI 29.2
--- NOTE | 2024-04-21 03:55 | PC.NURSE ---
sacral wound dsg cleaned and changed.
[2024-04-21 05:31] LABS: Basophils # 0.1 K/mm3 (0-0.2); Basophils % 1.2 % (0.1-2.0); Eosinophils # 0.4 K/mm3 (0.0-0.4); Eosinophils % 3.6 % (0.1-12.0); Hematocrit 34.3 % (42.0-52.0); Hemoglobin 11.3 g/dL (14.1-18.0); Lymphocytes # 1.5 K/mm3 (0.7-4.5); Mean Corpuscular HGB Conc 32.8 g/dL (31.8-35.4); Mean Corpuscular Volume 85.4 fl (80-94); Mean Platelet Volume 7.5 fl (7.4-10.4); Monocytes # 0.7 K/mm3 (0.1-1.0); Monocytes % 5.8 % (1.7-9.3); Neutrophils # 8.9 K/mm3 (1.8-7.8); Neutrophils % 76.4 % (37.0-80.0); Platelet Count 486 K/mm3 (142-424); Red Blood Count 4.02 M/mm3 (4.60-6.20); Red Cell Distribution Width 16.7 % (11.5-17.5); White Blood Count 11.6 K/mm3 (4.8-10.8)
[2024-04-21 05:34] LABS: Albumin Level 3.5 g/dl (3.5-5.0); Chloride 99 mmol/L (98-107); Sodium 135 mmol/L (136-145)
[2024-04-21 05:36] LABS: Blood Urea Nitrogen 14 mg/dl (9-20); Creatinine Clearance Estimated 93 mL/min (50-200); Estimated Glomerular Filt Rate 165 ml/min (>60); GFR (African American) 199 ML/MIN (>60)
[2024-04-21 05:37] LABS: Alanine Aminotransferase 23 U/L (12-78); Albumin/Globulin Ratio 0.9 (1.1-1.8); Alkaline Phosphatase 84 U/L (38-126); Aspartate Amino Transferase 29 U/L (17-59); Bilirubin,Total 0.4 mg/dl (0.2-1.3); Calcium 9.7 mg/dl (8.4-10.2); Carbon Dioxide 26 mmol/L (22.0-30.0); Globulin 3.8 g/dL (1.3-3.2); Glucose 186 mg/dl (74-100); Total Protein,Serum 7.3 g/dl (6.3-8.2)
[2024-04-21 05:38] LABS: Hemoglobin A1C 6.3 % (4.0-6.0)
[2024-04-21 05:51] LABS: C-Reactive Protein 63.3 mg/L (0-4)
[2024-04-21 05:57] LABS: Erythrocyte Sedimentation Rate 128 mm/hr (0-20)
[2024-04-21 06:17] LABS: Thyroid Stimulating Hormone 2.25 uIU/mL (0.465-4.68)
[2024-04-21 07:47] VITALS: BP 144/62; PULSE 92; RESP 19; TEMP 36.4; O2SAT 98
--- NOTE | 2024-04-21 08:07 | EXP.SURG.CON ---
History of Present Illness *Admission Date: 04/17/24 *Reason for visit:: Stage IV sacral ulcer. Chronic. *History of present illness: Patient is a 68-year-old male with long-term diabetes, obesity, cardiovascular disease with previous NV and stenting on Plavix, smoking history, history of pulmonary embolism, hypertension. Most recently he had apparently fallen at home on 09/22/2023 and had spinal fractures leaving him paraplegic. He was evaluated at [facility] and ultimately discharged to [facility]. Patient has developed sacral pressure ulceration. He was seen in the emergency department at this facility on 12/26/2023 and was noted to have pressure ulceration over the sacrum. There was feculent material draining. CT scan at that time was concerning for gas in the soft tissues of the gluteal area. Patient was transported to [facility]. At some point patient has undergone diverting colostomy at outside facility. Ultimately was discharged to local [place] [facility] facility and was immediately brought to the emergency department on 04/17/2024, 4 days ago, at this facility. Patient has been evaluated by physical therapy wound care. [facility] Disclaimer: The information contained in this section may have been updated after the patient was seen, as this information can be updated by other users. Medical History (Updated 04/17/24 @ 23:48 by Milo Breen APRN) Tick bite Chronic pain of both feet Bilateral leg weakness Myocardial infarct Acute on chronic systolic congestive heart failure, NYHA class 3 Pneumonia due to COVID-19 virus History of COVID-19 Chronic back pain greater than 3 months duration Epistaxis Dyspnea due to COVID-19 Hematuria Cardiac murmur Rash Diabetic foot Callus of foot Diabetic ulcer of right foot Chest pain Fall Rhabdomyolysis Hypokalemia Necrotizing soft tissue infection Severe sepsis without septic shock Acute nontraumatic kidney injury Acute hypoxic respiratory failure Type 2 diabetes mellitus Hyperlipidemia Cervical spinal cord injury Surgical History (Updated 04/17/24 @ 23:47 by Milo Breen APRN) Hip joint replacement status Stented coronary artery H/O cardiac catheterization H/O cystoscopy History of bladder suspension procedure Colostomy in place Social History (Updated 04/17/24 @ 21:01 by Marycarmen Lamb RN) Smoking Status: Former smoker second hand exposure: Yes alcohol intake: former substance use type: denies use current occupational status: disabled Travel in the last 8 weeks: None household members: family housing: house current occupational exposures/hazards: No caffeine: Yes Review of Systems *Musculoskeletal Musculoskeletal: Reports abnormal gait *Neurologic Neurologic: Reports as per HPI and Reports abnormal gait Meds Home Medications and Allergies Home Medications ?Medication ?Instructions ?Recorded ?Confirmed ?Type clopidogrel 75 mg tablet 75 mg PO DAILY 09/29/23 04/17/24 History insulin lispro 100 unit/mL 0 unit SQ ACHS sliding scale 09/29/23 04/18/24 History subcutaneous pen (Humalog KwikPen (U-100) Insulin) pantoprazole 40 mg tablet,delayed 40 mg PO DAILY 09/29/23 04/17/24 History release acetaminophen 325 mg tablet 975 mg PO Q8HP PRN MILD PAIN, TEMP 04/18/24 04/18/24 History >101 OR HEADACHE baclofen 10 mg tablet 10 mg PO TID 04/18/24 04/18/24 History clotrimazole-betamethasone 1 1 applic topical BID 04/18/24 04/18/24 History %-0.05 % topical cream diclofenac sodium 1 % topical gel 2 g topical BID 04/18/24 04/18/24 History gabapentin 400 mg capsule 400 mg PO TID 04/18/24 04/18/24 History heparin, porcine (PF) 5,000 5,000 unit SQ Q8H DVT prophylaxis 04/18/24 04/18/24 History unit/0.5 mL injection solution insulin NPH isoph U-100 human 100 24 unit SQ BID 04/18/24 04/18/24 History unit/mL (3 mL) subcutaneous pen metoprolol tartrate 25 mg tablet 25 mg PO BID 04/18/24 04/18/24 History ondansetron 4 mg disintegrating 4 mg PO Q6HP PRN Nausea And 04/18/24 04/18/24 History tablet Vomiting oxycodone 5 mg tablet 5 mg PO Q8H PRN MODERATE TO SEVERE 04/18/24 04/18/24 History PAIN sertraline 25 mg tablet 25 mg PO DAILY 04/18/24 04/18/24 History tamsulosin 0.4 mg capsule 0.8 mg PO HS 04/18/24 04/18/24 History New Prescriptions to Start Prescriptions: Allergies Allergy/AdvReac Type Severity Reaction Status Date / Time lisinopril Allergy Severe blisters Verified 04/17/24 15:59 codeine Allergy Verified 04/17/24 15:59 exenatide (From Bydureon) AdvReac Severe abdominal Verified 04/17/24 15:59 wall rash acetaminophen AdvReac Verified 04/17/24 15:59 Exam (Inpt) Vital signs and Labs for Last 24 Hours: Temp Pulse Resp BP Pulse Ox O2 Del Method 97.6 F 92 H 19 144/62 H 98 Room Air 04/21/24 07:47 04/21/24 07:47 04/21/24 07:47 04/21/24 07:47 04/21/24 07:47 04/21/24 07:47 Laboratory Results - last 24 hr 04/20/24 09:15: WBC 12.7 H, RBC 4.02 L, Hgb 11.3 L, Hct 33.7 L, MCV 83.7, MCH 28.0, MCHC 33.4, RDW 16.6, Plt Count 500 H, MPV 7.4, Neut % (Auto) 79.1, Lymph % (Auto) 13.1, [place] % (Auto) 4.7, Eos % (Auto) 2.2, Baso % (Auto) 0.8, Neut # (Auto) 10.1 H, Lymph # (Auto) 1.7, [place] # (Auto) 0.6, Eos # (Auto) 0.3, Baso # (Auto) 0.1 04/20/24 11:00: POC Glucose 212 H 04/21/24 05:10: WBC 11.6 H, RBC 4.02 L, Hgb 11.3 L, Hct 34.3 L, MCV 85.4, MCH 28.0, MCHC 32.8, RDW 16.7, Plt Count 486 H, MPV 7.5, Neut % (Auto) 76.4, Lymph % (Auto) 13.0, [place] % (Auto) 5.8, Eos % (Auto) 3.6, Baso % (Auto) 1.2, Neut # (Auto) 8.9 H, Lymph # (Auto) 1.5, [place] # (Auto) 0.7, Eos # (Auto) 0.4, Baso # (Auto) 0.1, ESR 128 H, Sodium 135 L, Potassium 5.0, Chloride 99, Carbon Dioxide 26, Anion Gap 15.0, BUN 14 D, Creatinine 0.50 L, Estimated Creat Clear 93, Estimated GFR 165, Est GFR ( Amer) 199 D, Glucose 186 H, Hemoglobin A1c 6.3 H, Calcium 9.7, Total Bilirubin 0.4, AST 29, ALT 23, Alkaline Phosphatase 84, C-Reactive Protein 63.3 H, Total Protein 7.3, Albumin 3.5, Globulin 3.8 H, Albumin/Globulin Ratio 0.9 L, TSH 2.25 I & O for Labs for Last 24 Hours: Intake & Output 04/18/24 04/19/24 04/20/24 04/21/24 11:59 11:59 11:59 11:59 Intake Total 290 / 290 2009 1280 / 1280 770 / 770 Output Total 475 / 475 2600 / 2600 1275 / 1275 1900 / 1900 Balance -185 / -185 -590 / -590 5 / 5 -1130 / -1130 Weight 202 lb 12.8 oz 206 lb 5 oz 206 lb 5.008 oz 208 lb 14.4 oz Comment:: Patient is extensive soft tissue defect posterior sacral area. There is some sloughing fascial tissue with minor undermining inferiorly. Results Labs 04/21/24 05:10 04/21/24 05:10 Labs: Laboratory Results - last 24 hr 04/20/24 09:15: WBC 12.7 H, RBC 4.02 L, Hgb 11.3 L, Hct 33.7 L, MCV 83.7, MCH 28.0, MCHC 33.4, RDW 16.6, Plt Count 500 H, MPV 7.4, Neut % (Auto) 79.1, Lymph % (Auto) 13.1, [place] % (Auto) 4.7, Eos % (Auto) 2.2, Baso % (Auto) 0.8, Neut # (Auto) 10.1 H, Lymph # (Auto) 1.7, [place] # (Auto) 0.6, Eos # (Auto) 0.3, Baso # (Auto) 0.1 04/20/24 11:00: POC Glucose 212 H 04/21/24 05:10: WBC 11.6 H, RBC 4.02 L, Hgb 11.3 L, Hct 34.3 L, MCV 85.4, MCH 28.0, MCHC 32.8, RDW 16.7, Plt Count 486 H, MPV 7.5, Neut % (Auto) 76.4, Lymph % (Auto) 13.0, [place] % (Auto) 5.8, Eos % (Auto) 3.6, Baso % (Auto) 1.2, Neut # (Auto) 8.9 H, Lymph # (Auto) 1.5, [place] # (Auto) 0.7, Eos # (Auto) 0.4, Baso # (Auto) 0.1, ESR 128 H, Sodium 135 L, Potassium 5.0, Chloride 99, Carbon Dioxide 26, Anion Gap 15.0, BUN 14 D, Creatinine 0.50 L, Estimated Creat Clear 93, Estimated GFR 165, Est GFR ( Amer) 199 D, Glucose 186 H, Hemoglobin A1c 6.3 H, Calcium 9.7, Total Bilirubin 0.4, AST 29, ALT 23, Alkaline Phosphatase 84, C-Reactive Protein 63.3 H, Total Protein 7.3, Albumin 3.5, Globulin 3.8 H, Albumin/Globulin Ratio 0.9 L, TSH 2.25 Assessment and Plan *Assessment and plan (1) Decubitus ulcer of sacral area: Status: Acute Qualifiers: Pressure injury stage: stage 4 Qualified Code(s): L89.154 - Pressure ulcer of sacral region, stage 4 Category: Medical Code(s): L89.159 - Pressure ulcer of sacral region, unspecified stage Plan No need for sharp surgical debridement at this time. May use dry as opposed to wet to dry dressing as there is some excoriation of the surrounding skin extensively. May consider negative pressure wound therapy dressing. Likely needs follow-up with tertiary facility for possible definitive care.
--- NOTE | 2024-04-21 08:29 | P.PN_ITS ---
Subjective *Date: 04/21/24 *Time: 08:29 Medical Exam Vital signs and Labs for Last 24 Hours: Vital Signs Temp Pulse Resp BP Pulse Ox O2 Del Method 04/21/24 07:47 97.6 F 92 H 19 144/62 H 98 Room Air 04/21/24 06:27 Room Air 04/21/24 05:00 Room Air 04/21/24 03:55 98.4 F 82 20 153/80 H 95 Room Air 04/21/24 03:00 Room Air 04/21/24 01:00 Room Air 04/20/24 23:00 Room Air 04/20/24 21:00 Room Air 04/20/24 20:00 Room Air 04/20/24 19:38 98.1 F 82 18 146/74 H 97 Room Air 04/20/24 18:23 Room Air 04/20/24 17:00 Room Air 04/20/24 16:00 98.7 F 89 19 128/67 98 Room Air 04/20/24 15:00 Room Air 04/20/24 13:00 Room Air 04/20/24 11:00 Room Air 04/20/24 09:00 Room Air Intake and Output 04/20/24 04/21/24 04/21/24 23:59 07:59 15:59 Intake Total 770 / 1540 Output Total 700 / 2000 1200 / 1200 Balance 70 / -460 -1200 / -1200 Intake: Intake, Oral Amount 720 / 1440 Intake, Total IV Amount 50 / 100 Piperacillin/Tazo 3.375 gm In 0 50 / 100 .9 % Sodium Chloride 50 ml @ 100 mls/hr IV Q8H [facility] Rx#: [id number] Output: Output, Urine Amount 700 / 2000 1200 / 1200 Other: Number of Unmeasured Voids 0 Number of Bowel Movements 1 Weight 94.755 kg Patient Weight 04/21/24 23:59 Weight 94.755 kg Laboratory Results - last 24 hr 04/20/24 09:15: WBC 12.7 H, RBC 4.02 L, Hgb 11.3 L, Hct 33.7 L, MCV 83.7, MCH 28.0, MCHC 33.4, RDW 16.6, Plt Count 500 H, MPV 7.4, Neut % (Auto) 79.1, Lymph % (Auto) 13.1, [place] % (Auto) 4.7, Eos % (Auto) 2.2, Baso % (Auto) 0.8, Neut # (Auto) 10.1 H, Lymph # (Auto) 1.7, [place] # (Auto) 0.6, Eos # (Auto) 0.3, Baso # (Auto) 0.1 04/20/24 11:00: POC Glucose 212 H 04/21/24 05:10: WBC 11.6 H, RBC 4.02 L, Hgb 11.3 L, Hct 34.3 L, MCV 85.4, MCH 28.0, MCHC 32.8, RDW 16.7, Plt Count 486 H, MPV 7.5, Neut % (Auto) 76.4, Lymph % (Auto) 13.0, [place] % (Auto) 5.8, Eos % (Auto) 3.6, Baso % (Auto) 1.2, Neut # (Auto) 8.9 H, Lymph # (Auto) 1.5, [place] # (Auto) 0.7, Eos # (Auto) 0.4, Baso # (Auto) 0.1, ESR 128 H, Sodium 135 L, Potassium 5.0, Chloride 99, Carbon Dioxide 26, Anion Gap 15.0, BUN 14 D, Creatinine 0.50 L, Estimated Creat Clear 93, Estimated GFR 165, Est GFR ( Amer) 199 D, Glucose 186 H, Hemoglobin A1c 6.3 H, Calcium 9.7, Total Bilirubin 0.4, AST 29, ALT 23, Alkaline Phosphatase 84, C-Reactive Protein 63.3 H, Total Protein 7.3, Albumin 3.5, Globulin 3.8 H, Albumin/Globulin Ratio 0.9 L, TSH 2.25 I & O for Labs for Last 24 Hours: Intake & Output 04/18/24 04/19/24 04/20/24 04/21/24 23:59 23:59 23:59 23:59 Intake Total 1700 / 1700 1110 / 1110 1540 / 1540 Output Total 1325 / 1700 2575 / 2575 1100 / 2000 1200 / 1200 Balance 375 / 0 -1465 / -1465 440 / -460 -1200 / -1200 Weight 91.989 kg 93.582 kg 93.582 kg 94.755 kg The patient's infection will respond to the chosen ABx?: Yes Is the patient receiving the right drug, dose, and route?: Yes Could a more targeted ABx be ordered?: No (AFEBRILE, WBC TRENDING DOWN, RECOMMEND CONTINUING WITH CURRENT ABX.)
[2024-04-21] MEDS: PAT OWN MED ***GABAPENTIN 300MG 300 MG PO ×3 (09:19→21:04)
[2024-04-21] MEDS: PAT OWN MED ***CLOPIDOGREL 75MG 75 MG PO (09:19)
[2024-04-21] MEDS: METOPROLOL TARTRATE 25MG TABLET 25 MG PO ×2 (09:20→21:04)
[2024-04-21] MEDS: SERTRALINE 50MG TABLET 25 MG PO (09:20)
[2024-04-21] MEDS: OXYCODONE 10MG EXTENDED RELEASE TAB.ER.12H 10 MG PO ×2 (09:20→21:10)
[2024-04-21] MEDS: PRO-STAT AWC 30ML LIQUID PACKET 30 ML PO ×2 (09:21→21:04)
[2024-04-21] MEDS: SANTYL TP (09:21)
[2024-04-21] MEDS: DAPTOmycin 500 MG in 0.9 % SODIUM CHLORIDE 50 ML 100 MG IV (10:39)
[2024-04-21 11:30] VITALS: BP 149/77; PULSE 90; RESP 20; TEMP 36.9; O2SAT 98
[2024-04-21 12:03] LABS: POC Glucose,Bedside 225 (70-110)
[2024-04-21] MEDS: humaLOG 100 UNITS/ML 10ML VIAL (SSI) SUBCUT (12:44)
--- NOTE | 2024-04-21 14:11 | P.PN_ITS ---
Subjective *Date: 04/21/24 *Time: 14:11 Interval history: Patient continues to be in good spirits, no acute complaints. Tolerating diet, no chest pain, shortness of breath. Exam Data for Last 24 hours Vital signs and Labs for Last 24 Hours: Temp Pulse Resp BP Pulse Ox O2 Del Method 98.4 F 90 20 149/77 H 98 Room Air 04/21/24 11:30 04/21/24 11:30 04/21/24 11:30 04/21/24 11:30 04/21/24 11:30 04/21/24 11:30 Laboratory Results - last 24 hr 04/21/24 05:10: WBC 11.6 H, RBC 4.02 L, Hgb 11.3 L, Hct 34.3 L, MCV 85.4, MCH 28.0, MCHC 32.8, RDW 16.7, Plt Count 486 H, MPV 7.5, Neut % (Auto) 76.4, Lymph % (Auto) 13.0, [place] % (Auto) 5.8, Eos % (Auto) 3.6, Baso % (Auto) 1.2, Neut # (Auto) 8.9 H, Lymph # (Auto) 1.5, [place] # (Auto) 0.7, Eos # (Auto) 0.4, Baso # (Auto) 0.1, ESR 128 H, Sodium 135 L, Potassium 5.0, Chloride 99, Carbon Dioxide 26, Anion Gap 15.0, BUN 14 D, Creatinine 0.50 L, Estimated Creat Clear 93, Estimated GFR 165, Est GFR ( Amer) 199 D, Glucose 186 H, Hemoglobin A1c 6.3 H, Calcium 9.7, Total Bilirubin 0.4, AST 29, ALT 23, Alkaline Phosphatase 84, C-Reactive Protein 63.3 H, Total Protein 7.3, Albumin 3.5, Globulin 3.8 H, Albumin/Globulin Ratio 0.9 L, TSH 2.25 04/21/24 11:55: POC Glucose 225 H I & O for Last 24 hours: Intake & Output 04/18/24 04/19/24 04/20/24 04/21/24 23:59 23:59 23:59 23:59 Intake Total 1700 / 1700 1110 / 1110 1540 / 1540 480 / 480 Output Total 1325 / 1700 2575 / 2575 1100 / 2000 1600 / 1600 Balance 375 / 0 -1465 / -1465 440 / -460 -1120 / -1120 Weight 91.989 kg 93.582 kg 93.582 kg 94.755 kg Constitutional Constitutional: no acute distress *Routine HEENT Exam Head: Present normocephalic Eye: Present EOMI and PERRL ENT: Present mucous membranes moist *Routine Neck Exam Neck: Present supple; Absent lymphadenopathy *Routine Respiratory Exam Respiratory: Present CTA bilaterally *Routine Cardiovascular Exam Cardiovascular: Present RRR *Routine Abdominal Exam Abdominal: Present soft and normoactive bowel sounds; Absent tenderness Comments: stage 4 sacral ulcer *Routine Extremities Exam Extremities: Absent cyanosis, clubbing or edema *Routine Skin Exam Skin: Present warm; Absent rash *Routine Neurological Exam Neurological: Present alert and oriented X3 Assessment and Plan *Assessment and plan (1) Pulmonary embolism: Status: Acute Qualifiers: Pulmonary embolism type: unspecified Chronicity: unspecified Acute cor pulmonale presence: without acute cor pulmonale Qualified Code(s): I26.99 - Other pulmonary embolism without acute cor pulmonale Category: Medical Code(s): I26.99 - Other pulmonary embolism without acute cor pulmonale (2) Decubitus ulcer of sacral area: Status: Acute Qualifiers: Pressure injury stage: stage 4 Qualified Code(s): L89.154 - Pressure ulcer of sacral region, stage 4 Category: Medical Code(s): L89.159 - Pressure ulcer of sacral region, unspecified stage (3) Paraplegia: Status: Acute Category: Medical Code(s): G82.20 - Paraplegia, unspecified (4) Encounter for wound care: Status: Acute Category: Medical Code(s): Z51.89 - Encounter for other specified aftercare (5) Hyperglycemia: Status: Acute Category: Medical Code(s): R73.9 - Hyperglycemia, unspecified (6) Hypertension: Status: Acute Qualifiers: Hypertension type: unspecified Qualified Code(s): I10 - Essential (primary) hypertension Category: Medical Code(s): I10 - Essential (primary) hypertension (7) Chronic pain: Status: Chronic Qualifiers: Chronic pain type: other chronic pain Qualified Code(s): G89.29 - Other chronic pain Category: Medical Code(s): G89.29 - Other chronic pain (8) Hypertension: Status: Chronic Qualifiers: Hypertension type: unspecified Qualified Code(s): I10 - Essential (primary) hypertension Category: Medical Code(s): I10 - Essential (primary) hypertension (9) Diabetes: Status: Chronic Qualifiers: Diabetes mellitus type: type 2 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: with longterm use Diabetes mellitus complication status: with other specified complication Qualified Code(s): E11.69 - Type 2 diabetes mellitus with other specified complication Category: Medical Code(s): E11.9 - Type 2 diabetes mellitus without complications (10) Cervical spinal cord injury: Status: Acute Qualifiers: Encounter type: sequela Qualified Code(s): S14.109S - Unspecified injury at unspecified level of cervical spinal cord, sequela Category: Medical Code(s): S14.109A - Unspecified injury at unspecified level of cervical spinal cord, initial encounter (11) Gout: Status: Acute Qualifiers: Gout site: toe Gout etiology: unspecified cause Chronicity: chronic Laterality: right Presence of tophus: without tophus Qualified Code(s): M1A.9XX0 - Chronic gout, unspecified, without tophus (tophi) Category: Medical Code(s): M10.9 - Gout, unspecified (12) Bilateral leg weakness: Status: Acute Category: Medical Code(s): R29.898 - Other symptoms and signs involving the musculoskeletal system (13) Obesity: Status: Chronic Qualifiers: Obesity type: due to excess calories Obesity classification: adult class 3 (BMI >= 40) Serious obesity comorbidity presence: with serious comorbidity Body mass index: BMI 40.0-44.9 Qualified Code(s): E66.01 - Morbid (severe) obesity due to excess calories; Z68.41 - Body mass index [BMI]40.0- 44.9, adult Category: Medical Code(s): E66.9 - Obesity, unspecified Plan Jam Alamo is a 68-year-old male with a medical history significant for cervical paraplegia, stage IV sacral ulcer, history of sacral necrotizing fasciitis who 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 #Stage 4 sacral ulcer #Functional paraplegia - Unfortunately, paraplegic after falling and fracturing cervical spine about a year ago. Paralyzed waist down. - H/o of nec fac s/p debridement. Has undergone 3 debridements and October, 2 debridements in April. Records from [facility] indicate that he may need future debridements. - Continue Dapto, Zosyn as patient continues to have leukocytosis 11.6 with elevated ESR 128, CRP 63.3. End date 04/21/2024 per OSH [facility] in [place]. Unclear what the start date is at this time per outside records. ? Will obtain CT abdomen/pelvis with contrast today to further evaluate for possible underlying infection/abscess. - General Surgery consulted, did not recommend surgical intervention at this time. Did however recommend for follow-up at a tertiary facility, likely plastic surgery, for definitive care. Also recommended dry dressing changes given moisture in the wound. - Wound care consulted. Deemed wound is not appropriate for wound vac at this time due to yellow sloughing. ? PT/OT consulted, recommended SNF placement. - Case management following, assisting with other placement options. Has Precertification at [facility]. Hopeful discharge for tomorrow if stable. - Patient will benefit from follow-up with plastic surgery on an outpatient basis. #Peripheral neuropathy #Back spasms #Back pain - Continue home gabapentin, baclofen - Continue home oxycodone #CAD ? Plavix. #Hypertension ? Metoprolol tartrate 25 mg twice daily. #Urinary retention ? Flomax. #Anxiety/depression - Sertraline 25mg. #Diabetes - Hemoglobin A1c 6.3% - [facility] glucose checks, LDSSI. #History of PE - Home Xarelto 15mg. FULL CODE Xarelto
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
[2024-04-21 16:00] VITALS: BP 126/71; PULSE 90; RESP 16; TEMP 37.4; O2SAT 98
--- NOTE | 2024-04-21 17:21 | HMH.ITSTN ---
pt refusing CT scan at this time due to claustrophobia. RN aware.
--- NOTE | 2024-04-21 17:29 | PC.NURSE ---
Alert and oriented x4. Pt has been turned Q2 hours. Dressing on bottom has been changed twice today due to being soiled. Dr. Geraldo mccray pt ostomy bag has also been changed this shift. Pt has on booties and feet are elevated. Pt allowed me to check FSBS this morning but refused this evening pt has gotten more aggravated with staff throughout shift because of having to change pts soiled bed. Pt also refused to go down to CT. He stated that he is claustrophobic and wont go down unless the doctor knocks him out, ordered Ativan to help relax pt to have ct done, pt was agreeable to this. CT was completed with no issues.
[2024-04-21] MEDS: LORazepam 2MG/ML VIAL 2 MG IV (18:11)
[2024-04-21] MEDS: SODIUM CHLORIDE 0.9% 10ML SYR (RAD ONLY) 10 ML IV (18:27)
[2024-04-21] MEDS: IOPAMIDOL-370 (76%);100ML BOTTLE 75 ML IV (18:27)
[2024-04-21 20:00] VITALS: BP 135/70; PULSE 89; RESP 16; TEMP 36.7; O2SAT 97
[2024-04-21] MEDS: PAT OWN MED ***PANTOPRAZOLE 40MG 40 MG PO (21:04)
[2024-04-21] MEDS: PAT OWN MED ***TAMSULOSIN 0.4MG 0.8 MG PO (21:04)
--- NOTE | 2024-04-21 22:29 | PC.NURSE ---
Dressing to sacral wound (two flower foam pads) was changed at this time due to bowel movement. Scant bleeding noted prior to dressing change. Patient did not tolerate dressing change/brief change; patient was very aggressive and punching at staff during turning and cleaning. At this time, the patient is resting in bed.
--- NOTE | 2024-04-22 01:05 | PC.NURSE ---
Patient has refused to allow staff to turn him in bed thus far (since beginning of this shift), stating that he is too tired and wants sleep.
--- NOTE | 2024-04-22 02:51 | PC.NURSE ---
Patient's ostomy bag and sacral wound dressing were changed at this time. Patient tolerated dressing and ostomy change very well with no reports of pain. Stool appeared to be paste-like and brown with a strong odor. A small amount of bleeding in the sacral wound was noticed prior to dressing change. Undermining and open wound was packed with one strip of sterile kerlix, 3 pads of 4x4 sterile gauze were placed over for extra reinforcement, with ABD pads taped over with strips of micropore tape. Patient was also given a bed bath and allowed staff to turn him at this time; patient reported pain during movement of his legs. Patient requested sherbet and ice water after interventions. He is resting in bed at this time.
[2024-04-22] MEDS: PIPERACILLIN/TAZO 3.375 GM in 0.9 % SODIUM CHLORIDE 50 ML IV ×2 (03:00→09:12)
[2024-04-22 04:00] VITALS: BP 113/61; PULSE 83; RESP 16; TEMP 36.6; O2SAT 93; BMI 29.4
[2024-04-22 05:31] LABS: POC Glucose,Bedside 208 (70-110)
--- NOTE | 2024-04-22 05:43 | PC.NURSE ---
Patient is alert and oriented with occasional periods of forgetfulness; patient is aware that he is uncertain about the time of day. He was observed to have eyes closed, respirations even and unlabored on room air, and no apparent distress throughout the majority of the night. Patient refused turning for most of the shift (see prior note); he has occasionally allowed staff to move him according to his comfort. Patient's ostomy bag and sacral wound dressing were changed this shift (see prior note). A foul odor was noted during sacral wound dressing change. A small pressure ulcer was also noted approximately on the patient's left hip; this has also been covered with a flower foam pad. A scar was noted in the middle of the patient's abdomen. Patient reports paraplegia in his waist down to the lower extremities; during turning, patient prefers lower extremities to move with him as a whole. Heel protectors remain in place. A male purewick also remains in place; adequate urine output has been noted. Patient complained of severe pain in his shoulders once this shift; he was given one dose of oxycontin (TID PRN) per AUG. He has also received his scheduled medications (including home medications, locked in the OMNI) per AUG. He has a midline in the right upper arm. Upon auscultation, the patient's lungs were clear, S1/S2 heart sounds could be heard, and bowel sounds were active. Vital signs have remained stable this shift. Patient refused a bedside glucose fingerstick at 21:00 this shift, but allowed me to check his blood glucose for 06:00 this morning; it was 208. Insulin coverage will be administered appropriately. At this time, the patient is sitting up in bed with pillows and wedges in place. He does not have any further complaints. He was assisted with eating an orange sherbet ice cream this shift. No acute changes noted thus far. Call light within reach.
[2024-04-22] MEDS: humaLOG 100 UNITS/ML 10ML VIAL (SSI) SUBCUT ×2 (06:24→11:10)
[2024-04-22 06:45] LABS: Basophils # 0.1 K/mm3 (0-0.2); Basophils % 0.9 % (0.1-2.0); Eosinophils # 0.4 K/mm3 (0.0-0.4); Eosinophils % 3.4 % (0.1-12.0); Hematocrit 33.6 % (42.0-52.0); Hemoglobin 11.2 g/dL (14.1-18.0); Lymphocytes # 1.9 K/mm3 (0.7-4.5); Lymphocytes % 14.9 % (10-50); Mean Corpuscular HGB Conc 33.4 g/dL (31.8-35.4); Mean Corpuscular Hemoglobin 28.2 pg (27.0-31.2); Mean Corpuscular Volume 84.5 fl (80-94); Mean Platelet Volume 7.9 fl (7.4-10.4); Monocytes # 0.9 K/mm3 (0.1-1.0); Monocytes % 7.1 % (1.7-9.3); Neutrophils # 9.3 K/mm3 (1.8-7.8); Neutrophils % 73.7 % (37.0-80.0); Platelet Count 477 K/mm3 (142-424); Red Blood Count 3.97 M/mm3 (4.60-6.20); Red Cell Distribution Width 16.8 % (11.5-17.5); White Blood Count 12.6 K/mm3 (4.8-10.8)
[2024-04-22 06:59] LABS: Alanine Aminotransferase 20 U/L (12-78); Albumin Level 3.1 g/dl (3.5-5.0); Alkaline Phosphatase 87 U/L (38-126); Aspartate Amino Transferase 26 U/L (17-59); Bilirubin,Total 0.4 mg/dl (0.2-1.3); Blood Urea Nitrogen 13 mg/dl (9-20); Calcium 9.5 mg/dl (8.4-10.2); Carbon Dioxide 24 mmol/L (22.0-30.0); Chloride 100 mmol/L (98-107); Creatinine Clearance Estimated 94 mL/min (50-200); Estimated Glomerular Filt Rate 165 ml/min (>60); GFR (African American) 199 ML/MIN (>60); Globulin 3.1 g/dL (1.3-3.2); Glucose 188 mg/dl (74-100); Sodium 135 mmol/L (136-145); Total Protein,Serum 6.2 g/dl (6.3-8.2)
[2024-04-22 07:47] VITALS: BP 121/53; PULSE 96; RESP 19; TEMP 36.4; O2SAT 93
[2024-04-22 08:11] LABS: Erythrocyte Sedimentation Rate 75 mm/hr (0-20)
[2024-04-22] MEDS: METOPROLOL TARTRATE 25MG TABLET 25 MG PO (08:33)
[2024-04-22] MEDS: PRO-STAT AWC 30ML LIQUID PACKET 30 ML PO (08:33)
[2024-04-22] MEDS: SERTRALINE 50MG TABLET 25 MG PO (08:33)
[2024-04-22] MEDS: PAT OWN MED ***GABAPENTIN 300MG 300 MG PO ×2 (08:34→13:16)
[2024-04-22] MEDS: PAT OWN MED ***CLOPIDOGREL 75MG 75 MG PO (08:35)
[2024-04-22] MEDS: BACLOFEN 10 MG PO (08:35)
[2024-04-22] MEDS: SANTYL TP (08:36)
[2024-04-22] MEDS: INSULIN DETEMIR 100 UNIT/ML 3ML FLEXPEN 10 UNIT SUBCUT (09:09)
[2024-04-22 09:52] LABS: C-Reactive Protein 73.2 mg/L (0-4)
--- NOTE | 2024-04-22 10:49 | P.DS_ITS ---
General Admission date:: 04/17/24 Discharge date: 04/22/24 HPI HPI HPI: Patient is a 68-year-old male with long-term diabetes, obesity, cardiovascular disease with previous DE and stenting on Plavix, smoking history, history of pulmonary embolism, hypertension. Most recently he had apparently fallen at home on 09/22/2023 and had spinal fractures leaving him paraplegic. He was evaluated at [facility] and ultimately discharged to [facility] facility. Patient has developed sacral pressure ulceration. He was seen in the emergency department at this facility on 12/26/2023 and was noted to have pressure ulceration over the sacrum. There was feculent material draining. CT scan at that time was concerning for gas in the soft tissues of the gluteal area. Patient was transported to [facility]. At some point patient has undergone diverting colostomy at outside facility. Ultimately was discharged to local [facility] facility and was immediately brought to the emergency department on 04/17/2024, 4 days ago, at this facility. Patient has been evaluated by physical therapy wound care. 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 Patient was evaluated during admission. Overall doing well. Completed antibiotics for decubitus wound. PICC line removed on day of discharge. Continue treatment for chronic conditions. Excepted to rehab at [facility] for further management. Referred to plastics at [place] for evaluation of sacral decubitus wound and further treatment. Stable to discharge to rehab. Problems addressed as follows: #Stage 4 sacral ulcer #Functional paraplegia - Unfortunately, paraplegic after falling and fracturing cervical spine about a year ago. Paralyzed waist down. H/o of nec fac s/p debridement. Has undergone 3 debridements and October, 2 debridements in April. Records from [facility] indicate that he may need future debridements. Continued Dapto, Zosyn as patient continues to have leukocytosis 11.6 with elevated ESR 128, CRP 63.3 on admission. Inflammatory markers improving and white count improving by day of discharge. Completed antibiotics during hospitalization. Will remove PICC line. CT obtained of abdomen and pelvis, no signs of underlying infection or abscess. General surgery was consulted, recommended considering referral to plastics for possible flap reconstruction to help wound heal. Outpatient follow-up ordered. Wound consulted, recommended no wound VAC at this time just given proximity to anus. Recommend wet-to-dry dressings with packing in undermined portion. PT and OT working with patient daily. Nutrition recommended supplementation with Pro-Stat. Graciously accepted to [facility] for further management. #Peripheral neuropathy #Back spasms #Back pain - Continue home gabapentin, baclofen, and oxycodone #CAD: stable, continue Plavix. #Hypertension: stable, continue Metoprolol tartrate 25 mg twice daily. #Urinary retention: stable, continue Flomax. #Anxiety/depression: continue Sertraline 25mg. #Diabetes - Hemoglobin A1c 6.3%, continue basal BID regimen. #History of PE: continue xarelto 15mg. Total time spent on discharge 35 minutes in counseling, documentation, chart review, and direct care with patient. Exam Data for Last 24 hours Vital signs and Labs for Last 24 Hours: Temp Pulse Resp BP Pulse Ox O2 Del Method 97.6 F 96 H 19 121/53 L 93 L Room Air 04/22/24 07:47 04/22/24 07:47 04/22/24 07:47 04/22/24 07:47 04/22/24 07:47 04/22/24 09:00 Laboratory Results - last 24 hr 04/21/24 11:55: POC Glucose 225 H 04/22/24 05:23: POC Glucose 208 H 04/22/24 05:48: WBC 12.6 H, RBC 3.97 L, Hgb 11.2 L, Hct 33.6 L, MCV 84.5, MCH 28.2, MCHC 33.4, RDW 16.8, Plt Count 477 H, MPV 7.9, Neut % (Auto) 73.7, Lymph % (Auto) 14.9, [place] % (Auto) 7.1, Eos % (Auto) 3.4, Baso % (Auto) 0.9, Neut # (Auto) 9.3 H, Lymph # (Auto) 1.9, [place] # (Auto) 0.9, Eos # (Auto) 0.4, Baso # (Auto) 0.1, ESR 75 H, Sodium 135 L, Potassium 5.0, Chloride 100, Carbon Dioxide 24, Anion Gap 16.0 H, BUN 13, Creatinine 0.50 L, Estimated Creat Clear 94, Estimated GFR 165, Est GFR ( Amer) 199, Glucose 188 H, Calcium 9.5, Total Bilirubin 0.4, AST 26, ALT 20, Alkaline Phosphatase 87, C-Reactive Protein 73.2 H, Total Protein 6.2 L, Albumin 3.1 L D, Globulin 3.1, Albumin/Globulin Ratio 1.0 L I & O for Last 24 hours: Intake & Output 04/19/24 04/20/24 04/21/24 04/22/24 23:59 23:59 23:59 23:59 Intake Total 1110 / 1110 1540 / 1540 1950 / 2040 630 / 630 Output Total 2575 / 2575 1100 / 2000 2600 / 2925 1820 / 1820 Balance -1465 / -1465 440 / -460 -650 / -885 -1190 / -1190 Weight 93.582 kg 93.582 kg 94.755 kg 95.436 kg Constitutional Constitutional: no acute distress, obese, chronically ill appearing and cooperative *Routine HEENT Exam Head: Present normocephalic Eye: Present EOMI and PERRL ENT: Present mucous membranes moist Comments: edentulous *Routine Neck Exam Neck: Present supple; Absent lymphadenopathy *Routine Respiratory Exam Respiratory: Present CTA bilaterally; Absent respiratory distress, rhonchi, stridor, wheezes or crackles *Routine Cardiovascular Exam Cardiovascular: Present RRR *Routine Abdominal Exam Abdominal: Present soft and normoactive bowel sounds; Absent tenderness Comments: colostomy pink and healthy *Routine Rectal Exam Patient deferred: visual exam *Routine Exam Patient deferred: penile exam *Routine Extremities Exam Extremities: Absent cyanosis, clubbing or edema *Routine Skin Exam Skin: Present warm; Absent intact or rash Comments: large stage 4 sacral decub. *Routine Neurological Exam Neurological: Present alert, oriented X3 and motor deficit (in BLE and weak in RUE); Absent altered mental status or moving all extremities Results Data Completed and Pending Labs on day of discharge: Labs from last 24 hours 04/22/24 04/22/24 04/21/24 05:48 05:23 11:55 WBC 12.6 H RBC 3.97 L Hgb 11.2 L Hct 33.6 L MCV 84.5 MCH 28.2 MCHC 33.4 RDW 16.8 Plt Count 477 H MPV 7.9 Neut % (Auto) 73.7 Lymph % (Auto) 14.9 [place] % (Auto) 7.1 Eos % (Auto) 3.4 Baso % (Auto) 0.9 Neut # (Auto) 9.3 H Lymph # (Auto) 1.9 [place] # (Auto) 0.9 Eos # (Auto) 0.4 Baso # (Auto) 0.1 ESR 75 H Sodium 135 L Potassium 5.0 Chloride 100 Carbon Dioxide 24 Anion Gap 16.0 H BUN 13 Creatinine 0.50 L Estimated Creat Clear 94 Estimated GFR 165 Est GFR ( Amer) 199 Glucose 188 H POC Glucose 208 H 225 H Calcium 9.5 Total Bilirubin 0.4 AST 26 ALT 20 Alkaline Phosphatase 87 C-Reactive Protein 73.2 H Total Protein 6.2 L Albumin 3.1 L D Globulin 3.1 Albumin/Globulin Ratio 1.0 L DS: Diagnosis Discharge Diagnosis (1) Decubitus ulcer of sacral area: Status: Acute Code(s): L89.159 - Pressure ulcer of sacral region, unspecified stage Qualifiers: Pressure injury stage: stage 4 Qualified Code(s): L89.154 - Pressure ulcer of sacral region, stage 4 (2) Pulmonary embolism: Status: Acute Code(s): I26.99 - Other pulmonary embolism without acute cor pulmonale Qualifiers: Acute cor pulmonale presence: without acute cor pulmonale Chronicity: unspecified Pulmonary embolism type: unspecified Qualified Code(s): I26.99 - Other pulmonary embolism without acute cor pulmonale (3) Paraplegia: Status: Acute Code(s): G82.20 - Paraplegia, unspecified (4) Encounter for wound care: Status: Acute Code(s): Z51.89 - Encounter for other specified aftercare (5) Hyperglycemia: Status: Acute Code(s): R73.9 - Hyperglycemia, unspecified (6) Hypertension: Status: Acute Code(s): I10 - Essential (primary) hypertension Qualifiers: Hypertension type: unspecified Qualified Code(s): I10 - Essential (primary) hypertension (7) Chronic pain: Status: Chronic Code(s): G89.29 - Other chronic pain Qualifiers: Chronic pain type: other chronic pain Qualified Code(s): G89.29 - Other chronic pain (8) Diabetes: Status: Chronic Code(s): E11.9 - Type 2 diabetes mellitus without complications Qualifiers: Diabetes mellitus complication status: with other specified complication Diabetes mellitus manager long term care insulin use: with manager long term care use Diabetes mellitus type: type 2 Qualified Code(s): E11.69 - Type 2 diabetes mellitus with other specified complication (9) Cervical spinal cord injury: Status: Acute Code(s): S14.109A - Unspecified injury at unspecified level of cervical spinal cord, initial encounter Qualifiers: Encounter type: sequela Qualified Code(s): S14.109S - Unspecified injury at unspecified level of cervical spinal cord, sequela (10) Gout: Status: Acute Code(s): M10.9 - Gout, unspecified Qualifiers: Chronicity: chronic Gout etiology: unspecified cause Gout site: toe Laterality: right Presence of tophus: without tophus Qualified Code(s): M1A.9XX0 - Chronic gout, unspecified, without tophus (tophi) (11) Bilateral leg weakness: Status: Acute Code(s): R29.898 - Other symptoms and signs involving the musculoskeletal system (12) Obesity: Status: Chronic Code(s): E66.9 - Obesity, unspecified Qualifiers: Body mass index: BMI 40.0-44.9 Obesity classification: adult class 3 (BMI >= 40) Obesity type: due to excess calories Serious obesity comorbidity presence: with serious comorbidity Qualified Code(s): E66.01 - Morbid (severe) obesity due to excess calories; Z68.41 - Body mass index [BMI]40.0-44.9, adult Meds Home Medications and Allergies Home Medications ?Medication ?Instructions ?Recorded ?Confirmed ?Type clopidogrel 75 mg tablet 75 mg PO DAILY 09/29/23 04/17/24 History pantoprazole 40 mg tablet,delayed 40 mg PO DAILY 09/29/23 04/17/24 History release acetaminophen 325 mg tablet 975 mg PO Q8HP PRN MILD PAIN, TEMP 04/18/24 04/18/24 History >101 OR HEADACHE clotrimazole-betamethasone 1 1 applic topical BID 04/18/24 04/18/24 History %-0.05 % topical cream diclofenac sodium 1 % topical gel 2 g topical BID 04/18/24 04/18/24 History metoprolol tartrate 25 mg tablet 25 mg PO BID 04/18/24 04/18/24 History ondansetron 4 mg disintegrating 4 mg PO Q6HP PRN Nausea And 04/18/24 04/18/24 History tablet Vomiting sertraline 25 mg tablet 25 mg PO DAILY 04/18/24 04/18/24 History tamsulosin 0.4 mg capsule 0.8 mg PO HS 04/18/24 04/18/24 History amino acids-protein hydrolysate 17 1 ea PO BID #2,880 mL 04/22/24 Rx gram-100 kcal/30 mL liquid packet (Pro-Stat AWC) baclofen 10 mg tablet 10 mg PO TID 30 days #90 tabs 04/22/24 Rx gabapentin 400 mg capsule 400 mg PO TID 30 days #90 caps 04/22/24 Rx insulin NPH isoph U-100 human 100 20 unit (0.2 mL) SQ BID #15 mL 04/22/24 04/18/24 Rx unit/mL (3 mL) subcutaneous pen oxycodone 5 mg tablet 5 mg PO Q8H PRN MODERATE TO SEVERE 04/22/24 Rx PAIN 30 days #90 tabs rivaroxaban 15 mg tablet (Xarelto) 15 mg PO HS #30 tabs 04/22/24 Rx New Prescriptions to Start Prescriptions: amino acids-protein hydrolys [Pro-Stat AWC] Rafiq Valente baclofen Rafiq Valente gabapentin Rafiq Valente oxycodone Rafiq Valente rivaroxaban [Xarelto] Rafiq Valente Allergies Allergy/AdvReac Type Severity Reaction Status Date / Time lisinopril Allergy Severe blisters Verified 04/17/24 15:59 codeine Allergy Verified 04/17/24 15:59 exenatide (From Bydureon) AdvReac Severe abdominal Verified 04/17/24 15:59 wall rash acetaminophen AdvReac Verified 04/17/24 15:59 Discharge Plan Disposition Patient Disposition: [facility] Discharge Order Discharge Orders: Discharge Order (Routine); Ordered 04/22/24 Ordered By: Rafiq Valente Follow up Plan Follow up with: Kvng Lopez MD [Staff Physician] - Enter time for follow up Prescriptions/Medication Reconciliation: New Pro-Stat AWC 17-100 gram-kcal/30 mL Liquid In Packet 1 ea PO BID Qty: 2880 0RF Xarelto 15 mg tablet 15 mg PO HS Qty: 30 0RF Continued tamsulosin 0.4 mg capsule 0.8 mg PO HS acetaminophen 325 mg Tablet 975 mg PO Q8HP PRN (Reason: MILD PAIN, TEMP >101 OR HEADACHE) clotrimazole-betamethasone 1-0.05 % cream 1 applic TOPICAL BID ondansetron 4 mg tablet,disintegrating 4 mg PO Q6HP PRN (Reason: Nausea And Vomiting) metoprolol tartrate 25 mg tablet 25 mg PO BID sertraline 25 mg tablet 25 mg PO DAILY diclofenac sodium 1 % Gel 2 g TOPICAL BID Rx Instructions: apply to single elbow, wrist or hand; for hand includes palm/fingers/back of hand gabapentin 400 mg Capsule 400 mg PO TID 30 Days Qty: 90 0RF baclofen 10 mg tablet 10 mg PO TID 30 Days Qty: 90 0RF oxycodone 5 mg Tablet 5 mg PO Q8H PRN (Reason: MODERATE TO SEVERE PAIN) 30 Days Qty: 90 0RF clopidogrel 75 mg tablet 75 mg PO DAILY Patient Comments: TAKE ONE TABLET BY MOUTH EVERY DAY FOR BLOOD THINNER pantoprazole 40 mg tablet,delayed release (DR/EC) 40 mg PO DAILY Patient Comments: TAKE ONE (1) TABLET BY MOUTH EVERY DAY FOR REFLUX/ACID REFLUX Changed insulin NPH isoph U-100 human 100 unit/mL (3 mL) Insulin Pen 20 unit SQ BID Qty: 15 0RF Discontinued heparin, porcine (PF) 5,000 unit/0.5 mL Solution 5,000 unit SQ Q8H insulin lispro [Humalog KwikPen Insulin] 100 unit/mL insulin pen 0 unit SQ ACHS Patient Comments: INJECT 55 UNITS SUBCUTANEOUSLY WITH MEALS Problem Reconciliation Problems Reviewed?: Yes Patient Discharge Instructions ACTIVITY: Continue current activity DIET: continue same diet Patient Instructions: DI for Pressure Injuries Print Language: Guamanian Providers Primary Care Provider: Cecilio Garza Admit Provider: Omar Murguia Attending Provider: Omar Murguia
[2024-04-22] MEDS: DAPTOmycin 500 MG in 0.9 % SODIUM CHLORIDE 50 ML 100 MG IV (11:08)
[2024-04-22 11:16] LABS: POC Glucose,Bedside 214 (70-110)
--- NOTE | 2024-04-22 15:34 | PC.NURSE ---
called [facility] to make appointment. they called back with appointment with surgeon 04/30 at 10:30
[2024-04-22 16:00] VITALS: BP 135/68; PULSE 98; RESP 19; TEMP 36.7; O2SAT 94
--- NOTE | 2024-04-22 16:37 | PC.NURSE ---
pt is resting in bed. alert and oriented x4. eating and drinking well. pt gets easily annoyed with staff when providing care. turned and repositioned frequently. dressing to sacral ulcer changed. abdomen soft/non tender with active bowel sounds. ostomy noted and emptied this shift. lung sounds clear. heel protectors in place and heels elevated with pillows. pt refused afternoon glucose check. report called to [facility]. ambulance notified.
== END 2024-04-22 17:10 ==
LOC: ER 18:20 → 2ND 18:40
PROVIDERS: Physician Assistant; Admitting Provider Student in an Organized Health Care Education/Training Program; Emergency Provider Student in an Organized Health Care Education/Training Program; PCP Family Medicine; Visit Provider Student in an Organized Health Care Education/Training Program
DX: L89.154 Pressure ulcer of sacral region, stage 4 (principal); G82.20 Paraplegia, unspecified; R73.9 Hyperglycemia, unspecified; I11.0 Hypertensive heart disease with heart failure; G89.29 Other chronic pain; E11.69 Type 2 diabetes mellitus with other specified complication; M1A.9XX0 Chronic gout, unspecified, without tophus (tophi); Z68.29 Body mass index [BMI] 29.0-29.9, adult; Z86.16 Personal history of COVID-19; I50.22 Chronic systolic (congestive) heart failure; Z79.899 Other long term (current) drug therapy; Z74.1 Need for assistance with personal care; Z79.4 Long term (current) use of insulin; I25.10 Atherosclerotic heart disease of native coronary artery without angina pectoris; T14.8XXS Other injury of unspecified body region, sequela; Z93.3 Colostomy status; E43 Unspecified severe protein-calorie malnutrition; Z86.711 Personal history of pulmonary embolism; Z79.01 Long term (current) use of anticoagulants
CPT/HCPCS: 36415; 71045; 74177; 80053; 81001; 82962; 83036; 84443; 85025; 85651; 86140; 86803; 87086; 87389; 93005; 97110; 97140; 97162; 97165; 97530; 99285; G0378; J0878; J1642; J2060; J2405; J2543; Q9967